=== PATIENT | male | born 1955 | race Hispanic/Latino ===

== ENCOUNTER 2017-06-20 13:08 | Inpatient (IN) | payer OTHER, BC ==
[2017-06-20 13:11] VITALS: BMI 25.1
[2017-06-20] MEDS ORDERED: Sodium Chloride 0.9% 2,000 ML IV ONE (13:24)
[2017-06-20] MEDS ORDERED: DOBUTamine 500mg/250ml D5W 500 MG/250 ML BAG IV SCH (13:30)
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
[2017-06-20 13:40] LABS: BASO % 0.3 % (0.0-2.0); EOS # 0.1 K/uL (0.0-0.7); HEMATOCRIT 29.1 % (35.0-51.0); LYMPH # 2.5 K/uL (1.0-4.3); LYMPH % 41.8 % (20.0-40.0); MEAN CORPUSCULAR HEMOGLOBIN 19.4 pg (27.0-31.0); MEAN CORPUSCULAR HGB CONC 30.4 g/dL (33.0-37.0); MEAN PLATELET VOLUME 8.4 fL (7.2-11.7); MONO # 0.4 K/uL (0.0-0.8); MONO % 6.4 % (0.0-10.0); NRBC % 0.6 % (0.0-2.0); RED CELL DISTRIBUTION WIDTH 16.3 % (11.5-14.5); WHITE BLOOD COUNT 6.1 K/uL (4.8-10.8)
[2017-06-20 13:42] LABS: MEAN CELL VOLUME 63.6 fL (80.0-94.0)
[2017-06-20 13:48] LABS: INR 1.2
[2017-06-20 13:53] LABS: ALKALINE PHOSPHATASE 67 U/L (38-126); ALT/SGPT 44 U/L (21-72); AST/SGOT 44 U/L (17-59); BILIRUBIN,TOTAL 1.1 mg/dL (0.2-1.3); BLOOD UREA NITROGEN 23 mg/dL (9-20); CALCIUM 7.9 mg/dl (8.6-10.4); CARBON DIOXIDE 18 mmol/L (22-30); CHLORIDE 100 mmol/L (98-107); CHOLESTEROL 128 mg/dL (0-199); GFR AFRICAN-AMERICAN > 60; GLUCOSE,RANDOM 220 mg/dL (75-110); POTASSIUM 4.3 mmol/L (3.6-5.2); SODIUM 134 mmol/L (132-148)
[2017-06-20 13:57] LABS: ALB/GLOB RATIO 1.7 (1.0-2.1)
--- NOTE | 2017-06-20 13:58 | RAD ---
HISTORY: s/p intubation COMPARISON: No prior. FINDINGS: LUNGS: The endotracheal tube is at the level of the clavicles 7.7 cm above the skip PLEURA: No significant pleural effusion identified, no pneumothorax apparent. CARDIOVASCULAR: Severe cardiomegaly. Dual lead pacemaker. Sternal wires OSSEOUS STRUCTURES: No significant abnormalities. VISUALIZED UPPER ABDOMEN: Normal. OTHER FINDINGS: None. IMPRESSION: The endotracheal tube is at the level of the clavicles 7.7 cm above the skip
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
[2017-06-20] MEDS ORDERED: DOPamine 400mg/250ml D5W 400 MG/250 ML BAG IV ONE (14:56)
[2017-06-20] MEDS ORDERED: DOPamine 400mg/250ml D5W 400 MG/250 ML BAG IV PRN (15:22)
[2017-06-20 15:36] LABS: ABG MECHANICAL RATE 24; ARTERIAL BLOOD GAS MODE A/C; ATERIAL BLOOD GAS PEEP 5; DRAW SITE LBA
[2017-06-20] MEDS ORDERED: Sodium Bicarbonate (8.4%) 50 Meq Syringe IVP STA (15:37)
[2017-06-20] MEDS ORDERED: Sodium Bicarbonate (8.4%) 50 Meq Syringe ONE (15:40)
[2017-06-20 15:42] LABS: ABG MECHANICAL RATE 24; ARTERIAL BLOOD GAS MODE A/C; ATERIAL BLOOD GAS PEEP 5; DRAW SITE FEMORAL
--- NOTE | 2017-06-20 15:50 | RAD ---
HISTORY: et tube placement COMPARISON: 06/20/2017 at 1:37 p.m. FINDINGS: LUNGS: No pulmonary infiltrate. Minimal linear atelectasis at right base. PLEURA: Minimal blunting of left costophrenic angle may reflect pleural effusion or chronic pleural thickening. No evidence of right pleural effusion. CARDIOVASCULAR: Mild cardiomegaly. Endotracheal tube with tip roughly 6.4 cm above tracheal skip. Permanent pacemaker. OSSEOUS STRUCTURES: No significant abnormalities. VISUALIZED UPPER ABDOMEN: Normal. OTHER FINDINGS: None. IMPRESSION: Endotracheal tube tip appropriately positioned approximately 6.4 cm above tracheal skip.
[2017-06-20 15:53] LABS: BASO % 0.2 % (0.0-2.0); EOS % 0.3 % (0.0-4.0); HEMATOCRIT 30.7 % (35.0-51.0); LYMPH # 0.8 K/uL (1.0-4.3); LYMPH % 6.5 % (20.0-40.0); MEAN CORPUSCULAR HEMOGLOBIN 19.2 pg (27.0-31.0); MEAN CORPUSCULAR HGB CONC 31.3 g/dL (33.0-37.0); MEAN PLATELET VOLUME 9.1 fL (7.2-11.7); MONO # 0.8 K/uL (0.0-0.8); NRBC % 0.2 % (0.0-2.0); PLATELET COUNT 141 K/uL (130-400); RED CELL DISTRIBUTION WIDTH 16.3 % (11.5-14.5); WHITE BLOOD COUNT 12.8 K/uL (4.8-10.8)
[2017-06-20 15:54] LABS: MEAN CELL VOLUME 61.3 fL (80.0-94.0)
[2017-06-20 16:23] LABS: ALB/GLOB RATIO 1.1 (1.0-2.1); ALKALINE PHOSPHATASE 89 U/L (38-126); ALT/SGPT 60 U/L (21-72); AST/SGOT 59 U/L (17-59); BILIRUBIN,TOTAL 0.9 mg/dL (0.2-1.3); BLOOD UREA NITROGEN 26 mg/dL (9-20); CALCIUM 7.4 mg/dl (8.6-10.4); CARBON DIOXIDE 17 mmol/L (22-30); CHLORIDE 103 mmol/L (98-107); GFR AFRICAN-AMERICAN > 60; GLUCOSE,RANDOM 199 mg/dL (75-110); MAGNESIUM 1.7 mg/dL (1.6-2.3); PHOSPHOROUS 5.3 mg/dL (2.5-4.5); SODIUM 133 mmol/L (132-148); TOTAL PROTEIN 7.3 g/dL (6.3-8.3)
[2017-06-20 16:34] LABS: NEUTROPHIL 83 % (50-75); TOTAL CELLS COUNTED 100
[2017-06-20] MEDS: Sodium Chloride 0.9% 1,000 ML IV SCH (17:00)
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
[2017-06-20] MEDS ORDERED: Vecuronium 10 mg Inj IV ONE (17:41)
[2017-06-20] MEDS: Norepinephrine 8 MG in Dextrose 5% In Water 242 ML IV PRN (17:49)
[2017-06-20] MEDS: cefTRIAXone IV 1 gm in Dextros 50 ML IVPB SCH (17:50)
[2017-06-20] MEDS: DEXTROSE 5% IVPB SCH (18:41)
[2017-06-20] MEDS: WATER IVPB SCH (18:41)
[2017-06-20] MEDS: LEVETIRACETAM IVPB SCH (18:41)
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
[2017-06-20] MEDS ORDERED: Propofol 10 mg/ml Inj (100 ml) IV SCH (19:45)
[2017-06-20 20:00] LABS: ABG MECHANICAL RATE 24; ARTERIAL BLOOD GAS MODE A/C; ARTERIAL BLOOD HGB O2 SAT 97.6 % (95.0-98.0); ATERIAL BLOOD GAS PEEP 5; CARBOXYHEMOGLOBIN 0.7 % (0.5-1.5); DRAW SITE LBA; HHB 0.9 % (0.0-5.0); METHEMOGLOBIN 0.8 % (0.0-3.0)
[2017-06-20] MEDS: Propofol 10 mg/ml 1,000 MG/100 ML VIAL IV PRN (20:05)
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
[2017-06-20 20:22] LABS: BASO % 0.1 % (0.0-2.0); HEMATOCRIT 29.8 % (35.0-51.0); LYMPH # 0.8 K/uL (1.0-4.3); LYMPH % 4.1 % (20.0-40.0); MEAN CELL VOLUME 61.8 fL (80.0-94.0); MEAN CORPUSCULAR HEMOGLOBIN 19.1 pg (27.0-31.0); MEAN CORPUSCULAR HGB CONC 30.9 g/dL (33.0-37.0); MEAN PLATELET VOLUME 8.5 fL (7.2-11.7); MONO % 10.5 % (0.0-10.0); NRBC % 0.1 % (0.0-2.0); PLATELET COUNT 183 K/uL (130-400); RED CELL DISTRIBUTION WIDTH 16.2 % (11.5-14.5)
[2017-06-20 20:47] LABS: NEUTROPHIL 82 % (50-75); TOTAL CELLS COUNTED 100
--- NOTE | 2017-06-20 20:51 | CARD ---
APPROVED REPORT EXAM: Two-dimensional and M-mode echocardiogram with Doppler and color Doppler. INDICATION V-Fib Arrest w/ ROSC/ Code blue 2D DIMENSIONS IVSd0.9 (0.7-1.1cm)LVDd6.0 (3.9-5.9cm) PWd0.8 (0.7-1.1cm)LVDs4.3 (2.5-4.0cm) FS (%) 27.5 %LVEF (%)54.5 (>50%) M-Mode DIMENSIONS Left Atrium (MM)4.10 (2.5-4.0cm)Aortic Root3.47 (2.2-3.7cm) Aortic Cusp Exc.2.91 (1.5-2.0cm) Mitral Valve MV E Vujkxuhw207.7cm/sMV E Peak Gr.12mmHgMV A Mifdpodq65.3cm/s MV E Mean Gr.3mmHgMV [id number] ratio1.9 MVA (PHT)1.49cm2 TDI E/Lateral E'0.0E/Medial E'0.0 Tricuspid Valve TR Peak Pshzqcag592ea/sTR Peak Gr.[id number] <Conclusion> Left ventricle: thickness: normal; size: dilatedl; overall ejection fraction: 60%: diastolic filling pressures: elevated Mitral valve: Bioprostheses in situ; leaflets: normal: excursion: normal; 12mmHg trans-mitral gradient: No significant incompetence: left atrium: normal Aortic valve: leaflets: normal: excursion: normal; no significant trans-aortic gradient: No significant incompetence: aortic root: normal Right sided Structures: Pacing lead; RV hypokinesis diffuse; linear echo density i n the psoterior right atrium likley right atrial lead Pulmonary valve: normal; mild incompetence; Tricuspid valve: normal;mild incompetence:12 mmHg transtricuspid gradient; leaflet excursion and morphology was indeterminate Intra-cardiac hemodynamics: pulmonary systolic pressures:40-45mmHg; central venous pressures: elevated No pericardial effusion
[2017-06-20 20:55] LABS: ALB/GLOB RATIO 1.1 (1.0-2.1); BILIRUBIN,TOTAL 0.9 mg/dL (0.2-1.3); CALCIUM 7.6 mg/dl (8.6-10.4); MAGNESIUM 1.6 mg/dL (1.6-2.3); PHOSPHOROUS 3.5 mg/dL (2.5-4.5); POTASSIUM 4.3 mmol/L (3.6-5.2); TOTAL PROTEIN 7.4 g/dL (6.3-8.3); TROPONIN I 6.33 ng/mL (0.00-0.120)
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
[2017-06-21] MEDS: Propofol 10 mg/ml 1,000 MG/100 ML VIAL IV PRN ×2 (02:19→12:15)
[2017-06-21] MEDS: Sodium Chloride 0.9% 1,000 ML IV SCH ×3 (02:21→14:19)
[2017-06-21] MEDS: cefTRIAXone IV 1 gm in Dextros 50 ML IVPB SCH ×2 (05:03→17:30)
[2017-06-21] MEDS: DEXTROSE 5% IVPB SCH ×2 (05:03→18:09)
[2017-06-21] MEDS: LEVETIRACETAM IVPB SCH ×2 (05:03→18:09)
[2017-06-21] MEDS: WATER IVPB SCH ×2 (05:03→18:09)
[2017-06-21 05:50] LABS: ABG MECHANICAL RATE 24; ARTERIAL BLOOD GAS MODE PRVC; ATERIAL BLOOD GAS PEEP 5; DRAW SITE RB
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
[2017-06-21 06:47] LABS: LYMPH # 0.5 K/uL (1.0-4.3); LYMPH % 5.8 % (20.0-40.0); MEAN CELL VOLUME 61.1 fL (80.0-94.0); MEAN CORPUSCULAR HEMOGLOBIN 19.5 pg (27.0-31.0); MEAN CORPUSCULAR HGB CONC 31.9 g/dL (33.0-37.0); MEAN PLATELET VOLUME 8.8 fL (7.2-11.7); MONO # 0.7 K/uL (0.0-0.8); MONO % 8.1 % (0.0-10.0); NRBC % 0.1 % (0.0-2.0); PLATELET COUNT 85 K/uL (130-400); RED CELL DISTRIBUTION WIDTH 15.9 % (11.5-14.5); WHITE BLOOD COUNT 8.2 K/uL (4.8-10.8)
[2017-06-21 06:58] LABS: ALKALINE PHOSPHATASE 79 U/L (38-126); ALT/SGPT 61 U/L (21-72); AST/SGOT 87 U/L (17-59); BILIRUBIN,TOTAL 1.2 mg/dL (0.2-1.3); BLOOD UREA NITROGEN 36 mg/dL (9-20); CALCIUM 7.8 mg/dl (8.6-10.4); CARBON DIOXIDE 20 mmol/L (22-30); CHLORIDE 105 mmol/L (98-107); GFR AFRICAN-AMERICAN > 60; GLUCOSE,RANDOM 108 mg/dL (75-110); MAGNESIUM 1.7 mg/dL (1.6-2.3); PHOSPHOROUS 1.9 mg/dL (2.5-4.5); POTASSIUM 4.2 mmol/L (3.6-5.2); SODIUM 134 mmol/L (132-148); TOTAL PROTEIN 6.5 g/dL (6.3-8.3)
[2017-06-21 08:31] LABS: NEUTROPHIL 82 % (50-75); TOTAL CELLS COUNTED 100
--- NOTE | 2017-06-21 08:34 | CP.CCUPN ---
<Radames Winston - Last Filed: 06/21/17 15:16> CCU Subjective - Physician Review Subjective (Free Text): PGY1 ICU progress note for Dr. Benz Patient seen and examined at bedside this morning. No acute events over night. Patient intubated. ROS unattainable. CCU Objective - Vital Signs / Intake & Output Vital Signs (Last 4 hours): Vital Signs Temp Pulse Resp BP Pulse Ox 06/21/17 08:00 92.0 F L 60 24 109/49 L 100 06/21/17 07:54 61 24 109/49 L 100 06/21/17 07:24 60 24 112/47 L 87 L 06/21/17 07:00 33.7 F L 62 24 117/46 L 87 L 06/21/17 06:54 60 18 117/46 L 85 L 06/21/17 06:24 60 18 116/40 L 80 L 06/21/17 06:00 33.6 F L 60 25 H 107/41 L 06/21/17 05:55 60 24 107/41 L 06/21/17 05:40 61 24 96/54 L 83 L 06/21/17 05:37 60 24 83/51 L 06/21/17 05:25 60 0 L 117/27 L 06/21/17 05:00 33.5 F L 60 24 150/62 97 06/21/17 04:54 61 24 150/62 96 Intake and Output (Last 8hrs): Intake & Output 06/20/17 06/21/17 06/21/17 22:59 06:59 14:59 Intake Total 712.8 1091.4 227.0 Output Total 370 250 220 Balance 342.8 841.4 7.0 Weight 176 lb 5.917 oz 176 lb 5.917 oz Intake: IV 15.0 212 Intake, IV Amount 697.8 879.4 227.0 Right Distal Port Femoral 311.3 700 200 Right Medial Port Femoral 272.5 41.9 8 Right Proximal Port 102 107.5 19.0 Femoral Rt Distal y-site 12 30 Output: Urine 370 250 220 Urethral (Lock) 370 250 220 Other: # Bowel Movements 0 - Physical Exam Physical Exam Limitations: Positive for: Altered Mental Status Head: Positive for: Atraumatic, Normocephalic Pupils: Positive for: Non-Reactive, Pinpoint Conjunctiva: Positive for: Normal Mouth: Positive for: Other (intubated) Nose (Internal): Positive for: No Active Bleeding, Other (dried blood) Neck: Positive for: Trachea Midline Respiratory/Chest: Positive for: Clear to Auscultation, Good Air Exchange. Negative for: Respiratory Distress, Accessory Muscle Use, Wheezes, Rales Cardiovascular: Positive for: Other (paced rhythm at 60bpm) Abdomen: Positive for: Other (active cooling wrap on). Negative for: Distention , Peritoneal Signs, Guarding Upper Extremity: Negative for: Edema Lower Extremity: Positive for: Other (active cooling wraps on) Neurological: Positive for: Other (non-responsive to pain. no gag reflex on suction). Negative for: GCS=15 Skin: Positive for: Dry Psychiatric: Negative for: Alert, Oriented x 3 - Medications Active Medications: Active Medications Generic Name Dose Route Start Last Admin Trade Name Freq PRN Reason Stop Dose Admin Amiodarone HCl 900 mg/ 500 mls @ 16.66 mls/hr 06/20/17 16:22 Dextrose IV 06/21/17 16:21 .Q24H ONE Protocol 0.5 MG/MIN Ceftriaxone Sodium 50 mls @ 100 mls/hr 06/20/17 18:00 06/21/17 05:03 Rocephin Iv 1 Gm Duplex IVPB 100 mls/hr Q12H EMERY Administration Levetiracetam 250 mg/ Dextrose 52.5 mls @ 420 mls/hr 06/20/17 18:00 06/21/17 05:03 IVPB 420 mls/hr Q12H EMERY Administration Norepinephrine Bitartrate 8 mg 250 mls @ 7.5 mls/hr 06/20/17 17:16 06/21/17 05:02 / Dextrose IV 0 mcg/min .Q24H PRN 0 mls/hr TITRATE PER MD ORDER Titration Protocol 4 MCG/MIN Sodium Chloride 1,000 mls @ 100 mls/hr 06/20/17 18:30 06/21/17 05:04 Sodium Chloride 0.9% IV Not Given .Q10H EMERY Propofol 1,000 mg in 100 mls @ 2.4 mls/hr 06/20/17 19:41 06/21/17 05:26 Diprivan IV 20 mcg/kg/min .Q24H PRN 9.6 mls/hr TITRATE PER MD ORDER Titration Protocol 5 MCG/KG/MIN Morphine Sulfate 250 mg/ 250 mls @ 4 mls/hr 06/20/17 20:45 06/20/17 20:54 Sodium Chloride IV 4 ml/hr .Q24H EMERY 4 mls/hr Protocol Administration Lorazepam 1 mg 06/20/17 17:09 06/20/17 17:10 Ativan IVP 1 mg Q4H PRN Administration Anxiety - Patient Studies Lab Studies: Lab Studies 06/21/17 06/21/17 06/21/17 Range/Units 08:19 07:05 06:43 WBC 8.2 D (4.8-10.8) K/uL RBC 4.41 (4.40-5.90) Mil/uL Hgb 8.6 L (12.0-18.0) g/dL Hct 27.0 L (35.0-51.0) % MCV 61.1 L (80.0-94.0) fL MCH 19.5 L (27.0-31.0) pg MCHC 31.9 L (33.0-37.0) g/dL RDW 15.9 H (11.5-14.5) % Plt Count 85 L D (130-400) K/uL MPV 8.8 (7.2-11.7) fL Neut % (Auto) 86.1 H (50.0-75.0) % Lymph % (Auto) 5.8 L (20.0-40.0) % [place] % (Auto) 8.1 (0.0-10.0) % Eos % (Auto) 0.0 (0.0-4.0) % Baso % (Auto) 0.0 (0.0-2.0) % Neut # 7.1 H (1.8-7.0) K/uL Lymph # 0.5 L (1.0-4.3) K/uL [place] # 0.7 (0.0-0.8) K/uL Eos # 0.0 (0.0-0.7) K/uL Baso # 0.0 (0.0-0.2) K/uL Neutrophils % (Manual) 82 H (50-75) % Band Neutrophils % 6 H (0-2) % Lymphocytes % (Manual) 6 L (20-40) % Monocytes % (Manual) 6 (0-10) % Differential Comment Platelet Estimate Decreased L (NORMAL) Hypochromasia (manual) Slight Poikilocytosis (manual Slight Anisocytosis (manual) Slight Microcytosis (manual) Target Cells Tear Drop Cells Slight Ovalocytes [place] Cells Slight PT (9.7-12.2) SECONDS INR APTT (21-34) SECONDS Puncture Site pCO2 (35-45) mm/Hg pO2 (80-100) mm/Hg HCO3 (21-28) mmol/L ABG pH (7.35-7.45) ABG Total CO2 (22-28) mmol/L ABG O2 Saturation (95-98) % ABG Base Excess (-2.0-3.0) mmol/L ABG Hemoglobin (11.7-17.4) g/dL ABG Carboxyhemoglobin (0.5-1.5) % POC ABG HHb (Measured) (0.0-5.0) % ABG Methemoglobin (0.0-3.0) % Shankar Test ABG Potassium (3.6-5.2) mmol/L A-a O2 Difference mm/Hg Respiratory Index Hgb O2 Saturation (95.0-98.0) % Glucose (75-110) mg/dl Lactate (0.7-2.1) mmol/L Vent Mode Mechanical Rate FiO2 % Tidal Volume PEEP Crit Value Called To Crit Value Called By Crit Value Read Back Blood Gas Notified Time Sodium (132-148) mmol/L Potassium (3.6-5.2) mmol/L Chloride (98-107) mmol/L Carbon Dioxide (22-30) mmol/L Anion Gap (10-20) BUN (9-20) mg/dL Creatinine (0.8-1.5) mg/dL Est GFR ( Amer) Est GFR (Non-Af Amer) POC Glucose (mg/dL) 144 H 132 H (65-110) mg/dL Random Glucose (75-110) mg/dL Calcium (8.6-10.4) mg/dl Phosphorus (2.5-4.5) mg/dL Magnesium (1.6-2.3) mg/dL Total Bilirubin (0.2-1.3) mg/dL AST (17-59) U/L ALT (21-72) U/L Alkaline Phosphatase (38-126) U/L Total Creatine Kinase (55-170) U/L CK-MB (Mass) (0.0-3.38) ng/mL Troponin I (0.00-0.120) ng/mL Total Protein (6.3-8.3) g/dL Albumin (3.5-5.0) g/dL Globulin (2.2-3.9) gm/dL Albumin/Globulin Ratio (1.0-2.1) Triglycerides (0-149) mg/dL Cholesterol (0-199) mg/dL LDL Cholesterol Direct (0-129) mg/dL HDL Cholesterol (30-70) mg/dL Arterial Blood Potassium (3.6-5.2) mmol/L Blood Type Antibody Screen 06/21/17 06/21/17 06/21/17 Range/Units 06:36 06:07 05:39 WBC (4.8-10.8) K/uL RBC (4.40-5.90) Mil/uL Hgb (12.0-18.0) g/dL Hct (35.0-51.0) % MCV (80.0-94.0) fL MCH (27.0-31.0) pg MCHC (33.0-37.0) g/dL RDW (11.5-14.5) % Plt Count (130-400) K/uL MPV (7.2-11.7) fL Neut % (Auto) (50.0-75.0) % Lymph % (Auto) (20.0-40.0) % [place] % (Auto) (0.0-10.0) % Eos % (Auto) (0.0-4.0) % Baso % (Auto) (0.0-2.0) % Neut # (1.8-7.0) K/uL Lymph # (1.0-4.3) K/uL [place] # (0.0-0.8) K/uL Eos # (0.0-0.7) K/uL Baso # (0.0-0.2) K/uL Neutrophils % (Manual) (50-75) % Band Neutrophils % (0-2) % Lymphocytes % (Manual) (20-40) % Monocytes % (Manual) (0-10) % Differential Comment Platelet Estimate (NORMAL) Hypochromasia (manual) Poikilocytosis (manual Anisocytosis (manual) Microcytosis (manual) Target Cells Tear Drop Cells Ovalocytes [place] Cells PT (9.7-12.2) SECONDS INR APTT (21-34) SECONDS Puncture Site Rb pCO2 26 L (35-45) mm/Hg pO2 535 H (80-100) mm/Hg HCO3 21.6 (21-28) mmol/L ABG pH 7.45 (7.35-7.45) ABG Total CO2 18.9 L (22-28) mmol/L ABG O2 Saturation 98.7 H (95-98) % ABG Base Excess -4.3 L (-2.0-3.0) mmol/L ABG Hemoglobin (11.7-17.4) g/dL ABG Carboxyhemoglobin (0.5-1.5) % POC ABG HHb (Measured) (0.0-5.0) % ABG Methemoglobin (0.0-3.0) % Shankar Test Na ABG Potassium 4.1 (3.6-5.2) mmol/L A-a O2 Difference 146.0 mm/Hg Respiratory Index 0.3 Hgb O2 Saturation (95.0-98.0) % Glucose 139 H (75-110) mg/dl Lactate 1.1 (0.7-2.1) mmol/L Vent Mode Prvc Mechanical Rate 24 FiO2 100.0 % Tidal Volume 500 PEEP 5 Crit Value Called To Crit Value Called By Crit Value Read Back Blood Gas Notified Time Sodium 134 137.0 (132-148) mmol/L Potassium 4.2 (3.6-5.2) mmol/L Chloride 105 110.0 H (98-107) mmol/L Carbon Dioxide 20 L (22-30) mmol/L Anion Gap 14 (10-20) BUN 36 H (9-20) mg/dL Creatinine 1.3 (0.8-1.5) mg/dL Est GFR ( Amer) > 60 Est GFR (Non-Af Amer) 56 POC Glucose (mg/dL) 129 H (65-110) mg/dL Random Glucose 108 (75-110) mg/dL Calcium 7.8 L (8.6-10.4) mg/dl Phosphorus 1.9 L (2.5-4.5) mg/dL Magnesium 1.7 (1.6-2.3) mg/dL Total Bilirubin 1.2 (0.2-1.3) mg/dL AST 87 H (17-59) U/L ALT 61 (21-72) U/L Alkaline Phosphatase 79 (38-126) U/L Total Creatine Kinase (55-170) U/L CK-MB (Mass) (0.0-3.38) ng/mL Troponin I (0.00-0.120) ng/mL Total Protein 6.5 (6.3-8.3) g/dL Albumin 3.3 L (3.5-5.0) g/dL Globulin 3.2 (2.2-3.9) gm/dL Albumin/Globulin Ratio 1.0 (1.0-2.1) Triglycerides (0-149) mg/dL Cholesterol (0-199) mg/dL LDL Cholesterol Direct (0-129) mg/dL HDL Cholesterol (30-70) mg/dL Arterial Blood Potassium 4.1 (3.6-5.2) mmol/L Blood Type Antibody Screen 06/21/17 06/21/17 06/21/17 Range/Units 05:16 04:18 03:24 WBC (4.8-10.8) K/uL RBC (4.40-5.90) Mil/uL Hgb (12.0-18.0) g/dL Hct (35.0-51.0) % MCV (80.0-94.0) fL MCH (27.0-31.0) pg MCHC (33.0-37.0) g/dL RDW (11.5-14.5) % Plt Count (130-400) K/uL MPV (7.2-11.7) fL Neut % (Auto) (50.0-75.0) % Lymph % (Auto) (20.0-40.0) % [place] % (Auto) (0.0-10.0) % Eos % (Auto) (0.0-4.0) % Baso % (Auto) (0.0-2.0) % Neut # (1.8-7.0) K/uL Lymph # (1.0-4.3) K/uL [place] # (0.0-0.8) K/uL Eos # (0.0-0.7) K/uL Baso # (0.0-0.2) K/uL Neutrophils % (Manual) (50-75) % Band Neutrophils % (0-2) % Lymphocytes % (Manual) (20-40) % Monocytes % (Manual) (0-10) % Differential Comment Platelet Estimate (NORMAL) Hypochromasia (manual) Poikilocytosis (manual Anisocytosis (manual) Microcytosis (manual) Target Cells Tear Drop Cells Ovalocytes [place] Cells PT (9.7-12.2) SECONDS INR APTT (21-34) SECONDS Puncture Site pCO2 (35-45) mm/Hg pO2 (80-100) mm/Hg HCO3 (21-28) mmol/L ABG pH (7.35-7.45) ABG Total CO2 (22-28) mmol/L ABG O2 Saturation (95-98) % ABG Base Excess (-2.0-3.0) mmol/L ABG Hemoglobin (11.7-17.4) g/dL ABG Carboxyhemoglobin (0.5-1.5) % POC ABG HHb (Measured) (0.0-5.0) % ABG Methemoglobin (0.0-3.0) % Shankar Test ABG Potassium (3.6-5.2) mmol/L A-a O2 Difference mm/Hg Respiratory Index Hgb O2 Saturation (95.0-98.0) % Glucose (75-110) mg/dl Lactate (0.7-2.1) mmol/L Vent Mode Mechanical Rate FiO2 % Tidal Volume PEEP Crit Value Called To Crit Value Called By Crit Value Read Back Blood Gas Notified Time Sodium (132-148) mmol/L Potassium (3.6-5.2) mmol/L Chloride (98-107) mmol/L Carbon Dioxide (22-30) mmol/L Anion Gap (10-20) BUN (9-20) mg/dL Creatinine (0.8-1.5) mg/dL Est GFR ( Amer) Est GFR (Non-Af Amer) POC Glucose (mg/dL) 108 117 H 134 H (65-110) mg/dL Random Glucose (75-110) mg/dL Calcium (8.6-10.4) mg/dl Phosphorus (2.5-4.5) mg/dL Magnesium (1.6-2.3) mg/dL Total Bilirubin (0.2-1.3) mg/dL AST (17-59) U/L ALT (21-72) U/L Alkaline Phosphatase (38-126) U/L Total Creatine Kinase (55-170) U/L CK-MB (Mass) (0.0-3.38) ng/mL Troponin I (0.00-0.120) ng/mL Total Protein (6.3-8.3) g/dL Albumin (3.5-5.0) g/dL Globulin (2.2-3.9) gm/dL Albumin/Globulin Ratio (1.0-2.1) Triglycerides (0-149) mg/dL Cholesterol (0-199) mg/dL LDL Cholesterol Direct (0-129) mg/dL HDL Cholesterol (30-70) mg/dL Arterial Blood Potassium (3.6-5.2) mmol/L Blood Type Antibody Screen 06/21/17 06/21/17 06/20/17 Range/Units 02:12 01:00 23:55 WBC (4.8-10.8) K/uL RBC (4.40-5.90) Mil/uL Hgb (12.0-18.0) g/dL Hct (35.0-51.0) % MCV (80.0-94.0) fL MCH (27.0-31.0) pg MCHC (33.0-37.0) g/dL RDW (11.5-14.5) % Plt Count (130-400) K/uL MPV (7.2-11.7) fL Neut % (Auto) (50.0-75.0) % Lymph % (Auto) (20.0-40.0) % [place] % (Auto) (0.0-10.0) % Eos % (Auto) (0.0-4.0) % Baso % (Auto) (0.0-2.0) % Neut # (1.8-7.0) K/uL Lymph # (1.0-4.3) K/uL [place] # (0.0-0.8) K/uL Eos # (0.0-0.7) K/uL Baso # (0.0-0.2) K/uL Neutrophils % (Manual) (50-75) % Band Neutrophils % (0-2) % Lymphocytes % (Manual) (20-40) % Monocytes % (Manual) (0-10) % Differential Comment Platelet Estimate (NORMAL) Hypochromasia (manual) Poikilocytosis (manual Anisocytosis (manual) Microcytosis (manual) Target Cells Tear Drop Cells Ovalocytes [place] Cells PT (9.7-12.2) SECONDS INR APTT (21-34) SECONDS Puncture Site pCO2 (35-45) mm/Hg pO2 (80-100) mm/Hg HCO3 (21-28) mmol/L ABG pH (7.35-7.45) ABG Total CO2 (22-28) mmol/L ABG O2 Saturation (95-98) % ABG Base Excess (-2.0-3.0) mmol/L ABG Hemoglobin (11.7-17.4) g/dL ABG Carboxyhemoglobin (0.5-1.5) % POC ABG HHb (Measured) (0.0-5.0) % ABG Methemoglobin (0.0-3.0) % Shankar Test ABG Potassium (3.6-5.2) mmol/L A-a O2 Difference mm/Hg Respiratory Index Hgb O2 Saturation (95.0-98.0) % Glucose (75-110) mg/dl Lactate (0.7-2.1) mmol/L Vent Mode Mechanical Rate FiO2 % Tidal Volume PEEP Crit Value Called To Crit Value Called By Crit Value Read Back Blood Gas Notified Time Sodium (132-148) mmol/L Potassium (3.6-5.2) mmol/L Chloride (98-107) mmol/L Carbon Dioxide (22-30) mmol/L Anion Gap (10-20) BUN (9-20) mg/dL Creatinine (0.8-1.5) mg/dL Est GFR ( Amer) Est GFR (Non-Af Amer) POC Glucose (mg/dL) 124 H 113 H 104 (65-110) mg/dL Random Glucose (75-110) mg/dL Calcium (8.6-10.4) mg/dl Phosphorus (2.5-4.5) mg/dL Magnesium (1.6-2.3) mg/dL Total Bilirubin (0.2-1.3) mg/dL AST (17-59) U/L ALT (21-72) U/L Alkaline Phosphatase (38-126) U/L Total Creatine Kinase (55-170) U/L CK-MB (Mass) (0.0-3.38) ng/mL Troponin I (0.00-0.120) ng/mL Total Protein (6.3-8.3) g/dL Albumin (3.5-5.0) g/dL Globulin (2.2-3.9) gm/dL Albumin/Globulin Ratio (1.0-2.1) Triglycerides (0-149) mg/dL Cholesterol (0-199) mg/dL LDL Cholesterol Direct (0-129) mg/dL HDL Cholesterol (30-70) mg/dL Arterial Blood Potassium (3.6-5.2) mmol/L Blood Type Antibody Screen 06/20/17 06/20/17 06/20/17 Range/Units 22:54 21:40 20:19 WBC (4.8-10.8) K/uL RBC (4.40-5.90) Mil/uL Hgb (12.0-18.0) g/dL Hct (35.0-51.0) % MCV (80.0-94.0) fL MCH (27.0-31.0) pg MCHC (33.0-37.0) g/dL RDW (11.5-14.5) % Plt Count (130-400) K/uL MPV (7.2-11.7) fL Neut % (Auto) (50.0-75.0) % Lymph % (Auto) (20.0-40.0) % [place] % (Auto) (0.0-10.0) % Eos % (Auto) (0.0-4.0) % Baso % (Auto) (0.0-2.0) % Neut # (1.8-7.0) K/uL Lymph # (1.0-4.3) K/uL [place] # (0.0-0.8) K/uL Eos # (0.0-0.7) K/uL Baso # (0.0-0.2) K/uL Neutrophils % (Manual) (50-75) % Band Neutrophils % (0-2) % Lymphocytes % (Manual) (20-40) % Monocytes % (Manual) (0-10) % Differential Comment Platelet Estimate (NORMAL) Hypochromasia (manual) Poikilocytosis (manual Anisocytosis (manual) Microcytosis (manual) Target Cells Tear Drop Cells Ovalocytes [place] Cells PT (9.7-12.2) SECONDS INR APTT (21-34) SECONDS Puncture Site pCO2 (35-45) mm/Hg pO2 (80-100) mm/Hg HCO3 (21-28) mmol/L ABG pH (7.35-7.45) ABG Total CO2 (22-28) mmol/L ABG O2 Saturation (95-98) % ABG Base Excess (-2.0-3.0) mmol/L ABG Hemoglobin (11.7-17.4) g/dL ABG Carboxyhemoglobin (0.5-1.5) % POC ABG HHb (Measured) (0.0-5.0) % ABG Methemoglobin (0.0-3.0) % Shankar Test ABG Potassium (3.6-5.2) mmol/L A-a O2 Difference mm/Hg Respiratory Index Hgb O2 Saturation (95.0-98.0) % Glucose (75-110) mg/dl Lactate (0.7-2.1) mmol/L Vent Mode Mechanical Rate FiO2 % Tidal Volume PEEP Crit Value Called To Crit Value Called By Crit Value Read Back Blood Gas Notified Time Sodium 137 (132-148) mmol/L Potassium 4.3 (3.6-5.2) mmol/L Chloride 102 (98-107) mmol/L Carbon Dioxide 23 (22-30) mmol/L Anion Gap 15 (10-20) BUN 32 H (9-20) mg/dL Creatinine 1.5 (0.8-1.5) mg/dL Est GFR ( Amer) 58 Est GFR (Non-Af Amer) 48 POC Glucose (mg/dL) 89 107 (65-110) mg/dL Random Glucose 123 H (75-110) mg/dL Calcium 7.6 L (8.6-10.4) mg/dl Phosphorus 3.5 (2.5-4.5) mg/dL Magnesium 1.6 (1.6-2.3) mg/dL Total Bilirubin 0.9 (0.2-1.3) mg/dL AST 80 H D (17-59) U/L ALT 63 (21-72) U/L Alkaline Phosphatase 81 (38-126) U/L Total Creatine Kinase 2174 H (55-170) U/L CK-MB (Mass) 35.2 H (0.0-3.38) ng/mL Troponin I 6.3300 H* (0.00-0.120) ng/mL Total Protein 7.4 (6.3-8.3) g/dL Albumin 3.9 (3.5-5.0) g/dL Globulin 3.5 (2.2-3.9) gm/dL Albumin/Globulin Ratio 1.1 (1.0-2.1) Triglycerides (0-149) mg/dL Cholesterol (0-199) mg/dL LDL Cholesterol Direct (0-129) mg/dL HDL Cholesterol (30-70) mg/dL Arterial Blood Potassium (3.6-5.2) mmol/L Blood Type Antibody Screen 06/20/17 06/20/17 06/20/17 Range/Units 20:19 19:53 15:44 WBC 19.0 H (4.8-10.8) K/uL RBC 4.83 (4.40-5.90) Mil/uL Hgb 9.2 L (12.0-18.0) g/dL Hct 29.8 L (35.0-51.0) % MCV 61.8 L (80.0-94.0) fL MCH 19.1 L (27.0-31.0) pg MCHC 30.9 L (33.0-37.0) g/dL RDW 16.2 H (11.5-14.5) % Plt Count 183 (130-400) K/uL MPV 8.5 (7.2-11.7) fL Neut % (Auto) 85.3 H (50.0-75.0) % Lymph % (Auto) 4.1 L (20.0-40.0) % [place] % (Auto) 10.5 H (0.0-10.0) % Eos % (Auto) 0.0 (0.0-4.0) % Baso % (Auto) 0.1 (0.0-2.0) % Neut # 16.2 H (1.8-7.0) K/uL Lymph # 0.8 L (1.0-4.3) K/uL [place] # 2.0 H (0.0-0.8) K/uL Eos # 0.0 (0.0-0.7) K/uL Baso # 0.0 (0.0-0.2) K/uL Neutrophils % (Manual) 82 H (50-75) % Band Neutrophils % 8 H (0-2) % Lymphocytes % (Manual) 3 L (20-40) % Monocytes % (Manual) 7 (0-10) % Differential Comment Platelet Estimate Normal (NORMAL) Hypochromasia (manual) Slight Poikilocytosis (manual Slight Anisocytosis (manual) Slight Microcytosis (manual) Slight Target Cells Slight Tear Drop Cells Slight Ovalocytes Slight [place] Cells Slight PT (9.7-12.2) SECONDS INR APTT (21-34) SECONDS Puncture Site Lba pCO2 43 (35-45) mm/Hg pO2 (80-100) mm/Hg HCO3 19.2 L (21-28) mmol/L ABG pH 7.26 L (7.35-7.45) ABG Total CO2 20.6 L (22-28) mmol/L ABG O2 Saturation 99.1 H (95-98) % ABG Base Excess -7.4 L (-2.0-3.0) mmol/L ABG Hemoglobin 9.6 L (11.7-17.4) g/dL ABG Carboxyhemoglobin 0.7 (0.5-1.5) % POC ABG HHb (Measured) 0.9 (0.0-5.0) % ABG Methemoglobin 0.8 (0.0-3.0) % Shankar Test Na ABG Potassium (3.6-5.2) mmol/L A-a O2 Difference mm/Hg Respiratory Index Hgb O2 Saturation 97.6 (95.0-98.0) % Glucose (75-110) mg/dl Lactate (0.7-2.1) mmol/L Vent Mode A/c Mechanical Rate 24 FiO2 100.0 % Tidal Volume 500 PEEP 5 Crit Value Called To Crit Value Called By Crit Value Read Back Blood Gas Notified Time Sodium 133 (132-148) mmol/L Potassium 5.0 (3.6-5.2) mmol/L Chloride 103 (98-107) mmol/L Carbon Dioxide 17 L (22-30) mmol/L Anion Gap 18 (10-20) BUN 26 H (9-20) mg/dL Creatinine 1.2 (0.8-1.5) mg/dL Est GFR ( Amer) > 60 Est GFR (Non-Af Amer) > 60 POC Glucose (mg/dL) (65-110) mg/dL Random Glucose 199 H (75-110) mg/dL Calcium 7.4 L (8.6-10.4) mg/dl Phosphorus 5.3 H (2.5-4.5) mg/dL Magnesium 1.7 (1.6-2.3) mg/dL Total Bilirubin 0.9 (0.2-1.3) mg/dL AST 59 D (17-59) U/L ALT 60 (21-72) U/L Alkaline Phosphatase 89 (38-126) U/L Total Creatine Kinase 558 H (55-170) U/L CK-MB (Mass) 18.8 H (0.0-3.38) ng/mL Troponin I 0.7930 H* (0.00-0.120) ng/mL Total Protein 7.3 (6.3-8.3) g/dL Albumin 3.9 (3.5-5.0) g/dL Globulin 3.4 (2.2-3.9) gm/dL Albumin/Globulin Ratio 1.1 (1.0-2.1) Triglycerides (0-149) mg/dL Cholesterol (0-199) mg/dL LDL Cholesterol Direct (0-129) mg/dL HDL Cholesterol (30-70) mg/dL Arterial Blood Potassium (3.6-5.2) mmol/L Blood Type Antibody Screen 06/20/17 06/20/17 06/20/17 Range/Units 15:44 15:38 15:28 WBC 12.8 H D (4.8-10.8) K/uL RBC 5.01 (4.40-5.90) Mil/uL Hgb 9.6 L (12.0-18.0) g/dL Hct 30.7 L (35.0-51.0) % MCV 61.3 L D (80.0-94.0) fL MCH 19.2 L (27.0-31.0) pg MCHC 31.3 L (33.0-37.0) g/dL RDW 16.3 H (11.5-14.5) % Plt Count 141 (130-400) K/uL MPV 9.1 (7.2-11.7) fL Neut % (Auto) 87.0 H (50.0-75.0) % Lymph % (Auto) 6.5 L (20.0-40.0) % [place] % (Auto) 6.0 (0.0-10.0) % Eos % (Auto) 0.3 (0.0-4.0) % Baso % (Auto) 0.2 (0.0-2.0) % Neut # 11.1 H (1.8-7.0) K/uL Lymph # 0.8 L (1.0-4.3) K/uL [place] # 0.8 (0.0-0.8) K/uL Eos # 0.0 (0.0-0.7) K/uL Baso # 0.0 (0.0-0.2) K/uL Neutrophils % (Manual) 83 H (50-75) % Band Neutrophils % 3 H (0-2) % Lymphocytes % (Manual) 7 L (20-40) % Monocytes % (Manual) 7 (0-10) % Differential Comment Platelet Estimate Normal (NORMAL) Hypochromasia (manual) Slight Poikilocytosis (manual Slight Anisocytosis (manual) Moderate Microcytosis (manual) Moderate Target Cells Tear Drop Cells Slight Ovalocytes Slight [place] Cells Slight PT (9.7-12.2) SECONDS INR APTT (21-34) SECONDS Puncture Site Femoral Lba pCO2 37 24 L (35-45) mm/Hg pO2 375 H (80-100) mm/Hg HCO3 19.1 L (21-28) mmol/L ABG pH 7.30 L 7.40 (7.35-7.45) ABG Total CO2 19.3 L 15.6 L (22-28) mmol/L ABG O2 Saturation 99.0 H 98.5 H (95-98) % ABG Base Excess -7.5 L -8.0 L (-2.0-3.0) mmol/L ABG Hemoglobin (11.7-17.4) g/dL ABG Carboxyhemoglobin (0.5-1.5) % POC ABG HHb (Measured) (0.0-5.0) % ABG Methemoglobin (0.0-3.0) % Shankar Test Na Na ABG Potassium 5.3 H 8.2 H* (3.6-5.2) mmol/L A-a O2 Difference 292.0 mm/Hg Respiratory Index 0.8 Hgb O2 Saturation (95.0-98.0) % Glucose 214 H 195 H (75-110) mg/dl Lactate 2.9 H 3.2 H (0.7-2.1) mmol/L Vent Mode A/c A/c Mechanical Rate 24 24 FiO2 100.0 100.0 % Tidal Volume 500 500 PEEP 5 5 Crit Value Called To Dr. boykin Crit Value Called By Marisol rt Crit Value Read Back Y Blood Gas Notified Time 1535 Sodium 135.0 137.0 (132-148) mmol/L Potassium (3.6-5.2) mmol/L Chloride 108.0 H 114.0 H (98-107) mmol/L Carbon Dioxide (22-30) mmol/L Anion Gap (10-20) BUN (9-20) mg/dL Creatinine (0.8-1.5) mg/dL Est GFR ( Amer) Est GFR (Non-Af Amer) POC Glucose (mg/dL) (65-110) mg/dL Random Glucose (75-110) mg/dL Calcium (8.6-10.4) mg/dl Phosphorus (2.5-4.5) mg/dL Magnesium (1.6-2.3) mg/dL Total Bilirubin (0.2-1.3) mg/dL AST (17-59) U/L ALT (21-72) U/L Alkaline Phosphatase (38-126) U/L Total Creatine Kinase (55-170) U/L CK-MB (Mass) (0.0-3.38) ng/mL Troponin I (0.00-0.120) ng/mL Total Protein (6.3-8.3) g/dL Albumin (3.5-5.0) g/dL Globulin (2.2-3.9) gm/dL Albumin/Globulin Ratio (1.0-2.1) Triglycerides (0-149) mg/dL Cholesterol (0-199) mg/dL LDL Cholesterol Direct (0-129) mg/dL HDL Cholesterol (30-70) mg/dL Arterial Blood Potassium 5.3 H 8.2 H* (3.6-5.2) mmol/L Blood Type Antibody Screen 06/20/17 06/20/17 06/20/17 Range/Units 13:36 13:36 13:36 WBC (4.8-10.8) K/uL RBC (4.40-5.90) Mil/uL Hgb (12.0-18.0) g/dL Hct (35.0-51.0) % MCV (80.0-94.0) fL MCH (27.0-31.0) pg MCHC (33.0-37.0) g/dL RDW (11.5-14.5) % Plt Count (130-400) K/uL MPV (7.2-11.7) fL Neut % (Auto) (50.0-75.0) % Lymph % (Auto) (20.0-40.0) % [place] % (Auto) (0.0-10.0) % Eos % (Auto) (0.0-4.0) % Baso % (Auto) (0.0-2.0) % Neut # (1.8-7.0) K/uL Lymph # (1.0-4.3) K/uL [place] # (0.0-0.8) K/uL Eos # (0.0-0.7) K/uL Baso # (0.0-0.2) K/uL Neutrophils % (Manual) (50-75) % Band Neutrophils % (0-2) % Lymphocytes % (Manual) (20-40) % Monocytes % (Manual) (0-10) % Differential Comment Platelet Estimate (NORMAL) Hypochromasia (manual) Poikilocytosis (manual Anisocytosis (manual) Microcytosis (manual) Target Cells Tear Drop Cells Ovalocytes [place] Cells PT 13.4 H (9.7-12.2) SECONDS INR 1.2 APTT 41 H (21-34) SECONDS Puncture Site pCO2 (35-45) mm/Hg pO2 (80-100) mm/Hg HCO3 (21-28) mmol/L ABG pH (7.35-7.45) ABG Total CO2 (22-28) mmol/L ABG O2 Saturation (95-98) % ABG Base Excess (-2.0-3.0) mmol/L ABG Hemoglobin (11.7-17.4) g/dL ABG Carboxyhemoglobin (0.5-1.5) % POC ABG HHb (Measured) (0.0-5.0) % ABG Methemoglobin (0.0-3.0) % Shankar Test ABG Potassium (3.6-5.2) mmol/L A-a O2 Difference mm/Hg Respiratory Index Hgb O2 Saturation (95.0-98.0) % Glucose (75-110) mg/dl Lactate (0.7-2.1) mmol/L Vent Mode Mechanical Rate FiO2 % Tidal Volume PEEP Crit Value Called To Crit Value Called By Crit Value Read Back Blood Gas Notified Time Sodium 134 (132-148) mmol/L Potassium 4.3 (3.6-5.2) mmol/L Chloride 100 (98-107) mmol/L Carbon Dioxide 18 L (22-30) mmol/L Anion Gap 20 (10-20) BUN 23 H (9-20) mg/dL Creatinine 1.2 (0.8-1.5) mg/dL Est GFR ( Amer) > 60 Est GFR (Non-Af Amer) > 60 POC Glucose (mg/dL) (65-110) mg/dL Random Glucose 220 H (75-110) mg/dL Calcium 7.9 L (8.6-10.4) mg/dl Phosphorus (2.5-4.5) mg/dL Magnesium (1.6-2.3) mg/dL Total Bilirubin 1.1 (0.2-1.3) mg/dL AST 44 (17-59) U/L ALT 44 (21-72) U/L Alkaline Phosphatase 67 (38-126) U/L Total Creatine Kinase 109 (55-170) U/L CK-MB (Mass) 2.66 (0.0-3.38) ng/mL Troponin I < 0.0120 (0.00-0.120) ng/mL Total Protein 6.0 L (6.3-8.3) g/dL Albumin 3.8 (3.5-5.0) g/dL Globulin 2.2 (2.2-3.9) gm/dL Albumin/Globulin Ratio 1.7 (1.0-2.1) Triglycerides 126 (0-149) mg/dL Cholesterol 128 (0-199) mg/dL LDL Cholesterol Direct 80 (0-129) mg/dL HDL Cholesterol 28 L (30-70) mg/dL Arterial Blood Potassium (3.6-5.2) mmol/L Blood Type A POSITIVE Antibody Screen Negative 06/20/17 06/20/17 Range/Units 13:36 13:12 WBC 6.1 (4.8-10.8) K/uL RBC 4.57 (4.40-5.90) Mil/uL Hgb 8.9 L (12.0-18.0) g/dL Hct 29.1 L (35.0-51.0) % MCV 63.6 L (80.0-94.0) fL MCH 19.4 L (27.0-31.0) pg MCHC 30.4 L (33.0-37.0) g/dL RDW 16.3 H (11.5-14.5) % Plt Count 144 (130-400) K/uL MPV 8.4 (7.2-11.7) fL Neut % (Auto) 50.5 (50.0-75.0) % Lymph % (Auto) 41.8 H (20.0-40.0) % [place] % (Auto) 6.4 (0.0-10.0) % Eos % (Auto) 1.0 (0.0-4.0) % Baso % (Auto) 0.3 (0.0-2.0) % Neut # 3.1 (1.8-7.0) K/uL Lymph # 2.5 (1.0-4.3) K/uL [place] # 0.4 (0.0-0.8) K/uL Eos # 0.1 (0.0-0.7) K/uL Baso # 0.0 (0.0-0.2) K/uL Neutrophils % (Manual) (50-75) % Band Neutrophils % (0-2) % Lymphocytes % (Manual) (20-40) % Monocytes % (Manual) (0-10) % Differential Comment Platelet Estimate (NORMAL) Hypochromasia (manual) Poikilocytosis (manual Anisocytosis (manual) Microcytosis (manual) Target Cells Tear Drop Cells Ovalocytes [place] Cells PT (9.7-12.2) SECONDS INR APTT (21-34) SECONDS Puncture Site pCO2 (35-45) mm/Hg pO2 (80-100) mm/Hg HCO3 (21-28) mmol/L ABG pH (7.35-7.45) ABG Total CO2 (22-28) mmol/L ABG O2 Saturation (95-98) % ABG Base Excess (-2.0-3.0) mmol/L ABG Hemoglobin (11.7-17.4) g/dL ABG Carboxyhemoglobin (0.5-1.5) % POC ABG HHb (Measured) (0.0-5.0) % ABG Methemoglobin (0.0-3.0) % Shankar Test ABG Potassium (3.6-5.2) mmol/L A-a O2 Difference mm/Hg Respiratory Index Hgb O2 Saturation (95.0-98.0) % Glucose (75-110) mg/dl Lactate (0.7-2.1) mmol/L Vent Mode Mechanical Rate FiO2 % Tidal Volume PEEP Crit Value Called To Crit Value Called By Crit Value Read Back Blood Gas Notified Time Sodium (132-148) mmol/L Potassium (3.6-5.2) mmol/L Chloride (98-107) mmol/L Carbon Dioxide (22-30) mmol/L Anion Gap (10-20) BUN (9-20) mg/dL Creatinine (0.8-1.5) mg/dL Est GFR ( Amer) Est GFR (Non-Af Amer) POC Glucose (mg/dL) 135 H (65-110) mg/dL Random Glucose (75-110) mg/dL Calcium (8.6-10.4) mg/dl Phosphorus (2.5-4.5) mg/dL Magnesium (1.6-2.3) mg/dL Total Bilirubin (0.2-1.3) mg/dL AST (17-59) U/L ALT (21-72) U/L Alkaline Phosphatase (38-126) U/L Total Creatine Kinase (55-170) U/L CK-MB (Mass) (0.0-3.38) ng/mL Troponin I (0.00-0.120) ng/mL Total Protein (6.3-8.3) g/dL Albumin (3.5-5.0) g/dL Globulin (2.2-3.9) gm/dL Albumin/Globulin Ratio (1.0-2.1) Triglycerides (0-149) mg/dL Cholesterol (0-199) mg/dL LDL Cholesterol Direct (0-129) mg/dL HDL Cholesterol (30-70) mg/dL Arterial Blood Potassium (3.6-5.2) mmol/L Blood Type Antibody Screen Laboratory Results - last 24 hr 06/20/17 06/20/17 06/20/17 13:12 13:36 13:36 WBC 6.1 RBC 4.57 Hgb 8.9 L Hct 29.1 L MCV 63.6 L MCH 19.4 L MCHC 30.4 L RDW 16.3 H Plt Count 144 MPV 8.4 Neut % (Auto) 50.5 Lymph % (Auto) 41.8 H [place] % (Auto) 6.4 Eos % (Auto) 1.0 Baso % (Auto) 0.3 Neut # 3.1 Lymph # 2.5 [place] # 0.4 Eos # 0.1 Baso # 0.0 Neutrophils % (Manual) Band Neutrophils % Lymphocytes % (Manual) Monocytes % (Manual) Differential Comment Platelet Estimate Hypochromasia (manual) Poikilocytosis (manual Anisocytosis (manual) Microcytosis (manual) Target Cells Tear Drop Cells Ovalocytes [place] Cells PT 13.4 H INR 1.2 APTT 41 H Puncture Site pCO2 pO2 HCO3 ABG pH ABG Total CO2 ABG O2 Saturation ABG Base Excess ABG Hemoglobin ABG Carboxyhemoglobin POC ABG HHb (Measured) ABG Methemoglobin Shankar Test ABG Potassium A-a O2 Difference Respiratory Index Hgb O2 Saturation Glucose Lactate Vent Mode Mechanical Rate FiO2 Tidal Volume PEEP Crit Value Called To Crit Value Called By Crit Value Read Back Blood Gas Notified Time Sodium Potassium Chloride Carbon Dioxide Anion Gap BUN Creatinine Est GFR ( Amer) Est GFR (Non-Af Amer) POC Glucose (mg/dL) 135 H Random Glucose Calcium Phosphorus Magnesium Total Bilirubin AST ALT Alkaline Phosphatase Total Creatine Kinase CK-MB (Mass) Troponin I Total Protein Albumin Globulin Albumin/Globulin Ratio Triglycerides Cholesterol LDL Cholesterol Direct HDL Cholesterol Arterial Blood Potassium Blood Type Antibody Screen 06/20/17 06/20/17 06/20/17 13:36 13:36 15:28 WBC RBC Hgb Hct MCV MCH MCHC RDW Plt Count MPV Neut % (Auto) Lymph % (Auto) [place] % (Auto) Eos % (Auto) Baso % (Auto) Neut # Lymph # [place] # Eos # Baso # Neutrophils % (Manual) Band Neutrophils % Lymphocytes % (Manual) Monocytes % (Manual) Differential Comment Platelet Estimate Hypochromasia (manual) Poikilocytosis (manual Anisocytosis (manual) Microcytosis (manual) Target Cells Tear Drop Cells Ovalocytes [place] Cells PT INR APTT Puncture Site Lba pCO2 24 L pO2 HCO3 ABG pH 7.40 ABG Total CO2 15.6 L ABG O2 Saturation 98.5 H ABG Base Excess -8.0 L ABG Hemoglobin ABG Carboxyhemoglobin POC ABG HHb (Measured) ABG Methemoglobin Shankar Test Na ABG Potassium 8.2 H* A-a O2 Difference Respiratory Index Hgb O2 Saturation Glucose 195 H Lactate 3.2 H Vent Mode A/c Mechanical Rate 24 FiO2 100.0 Tidal Volume 500 PEEP 5 Crit Value Called To Dr. boykin Crit Value Called By Marisol rt Crit Value Read Back Y Blood Gas Notified Time 1535 Sodium 134 137.0 Potassium 4.3 Chloride 100 114.0 H Carbon Dioxide 18 L Anion Gap 20 BUN 23 H Creatinine 1.2 Est GFR ( Amer) > 60 Est GFR (Non-Af Amer) > 60 POC Glucose (mg/dL) Random Glucose 220 H Calcium 7.9 L Phosphorus Magnesium Total Bilirubin 1.1 AST 44 ALT 44 Alkaline Phosphatase 67 Total Creatine Kinase 109 CK-MB (Mass) 2.66 Troponin I < 0.0120 Total Protein 6.0 L Albumin 3.8 Globulin 2.2 Albumin/Globulin Ratio 1.7 Triglycerides 126 Cholesterol 128 LDL Cholesterol Direct 80 HDL Cholesterol 28 L Arterial Blood Potassium 8.2 H* Blood Type A POSITIVE Antibody Screen Negative 06/20/17 06/20/17 06/20/17 15:38 15:44 15:44 WBC 12.8 H D RBC 5.01 Hgb 9.6 L Hct 30.7 L MCV 61.3 L D MCH 19.2 L MCHC 31.3 L RDW 16.3 H Plt Count 141 MPV 9.1 Neut % (Auto) 87.0 H Lymph % (Auto) 6.5 L [place] % (Auto) 6.0 Eos % (Auto) 0.3 Baso % (Auto) 0.2 Neut # 11.1 H Lymph # 0.8 L [place] # 0.8 Eos # 0.0 Baso # 0.0 Neutrophils % (Manual) 83 H Band Neutrophils % 3 H Lymphocytes % (Manual) 7 L Monocytes % (Manual) 7 Differential Comment Platelet Estimate Normal Hypochromasia (manual) Slight Poikilocytosis (manual Slight Anisocytosis (manual) Moderate Microcytosis (manual) Moderate Target Cells Tear Drop Cells Slight Ovalocytes Slight [place] Cells Slight PT INR APTT Puncture Site Femoral pCO2 37 pO2 375 H HCO3 19.1 L ABG pH 7.30 L ABG Total CO2 19.3 L ABG O2 Saturation 99.0 H ABG Base Excess -7.5 L ABG Hemoglobin ABG Carboxyhemoglobin POC ABG HHb (Measured) ABG Methemoglobin Shankar Test Na ABG Potassium 5.3 H A-a O2 Difference 292.0 Respiratory Index 0.8 Hgb O2 Saturation Glucose 214 H Lactate 2.9 H Vent Mode A/c Mechanical Rate 24 FiO2 100.0 Tidal Volume 500 PEEP 5 Crit Value Called To Crit Value Called By Crit Value Read Back Blood Gas Notified Time Sodium 135.0 133 Potassium 5.0 Chloride 108.0 H 103 Carbon Dioxide 17 L Anion Gap 18 BUN 26 H Creatinine 1.2 Est GFR ( Amer) > 60 Est GFR (Non-Af Amer) > 60 POC Glucose (mg/dL) Random Glucose 199 H Calcium 7.4 L Phosphorus 5.3 H Magnesium 1.7 Total Bilirubin 0.9 AST 59 D ALT 60 Alkaline Phosphatase 89 Total Creatine Kinase 558 H CK-MB (Mass) 18.8 H Troponin I 0.7930 H* Total Protein 7.3 Albumin 3.9 Globulin 3.4 Albumin/Globulin Ratio 1.1 Triglycerides Cholesterol LDL Cholesterol Direct HDL Cholesterol Arterial Blood Potassium 5.3 H Blood Type Antibody Screen 06/20/17 06/20/17 06/20/17 19:53 20:19 20:19 WBC 19.0 H RBC 4.83 Hgb 9.2 L Hct 29.8 L MCV 61.8 L MCH 19.1 L MCHC 30.9 L RDW 16.2 H Plt Count 183 MPV 8.5 Neut % (Auto) 85.3 H Lymph % (Auto) 4.1 L [place] % (Auto) 10.5 H Eos % (Auto) 0.0 Baso % (Auto) 0.1 Neut # 16.2 H Lymph # 0.8 L [place] # 2.0 H Eos # 0.0 Baso # 0.0 Neutrophils % (Manual) 82 H Band Neutrophils % 8 H Lymphocytes % (Manual) 3 L Monocytes % (Manual) 7 Differential Comment Platelet Estimate Normal Hypochromasia (manual) Slight Poikilocytosis (manual Slight Anisocytosis (manual) Slight Microcytosis (manual) Slight Target Cells Slight Tear Drop Cells Slight Ovalocytes Slight [place] Cells Slight PT INR APTT Puncture Site Lba pCO2 43 pO2 HCO3 19.2 L ABG pH 7.26 L ABG Total CO2 20.6 L ABG O2 Saturation 99.1 H ABG Base Excess -7.4 L ABG Hemoglobin 9.6 L ABG Carboxyhemoglobin 0.7 POC ABG HHb (Measured) 0.9 ABG Methemoglobin 0.8 Shankar Test Na ABG Potassium A-a O2 Difference Respiratory Index Hgb O2 Saturation 97.6 Glucose Lactate Vent Mode A/c Mechanical Rate 24 FiO2 100.0 Tidal Volume 500 PEEP 5 Crit Value Called To Crit Value Called By Crit Value Read Back Blood Gas Notified Time Sodium 137 Potassium 4.3 Chloride 102 Carbon Dioxide 23 Anion Gap 15 BUN 32 H Creatinine 1.5 Est GFR ( Amer) 58 Est GFR (Non-Af Amer) 48 POC Glucose (mg/dL) Random Glucose 123 H Calcium 7.6 L Phosphorus 3.5 Magnesium 1.6 Total Bilirubin 0.9 AST 80 H D ALT 63 Alkaline Phosphatase 81 Total Creatine Kinase 2174 H CK-MB (Mass) 35.2 H Troponin I 6.3300 H* Total Protein 7.4 Albumin 3.9 Globulin 3.5 Albumin/Globulin Ratio 1.1 Triglycerides Cholesterol LDL Cholesterol Direct HDL Cholesterol Arterial Blood Potassium Blood Type Antibody Screen 06/20/17 06/20/17 06/20/17 21:40 22:54 23:55 WBC RBC Hgb Hct MCV MCH MCHC RDW Plt Count MPV Neut % (Auto) Lymph % (Auto) [place] % (Auto) Eos % (Auto) Baso % (Auto) Neut # Lymph # [place] # Eos # Baso # Neutrophils % (Manual) Band Neutrophils % Lymphocytes % (Manual) Monocytes % (Manual) Differential Comment Platelet Estimate Hypochromasia (manual) Poikilocytosis (manual Anisocytosis (manual) Microcytosis (manual) Target Cells Tear Drop Cells Ovalocytes [place] Cells PT INR APTT Puncture Site pCO2 pO2 HCO3 ABG pH ABG Total CO2 ABG O2 Saturation ABG Base Excess ABG Hemoglobin ABG Carboxyhemoglobin POC ABG HHb (Measured) ABG Methemoglobin Shankar Test ABG Potassium A-a O2 Difference Respiratory Index Hgb O2 Saturation Glucose Lactate Vent Mode Mechanical Rate FiO2 Tidal Volume PEEP Crit Value Called To Crit Value Called By Crit Value Read Back Blood Gas Notified Time Sodium Potassium Chloride Carbon Dioxide Anion Gap BUN Creatinine Est GFR ( Amer) Est GFR (Non-Af Amer) POC Glucose (mg/dL) 107 89 104 Random Glucose Calcium Phosphorus Magnesium Total Bilirubin AST ALT Alkaline Phosphatase Total Creatine Kinase CK-MB (Mass) Troponin I Total Protein Albumin Globulin Albumin/Globulin Ratio Triglycerides Cholesterol LDL Cholesterol Direct HDL Cholesterol Arterial Blood Potassium Blood Type Antibody Screen 06/21/17 06/21/17 06/21/17 01:00 02:12 03:24 WBC RBC Hgb Hct MCV MCH MCHC RDW Plt Count MPV Neut % (Auto) Lymph % (Auto) [place] % (Auto) Eos % (Auto) Baso % (Auto) Neut # Lymph # [place] # Eos # Baso # Neutrophils % (Manual) Band Neutrophils % Lymphocytes % (Manual) Monocytes % (Manual) Differential Comment Platelet Estimate Hypochromasia (manual) Poikilocytosis (manual Anisocytosis (manual) Microcytosis (manual) Target Cells Tear Drop Cells Ovalocytes [place] Cells PT INR APTT Puncture Site pCO2 pO2 HCO3 ABG pH ABG Total CO2 ABG O2 Saturation ABG Base Excess ABG Hemoglobin ABG Carboxyhemoglobin POC ABG HHb (Measured) ABG Methemoglobin Shankar Test ABG Potassium A-a O2 Difference Respiratory Index Hgb O2 Saturation Glucose Lactate Vent Mode Mechanical Rate FiO2 Tidal Volume PEEP Crit Value Called To Crit Value Called By Crit Value Read Back Blood Gas Notified Time Sodium Potassium Chloride Carbon Dioxide Anion Gap BUN Creatinine Est GFR ( Amer) Est GFR (Non-Af Amer) POC Glucose (mg/dL) 113 H 124 H 134 H Random Glucose Calcium Phosphorus Magnesium Total Bilirubin AST ALT Alkaline Phosphatase Total Creatine Kinase CK-MB (Mass) Troponin I Total Protein Albumin Globulin Albumin/Globulin Ratio Triglycerides Cholesterol LDL Cholesterol Direct HDL Cholesterol Arterial Blood Potassium Blood Type Antibody Screen 06/21/17 06/21/17 06/21/17 04:18 05:16 05:39 WBC RBC Hgb Hct MCV MCH MCHC RDW Plt Count MPV Neut % (Auto) Lymph % (Auto) [place] % (Auto) Eos % (Auto) Baso % (Auto) Neut # Lymph # [place] # Eos # Baso # Neutrophils % (Manual) Band Neutrophils % Lymphocytes % (Manual) Monocytes % (Manual) Differential Comment Platelet Estimate Hypochromasia (manual) Poikilocytosis (manual Anisocytosis (manual) Microcytosis (manual) Target Cells Tear Drop Cells Ovalocytes [place] Cells PT INR APTT Puncture Site Rb pCO2 26 L pO2 535 H HCO3 21.6 ABG pH 7.45 ABG Total CO2 18.9 L ABG O2 Saturation 98.7 H ABG Base Excess -4.3 L ABG Hemoglobin ABG Carboxyhemoglobin POC ABG HHb (Measured) ABG Methemoglobin Shankar Test Na ABG Potassium 4.1 A-a O2 Difference 146.0 Respiratory Index 0.3 Hgb O2 Saturation Glucose 139 H Lactate 1.1 Vent Mode Prvc Mechanical Rate 24 FiO2 100.0 Tidal Volume 500 PEEP 5 Crit Value Called To Crit Value Called By Crit Value Read Back Blood Gas Notified Time Sodium 137.0 Potassium Chloride 110.0 H Carbon Dioxide Anion Gap BUN Creatinine Est GFR ( Amer) Est GFR (Non-Af Amer) POC Glucose (mg/dL) 117 H 108 Random Glucose Calcium Phosphorus Magnesium Total Bilirubin AST ALT Alkaline Phosphatase Total Creatine Kinase CK-MB (Mass) Troponin I Total Protein Albumin Globulin Albumin/Globulin Ratio Triglycerides Cholesterol LDL Cholesterol Direct HDL Cholesterol Arterial Blood Potassium 4.1 Blood Type Antibody Screen 06/21/17 06/21/17 06/21/17 06:07 06:36 06:43 WBC 8.2 D RBC 4.41 Hgb 8.6 L Hct 27.0 L MCV 61.1 L MCH 19.5 L MCHC 31.9 L RDW 15.9 H Plt Count 85 L D MPV 8.8 Neut % (Auto) 86.1 H Lymph % (Auto) 5.8 L [place] % (Auto) 8.1 Eos % (Auto) 0.0 Baso % (Auto) 0.0 Neut # 7.1 H Lymph # 0.5 L [place] # 0.7 Eos # 0.0 Baso # 0.0 Neutrophils % (Manual) 82 H Band Neutrophils % 6 H Lymphocytes % (Manual) 6 L Monocytes % (Manual) 6 Differential Comment Platelet Estimate Decreased L Hypochromasia (manual) Slight Poikilocytosis (manual Slight Anisocytosis (manual) Slight Microcytosis (manual) Target Cells Tear Drop Cells Slight Ovalocytes [place] Cells Slight PT INR APTT Puncture Site pCO2 pO2 HCO3 ABG pH ABG Total CO2 ABG O2 Saturation ABG Base Excess ABG Hemoglobin ABG Carboxyhemoglobin POC ABG HHb (Measured) ABG Methemoglobin Shankar Test ABG Potassium A-a O2 Difference Respiratory Index Hgb O2 Saturation Glucose Lactate Vent Mode Mechanical Rate FiO2 Tidal Volume PEEP Crit Value Called To Crit Value Called By Crit Value Read Back Blood Gas Notified Time Sodium 134 Potassium 4.2 Chloride 105 Carbon Dioxide 20 L Anion Gap 14 BUN 36 H Creatinine 1.3 Est GFR ( Amer) > 60 Est GFR (Non-Af Amer) 56 POC Glucose (mg/dL) 129 H Random Glucose 108 Calcium 7.8 L Phosphorus 1.9 L Magnesium 1.7 Total Bilirubin 1.2 AST 87 H ALT 61 Alkaline Phosphatase 79 Total Creatine Kinase CK-MB (Mass) Troponin I Total Protein 6.5 Albumin 3.3 L Globulin 3.2 Albumin/Globulin Ratio 1.0 Triglycerides Cholesterol LDL Cholesterol Direct HDL Cholesterol Arterial Blood Potassium Blood Type Antibody Screen 06/21/17 06/21/17 07:05 08:19 WBC RBC Hgb Hct MCV MCH MCHC RDW Plt Count MPV Neut % (Auto) Lymph % (Auto) [place] % (Auto) Eos % (Auto) Baso % (Auto) Neut # Lymph # [place] # Eos # Baso # Neutrophils % (Manual) Band Neutrophils % Lymphocytes % (Manual) Monocytes % (Manual) Differential Comment Platelet Estimate Hypochromasia (manual) Poikilocytosis (manual Anisocytosis (manual) Microcytosis (manual) Target Cells Tear Drop Cells Ovalocytes [place] Cells PT INR APTT Puncture Site pCO2 pO2 HCO3 ABG pH ABG Total CO2 ABG O2 Saturation ABG Base Excess ABG Hemoglobin ABG Carboxyhemoglobin POC ABG HHb (Measured) ABG Methemoglobin Shankar Test ABG Potassium A-a O2 Difference Respiratory Index Hgb O2 Saturation Glucose Lactate Vent Mode Mechanical Rate FiO2 Tidal Volume PEEP Crit Value Called To Crit Value Called By Crit Value Read Back Blood Gas Notified Time Sodium Potassium Chloride Carbon Dioxide Anion Gap BUN Creatinine Est GFR ( Amer) Est GFR (Non-Af Amer) POC Glucose (mg/dL) 132 H 144 H Random Glucose Calcium Phosphorus Magnesium Total Bilirubin AST ALT Alkaline Phosphatase Total Creatine Kinase CK-MB (Mass) Troponin I Total Protein Albumin Globulin Albumin/Globulin Ratio Triglycerides Cholesterol LDL Cholesterol Direct HDL Cholesterol Arterial Blood Potassium Blood Type Antibody Screen EKG/Cardiology Studies: Cardiology / EKG Studies 06/20/17 13:14 EKG [ELECTROCARDIOGRAM] Stat Comment: Mode Of Transportation: BED Reason For Exam: cardiac arrest 06/20/17 16:12 EKG [ELECTROCARDIOGRAM] Stat Comment: Mode Of Transportation: Reason For Exam: cardiac arrest Fingerstick Blood Sugar Results: 144 Review of Systems - Review of Systems Systems not reviewed;Unavailable: Intubated Critical Care Progress Note - Nutrition Nutrition: Nutrition Category Date Time Status NPO Diet [DIET] Diets 06/20/17 Dinner Active Assessment/Plan - Assessment and Plan (Free Text) Assessment: 61 year old male with a PMH of Essential hypertension, Pulmonary hypertension, tricuspid valve replacement, mitral valve replacement, hx of a. flutter, atrial septal defect, anemia, a.fib, hyperlipidemia present s/p cardiac arrest. Plan: Cardio: Dr. Platt consulted, help appreciated Dr. Elizondo consulted, help appreciated ECHO - no pericardial effusion seen, awaiting official read EKG - paced rhythm Trop (06/20)- initial <0.012, second 0.793, third 6.3 [employer] pacemaker Model S602/Serial [id number] implanted on October 03, 2009 Guidant Lead Model 4137/Serial [id number] [place] Lead Model 1688TC Rep from [email or web address] came and interrogated pacemaker. Pacemaker is functioning properly. - Pacemaker recorded 3 events of Vtach around 1:30 pm today (06/20/17) - Increased packmaker rate to 75bpm Femoral Central line placed Norepinephrine drip Normal Saline @100mL/hr Lock placed Strict I's & O's f/u cardio recs - f/u cervical spine x-ray - r/o fracture - further cardiac eval will depend on chances for neurologic recovery CODE Freeze - start rewarming at 17:00 today Records obtained from [facility] in [place], [place]. - Essential hypertension, Pulmonary hypertension, tricuspid valve replacement, mitral valve replacement, hx of a. flutter, atrial septal defect, anemia, a.fib, hyperlipidemia. - Surgical hx: mitral valve replacement(2008), tricuspid valve replacement( 2008), ASD repair(2008), duel chamber pacemaker(2008) Neurology: Dr. Ash Frausto consulted, help appreciated Head CT w/o - no acute findings Keppra 250mg IVPB q12h Patient was place on a Propofol drip and Morphine drip overnight. Patient originally had a gag reflex upon admission yesterday, but it was absent today on exam. Sedative drips were discontinued. After a short period of time, patient began to experience jerking motions. Pupils became slightly larger and slightly reactive to light, although very sluggish. Propofol drip and Morphine drip were restarted. f/u Neuro recs - plan for EEG and head CT tomorrow after Code Freeze rewarming is complete Respiratory: Intubated CXR - Endotracheal tube tip appropriately positioned approximately 6.4 cm above tracheal skip. No other acute findings. ABG - femoral stick, pCO2 26/ pO2 / HCO3 19.1/ pH 7.3 - taken while on vent settings A/c, TV 500/FiO2 100/RR 24/ PEEP 5 Vent settings changed to TV 500/FiO2 50/RR 24/ PEEP 5 Electrolytes: Phos 1.9 - repleted w/NeuroPhos packet BID Heme: Hgb decreased to 8.2 from 8.9 on admission Platelets decreased to 82 from 144 on admission Prophylactic Care: SCDs anticoag contra indicated due to thrombocytopenia (platelets 82 today) protonix 40mg IVP daily Case discussed with Dr. Demar Crum Catrachito PGY1 <Alexandru Benz S - Last Filed: 06/21/17 18:48> CCU Objective - Vital Signs / Intake & Output Vital Signs (Last 4 hours): Vital Signs Temp Pulse Resp BP Pulse Ox 06/21/17 18:04 92.7 F L 60 20 102/25 L 06/21/17 18:00 60 16 06/21/17 17:54 117 H 12 103/25 L 06/21/17 17:24 60 19 103/27 L 100 06/21/17 17:00 92.7 F L 60 19 102/25 L 100 06/21/17 16:54 60 12 96/27 L 100 06/21/17 16:24 60 13 105/29 L 100 06/21/17 16:05 60 15 104/29 L 100 06/21/17 16:00 92.7 F L 60 11 L 104/29 L 100 06/21/17 15:24 60 19 92/32 L 100 06/21/17 15:00 92.5 F L 60 11 L 102/36 L 100 06/21/17 14:54 60 14 102/36 L 100 Intake and Output (Last 8hrs): Intake & Output 06/21/17 06/21/17 06/21/17 06:59 14:59 22:59 Intake Total 1091.4 909.6 351.4 Output Total 250 585 100 Balance 841.4 324.6 251.4 Weight 176 lb 5.917 oz Intake: IV 212 46 25 Intake, IV Amount 879.4 863.6 326.4 Right Distal Port Femoral 700 800 300 Right Medial Port Femoral 41.9 16 12 Right Proximal Port 107.5 47.6 14.4 Femoral Rt Distal y-site 30 Output: Urine 250 585 100 Urethral (Lock) 250 585 100 Other: # Bowel Movements 0 - Medications Active Medications: Active Medications Generic Name Dose Route Start Last Admin Trade Name Freq PRN Reason Stop Dose Admin Artificial Tears 0 gm 06/21/17 10:01 06/21/17 12:44 Lacri-Lube OU 1 gm Q4 PRN Administration Dry eyes Ceftriaxone Sodium 50 mls @ 100 mls/hr 06/20/17 18:00 06/21/17 17:30 Rocephin Iv 1 Gm Duplex IVPB 100 mls/hr Q12H EMERY Administration Levetiracetam 250 mg/ Dextrose 52.5 mls @ 420 mls/hr 06/20/17 18:00 06/21/17 18:09 IVPB 420 mls/hr Q12H EMERY Administration Norepinephrine Bitartrate 8 mg 250 mls @ 7.5 mls/hr 06/20/17 17:16 06/21/17 05:02 / Dextrose IV 0 mcg/min .Q24H PRN 0 mls/hr TITRATE PER MD ORDER Titration Protocol 4 MCG/MIN Sodium Chloride 1,000 mls @ 100 mls/hr 06/20/17 18:30 06/21/17 14:19 Sodium Chloride 0.9% IV 100 mls/hr .Q10H EMERY Administration Propofol 1,000 mg in 100 mls @ 2.4 mls/hr 06/21/17 12:02 06/21/17 18:08 Diprivan IV 20 mcg/kg/min .Q24H PRN 9.6 mls/hr TITRATE PER MD ORDER Titration Protocol 5 MCG/KG/MIN Morphine Sulfate 250 mg/ 250 mls @ 4 mls/hr 06/21/17 12:30 06/21/17 14:22 Sodium Chloride IV 4 mg/hr .Q24H EMERY 4 mls/hr Protocol Administration Lorazepam 1 mg 06/20/17 17:09 06/20/17 17:10 Ativan IVP 1 mg Q4H PRN Administration Anxiety Pantoprazole Sodium 40 mg 06/21/17 10:00 06/21/17 11:52 Protonix Inj IVP 40 mg DAILY EMERY Administration Potassium Phos/Sodium Phos 1 pkt 06/21/17 10:00 06/21/17 17:30 Neutra-Phos PO 1 pkt BIDCC EMERY Administration - Patient Studies Lab Studies: Lab Studies 06/21/17 06/21/17 06/21/17 Range/Units 17:59 17:22 16:31 WBC (4.8-10.8) K/uL RBC (4.40-5.90) Mil/uL Hgb (12.0-18.0) g/dL Hct (35.0-51.0) % MCV (80.0-94.0) fL MCH (27.0-31.0) pg MCHC (33.0-37.0) g/dL RDW (11.5-14.5) % Plt Count (130-400) K/uL MPV (7.2-11.7) fL Neut % (Auto) (50.0-75.0) % Lymph % (Auto) (20.0-40.0) % [place] % (Auto) (0.0-10.0) % Eos % (Auto) (0.0-4.0) % Baso % (Auto) (0.0-2.0) % Neut # (1.8-7.0) K/uL Lymph # (1.0-4.3) K/uL [place] # (0.0-0.8) K/uL Eos # (0.0-0.7) K/uL Baso # (0.0-0.2) K/uL Neutrophils % (Manual) (50-75) % Band Neutrophils % (0-2) % Lymphocytes % (Manual) (20-40) % Monocytes % (Manual) (0-10) % Platelet Estimate (NORMAL) Hypochromasia (manual) Poikilocytosis (manual Anisocytosis (manual) Microcytosis (manual) Target Cells Tear Drop Cells Ovalocytes [place] Cells Puncture Site pCO2 (35-45) mm/Hg pO2 (80-100) mm/Hg HCO3 (21-28) mmol/L ABG pH (7.35-7.45) ABG Total CO2 (22-28) mmol/L ABG O2 Saturation (95-98) % ABG Base Excess (-2.0-3.0) mmol/L ABG Hemoglobin (11.7-17.4) g/dL ABG Carboxyhemoglobin (0.5-1.5) % POC ABG HHb (Measured) (0.0-5.0) % ABG Methemoglobin (0.0-3.0) % Shankar Test ABG Potassium (3.6-5.2) mmol/L A-a O2 Difference mm/Hg Respiratory Index Hgb O2 Saturation (95.0-98.0) % Glucose (75-110) mg/dl Lactate (0.7-2.1) mmol/L Vent Mode Mechanical Rate FiO2 % Tidal Volume PEEP Sodium 134 (132-148) mmol/L Potassium 4.8 (3.6-5.2) mmol/L Chloride 104 (98-107) mmol/L Carbon Dioxide 21 L (22-30) mmol/L Anion Gap 13 (10-20) BUN 36 H (9-20) mg/dL Creatinine 1.2 (0.8-1.5) mg/dL Est GFR ( Amer) > 60 Est GFR (Non-Af Amer) > 60 POC Glucose (mg/dL) 85 84 (65-110) mg/dL Random Glucose 82 (75-110) mg/dL Calcium 7.5 L (8.6-10.4) mg/dl Phosphorus 4.5 (2.5-4.5) mg/dL Magnesium 1.7 (1.6-2.3) mg/dL Total Bilirubin 1.2 (0.2-1.3) mg/dL AST 116 H D (17-59) U/L ALT 62 (21-72) U/L Alkaline Phosphatase 71 (38-126) U/L Total Creatine Kinase (55-170) U/L CK-MB (Mass) (0.0-3.38) ng/mL Troponin I (0.00-0.120) ng/mL Total Protein 5.7 L (6.3-8.3) g/dL Albumin 3.3 L (3.5-5.0) g/dL Globulin 2.4 (2.2-3.9) gm/dL Albumin/Globulin Ratio 1.4 (1.0-2.1) Arterial Blood Potassium (3.6-5.2) mmol/L 06/21/17 06/21/17 06/21/17 Range/Units 16:31 16:20 15:19 WBC 8.2 (4.8-10.8) K/uL RBC 4.42 (4.40-5.90) Mil/uL Hgb 8.6 L (12.0-18.0) g/dL Hct 27.1 L (35.0-51.0) % MCV 61.4 L (80.0-94.0) fL MCH 19.5 L (27.0-31.0) pg MCHC 31.8 L (33.0-37.0) g/dL RDW 16.1 H (11.5-14.5) % Plt Count 91 L (130-400) K/uL MPV 8.6 (7.2-11.7) fL Neut % (Auto) 83.0 H (50.0-75.0) % Lymph % (Auto) 6.6 L (20.0-40.0) % [place] % (Auto) 10.3 H (0.0-10.0) % Eos % (Auto) 0.0 (0.0-4.0) % Baso % (Auto) 0.1 (0.0-2.0) % Neut # 6.8 (1.8-7.0) K/uL Lymph # 0.5 L (1.0-4.3) K/uL [place] # 0.8 (0.0-0.8) K/uL Eos # 0.0 (0.0-0.7) K/uL Baso # 0.0 (0.0-0.2) K/uL Neutrophils % (Manual) 85 H (50-75) % Band Neutrophils % 2 (0-2) % Lymphocytes % (Manual) 8 L (20-40) % Monocytes % (Manual) 5 (0-10) % Platelet Estimate Decreased L (NORMAL) Hypochromasia (manual) Moderate Poikilocytosis (manual Slight Anisocytosis (manual) Slight Microcytosis (manual) Slight Target Cells Tear Drop Cells Ovalocytes [place] Cells Puncture Site pCO2 (35-45) mm/Hg pO2 (80-100) mm/Hg HCO3 (21-28) mmol/L ABG pH (7.35-7.45) ABG Total CO2 (22-28) mmol/L ABG O2 Saturation (95-98) % ABG Base Excess (-2.0-3.0) mmol/L ABG Hemoglobin (11.7-17.4) g/dL ABG Carboxyhemoglobin (0.5-1.5) % POC ABG HHb (Measured) (0.0-5.0) % ABG Methemoglobin (0.0-3.0) % Shankar Test ABG Potassium (3.6-5.2) mmol/L A-a O2 Difference mm/Hg Respiratory Index Hgb O2 Saturation (95.0-98.0) % Glucose (75-110) mg/dl Lactate (0.7-2.1) mmol/L Vent Mode Mechanical Rate FiO2 % Tidal Volume PEEP Sodium (132-148) mmol/L Potassium (3.6-5.2) mmol/L Chloride (98-107) mmol/L Carbon Dioxide (22-30) mmol/L Anion Gap (10-20) BUN (9-20) mg/dL Creatinine (0.8-1.5) mg/dL Est GFR ( Amer) Est GFR (Non-Af Amer) POC Glucose (mg/dL) 106 90 (65-110) mg/dL Random Glucose (75-110) mg/dL Calcium (8.6-10.4) mg/dl Phosphorus (2.5-4.5) mg/dL Magnesium (1.6-2.3) mg/dL Total Bilirubin (0.2-1.3) mg/dL AST (17-59) U/L ALT (21-72) U/L Alkaline Phosphatase (38-126) U/L Total Creatine Kinase (55-170) U/L CK-MB (Mass) (0.0-3.38) ng/mL Troponin I (0.00-0.120) ng/mL Total Protein (6.3-8.3) g/dL Albumin (3.5-5.0) g/dL Globulin (2.2-3.9) gm/dL Albumin/Globulin Ratio (1.0-2.1) Arterial Blood Potassium (3.6-5.2) mmol/L 06/21/17 06/21/17 06/21/17 Range/Units 14:03 13:06 11:55 WBC (4.8-10.8) K/uL RBC (4.40-5.90) Mil/uL Hgb (12.0-18.0) g/dL Hct (35.0-51.0) % MCV (80.0-94.0) fL MCH (27.0-31.0) pg MCHC (33.0-37.0) g/dL RDW (11.5-14.5) % Plt Count (130-400) K/uL MPV (7.2-11.7) fL Neut % (Auto) (50.0-75.0) % Lymph % (Auto) (20.0-40.0) % [place] % (Auto) (0.0-10.0) % Eos % (Auto) (0.0-4.0) % Baso % (Auto) (0.0-2.0) % Neut # (1.8-7.0) K/uL Lymph # (1.0-4.3) K/uL [place] # (0.0-0.8) K/uL Eos # (0.0-0.7) K/uL Baso # (0.0-0.2) K/uL Neutrophils % (Manual) (50-75) % Band Neutrophils % (0-2) % Lymphocytes % (Manual) (20-40) % Monocytes % (Manual) (0-10) % Platelet Estimate (NORMAL) Hypochromasia (manual) Poikilocytosis (manual Anisocytosis (manual) Microcytosis (manual) Target Cells Tear Drop Cells Ovalocytes [place] Cells Puncture Site pCO2 (35-45) mm/Hg pO2 (80-100) mm/Hg HCO3 (21-28) mmol/L ABG pH (7.35-7.45) ABG Total CO2 (22-28) mmol/L ABG O2 Saturation (95-98) % ABG Base Excess (-2.0-3.0) mmol/L ABG Hemoglobin (11.7-17.4) g/dL ABG Carboxyhemoglobin (0.5-1.5) % POC ABG HHb (Measured) (0.0-5.0) % ABG Methemoglobin (0.0-3.0) % Shankar Test ABG Potassium (3.6-5.2) mmol/L A-a O2 Difference mm/Hg Respiratory Index Hgb O2 Saturation (95.0-98.0) % Glucose (75-110) mg/dl Lactate (0.7-2.1) mmol/L Vent Mode Mechanical Rate FiO2 % Tidal Volume PEEP Sodium (132-148) mmol/L Potassium (3.6-5.2) mmol/L Chloride (98-107) mmol/L Carbon Dioxide (22-30) mmol/L Anion Gap (10-20) BUN (9-20) mg/dL Creatinine (0.8-1.5) mg/dL Est GFR ( Amer) Est GFR (Non-Af Amer) POC Glucose (mg/dL) 104 106 99 (65-110) mg/dL Random Glucose (75-110) mg/dL Calcium (8.6-10.4) mg/dl Phosphorus (2.5-4.5) mg/dL Magnesium (1.6-2.3) mg/dL Total Bilirubin (0.2-1.3) mg/dL AST (17-59) U/L ALT (21-72) U/L Alkaline Phosphatase (38-126) U/L Total Creatine Kinase (55-170) U/L CK-MB (Mass) (0.0-3.38) ng/mL Troponin I (0.00-0.120) ng/mL Total Protein (6.3-8.3) g/dL Albumin (3.5-5.0) g/dL Globulin (2.2-3.9) gm/dL Albumin/Globulin Ratio (1.0-2.1) Arterial Blood Potassium (3.6-5.2) mmol/L 06/21/17 06/21/17 06/21/17 Range/Units 11:18 11:18 11:04 WBC 5.8 (4.8-10.8) K/uL RBC 4.19 L (4.40-5.90) Mil/uL Hgb 8.2 L (12.0-18.0) g/dL Hct 25.5 L (35.0-51.0) % MCV 60.9 L (80.0-94.0) fL MCH 19.5 L (27.0-31.0) pg MCHC 32.0 L (33.0-37.0) g/dL RDW 16.1 H (11.5-14.5) % Plt Count 82 L (130-400) K/uL MPV 8.8 (7.2-11.7) fL Neut % (Auto) 83.9 H (50.0-75.0) % Lymph % (Auto) 7.4 L (20.0-40.0) % [place] % (Auto) 8.6 (0.0-10.0) % Eos % (Auto) 0.1 (0.0-4.0) % Baso % (Auto) 0.0 (0.0-2.0) % Neut # 4.8 (1.8-7.0) K/uL Lymph # 0.4 L (1.0-4.3) K/uL [place] # 0.5 (0.0-0.8) K/uL Eos # 0.0 (0.0-0.7) K/uL Baso # 0.0 (0.0-0.2) K/uL Neutrophils % (Manual) 84 H (50-75) % Band Neutrophils % 4 H (0-2) % Lymphocytes % (Manual) 5 L (20-40) % Monocytes % (Manual) 7 (0-10) % Platelet Estimate Normal (NORMAL) Hypochromasia (manual) Slight Poikilocytosis (manual Slight Anisocytosis (manual) Slight Microcytosis (manual) Target Cells Tear Drop Cells Slight Ovalocytes [place] Cells Slight Puncture Site pCO2 (35-45) mm/Hg pO2 (80-100) mm/Hg HCO3 (21-28) mmol/L ABG pH (7.35-7.45) ABG Total CO2 (22-28) mmol/L ABG O2 Saturation (95-98) % ABG Base Excess (-2.0-3.0) mmol/L ABG Hemoglobin (11.7-17.4) g/dL ABG Carboxyhemoglobin (0.5-1.5) % POC ABG HHb (Measured) (0.0-5.0) % ABG Methemoglobin (0.0-3.0) % Shankar Test ABG Potassium (3.6-5.2) mmol/L A-a O2 Difference mm/Hg Respiratory Index Hgb O2 Saturation (95.0-98.0) % Glucose (75-110) mg/dl Lactate (0.7-2.1) mmol/L Vent Mode Mechanical Rate FiO2 % Tidal Volume PEEP Sodium 134 (132-148) mmol/L Potassium 3.9 (3.6-5.2) mmol/L Chloride 105 (98-107) mmol/L Carbon Dioxide 21 L (22-30) mmol/L Anion Gap 12 (10-20) BUN 36 H (9-20) mg/dL Creatinine 1.2 (0.8-1.5) mg/dL Est GFR ( Amer) > 60 Est GFR (Non-Af Amer) > 60 POC Glucose (mg/dL) 105 (65-110) mg/dL Random Glucose 99 (75-110) mg/dL Calcium 7.5 L (8.6-10.4) mg/dl Phosphorus 3.0 (2.5-4.5) mg/dL Magnesium 1.7 (1.6-2.3) mg/dL Total Bilirubin 0.9 (0.2-1.3) mg/dL AST 94 H (17-59) U/L ALT 58 (21-72) U/L Alkaline Phosphatase 67 (38-126) U/L Total Creatine Kinase (55-170) U/L CK-MB (Mass) (0.0-3.38) ng/mL Troponin I (0.00-0.120) ng/mL Total Protein 6.3 (6.3-8.3) g/dL Albumin 3.1 L (3.5-5.0) g/dL Globulin 3.3 (2.2-3.9) gm/dL Albumin/Globulin Ratio 0.9 L (1.0-2.1) Arterial Blood Potassium (3.6-5.2) mmol/L 06/21/17 06/21/17 06/21/17 Range/Units 10:10 09:17 08:19 WBC (4.8-10.8) K/uL RBC (4.40-5.90) Mil/uL Hgb (12.0-18.0) g/dL Hct (35.0-51.0) % MCV (80.0-94.0) fL MCH (27.0-31.0) pg MCHC (33.0-37.0) g/dL RDW (11.5-14.5) % Plt Count (130-400) K/uL MPV (7.2-11.7) fL Neut % (Auto) (50.0-75.0) % Lymph % (Auto) (20.0-40.0) % [place] % (Auto) (0.0-10.0) % Eos % (Auto) (0.0-4.0) % Baso % (Auto) (0.0-2.0) % Neut # (1.8-7.0) K/uL Lymph # (1.0-4.3) K/uL [place] # (0.0-0.8) K/uL Eos # (0.0-0.7) K/uL Baso # (0.0-0.2) K/uL Neutrophils % (Manual) (50-75) % Band Neutrophils % (0-2) % Lymphocytes % (Manual) (20-40) % Monocytes % (Manual) (0-10) % Platelet Estimate (NORMAL) Hypochromasia (manual) Poikilocytosis (manual Anisocytosis (manual) Microcytosis (manual) Target Cells Tear Drop Cells Ovalocytes [place] Cells Puncture Site pCO2 (35-45) mm/Hg pO2 (80-100) mm/Hg HCO3 (21-28) mmol/L ABG pH (7.35-7.45) ABG Total CO2 (22-28) mmol/L ABG O2 Saturation (95-98) % ABG Base Excess (-2.0-3.0) mmol/L ABG Hemoglobin (11.7-17.4) g/dL ABG Carboxyhemoglobin (0.5-1.5) % POC ABG HHb (Measured) (0.0-5.0) % ABG Methemoglobin (0.0-3.0) % Shankar Test ABG Potassium (3.6-5.2) mmol/L A-a O2 Difference mm/Hg Respiratory Index Hgb O2 Saturation (95.0-98.0) % Glucose (75-110) mg/dl Lactate (0.7-2.1) mmol/L Vent Mode Mechanical Rate FiO2 % Tidal Volume PEEP Sodium (132-148) mmol/L Potassium (3.6-5.2) mmol/L Chloride (98-107) mmol/L Carbon Dioxide (22-30) mmol/L Anion Gap (10-20) BUN (9-20) mg/dL Creatinine (0.8-1.5) mg/dL Est GFR ( Amer) Est GFR (Non-Af Amer) POC Glucose (mg/dL) 112 H 128 H 144 H (65-110) mg/dL Random Glucose (75-110) mg/dL Calcium (8.6-10.4) mg/dl Phosphorus (2.5-4.5) mg/dL Magnesium (1.6-2.3) mg/dL Total Bilirubin (0.2-1.3) mg/dL AST (17-59) U/L ALT (21-72) U/L Alkaline Phosphatase (38-126) U/L Total Creatine Kinase (55-170) U/L CK-MB (Mass) (0.0-3.38) ng/mL Troponin I (0.00-0.120) ng/mL Total Protein (6.3-8.3) g/dL Albumin (3.5-5.0) g/dL Globulin (2.2-3.9) gm/dL Albumin/Globulin Ratio (1.0-2.1) Arterial Blood Potassium (3.6-5.2) mmol/L 06/21/17 06/21/17 06/21/17 Range/Units 07:05 06:43 06:36 WBC 8.2 D (4.8-10.8) K/uL RBC 4.41 (4.40-5.90) Mil/uL Hgb 8.6 L (12.0-18.0) g/dL Hct 27.0 L (35.0-51.0) % MCV 61.1 L (80.0-94.0) fL MCH 19.5 L (27.0-31.0) pg MCHC 31.9 L (33.0-37.0) g/dL RDW 15.9 H (11.5-14.5) % Plt Count 85 L D (130-400) K/uL MPV 8.8 (7.2-11.7) fL Neut % (Auto) 86.1 H (50.0-75.0) % Lymph % (Auto) 5.8 L (20.0-40.0) % [place] % (Auto) 8.1 (0.0-10.0) % Eos % (Auto) 0.0 (0.0-4.0) % Baso % (Auto) 0.0 (0.0-2.0) % Neut # 7.1 H (1.8-7.0) K/uL Lymph # 0.5 L (1.0-4.3) K/uL [place] # 0.7 (0.0-0.8) K/uL Eos # 0.0 (0.0-0.7) K/uL Baso # 0.0 (0.0-0.2) K/uL Neutrophils % (Manual) 82 H (50-75) % Band Neutrophils % 6 H (0-2) % Lymphocytes % (Manual) 6 L (20-40) % Monocytes % (Manual) 6 (0-10) % Platelet Estimate Decreased L (NORMAL) Hypochromasia (manual) Slight Poikilocytosis (manual Slight Anisocytosis (manual) Slight Microcytosis (manual) Target Cells Tear Drop Cells Slight Ovalocytes [place] Cells Slight Puncture Site pCO2 (35-45) mm/Hg pO2 (80-100) mm/Hg HCO3 (21-28) mmol/L ABG pH (7.35-7.45) ABG Total CO2 (22-28) mmol/L ABG O2 Saturation (95-98) % ABG Base Excess (-2.0-3.0) mmol/L ABG Hemoglobin (11.7-17.4) g/dL ABG Carboxyhemoglobin (0.5-1.5) % POC ABG HHb (Measured) (0.0-5.0) % ABG Methemoglobin (0.0-3.0) % Shankar Test ABG Potassium (3.6-5.2) mmol/L A-a O2 Difference mm/Hg Respiratory Index Hgb O2 Saturation (95.0-98.0) % Glucose (75-110) mg/dl Lactate (0.7-2.1) mmol/L Vent Mode Mechanical Rate FiO2 % Tidal Volume PEEP Sodium 134 (132-148) mmol/L Potassium 4.2 (3.6-5.2) mmol/L Chloride 105 (98-107) mmol/L Carbon Dioxide 20 L (22-30) mmol/L Anion Gap 14 (10-20) BUN 36 H (9-20) mg/dL Creatinine 1.3 (0.8-1.5) mg/dL Est GFR ( Amer) > 60 Est GFR (Non-Af Amer) 56 POC Glucose (mg/dL) 132 H (65-110) mg/dL Random Glucose 108 (75-110) mg/dL Calcium 7.8 L (8.6-10.4) mg/dl Phosphorus 1.9 L (2.5-4.5) mg/dL Magnesium 1.7 (1.6-2.3) mg/dL Total Bilirubin 1.2 (0.2-1.3) mg/dL AST 87 H (17-59) U/L ALT 61 (21-72) U/L Alkaline Phosphatase 79 (38-126) U/L Total Creatine Kinase (55-170) U/L CK-MB (Mass) (0.0-3.38) ng/mL Troponin I (0.00-0.120) ng/mL Total Protein 6.5 (6.3-8.3) g/dL Albumin 3.3 L (3.5-5.0) g/dL Globulin 3.2 (2.2-3.9) gm/dL Albumin/Globulin Ratio 1.0 (1.0-2.1) Arterial Blood Potassium (3.6-5.2) mmol/L 06/21/17 06/21/17 06/21/17 Range/Units 06:07 05:39 05:16 WBC (4.8-10.8) K/uL RBC (4.40-5.90) Mil/uL Hgb (12.0-18.0) g/dL Hct (35.0-51.0) % MCV (80.0-94.0) fL MCH (27.0-31.0) pg MCHC (33.0-37.0) g/dL RDW (11.5-14.5) % Plt Count (130-400) K/uL MPV (7.2-11.7) fL Neut % (Auto) (50.0-75.0) % Lymph % (Auto) (20.0-40.0) % [place] % (Auto) (0.0-10.0) % Eos % (Auto) (0.0-4.0) % Baso % (Auto) (0.0-2.0) % Neut # (1.8-7.0) K/uL Lymph # (1.0-4.3) K/uL [place] # (0.0-0.8) K/uL Eos # (0.0-0.7) K/uL Baso # (0.0-0.2) K/uL Neutrophils % (Manual) (50-75) % Band Neutrophils % (0-2) % Lymphocytes % (Manual) (20-40) % Monocytes % (Manual) (0-10) % Platelet Estimate (NORMAL) Hypochromasia (manual) Poikilocytosis (manual Anisocytosis (manual) Microcytosis (manual) Target Cells Tear Drop Cells Ovalocytes [place] Cells Puncture Site Rb pCO2 26 L (35-45) mm/Hg pO2 535 H (80-100) mm/Hg HCO3 21.6 (21-28) mmol/L ABG pH 7.45 (7.35-7.45) ABG Total CO2 18.9 L (22-28) mmol/L ABG O2 Saturation 98.7 H (95-98) % ABG Base Excess -4.3 L (-2.0-3.0) mmol/L ABG Hemoglobin (11.7-17.4) g/dL ABG Carboxyhemoglobin (0.5-1.5) % POC ABG HHb (Measured) (0.0-5.0) % ABG Methemoglobin (0.0-3.0) % Shankar Test Na ABG Potassium 4.1 (3.6-5.2) mmol/L A-a O2 Difference 146.0 mm/Hg Respiratory Index 0.3 Hgb O2 Saturation (95.0-98.0) % Glucose 139 H (75-110) mg/dl Lactate 1.1 (0.7-2.1) mmol/L Vent Mode Prvc Mechanical Rate 24 FiO2 100.0 % Tidal Volume 500 PEEP 5 Sodium 137.0 (132-148) mmol/L Potassium (3.6-5.2) mmol/L Chloride 110.0 H (98-107) mmol/L Carbon Dioxide (22-30) mmol/L Anion Gap (10-20) BUN (9-20) mg/dL Creatinine (0.8-1.5) mg/dL Est GFR ( Amer) Est GFR (Non-Af Amer) POC Glucose (mg/dL) 129 H 108 (65-110) mg/dL Random Glucose (75-110) mg/dL Calcium (8.6-10.4) mg/dl Phosphorus (2.5-4.5) mg/dL Magnesium (1.6-2.3) mg/dL Total Bilirubin (0.2-1.3) mg/dL AST (17-59) U/L ALT (21-72) U/L Alkaline Phosphatase (38-126) U/L Total Creatine Kinase (55-170) U/L CK-MB (Mass) (0.0-3.38) ng/mL Troponin I (0.00-0.120) ng/mL Total Protein (6.3-8.3) g/dL Albumin (3.5-5.0) g/dL Globulin (2.2-3.9) gm/dL Albumin/Globulin Ratio (1.0-2.1) Arterial Blood Potassium 4.1 (3.6-5.2) mmol/L 06/21/17 06/21/17 06/21/17 Range/Units 04:18 03:24 02:12 WBC (4.8-10.8) K/uL RBC (4.40-5.90) Mil/uL Hgb (12.0-18.0) g/dL Hct (35.0-51.0) % MCV (80.0-94.0) fL MCH (27.0-31.0) pg MCHC (33.0-37.0) g/dL RDW (11.5-14.5) % Plt Count (130-400) K/uL MPV (7.2-11.7) fL Neut % (Auto) (50.0-75.0) % Lymph % (Auto) (20.0-40.0) % [place] % (Auto) (0.0-10.0) % Eos % (Auto) (0.0-4.0) % Baso % (Auto) (0.0-2.0) % Neut # (1.8-7.0) K/uL Lymph # (1.0-4.3) K/uL [place] # (0.0-0.8) K/uL Eos # (0.0-0.7) K/uL Baso # (0.0-0.2) K/uL Neutrophils % (Manual) (50-75) % Band Neutrophils % (0-2) % Lymphocytes % (Manual) (20-40) % Monocytes % (Manual) (0-10) % Platelet Estimate (NORMAL) Hypochromasia (manual) Poikilocytosis (manual Anisocytosis (manual) Microcytosis (manual) Target Cells Tear Drop Cells Ovalocytes [place] Cells Puncture Site pCO2 (35-45) mm/Hg pO2 (80-100) mm/Hg HCO3 (21-28) mmol/L ABG pH (7.35-7.45) ABG Total CO2 (22-28) mmol/L ABG O2 Saturation (95-98) % ABG Base Excess (-2.0-3.0) mmol/L ABG Hemoglobin (11.7-17.4) g/dL ABG Carboxyhemoglobin (0.5-1.5) % POC ABG HHb (Measured) (0.0-5.0) % ABG Methemoglobin (0.0-3.0) % Shankar Test ABG Potassium (3.6-5.2) mmol/L A-a O2 Difference mm/Hg Respiratory Index Hgb O2 Saturation (95.0-98.0) % Glucose (75-110) mg/dl Lactate (0.7-2.1) mmol/L Vent Mode Mechanical Rate FiO2 % Tidal Volume PEEP Sodium (132-148) mmol/L Potassium (3.6-5.2) mmol/L Chloride (98-107) mmol/L Carbon Dioxide (22-30) mmol/L Anion Gap (10-20) BUN (9-20) mg/dL Creatinine (0.8-1.5) mg/dL Est GFR ( Amer) Est GFR (Non-Af Amer) POC Glucose (mg/dL) 117 H 134 H 124 H (65-110) mg/dL Random Glucose (75-110) mg/dL Calcium (8.6-10.4) mg/dl Phosphorus (2.5-4.5) mg/dL Magnesium (1.6-2.3) mg/dL Total Bilirubin (0.2-1.3) mg/dL AST (17-59) U/L ALT (21-72) U/L Alkaline Phosphatase (38-126) U/L Total Creatine Kinase (55-170) U/L CK-MB (Mass) (0.0-3.38) ng/mL Troponin I (0.00-0.120) ng/mL Total Protein (6.3-8.3) g/dL Albumin (3.5-5.0) g/dL Globulin (2.2-3.9) gm/dL Albumin/Globulin Ratio (1.0-2.1) Arterial Blood Potassium (3.6-5.2) mmol/L 06/21/17 06/20/17 06/20/17 Range/Units 01:00 23:55 22:54 WBC (4.8-10.8) K/uL RBC (4.40-5.90) Mil/uL Hgb (12.0-18.0) g/dL Hct (35.0-51.0) % MCV (80.0-94.0) fL MCH (27.0-31.0) pg MCHC (33.0-37.0) g/dL RDW (11.5-14.5) % Plt Count (130-400) K/uL MPV (7.2-11.7) fL Neut % (Auto) (50.0-75.0) % Lymph % (Auto) (20.0-40.0) % [place] % (Auto) (0.0-10.0) % Eos % (Auto) (0.0-4.0) % Baso % (Auto) (0.0-2.0) % Neut # (1.8-7.0) K/uL Lymph # (1.0-4.3) K/uL [place] # (0.0-0.8) K/uL Eos # (0.0-0.7) K/uL Baso # (0.0-0.2) K/uL Neutrophils % (Manual) (50-75) % Band Neutrophils % (0-2) % Lymphocytes % (Manual) (20-40) % Monocytes % (Manual) (0-10) % Platelet Estimate (NORMAL) Hypochromasia (manual) Poikilocytosis (manual Anisocytosis (manual) Microcytosis (manual) Target Cells Tear Drop Cells Ovalocytes [place] Cells Puncture Site pCO2 (35-45) mm/Hg pO2 (80-100) mm/Hg HCO3 (21-28) mmol/L ABG pH (7.35-7.45) ABG Total CO2 (22-28) mmol/L ABG O2 Saturation (95-98) % ABG Base Excess (-2.0-3.0) mmol/L ABG Hemoglobin (11.7-17.4) g/dL ABG Carboxyhemoglobin (0.5-1.5) % POC ABG HHb (Measured) (0.0-5.0) % ABG Methemoglobin (0.0-3.0) % Shankar Test ABG Potassium (3.6-5.2) mmol/L A-a O2 Difference mm/Hg Respiratory Index Hgb O2 Saturation (95.0-98.0) % Glucose (75-110) mg/dl Lactate (0.7-2.1) mmol/L Vent Mode Mechanical Rate FiO2 % Tidal Volume PEEP Sodium (132-148) mmol/L Potassium (3.6-5.2) mmol/L Chloride (98-107) mmol/L Carbon Dioxide (22-30) mmol/L Anion Gap (10-20) BUN (9-20) mg/dL Creatinine (0.8-1.5) mg/dL Est GFR ( Amer) Est GFR (Non-Af Amer) POC Glucose (mg/dL) 113 H 104 89 (65-110) mg/dL Random Glucose (75-110) mg/dL Calcium (8.6-10.4) mg/dl Phosphorus (2.5-4.5) mg/dL Magnesium (1.6-2.3) mg/dL Total Bilirubin (0.2-1.3) mg/dL AST (17-59) U/L ALT (21-72) U/L Alkaline Phosphatase (38-126) U/L Total Creatine Kinase (55-170) U/L CK-MB (Mass) (0.0-3.38) ng/mL Troponin I (0.00-0.120) ng/mL Total Protein (6.3-8.3) g/dL Albumin (3.5-5.0) g/dL Globulin (2.2-3.9) gm/dL Albumin/Globulin Ratio (1.0-2.1) Arterial Blood Potassium (3.6-5.2) mmol/L 06/20/17 06/20/17 06/20/17 Range/Units 21:40 20:19 20:19 WBC 19.0 H (4.8-10.8) K/uL RBC 4.83 (4.40-5.90) Mil/uL Hgb 9.2 L (12.0-18.0) g/dL Hct 29.8 L (35.0-51.0) % MCV 61.8 L (80.0-94.0) fL MCH 19.1 L (27.0-31.0) pg MCHC 30.9 L (33.0-37.0) g/dL RDW 16.2 H (11.5-14.5) % Plt Count 183 (130-400) K/uL MPV 8.5 (7.2-11.7) fL Neut % (Auto) 85.3 H (50.0-75.0) % Lymph % (Auto) 4.1 L (20.0-40.0) % [place] % (Auto) 10.5 H (0.0-10.0) % Eos % (Auto) 0.0 (0.0-4.0) % Baso % (Auto) 0.1 (0.0-2.0) % Neut # 16.2 H (1.8-7.0) K/uL Lymph # 0.8 L (1.0-4.3) K/uL [place] # 2.0 H (0.0-0.8) K/uL Eos # 0.0 (0.0-0.7) K/uL Baso # 0.0 (0.0-0.2) K/uL Neutrophils % (Manual) 82 H (50-75) % Band Neutrophils % 8 H (0-2) % Lymphocytes % (Manual) 3 L (20-40) % Monocytes % (Manual) 7 (0-10) % Platelet Estimate Normal (NORMAL) Hypochromasia (manual) Slight Poikilocytosis (manual Slight Anisocytosis (manual) Slight Microcytosis (manual) Slight Target Cells Slight Tear Drop Cells Slight Ovalocytes Slight [place] Cells Slight Puncture Site pCO2 (35-45) mm/Hg pO2 (80-100) mm/Hg HCO3 (21-28) mmol/L ABG pH (7.35-7.45) ABG Total CO2 (22-28) mmol/L ABG O2 Saturation (95-98) % ABG Base Excess (-2.0-3.0) mmol/L ABG Hemoglobin (11.7-17.4) g/dL ABG Carboxyhemoglobin (0.5-1.5) % POC ABG HHb (Measured) (0.0-5.0) % ABG Methemoglobin (0.0-3.0) % Shankar Test ABG Potassium (3.6-5.2) mmol/L A-a O2 Difference mm/Hg Respiratory Index Hgb O2 Saturation (95.0-98.0) % Glucose (75-110) mg/dl Lactate (0.7-2.1) mmol/L Vent Mode Mechanical Rate FiO2 % Tidal Volume PEEP Sodium 137 (132-148) mmol/L Potassium 4.3 (3.6-5.2) mmol/L Chloride 102 (98-107) mmol/L Carbon Dioxide 23 (22-30) mmol/L Anion Gap 15 (10-20) BUN 32 H (9-20) mg/dL Creatinine 1.5 (0.8-1.5) mg/dL Est GFR ( Amer) 58 Est GFR (Non-Af Amer) 48 POC Glucose (mg/dL) 107 (65-110) mg/dL Random Glucose 123 H (75-110) mg/dL Calcium 7.6 L (8.6-10.4) mg/dl Phosphorus 3.5 (2.5-4.5) mg/dL Magnesium 1.6 (1.6-2.3) mg/dL Total Bilirubin 0.9 (0.2-1.3) mg/dL AST 80 H D (17-59) U/L ALT 63 (21-72) U/L Alkaline Phosphatase 81 (38-126) U/L Total Creatine Kinase 2174 H (55-170) U/L CK-MB (Mass) 35.2 H (0.0-3.38) ng/mL Troponin I 6.3300 H* (0.00-0.120) ng/mL Total Protein 7.4 (6.3-8.3) g/dL Albumin 3.9 (3.5-5.0) g/dL Globulin 3.5 (2.2-3.9) gm/dL Albumin/Globulin Ratio 1.1 (1.0-2.1) Arterial Blood Potassium (3.6-5.2) mmol/L 06/20/17 06/20/17 Range/Units 19:53 15:44 WBC (4.8-10.8) K/uL RBC (4.40-5.90) Mil/uL Hgb (12.0-18.0) g/dL Hct (35.0-51.0) % MCV (80.0-94.0) fL MCH (27.0-31.0) pg MCHC (33.0-37.0) g/dL RDW (11.5-14.5) % Plt Count (130-400) K/uL MPV (7.2-11.7) fL Neut % (Auto) (50.0-75.0) % Lymph % (Auto) (20.0-40.0) % [place] % (Auto) (0.0-10.0) % Eos % (Auto) (0.0-4.0) % Baso % (Auto) (0.0-2.0) % Neut # (1.8-7.0) K/uL Lymph # (1.0-4.3) K/uL [place] # (0.0-0.8) K/uL Eos # (0.0-0.7) K/uL Baso # (0.0-0.2) K/uL Neutrophils % (Manual) (50-75) % Band Neutrophils % (0-2) % Lymphocytes % (Manual) (20-40) % Monocytes % (Manual) (0-10) % Platelet Estimate (NORMAL) Hypochromasia (manual) Poikilocytosis (manual Anisocytosis (manual) Microcytosis (manual) Target Cells Tear Drop Cells Ovalocytes [place] Cells Puncture Site Lba pCO2 43 (35-45) mm/Hg pO2 (80-100) mm/Hg HCO3 19.2 L (21-28) mmol/L ABG pH 7.26 L (7.35-7.45) ABG Total CO2 20.6 L (22-28) mmol/L ABG O2 Saturation 99.1 H (95-98) % ABG Base Excess -7.4 L (-2.0-3.0) mmol/L ABG Hemoglobin 9.6 L (11.7-17.4) g/dL ABG Carboxyhemoglobin 0.7 (0.5-1.5) % POC ABG HHb (Measured) 0.9 (0.0-5.0) % ABG Methemoglobin 0.8 (0.0-3.0) % Shankar Test Na ABG Potassium (3.6-5.2) mmol/L A-a O2 Difference mm/Hg Respiratory Index Hgb O2 Saturation 97.6 (95.0-98.0) % Glucose (75-110) mg/dl Lactate (0.7-2.1) mmol/L Vent Mode A/c Mechanical Rate 24 FiO2 100.0 % Tidal Volume 500 PEEP 5 Sodium (132-148) mmol/L Potassium (3.6-5.2) mmol/L Chloride (98-107) mmol/L Carbon Dioxide (22-30) mmol/L Anion Gap (10-20) BUN (9-20) mg/dL Creatinine (0.8-1.5) mg/dL Est GFR ( Amer) Est GFR (Non-Af Amer) POC Glucose (mg/dL) (65-110) mg/dL Random Glucose (75-110) mg/dL Calcium (8.6-10.4) mg/dl Phosphorus (2.5-4.5) mg/dL Magnesium (1.6-2.3) mg/dL Total Bilirubin (0.2-1.3) mg/dL AST (17-59) U/L ALT (21-72) U/L Alkaline Phosphatase (38-126) U/L Total Creatine Kinase (55-170) U/L CK-MB (Mass) (0.0-3.38) ng/mL Troponin I 0.7930 H* (0.00-0.120) ng/mL Total Protein (6.3-8.3) g/dL Albumin (3.5-5.0) g/dL Globulin (2.2-3.9) gm/dL Albumin/Globulin Ratio (1.0-2.1) Arterial Blood Potassium (3.6-5.2) mmol/L Laboratory Results - last 24 hr 06/20/17 06/20/17 06/20/17 15:44 19:53 20:19 WBC 19.0 H RBC 4.83 Hgb 9.2 L Hct 29.8 L MCV 61.8 L MCH 19.1 L MCHC 30.9 L RDW 16.2 H Plt Count 183 MPV 8.5 Neut % (Auto) 85.3 H Lymph % (Auto) 4.1 L [place] % (Auto) 10.5 H Eos % (Auto) 0.0 Baso % (Auto) 0.1 Neut # 16.2 H Lymph # 0.8 L [place] # 2.0 H Eos # 0.0 Baso # 0.0 Neutrophils % (Manual) 82 H Band Neutrophils % 8 H Lymphocytes % (Manual) 3 L Monocytes % (Manual) 7 Platelet Estimate Normal Hypochromasia (manual) Slight Poikilocytosis (manual Slight Anisocytosis (manual) Slight Microcytosis (manual) Slight Target Cells Slight Tear Drop Cells Slight Ovalocytes Slight [place] Cells Slight Puncture Site Lba pCO2 43 pO2 HCO3 19.2 L ABG pH 7.26 L ABG Total CO2 20.6 L ABG O2 Saturation 99.1 H ABG Base Excess -7.4 L ABG Hemoglobin 9.6 L ABG Carboxyhemoglobin 0.7 POC ABG HHb (Measured) 0.9 ABG Methemoglobin 0.8 Shankar Test Na ABG Potassium A-a O2 Difference Respiratory Index Hgb O2 Saturation 97.6 Glucose Lactate Vent Mode A/c Mechanical Rate 24 FiO2 100.0 Tidal Volume 500 PEEP 5 Sodium Potassium Chloride Carbon Dioxide Anion Gap BUN Creatinine Est GFR ( Amer) Est GFR (Non-Af Amer) POC Glucose (mg/dL) Random Glucose Calcium Phosphorus Magnesium Total Bilirubin AST ALT Alkaline Phosphatase Total Creatine Kinase CK-MB (Mass) Troponin I 0.7930 H* Total Protein Albumin Globulin Albumin/Globulin Ratio Arterial Blood Potassium 06/20/17 06/20/17 06/20/17 20:19 21:40 22:54 WBC RBC Hgb Hct MCV MCH MCHC RDW Plt Count MPV Neut % (Auto) Lymph % (Auto) [place] % (Auto) Eos % (Auto) Baso % (Auto) Neut # Lymph # [place] # Eos # Baso # Neutrophils % (Manual) Band Neutrophils % Lymphocytes % (Manual) Monocytes % (Manual) Platelet Estimate Hypochromasia (manual) Poikilocytosis (manual Anisocytosis (manual) Microcytosis (manual) Target Cells Tear Drop Cells Ovalocytes [place] Cells Puncture Site pCO2 pO2 HCO3 ABG pH ABG Total CO2 ABG O2 Saturation ABG Base Excess ABG Hemoglobin ABG Carboxyhemoglobin POC ABG HHb (Measured) ABG Methemoglobin Shankar Test ABG Potassium A-a O2 Difference Respiratory Index Hgb O2 Saturation Glucose Lactate Vent Mode Mechanical Rate FiO2 Tidal Volume PEEP Sodium 137 Potassium 4.3 Chloride 102 Carbon Dioxide 23 Anion Gap 15 BUN 32 H Creatinine 1.5 Est GFR ( Amer) 58 Est GFR (Non-Af Amer) 48 POC Glucose (mg/dL) 107 89 Random Glucose 123 H Calcium 7.6 L Phosphorus 3.5 Magnesium 1.6 Total Bilirubin 0.9 AST 80 H D ALT 63 Alkaline Phosphatase 81 Total Creatine Kinase 2174 H CK-MB (Mass) 35.2 H Troponin I 6.3300 H* Total Protein 7.4 Albumin 3.9 Globulin 3.5 Albumin/Globulin Ratio 1.1 Arterial Blood Potassium 06/20/17 06/21/17 06/21/17 23:55 01:00 02:12 WBC RBC Hgb Hct MCV MCH MCHC RDW Plt Count MPV Neut % (Auto) Lymph % (Auto) [place] % (Auto) Eos % (Auto) Baso % (Auto) Neut # Lymph # [place] # Eos # Baso # Neutrophils % (Manual) Band Neutrophils % Lymphocytes % (Manual) Monocytes % (Manual) Platelet Estimate Hypochromasia (manual) Poikilocytosis (manual Anisocytosis (manual) Microcytosis (manual) Target Cells Tear Drop Cells Ovalocytes [place] Cells Puncture Site pCO2 pO2 HCO3 ABG pH ABG Total CO2 ABG O2 Saturation ABG Base Excess ABG Hemoglobin ABG Carboxyhemoglobin POC ABG HHb (Measured) ABG Methemoglobin Shankar Test ABG Potassium A-a O2 Difference Respiratory Index Hgb O2 Saturation Glucose Lactate Vent Mode Mechanical Rate FiO2 Tidal Volume PEEP Sodium Potassium Chloride Carbon Dioxide Anion Gap BUN Creatinine Est GFR ( Amer) Est GFR (Non-Af Amer) POC Glucose (mg/dL) 104 113 H 124 H Random Glucose Calcium Phosphorus Magnesium Total Bilirubin AST ALT Alkaline Phosphatase Total Creatine Kinase CK-MB (Mass) Troponin I Total Protein Albumin Globulin Albumin/Globulin Ratio Arterial Blood Potassium 06/21/17 06/21/17 06/21/17 03:24 04:18 05:16 WBC RBC Hgb Hct MCV MCH MCHC RDW Plt Count MPV Neut % (Auto) Lymph % (Auto) [place] % (Auto) Eos % (Auto) Baso % (Auto) Neut # Lymph # [place] # Eos # Baso # Neutrophils % (Manual) Band Neutrophils % Lymphocytes % (Manual) Monocytes % (Manual) Platelet Estimate Hypochromasia (manual) Poikilocytosis (manual Anisocytosis (manual) Microcytosis (manual) Target Cells Tear Drop Cells Ovalocytes [place] Cells Puncture Site pCO2 pO2 HCO3 ABG pH ABG Total CO2 ABG O2 Saturation ABG Base Excess ABG Hemoglobin ABG Carboxyhemoglobin POC ABG HHb (Measured) ABG Methemoglobin Shankar Test ABG Potassium A-a O2 Difference Respiratory Index Hgb O2 Saturation Glucose Lactate Vent Mode Mechanical Rate FiO2 Tidal Volume PEEP Sodium Potassium Chloride Carbon Dioxide Anion Gap BUN Creatinine Est GFR ( Amer) Est GFR (Non-Af Amer) POC Glucose (mg/dL) 134 H 117 H 108 Random Glucose Calcium Phosphorus Magnesium Total Bilirubin AST ALT Alkaline Phosphatase Total Creatine Kinase CK-MB (Mass) Troponin I Total Protein Albumin Globulin Albumin/Globulin Ratio Arterial Blood Potassium 06/21/17 06/21/17 06/21/17 05:39 06:07 06:36 WBC RBC Hgb Hct MCV MCH MCHC RDW Plt Count MPV Neut % (Auto) Lymph % (Auto) [place] % (Auto) Eos % (Auto) Baso % (Auto) Neut # Lymph # [place] # Eos # Baso # Neutrophils % (Manual) Band Neutrophils % Lymphocytes % (Manual) Monocytes % (Manual) Platelet Estimate Hypochromasia (manual) Poikilocytosis (manual Anisocytosis (manual) Microcytosis (manual) Target Cells Tear Drop Cells Ovalocytes [place] Cells Puncture Site Rb pCO2 26 L pO2 535 H HCO3 21.6 ABG pH 7.45 ABG Total CO2 18.9 L ABG O2 Saturation 98.7 H ABG Base Excess -4.3 L ABG Hemoglobin ABG Carboxyhemoglobin POC ABG HHb (Measured) ABG Methemoglobin Shankar Test Na ABG Potassium 4.1 A-a O2 Difference 146.0 Respiratory Index 0.3 Hgb O2 Saturation Glucose 139 H Lactate 1.1 Vent Mode Prvc Mechanical Rate 24 FiO2 100.0 Tidal Volume 500 PEEP 5 Sodium 137.0 134 Potassium 4.2 Chloride 110.0 H 105 Carbon Dioxide 20 L Anion Gap 14 BUN 36 H Creatinine 1.3 Est GFR ( Amer) > 60 Est GFR (Non-Af Amer) 56 POC Glucose (mg/dL) 129 H Random Glucose 108 Calcium 7.8 L Phosphorus 1.9 L Magnesium 1.7 Total Bilirubin 1.2 AST 87 H ALT 61 Alkaline Phosphatase 79 Total Creatine Kinase CK-MB (Mass) Troponin I Total Protein 6.5 Albumin 3.3 L Globulin 3.2 Albumin/Globulin Ratio 1.0 Arterial Blood Potassium 4.1 06/21/17 06/21/17 06/21/17 06:43 07:05 08:19 WBC 8.2 D RBC 4.41 Hgb 8.6 L Hct 27.0 L MCV 61.1 L MCH 19.5 L MCHC 31.9 L RDW 15.9 H Plt Count 85 L D MPV 8.8 Neut % (Auto) 86.1 H Lymph % (Auto) 5.8 L [place] % (Auto) 8.1 Eos % (Auto) 0.0 Baso % (Auto) 0.0 Neut # 7.1 H Lymph # 0.5 L [place] # 0.7 Eos # 0.0 Baso # 0.0 Neutrophils % (Manual) 82 H Band Neutrophils % 6 H Lymphocytes % (Manual) 6 L Monocytes % (Manual) 6 Platelet Estimate Decreased L Hypochromasia (manual) Slight Poikilocytosis (manual Slight Anisocytosis (manual) Slight Microcytosis (manual) Target Cells Tear Drop Cells Slight Ovalocytes [place] Cells Slight Puncture Site pCO2 pO2 HCO3 ABG pH ABG Total CO2 ABG O2 Saturation ABG Base Excess ABG Hemoglobin ABG Carboxyhemoglobin POC ABG HHb (Measured) ABG Methemoglobin Shankar Test ABG Potassium A-a O2 Difference Respiratory Index Hgb O2 Saturation Glucose Lactate Vent Mode Mechanical Rate FiO2 Tidal Volume PEEP Sodium Potassium Chloride Carbon Dioxide Anion Gap BUN Creatinine Est GFR ( Amer) Est GFR (Non-Af Amer) POC Glucose (mg/dL) 132 H 144 H Random Glucose Calcium Phosphorus Magnesium Total Bilirubin AST ALT Alkaline Phosphatase Total Creatine Kinase CK-MB (Mass) Troponin I Total Protein Albumin Globulin Albumin/Globulin Ratio Arterial Blood Potassium 06/21/17 06/21/17 06/21/17 09:17 10:10 11:04 WBC RBC Hgb Hct MCV MCH MCHC RDW Plt Count MPV Neut % (Auto) Lymph % (Auto) [place] % (Auto) Eos % (Auto) Baso % (Auto) Neut # Lymph # [place] # Eos # Baso # Neutrophils % (Manual) Band Neutrophils % Lymphocytes % (Manual) Monocytes % (Manual) Platelet Estimate Hypochromasia (manual) Poikilocytosis (manual Anisocytosis (manual) Microcytosis (manual) Target Cells Tear Drop Cells Ovalocytes [place] Cells Puncture Site pCO2 pO2 HCO3 ABG pH ABG Total CO2 ABG O2 Saturation ABG Base Excess ABG Hemoglobin ABG Carboxyhemoglobin POC ABG HHb (Measured) ABG Methemoglobin Shankar Test ABG Potassium A-a O2 Difference Respiratory Index Hgb O2 Saturation Glucose Lactate Vent Mode Mechanical Rate FiO2 Tidal Volume PEEP Sodium Potassium Chloride Carbon Dioxide Anion Gap BUN Creatinine Est GFR ( Amer) Est GFR (Non-Af Amer) POC Glucose (mg/dL) 128 H 112 H 105 Random Glucose Calcium Phosphorus Magnesium Total Bilirubin AST ALT Alkaline Phosphatase Total Creatine Kinase CK-MB (Mass) Troponin I Total Protein Albumin Globulin Albumin/Globulin Ratio Arterial Blood Potassium 06/21/17 06/21/17 06/21/17 11:18 11:18 11:55 WBC 5.8 RBC 4.19 L Hgb 8.2 L Hct 25.5 L MCV 60.9 L MCH 19.5 L MCHC 32.0 L RDW 16.1 H Plt Count 82 L MPV 8.8 Neut % (Auto) 83.9 H Lymph % (Auto) 7.4 L [place] % (Auto) 8.6 Eos % (Auto) 0.1 Baso % (Auto) 0.0 Neut # 4.8 Lymph # 0.4 L [place] # 0.5 Eos # 0.0 Baso # 0.0 Neutrophils % (Manual) 84 H Band Neutrophils % 4 H Lymphocytes % (Manual) 5 L Monocytes % (Manual) 7 Platelet Estimate Normal Hypochromasia (manual) Slight Poikilocytosis (manual Slight Anisocytosis (manual) Slight Microcytosis (manual) Target Cells Tear Drop Cells Slight Ovalocytes [place] Cells Slight Puncture Site pCO2 pO2 HCO3 ABG pH ABG Total CO2 ABG O2 Saturation ABG Base Excess ABG Hemoglobin ABG Carboxyhemoglobin POC ABG HHb (Measured) ABG Methemoglobin Shankar Test ABG Potassium A-a O2 Difference Respiratory Index Hgb O2 Saturation Glucose Lactate Vent Mode Mechanical Rate FiO2 Tidal Volume PEEP Sodium 134 Potassium 3.9 Chloride 105 Carbon Dioxide 21 L Anion Gap 12 BUN 36 H Creatinine 1.2 Est GFR ( Amer) > 60 Est GFR (Non-Af Amer) > 60 POC Glucose (mg/dL) 99 Random Glucose 99 Calcium 7.5 L Phosphorus 3.0 Magnesium 1.7 Total Bilirubin 0.9 AST 94 H ALT 58 Alkaline Phosphatase 67 Total Creatine Kinase CK-MB (Mass) Troponin I Total Protein 6.3 Albumin 3.1 L Globulin 3.3 Albumin/Globulin Ratio 0.9 L Arterial Blood Potassium 06/21/17 06/21/17 06/21/17 13:06 14:03 15:19 WBC RBC Hgb Hct MCV MCH MCHC RDW Plt Count MPV Neut % (Auto) Lymph % (Auto) [place] % (Auto) Eos % (Auto) Baso % (Auto) Neut # Lymph # [place] # Eos # Baso # Neutrophils % (Manual) Band Neutrophils % Lymphocytes % (Manual) Monocytes % (Manual) Platelet Estimate Hypochromasia (manual) Poikilocytosis (manual Anisocytosis (manual) Microcytosis (manual) Target Cells Tear Drop Cells Ovalocytes [place] Cells Puncture Site pCO2 pO2 HCO3 ABG pH ABG Total CO2 ABG O2 Saturation ABG Base Excess ABG Hemoglobin ABG Carboxyhemoglobin POC ABG HHb (Measured) ABG Methemoglobin Shankar Test ABG Potassium A-a O2 Difference Respiratory Index Hgb O2 Saturation Glucose Lactate Vent Mode Mechanical Rate FiO2 Tidal Volume PEEP Sodium Potassium Chloride Carbon Dioxide Anion Gap BUN Creatinine Est GFR ( Amer) Est GFR (Non-Af Amer) POC Glucose (mg/dL) 106 104 90 Random Glucose Calcium Phosphorus Magnesium Total Bilirubin AST ALT Alkaline Phosphatase Total Creatine Kinase CK-MB (Mass) Troponin I Total Protein Albumin Globulin Albumin/Globulin Ratio Arterial Blood Potassium 06/21/17 06/21/17 06/21/17 16:20 16:31 16:31 WBC 8.2 RBC 4.42 Hgb 8.6 L Hct 27.1 L MCV 61.4 L MCH 19.5 L MCHC 31.8 L RDW 16.1 H Plt Count 91 L MPV 8.6 Neut % (Auto) 83.0 H Lymph % (Auto) 6.6 L [place] % (Auto) 10.3 H Eos % (Auto) 0.0 Baso % (Auto) 0.1 Neut # 6.8 Lymph # 0.5 L [place] # 0.8 Eos # 0.0 Baso # 0.0 Neutrophils % (Manual) 85 H Band Neutrophils % 2 Lymphocytes % (Manual) 8 L Monocytes % (Manual) 5 Platelet Estimate Decreased L Hypochromasia (manual) Moderate Poikilocytosis (manual Slight Anisocytosis (manual) Slight Microcytosis (manual) Slight Target Cells Tear Drop Cells Ovalocytes [place] Cells Puncture Site pCO2 pO2 HCO3 ABG pH ABG Total CO2 ABG O2 Saturation ABG Base Excess ABG Hemoglobin ABG Carboxyhemoglobin POC ABG HHb (Measured) ABG Methemoglobin Shankar Test ABG Potassium A-a O2 Difference Respiratory Index Hgb O2 Saturation Glucose Lactate Vent Mode Mechanical Rate FiO2 Tidal Volume PEEP Sodium 134 Potassium 4.8 Chloride 104 Carbon Dioxide 21 L Anion Gap 13 BUN 36 H Creatinine 1.2 Est GFR ( Amer) > 60 Est GFR (Non-Af Amer) > 60 POC Glucose (mg/dL) 106 Random Glucose 82 Calcium 7.5 L Phosphorus 4.5 Magnesium 1.7 Total Bilirubin 1.2 AST 116 H D ALT 62 Alkaline Phosphatase 71 Total Creatine Kinase CK-MB (Mass) Troponin I Total Protein 5.7 L Albumin 3.3 L Globulin 2.4 Albumin/Globulin Ratio 1.4 Arterial Blood Potassium 06/21/17 06/21/17 17:22 17:59 WBC RBC Hgb Hct MCV MCH MCHC RDW Plt Count MPV Neut % (Auto) Lymph % (Auto) [place] % (Auto) Eos % (Auto) Baso % (Auto) Neut # Lymph # [place] # Eos # Baso # Neutrophils % (Manual) Band Neutrophils % Lymphocytes % (Manual) Monocytes % (Manual) Platelet Estimate Hypochromasia (manual) Poikilocytosis (manual Anisocytosis (manual) Microcytosis (manual) Target Cells Tear Drop Cells Ovalocytes [place] Cells Puncture Site pCO2 pO2 HCO3 ABG pH ABG Total CO2 ABG O2 Saturation ABG Base Excess ABG Hemoglobin ABG Carboxyhemoglobin POC ABG HHb (Measured) ABG Methemoglobin Shankar Test ABG Potassium A-a O2 Difference Respiratory Index Hgb O2 Saturation Glucose Lactate Vent Mode Mechanical Rate FiO2 Tidal Volume PEEP Sodium Potassium Chloride Carbon Dioxide Anion Gap BUN Creatinine Est GFR ( Amer) Est GFR (Non-Af Amer) POC Glucose (mg/dL) 84 85 Random Glucose Calcium Phosphorus Magnesium Total Bilirubin AST ALT Alkaline Phosphatase Total Creatine Kinase CK-MB (Mass) Troponin I Total Protein Albumin Globulin Albumin/Globulin Ratio Arterial Blood Potassium Critical Care Progress Note - Nutrition Nutrition: Nutrition Category Date Time Status NPO Diet [DIET] Diets 06/20/17 Dinner Active Attending/Attestation - Attestation I have personally seen and examined this patient.: Yes I have fully participated in the care of the patient.: Yes I have reviewed all pertinent clinical information: Yes Notes (Text): 06/21/17 18:47 Patient seen and examined in the intensive care unit. Case discussed with staff in the morning. Previous events noted. Intubated on ventilatory support with no response to painful stimuli Patient has no gag reflex but that is triggering the ventilator and very sluggish pupillary response Patient seen by cardiology and EPS Continue with code Freeze protocol Neurology follow-up
[2017-06-21 11:25] LABS: EOS % 0.1 % (0.0-4.0); HEMATOCRIT 25.5 % (35.0-51.0); LYMPH # 0.4 K/uL (1.0-4.3); LYMPH % 7.4 % (20.0-40.0); MEAN CELL VOLUME 60.9 fL (80.0-94.0); MEAN CORPUSCULAR HEMOGLOBIN 19.5 pg (27.0-31.0); MEAN PLATELET VOLUME 8.8 fL (7.2-11.7); MONO # 0.5 K/uL (0.0-0.8); MONO % 8.6 % (0.0-10.0); PLATELET COUNT 82 K/uL (130-400); RED CELL DISTRIBUTION WIDTH 16.1 % (11.5-14.5); WHITE BLOOD COUNT 5.8 K/uL (4.8-10.8)
[2017-06-21] MEDS: Potassium & Sodium Phosphate PO SCH ×2 (11:51→17:30)
[2017-06-21 11:56] LABS: ALB/GLOB RATIO 0.9 (1.0-2.1); ALKALINE PHOSPHATASE 67 U/L (38-126); ALT/SGPT 58 U/L (21-72); AST/SGOT 94 U/L (17-59); BILIRUBIN,TOTAL 0.9 mg/dL (0.2-1.3); BLOOD UREA NITROGEN 36 mg/dL (9-20); CALCIUM 7.5 mg/dl (8.6-10.4); CARBON DIOXIDE 21 mmol/L (22-30); CHLORIDE 105 mmol/L (98-107); GFR AFRICAN-AMERICAN > 60; GLUCOSE,RANDOM 99 mg/dL (75-110); MAGNESIUM 1.7 mg/dL (1.6-2.3); POTASSIUM 3.9 mmol/L (3.6-5.2); SODIUM 134 mmol/L (132-148); TOTAL PROTEIN 6.3 g/dL (6.3-8.3)
[2017-06-21 12:03] LABS: NEUTROPHIL 84 % (50-75); TOTAL CELLS COUNTED 100
--- NOTE | 2017-06-21 12:11 | VASCLAB ---
PROCEDURE: Lower Extremity Venous Duplex Exam. HISTORY: r/o DVT PRIORS: None. TECHNIQUE: Bilateral common femoral, femoral, popliteal and posterior tibial, peroneal and great saphenous veins were evaluated. Flow was assessed with color Doppler, compressibility, assessment of phasic flow and augmentation response. Report prepared by DEEP Silva FINDINGS: RIGHT: 1. Common Femoral Vein: 1.1. Not examined 2. Femoral Vein: 2.1. Compressibility - Fully compressible: Thrombus - None : Flow - Phasic: Augmentation -Normal: Reflux - None. 3. Popliteal Vein: 3.1. Compressibility - Fully compressible: Thrombus - None : Flow - Phasic: Augmentation -Normal: Reflux - None. 4. Posterior Tibial Vein: 4.1. Compressibility - Fully compressible: Thrombus - None: Flow - Phasic: Augmentation -Normal: Reflux - None. 5. Peroneal Vein: 5.1. Compressibility - Fully compressible: Thrombus - None: Flow - Phasic: Augmentation -Normal: Reflux - None. 6. Great Saphenous Vein: 6.1. Compressibility - Fully compressible: Thrombus - None: Flow - Phasic: Augmentation - Normal: Reflux - None. LEFT: 1. Common Femoral Vein: 1.1. Compressibility - Fully compressible: Thrombus - None: Flow - Phasic: Augmentation -Normal: Reflux - None. 2. Femoral Vein: 2.1. Compressibility - Fully compressible: Thrombus - None: Flow - Phasic: Augmentation -Normal: Reflux - None. 3. Popliteal Vein: 3.1. Compressibility - Fully compressible: Thrombus - None : Flow - Phasic: Augmentation -Normal: Reflux - None. 4. Posterior Tibial Vein: 4.1. Compressibility - Fully compressible: Thrombus - None: Flow - Phasic: Augmentation -Normal: Reflux - None. 5. Peroneal Vein: 5.1. Compressibility - Fully compressible: Thrombus - None: Flow - Phasic: Augmentation -Normal: Reflux - None. 6. Great Saphenous Vein: 6.1. Compressibility - Fully compressible: Thrombus - None: Flow - Phasic: Augmentation - Normal: Reflux - None. OTHER FINDINGS: Right: Unable to examine the right common femoral vein, due to lines in the groin. However, the remaining veins in the right lower extremity are compressible. Left: None significant. IMPRESSION: Right: No evidence of deep or superficial vein thrombosis of the right lower extremity. Normal valve function noted of the right side. Left: No evidence of deep or superficial vein thrombosis of the left lower extremity. Normal valve function noted of the left side.
[2017-06-21] MEDS: White Petrolatum/Mineral Oil Ophth Oint(3.5 gm) OU PRN ×3 (12:44→23:38)
[2017-06-21 16:38] LABS: BASO % 0.1 % (0.0-2.0); HEMATOCRIT 27.1 % (35.0-51.0); LYMPH # 0.5 K/uL (1.0-4.3); LYMPH % 6.6 % (20.0-40.0); MEAN CELL VOLUME 61.4 fL (80.0-94.0); MEAN CORPUSCULAR HEMOGLOBIN 19.5 pg (27.0-31.0); MEAN CORPUSCULAR HGB CONC 31.8 g/dL (33.0-37.0); MEAN PLATELET VOLUME 8.6 fL (7.2-11.7); MONO # 0.8 K/uL (0.0-0.8); MONO % 10.3 % (0.0-10.0); NRBC % 0.2 % (0.0-2.0); PLATELET COUNT 91 K/uL (130-400); RED CELL DISTRIBUTION WIDTH 16.1 % (11.5-14.5); WHITE BLOOD COUNT 8.2 K/uL (4.8-10.8)
--- NOTE | 2017-06-21 16:51 | RAD ---
HISTORY: intubated COMPARISON: Chest x-ray performed 06/20/17 TECHNIQUE: Chest, one view. FINDINGS: Endotracheal tube terminates approximately 5.6 cm above the skip. Nasogastric tube extends to the stomach. 2 external defibrillator pads. LUNGS: Small to moderate left pleural effusion. Biapical pleural thickening. Bibasilar atelectasis/ infiltrates. No definite pneumothorax. Please note that chest x-ray has limited sensitivity for the detection of pulmonary masses. CARDIOVASCULAR: Two cardiac prosthetic valves. Median sternotomy wires. Left-sided pacemaker. Cardiomegaly. OSSEOUS STRUCTURES: Degenerative changes. VISUALIZED UPPER ABDOMEN: Unremarkable. OTHER FINDINGS: None. IMPRESSION: Small to moderate left pleural effusion. Biapical pleural thickening. Bibasilar atelectasis/ infiltrates. Endotracheal tube terminates approximately 5.6 cm above the skip. Nasogastric tube extends to the stomach. Two cardiac prosthetic valves. Median sternotomy wires. Left-sided pacemaker. Cardiomegaly. 2 external defibrillator pads.
--- NOTE | 2017-06-21 16:56 | RAD ---
PROCEDURE: Cervical Spine Radiographs. HISTORY: Pain. COMPARISON: None. FINDINGS: BONES: Alignment maintained. No gross fracture. Dens Intact. Anterior spondylosis C4-5 C5-6 and the C6-7 C6-7 bilateral uncovertebral hypertrophy. DISC SPACES: C4-5 C5-6 disc space narrowing SOFT TISSUES: Normal. No prevertebral soft tissue swelling. Oral pharyngeal and NG tubes present OTHER FINDINGS: None. IMPRESSION: No gross fracture appreciated. . Cervical spondylosis and degenerative changes
[2017-06-21 17:16] LABS: ALB/GLOB RATIO 1.4 (1.0-2.1); ALKALINE PHOSPHATASE 71 U/L (38-126); ALT/SGPT 62 U/L (21-72); AST/SGOT 116 U/L (17-59); BILIRUBIN,TOTAL 1.2 mg/dL (0.2-1.3); BLOOD UREA NITROGEN 36 mg/dL (9-20); CALCIUM 7.5 mg/dl (8.6-10.4); CARBON DIOXIDE 21 mmol/L (22-30); CHLORIDE 104 mmol/L (98-107); GFR AFRICAN-AMERICAN > 60; GLUCOSE,RANDOM 82 mg/dL (75-110); MAGNESIUM 1.7 mg/dL (1.6-2.3); PHOSPHOROUS 4.5 mg/dL (2.5-4.5); POTASSIUM 4.8 mmol/L (3.6-5.2); SODIUM 134 mmol/L (132-148); TOTAL PROTEIN 5.7 g/dL (6.3-8.3)
[2017-06-21 17:49] LABS: NEUTROPHIL 85 % (50-75); TOTAL CELLS COUNTED 100
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
[2017-06-21] MEDS ORDERED: Dextrose 5%/0.9% NS 1,000 ML IV SCH (22:30)
[2017-06-22] MEDS: Propofol 10 mg/ml 1,000 MG/100 ML VIAL IV PRN ×3 (00:39→19:22)
[2017-06-22] MEDS: Norepinephrine 8 MG in Dextrose 5% In Water 242 ML IV PRN ×2 (04:07→17:38)
[2017-06-22 05:16] LABS: ABG MECHANICAL RATE 12; ARTERIAL BLOOD GAS MODE A/C; ATERIAL BLOOD GAS PEEP 5; DRAW SITE RB
[2017-06-22] MEDS: WATER IVPB SCH (05:20)
[2017-06-22] MEDS: LEVETIRACETAM IVPB SCH (05:20)
[2017-06-22] MEDS: DEXTROSE 5% IVPB SCH (05:20)
[2017-06-22] MEDS: cefTRIAXone IV 1 gm in Dextros 50 ML IVPB SCH ×2 (05:22→17:44)
[2017-06-22] MEDS: White Petrolatum/Mineral Oil Ophth Oint(3.5 gm) OU PRN ×2 (05:33→20:00)
[2017-06-22 06:33] LABS: BASO % 0.1 % (0.0-2.0); EOS % 0.4 % (0.0-4.0); HEMATOCRIT 25.5 % (35.0-51.0); MEAN CELL VOLUME 61.1 fL (80.0-94.0); MEAN CORPUSCULAR HEMOGLOBIN 19.2 pg (27.0-31.0); MEAN CORPUSCULAR HGB CONC 31.4 g/dL (33.0-37.0); MEAN PLATELET VOLUME 9.1 fL (7.2-11.7); MONO # 0.8 K/uL (0.0-0.8); MONO % 11.2 % (0.0-10.0); RED CELL DISTRIBUTION WIDTH 16.4 % (11.5-14.5); WHITE BLOOD COUNT 7.4 K/uL (4.8-10.8)
[2017-06-22 06:57] LABS: ALKALINE PHOSPHATASE 64 U/L (38-126); ALT/SGPT 63 U/L (21-72); AST/SGOT 123 U/L (17-59); BILIRUBIN,TOTAL 0.7 mg/dL (0.2-1.3); BLOOD UREA NITROGEN 33 mg/dL (9-20); CALCIUM 7.4 mg/dl (8.6-10.4); CARBON DIOXIDE 21 mmol/L (22-30); CHLORIDE 106 mmol/L (98-107); GFR AFRICAN-AMERICAN > 60; GLUCOSE,RANDOM 97 mg/dL (75-110); MAGNESIUM 1.7 mg/dL (1.6-2.3); PHOSPHOROUS 3.3 mg/dL (2.5-4.5); POTASSIUM 3.7 mmol/L (3.6-5.2); SODIUM 137 mmol/L (132-148)
--- NOTE | 2017-06-22 07:38 | CP.CCUPN ---
<Radames Winston - Last Filed: 06/22/17 16:28> CCU Subjective - Physician Review Subjective (Free Text): PGY1 ICU progress note for Dr. Benz Patient seen and examined at bedside this morning. No acute events over night. Patient intubated. ROS unattainable. CCU Objective - Vital Signs / Intake & Output Vital Signs (Last 4 hours): Vital Signs Temp Pulse Resp BP Pulse Ox 06/22/17 07:00 97.0 F L 64 16 101/48 L 100 06/22/17 06:58 63 15 101/48 L 100 06/22/17 06:43 62 16 96/41 L 100 06/22/17 06:28 60 20 88/37 L 100 06/22/17 06:13 61 20 91/40 L 100 06/22/17 06:00 95.7 F L 60 19 97/45 L 100 06/22/17 05:58 64 19 97/45 L 100 06/22/17 05:43 62 17 88/42 L 100 06/22/17 05:28 60 17 94/48 L 100 06/22/17 05:13 60 20 96/46 L 100 06/22/17 05:00 96.4 F L 60 20 84/39 L 100 06/22/17 04:58 60 20 84/39 L 100 06/22/17 04:43 60 20 89/40 L 100 06/22/17 04:29 60 20 122/47 L 100 06/22/17 04:13 73 17 102/41 L 06/22/17 04:07 60 19 82/40 L 100 06/22/17 04:03 71 17 82/40 L 100 06/22/17 04:00 97 F L 60 20 88/34 L 100 06/22/17 03:54 60 20 88/34 L 100 Intake and Output (Last 8hrs): Intake & Output 06/21/17 06/22/17 06/22/17 22:59 06:59 14:59 Intake Total 918.9 1273.6 124.8 Output Total 295 635 50 Balance 623.9 638.6 74.8 Intake: IV 25 343 Intake, IV Amount 893.9 930.6 124.8 Right Distal Port Femoral 800 522.6 11.3 Right Hand 300 100 Right Medial Port Femoral 32 32 4 Right Proximal Port 61.9 76.0 9.5 Femoral Output: Urine 295 635 50 Urethral (Lock) 295 635 50 Other: # Bowel Movements 0 0 - Physical Exam Head: Positive for: Atraumatic, Normocephalic Pupils: Positive for: Non-Reactive, Pinpoint Conjunctiva: Positive for: Normal Mouth: Positive for: Other (intubated) Nose (Internal): Positive for: No Active Bleeding, Other (dried blood) Neck: Positive for: Trachea Midline Respiratory/Chest: Positive for: Clear to Auscultation, Good Air Exchange. Negative for: Respiratory Distress, Accessory Muscle Use, Wheezes, Rales Cardiovascular: Positive for: Other (paced rhythm at 60bpm) Abdomen: Positive for: Other (active cooling wrap on). Negative for: Distention , Peritoneal Signs, Guarding Upper Extremity: Negative for: Edema Lower Extremity: Positive for: Other (active cooling wraps on) Neurological: Positive for: Other (non-responsive to pain. no gag reflex on suction). Negative for: GCS=15 Skin: Positive for: Dry Psychiatric: Negative for: Alert, Oriented x 3 - Medications Active Medications: Active Medications Generic Name Dose Route Start Last Admin Trade Name Freq PRN Reason Stop Dose Admin Artificial Tears 0 gm 06/21/17 10:01 06/22/17 05:33 Lacri-Lube OU 1 gm Q4 PRN Administration Dry eyes Ceftriaxone Sodium 50 mls @ 100 mls/hr 06/20/17 18:00 06/22/17 05:22 Rocephin Iv 1 Gm Duplex IVPB 100 mls/hr Q12H EMERY Administration Levetiracetam 250 mg/ Dextrose 52.5 mls @ 420 mls/hr 06/20/17 18:00 06/22/17 05:20 IVPB 420 mls/hr Q12H EMERY Administration Norepinephrine Bitartrate 8 mg 250 mls @ 7.5 mls/hr 06/20/17 17:16 06/22/17 06:39 / Dextrose IV 6 mcg/min .Q24H PRN 11.25 mls/hr TITRATE PER MD ORDER Titration Protocol 4 MCG/MIN Propofol 1,000 mg in 100 mls @ 2.4 mls/hr 06/21/17 12:02 06/22/17 00:39 Diprivan IV 20 mcg/kg/min .Q24H PRN 9.6 mls/hr TITRATE PER MD ORDER Administration Protocol 5 MCG/KG/MIN Morphine Sulfate 250 mg/ 250 mls @ 4 mls/hr 06/21/17 12:30 06/21/17 14:22 Sodium Chloride IV 4 mg/hr .Q24H EMERY 4 mls/hr Protocol Administration Dextrose/Sodium Chloride 1,000 mls @ 100 mls/hr 06/21/17 22:30 06/21/17 22:30 Dextrose 5%/0.9% Ns 1000 Ml IV 100 mls/hr .Q10H EMERY Administration Lorazepam 1 mg 06/20/17 17:09 06/22/17 04:07 Ativan IVP 1 mg Q4H PRN Administration Anxiety Pantoprazole Sodium 40 mg 06/21/17 10:00 06/21/17 11:52 Protonix Inj IVP 40 mg DAILY EMERY Administration Potassium Phos/Sodium Phos 1 pkt 06/21/17 10:00 06/21/17 17:30 Neutra-Phos PO 1 pkt BIDCC EMERY Administration - Patient Studies Lab Studies: Lab Studies 06/22/17 06/22/17 06/22/17 Range/Units 07:18 06:26 06:25 WBC 7.4 (4.8-10.8) K/uL RBC 4.17 L (4.40-5.90) Mil/uL Hgb 8.0 L (12.0-18.0) g/dL Hct 25.5 L (35.0-51.0) % MCV 61.1 L (80.0-94.0) fL MCH 19.2 L (27.0-31.0) pg MCHC 31.4 L (33.0-37.0) g/dL RDW 16.4 H (11.5-14.5) % Plt Count 94 L (130-400) K/uL MPV 9.1 (7.2-11.7) fL Neut % (Auto) 74.3 (50.0-75.0) % Lymph % (Auto) 14.0 L (20.0-40.0) % Rush % (Auto) 11.2 H (0.0-10.0) % Eos % (Auto) 0.4 (0.0-4.0) % Baso % (Auto) 0.1 (0.0-2.0) % Neut # 5.5 (1.8-7.0) K/uL Lymph # 1.0 (1.0-4.3) K/uL Rush # 0.8 (0.0-0.8) K/uL Eos # 0.0 (0.0-0.7) K/uL Baso # 0.0 (0.0-0.2) K/uL Neutrophils % (Manual) (50-75) % Band Neutrophils % (0-2) % Lymphocytes % (Manual) (20-40) % Monocytes % (Manual) (0-10) % Platelet Estimate (NORMAL) Hypochromasia (manual) Poikilocytosis (manual Anisocytosis (manual) Microcytosis (manual) Tear Drop Cells [place] Cells Puncture Site pCO2 (35-45) mm/Hg pO2 (80-100) mm/Hg HCO3 (21-28) mmol/L ABG pH (7.35-7.45) ABG Total CO2 (22-28) mmol/L ABG O2 Saturation (95-98) % ABG Base Excess (-2.0-3.0) mmol/L Shankar Test ABG Potassium (3.6-5.2) mmol/L A-a O2 Difference mm/Hg Respiratory Index Glucose (75-110) mg/dl Lactate (0.7-2.1) mmol/L Vent Mode Mechanical Rate FiO2 % Tidal Volume PEEP Sodium 137 (132-148) mmol/L Potassium 3.7 (3.6-5.2) mmol/L Chloride 106 (98-107) mmol/L Carbon Dioxide 21 L (22-30) mmol/L Anion Gap 14 (10-20) BUN 33 H (9-20) mg/dL Creatinine 1.1 (0.8-1.5) mg/dL Est GFR ( Amer) > 60 Est GFR (Non-Af Amer) > 60 POC Glucose (mg/dL) 120 H (65-110) mg/dL Random Glucose 97 (75-110) mg/dL Calcium 7.4 L (8.6-10.4) mg/dl Phosphorus 3.3 (2.5-4.5) mg/dL Magnesium 1.7 (1.6-2.3) mg/dL Total Bilirubin 0.7 (0.2-1.3) mg/dL AST 123 H (17-59) U/L ALT 63 (21-72) U/L Alkaline Phosphatase 64 (38-126) U/L Total Protein 6.0 L (6.3-8.3) g/dL Albumin 2.9 L (3.5-5.0) g/dL Globulin 3.0 (2.2-3.9) gm/dL Albumin/Globulin Ratio 1.0 (1.0-2.1) Arterial Blood Potassium (3.6-5.2) mmol/L 06/22/17 06/22/17 06/22/17 Range/Units 06:10 05:28 05:00 WBC (4.8-10.8) K/uL RBC (4.40-5.90) Mil/uL Hgb (12.0-18.0) g/dL Hct (35.0-51.0) % MCV (80.0-94.0) fL MCH (27.0-31.0) pg MCHC (33.0-37.0) g/dL RDW (11.5-14.5) % Plt Count (130-400) K/uL MPV (7.2-11.7) fL Neut % (Auto) (50.0-75.0) % Lymph % (Auto) (20.0-40.0) % Rush % (Auto) (0.0-10.0) % Eos % (Auto) (0.0-4.0) % Baso % (Auto) (0.0-2.0) % Neut # (1.8-7.0) K/uL Lymph # (1.0-4.3) K/uL Rush # (0.0-0.8) K/uL Eos # (0.0-0.7) K/uL Baso # (0.0-0.2) K/uL Neutrophils % (Manual) (50-75) % Band Neutrophils % (0-2) % Lymphocytes % (Manual) (20-40) % Monocytes % (Manual) (0-10) % Platelet Estimate (NORMAL) Hypochromasia (manual) Poikilocytosis (manual Anisocytosis (manual) Microcytosis (manual) Tear Drop Cells [place] Cells Puncture Site Rb pCO2 30 L (35-45) mm/Hg pO2 195 H (80-100) mm/Hg HCO3 22.4 (21-28) mmol/L ABG pH 7.43 (7.35-7.45) ABG Total CO2 20.8 L (22-28) mmol/L ABG O2 Saturation 98.6 H (95-98) % ABG Base Excess -3.3 L (-2.0-3.0) mmol/L Shankar Test Na ABG Potassium 3.5 L (3.6-5.2) mmol/L A-a O2 Difference 124.0 mm/Hg Respiratory Index 0.6 Glucose 116 H (75-110) mg/dl Lactate 0.7 (0.7-2.1) mmol/L Vent Mode A/c Mechanical Rate 12 FiO2 50.0 % Tidal Volume 500 PEEP 5 Sodium 139.0 (132-148) mmol/L Potassium (3.6-5.2) mmol/L Chloride 114.0 H (98-107) mmol/L Carbon Dioxide (22-30) mmol/L Anion Gap (10-20) BUN (9-20) mg/dL Creatinine (0.8-1.5) mg/dL Est GFR ( Amer) Est GFR (Non-Af Amer) POC Glucose (mg/dL) 118 H 130 H (65-110) mg/dL Random Glucose (75-110) mg/dL Calcium (8.6-10.4) mg/dl Phosphorus (2.5-4.5) mg/dL Magnesium (1.6-2.3) mg/dL Total Bilirubin (0.2-1.3) mg/dL AST (17-59) U/L ALT (21-72) U/L Alkaline Phosphatase (38-126) U/L Total Protein (6.3-8.3) g/dL Albumin (3.5-5.0) g/dL Globulin (2.2-3.9) gm/dL Albumin/Globulin Ratio (1.0-2.1) Arterial Blood Potassium 3.5 L (3.6-5.2) mmol/L 06/22/17 06/22/17 06/22/17 Range/Units 04:20 03:31 02:23 WBC (4.8-10.8) K/uL RBC (4.40-5.90) Mil/uL Hgb (12.0-18.0) g/dL Hct (35.0-51.0) % MCV (80.0-94.0) fL MCH (27.0-31.0) pg MCHC (33.0-37.0) g/dL RDW (11.5-14.5) % Plt Count (130-400) K/uL MPV (7.2-11.7) fL Neut % (Auto) (50.0-75.0) % Lymph % (Auto) (20.0-40.0) % Rush % (Auto) (0.0-10.0) % Eos % (Auto) (0.0-4.0) % Baso % (Auto) (0.0-2.0) % Neut # (1.8-7.0) K/uL Lymph # (1.0-4.3) K/uL Rush # (0.0-0.8) K/uL Eos # (0.0-0.7) K/uL Baso # (0.0-0.2) K/uL Neutrophils % (Manual) (50-75) % Band Neutrophils % (0-2) % Lymphocytes % (Manual) (20-40) % Monocytes % (Manual) (0-10) % Platelet Estimate (NORMAL) Hypochromasia (manual) Poikilocytosis (manual Anisocytosis (manual) Microcytosis (manual) Tear Drop Cells [place] Cells Puncture Site pCO2 (35-45) mm/Hg pO2 (80-100) mm/Hg HCO3 (21-28) mmol/L ABG pH (7.35-7.45) ABG Total CO2 (22-28) mmol/L ABG O2 Saturation (95-98) % ABG Base Excess (-2.0-3.0) mmol/L Shankar Test ABG Potassium (3.6-5.2) mmol/L A-a O2 Difference mm/Hg Respiratory Index Glucose (75-110) mg/dl Lactate (0.7-2.1) mmol/L Vent Mode Mechanical Rate FiO2 % Tidal Volume PEEP Sodium (132-148) mmol/L Potassium (3.6-5.2) mmol/L Chloride (98-107) mmol/L Carbon Dioxide (22-30) mmol/L Anion Gap (10-20) BUN (9-20) mg/dL Creatinine (0.8-1.5) mg/dL Est GFR ( Amer) Est GFR (Non-Af Amer) POC Glucose (mg/dL) 90 107 90 (65-110) mg/dL Random Glucose (75-110) mg/dL Calcium (8.6-10.4) mg/dl Phosphorus (2.5-4.5) mg/dL Magnesium (1.6-2.3) mg/dL Total Bilirubin (0.2-1.3) mg/dL AST (17-59) U/L ALT (21-72) U/L Alkaline Phosphatase (38-126) U/L Total Protein (6.3-8.3) g/dL Albumin (3.5-5.0) g/dL Globulin (2.2-3.9) gm/dL Albumin/Globulin Ratio (1.0-2.1) Arterial Blood Potassium (3.6-5.2) mmol/L 06/22/17 06/22/17 06/21/17 Range/Units 01:59 00:43 23:36 WBC (4.8-10.8) K/uL RBC (4.40-5.90) Mil/uL Hgb (12.0-18.0) g/dL Hct (35.0-51.0) % MCV (80.0-94.0) fL MCH (27.0-31.0) pg MCHC (33.0-37.0) g/dL RDW (11.5-14.5) % Plt Count (130-400) K/uL MPV (7.2-11.7) fL Neut % (Auto) (50.0-75.0) % Lymph % (Auto) (20.0-40.0) % Rush % (Auto) (0.0-10.0) % Eos % (Auto) (0.0-4.0) % Baso % (Auto) (0.0-2.0) % Neut # (1.8-7.0) K/uL Lymph # (1.0-4.3) K/uL Rush # (0.0-0.8) K/uL Eos # (0.0-0.7) K/uL Baso # (0.0-0.2) K/uL Neutrophils % (Manual) (50-75) % Band Neutrophils % (0-2) % Lymphocytes % (Manual) (20-40) % Monocytes % (Manual) (0-10) % Platelet Estimate (NORMAL) Hypochromasia (manual) Poikilocytosis (manual Anisocytosis (manual) Microcytosis (manual) Tear Drop Cells [place] Cells Puncture Site pCO2 (35-45) mm/Hg pO2 (80-100) mm/Hg HCO3 (21-28) mmol/L ABG pH (7.35-7.45) ABG Total CO2 (22-28) mmol/L ABG O2 Saturation (95-98) % ABG Base Excess (-2.0-3.0) mmol/L Shankar Test ABG Potassium (3.6-5.2) mmol/L A-a O2 Difference mm/Hg Respiratory Index Glucose (75-110) mg/dl Lactate (0.7-2.1) mmol/L Vent Mode Mechanical Rate FiO2 % Tidal Volume PEEP Sodium (132-148) mmol/L Potassium (3.6-5.2) mmol/L Chloride (98-107) mmol/L Carbon Dioxide (22-30) mmol/L Anion Gap (10-20) BUN (9-20) mg/dL Creatinine (0.8-1.5) mg/dL Est GFR ( Amer) Est GFR (Non-Af Amer) POC Glucose (mg/dL) 90 90 83 (65-110) mg/dL Random Glucose (75-110) mg/dL Calcium (8.6-10.4) mg/dl Phosphorus (2.5-4.5) mg/dL Magnesium (1.6-2.3) mg/dL Total Bilirubin (0.2-1.3) mg/dL AST (17-59) U/L ALT (21-72) U/L Alkaline Phosphatase (38-126) U/L Total Protein (6.3-8.3) g/dL Albumin (3.5-5.0) g/dL Globulin (2.2-3.9) gm/dL Albumin/Globulin Ratio (1.0-2.1) Arterial Blood Potassium (3.6-5.2) mmol/L 06/21/17 06/21/17 06/21/17 Range/Units 22:23 21:05 19:28 WBC (4.8-10.8) K/uL RBC (4.40-5.90) Mil/uL Hgb (12.0-18.0) g/dL Hct (35.0-51.0) % MCV (80.0-94.0) fL MCH (27.0-31.0) pg MCHC (33.0-37.0) g/dL RDW (11.5-14.5) % Plt Count (130-400) K/uL MPV (7.2-11.7) fL Neut % (Auto) (50.0-75.0) % Lymph % (Auto) (20.0-40.0) % Rush % (Auto) (0.0-10.0) % Eos % (Auto) (0.0-4.0) % Baso % (Auto) (0.0-2.0) % Neut # (1.8-7.0) K/uL Lymph # (1.0-4.3) K/uL Rush # (0.0-0.8) K/uL Eos # (0.0-0.7) K/uL Baso # (0.0-0.2) K/uL Neutrophils % (Manual) (50-75) % Band Neutrophils % (0-2) % Lymphocytes % (Manual) (20-40) % Monocytes % (Manual) (0-10) % Platelet Estimate (NORMAL) Hypochromasia (manual) Poikilocytosis (manual Anisocytosis (manual) Microcytosis (manual) Tear Drop Cells [place] Cells Puncture Site pCO2 (35-45) mm/Hg pO2 (80-100) mm/Hg HCO3 (21-28) mmol/L ABG pH (7.35-7.45) ABG Total CO2 (22-28) mmol/L ABG O2 Saturation (95-98) % ABG Base Excess (-2.0-3.0) mmol/L Shankar Test ABG Potassium (3.6-5.2) mmol/L A-a O2 Difference mm/Hg Respiratory Index Glucose (75-110) mg/dl Lactate (0.7-2.1) mmol/L Vent Mode Mechanical Rate FiO2 % Tidal Volume PEEP Sodium (132-148) mmol/L Potassium (3.6-5.2) mmol/L Chloride (98-107) mmol/L Carbon Dioxide (22-30) mmol/L Anion Gap (10-20) BUN (9-20) mg/dL Creatinine (0.8-1.5) mg/dL Est GFR ( Amer) Est GFR (Non-Af Amer) POC Glucose (mg/dL) 69 72 78 (65-110) mg/dL Random Glucose (75-110) mg/dL Calcium (8.6-10.4) mg/dl Phosphorus (2.5-4.5) mg/dL Magnesium (1.6-2.3) mg/dL Total Bilirubin (0.2-1.3) mg/dL AST (17-59) U/L ALT (21-72) U/L Alkaline Phosphatase (38-126) U/L Total Protein (6.3-8.3) g/dL Albumin (3.5-5.0) g/dL Globulin (2.2-3.9) gm/dL Albumin/Globulin Ratio (1.0-2.1) Arterial Blood Potassium (3.6-5.2) mmol/L 06/21/17 06/21/17 06/21/17 Range/Units 18:57 17:59 17:22 WBC (4.8-10.8) K/uL RBC (4.40-5.90) Mil/uL Hgb (12.0-18.0) g/dL Hct (35.0-51.0) % MCV (80.0-94.0) fL MCH (27.0-31.0) pg MCHC (33.0-37.0) g/dL RDW (11.5-14.5) % Plt Count (130-400) K/uL MPV (7.2-11.7) fL Neut % (Auto) (50.0-75.0) % Lymph % (Auto) (20.0-40.0) % [place] % (Auto) (0.0-10.0) % Eos % (Auto) (0.0-4.0) % Baso % (Auto) (0.0-2.0) % Neut # (1.8-7.0) K/uL Lymph # (1.0-4.3) K/uL Rush # (0.0-0.8) K/uL Eos # (0.0-0.7) K/uL Baso # (0.0-0.2) K/uL Neutrophils % (Manual) (50-75) % Band Neutrophils % (0-2) % Lymphocytes % (Manual) (20-40) % Monocytes % (Manual) (0-10) % Platelet Estimate (NORMAL) Hypochromasia (manual) Poikilocytosis (manual Anisocytosis (manual) Microcytosis (manual) Tear Drop Cells [place] Cells Puncture Site pCO2 (35-45) mm/Hg pO2 (80-100) mm/Hg HCO3 (21-28) mmol/L ABG pH (7.35-7.45) ABG Total CO2 (22-28) mmol/L ABG O2 Saturation (95-98) % ABG Base Excess (-2.0-3.0) mmol/L Shankar Test ABG Potassium (3.6-5.2) mmol/L A-a O2 Difference mm/Hg Respiratory Index Glucose (75-110) mg/dl Lactate (0.7-2.1) mmol/L Vent Mode Mechanical Rate FiO2 % Tidal Volume PEEP Sodium (132-148) mmol/L Potassium (3.6-5.2) mmol/L Chloride (98-107) mmol/L Carbon Dioxide (22-30) mmol/L Anion Gap (10-20) BUN (9-20) mg/dL Creatinine (0.8-1.5) mg/dL Est GFR ( Amer) Est GFR (Non-Af Amer) POC Glucose (mg/dL) 98 85 84 (65-110) mg/dL Random Glucose (75-110) mg/dL Calcium (8.6-10.4) mg/dl Phosphorus (2.5-4.5) mg/dL Magnesium (1.6-2.3) mg/dL Total Bilirubin (0.2-1.3) mg/dL AST (17-59) U/L ALT (21-72) U/L Alkaline Phosphatase (38-126) U/L Total Protein (6.3-8.3) g/dL Albumin (3.5-5.0) g/dL Globulin (2.2-3.9) gm/dL Albumin/Globulin Ratio (1.0-2.1) Arterial Blood Potassium (3.6-5.2) mmol/L 06/21/17 06/21/17 06/21/17 Range/Units 16:31 16:31 16:20 WBC 8.2 (4.8-10.8) K/uL RBC 4.42 (4.40-5.90) Mil/uL Hgb 8.6 L (12.0-18.0) g/dL Hct 27.1 L (35.0-51.0) % MCV 61.4 L (80.0-94.0) fL MCH 19.5 L (27.0-31.0) pg MCHC 31.8 L (33.0-37.0) g/dL RDW 16.1 H (11.5-14.5) % Plt Count 91 L (130-400) K/uL MPV 8.6 (7.2-11.7) fL Neut % (Auto) 83.0 H (50.0-75.0) % Lymph % (Auto) 6.6 L (20.0-40.0) % [place] % (Auto) 10.3 H (0.0-10.0) % Eos % (Auto) 0.0 (0.0-4.0) % Baso % (Auto) 0.1 (0.0-2.0) % Neut # 6.8 (1.8-7.0) K/uL Lymph # 0.5 L (1.0-4.3) K/uL Rush # 0.8 (0.0-0.8) K/uL Eos # 0.0 (0.0-0.7) K/uL Baso # 0.0 (0.0-0.2) K/uL Neutrophils % (Manual) 85 H (50-75) % Band Neutrophils % 2 (0-2) % Lymphocytes % (Manual) 8 L (20-40) % Monocytes % (Manual) 5 (0-10) % Platelet Estimate Decreased L (NORMAL) Hypochromasia (manual) Moderate Poikilocytosis (manual Slight Anisocytosis (manual) Slight Microcytosis (manual) Slight Tear Drop Cells [place] Cells Puncture Site pCO2 (35-45) mm/Hg pO2 (80-100) mm/Hg HCO3 (21-28) mmol/L ABG pH (7.35-7.45) ABG Total CO2 (22-28) mmol/L ABG O2 Saturation (95-98) % ABG Base Excess (-2.0-3.0) mmol/L Shankar Test ABG Potassium (3.6-5.2) mmol/L A-a O2 Difference mm/Hg Respiratory Index Glucose (75-110) mg/dl Lactate (0.7-2.1) mmol/L Vent Mode Mechanical Rate FiO2 % Tidal Volume PEEP Sodium 134 (132-148) mmol/L Potassium 4.8 (3.6-5.2) mmol/L Chloride 104 (98-107) mmol/L Carbon Dioxide 21 L (22-30) mmol/L Anion Gap 13 (10-20) BUN 36 H (9-20) mg/dL Creatinine 1.2 (0.8-1.5) mg/dL Est GFR ( Amer) > 60 Est GFR (Non-Af Amer) > 60 POC Glucose (mg/dL) 106 (65-110) mg/dL Random Glucose 82 (75-110) mg/dL Calcium 7.5 L (8.6-10.4) mg/dl Phosphorus 4.5 (2.5-4.5) mg/dL Magnesium 1.7 (1.6-2.3) mg/dL Total Bilirubin 1.2 (0.2-1.3) mg/dL AST 116 H D (17-59) U/L ALT 62 (21-72) U/L Alkaline Phosphatase 71 (38-126) U/L Total Protein 5.7 L (6.3-8.3) g/dL Albumin 3.3 L (3.5-5.0) g/dL Globulin 2.4 (2.2-3.9) gm/dL Albumin/Globulin Ratio 1.4 (1.0-2.1) Arterial Blood Potassium (3.6-5.2) mmol/L 06/21/17 06/21/17 06/21/17 Range/Units 15:19 14:03 13:06 WBC (4.8-10.8) K/uL RBC (4.40-5.90) Mil/uL Hgb (12.0-18.0) g/dL Hct (35.0-51.0) % MCV (80.0-94.0) fL MCH (27.0-31.0) pg MCHC (33.0-37.0) g/dL RDW (11.5-14.5) % Plt Count (130-400) K/uL MPV (7.2-11.7) fL Neut % (Auto) (50.0-75.0) % Lymph % (Auto) (20.0-40.0) % [place] % (Auto) (0.0-10.0) % Eos % (Auto) (0.0-4.0) % Baso % (Auto) (0.0-2.0) % Neut # (1.8-7.0) K/uL Lymph # (1.0-4.3) K/uL [place] # (0.0-0.8) K/uL Eos # (0.0-0.7) K/uL Baso # (0.0-0.2) K/uL Neutrophils % (Manual) (50-75) % Band Neutrophils % (0-2) % Lymphocytes % (Manual) (20-40) % Monocytes % (Manual) (0-10) % Platelet Estimate (NORMAL) Hypochromasia (manual) Poikilocytosis (manual Anisocytosis (manual) Microcytosis (manual) Tear Drop Cells [place] Cells Puncture Site pCO2 (35-45) mm/Hg pO2 (80-100) mm/Hg HCO3 (21-28) mmol/L ABG pH (7.35-7.45) ABG Total CO2 (22-28) mmol/L ABG O2 Saturation (95-98) % ABG Base Excess (-2.0-3.0) mmol/L Shankar Test ABG Potassium (3.6-5.2) mmol/L A-a O2 Difference mm/Hg Respiratory Index Glucose (75-110) mg/dl Lactate (0.7-2.1) mmol/L Vent Mode Mechanical Rate FiO2 % Tidal Volume PEEP Sodium (132-148) mmol/L Potassium (3.6-5.2) mmol/L Chloride (98-107) mmol/L Carbon Dioxide (22-30) mmol/L Anion Gap (10-20) BUN (9-20) mg/dL Creatinine (0.8-1.5) mg/dL Est GFR ( Amer) Est GFR (Non-Af Amer) POC Glucose (mg/dL) 90 104 106 (65-110) mg/dL Random Glucose (75-110) mg/dL Calcium (8.6-10.4) mg/dl Phosphorus (2.5-4.5) mg/dL Magnesium (1.6-2.3) mg/dL Total Bilirubin (0.2-1.3) mg/dL AST (17-59) U/L ALT (21-72) U/L Alkaline Phosphatase (38-126) U/L Total Protein (6.3-8.3) g/dL Albumin (3.5-5.0) g/dL Globulin (2.2-3.9) gm/dL Albumin/Globulin Ratio (1.0-2.1) Arterial Blood Potassium (3.6-5.2) mmol/L 06/21/17 06/21/17 06/21/17 Range/Units 11:55 11:18 11:18 WBC 5.8 (4.8-10.8) K/uL RBC 4.19 L (4.40-5.90) Mil/uL Hgb 8.2 L (12.0-18.0) g/dL Hct 25.5 L (35.0-51.0) % MCV 60.9 L (80.0-94.0) fL MCH 19.5 L (27.0-31.0) pg MCHC 32.0 L (33.0-37.0) g/dL RDW 16.1 H (11.5-14.5) % Plt Count 82 L (130-400) K/uL MPV 8.8 (7.2-11.7) fL Neut % (Auto) 83.9 H (50.0-75.0) % Lymph % (Auto) 7.4 L (20.0-40.0) % Rush % (Auto) 8.6 (0.0-10.0) % Eos % (Auto) 0.1 (0.0-4.0) % Baso % (Auto) 0.0 (0.0-2.0) % Neut # 4.8 (1.8-7.0) K/uL Lymph # 0.4 L (1.0-4.3) K/uL Rush # 0.5 (0.0-0.8) K/uL Eos # 0.0 (0.0-0.7) K/uL Baso # 0.0 (0.0-0.2) K/uL Neutrophils % (Manual) 84 H (50-75) % Band Neutrophils % 4 H (0-2) % Lymphocytes % (Manual) 5 L (20-40) % Monocytes % (Manual) 7 (0-10) % Platelet Estimate Normal (NORMAL) Hypochromasia (manual) Slight Poikilocytosis (manual Slight Anisocytosis (manual) Slight Microcytosis (manual) Tear Drop Cells Slight [place] Cells Slight Puncture Site pCO2 (35-45) mm/Hg pO2 (80-100) mm/Hg HCO3 (21-28) mmol/L ABG pH (7.35-7.45) ABG Total CO2 (22-28) mmol/L ABG O2 Saturation (95-98) % ABG Base Excess (-2.0-3.0) mmol/L Shankar Test ABG Potassium (3.6-5.2) mmol/L A-a O2 Difference mm/Hg Respiratory Index Glucose (75-110) mg/dl Lactate (0.7-2.1) mmol/L Vent Mode Mechanical Rate FiO2 % Tidal Volume PEEP Sodium 134 (132-148) mmol/L Potassium 3.9 (3.6-5.2) mmol/L Chloride 105 (98-107) mmol/L Carbon Dioxide 21 L (22-30) mmol/L Anion Gap 12 (10-20) BUN 36 H (9-20) mg/dL Creatinine 1.2 (0.8-1.5) mg/dL Est GFR ( Amer) > 60 Est GFR (Non-Af Amer) > 60 POC Glucose (mg/dL) 99 (65-110) mg/dL Random Glucose 99 (75-110) mg/dL Calcium 7.5 L (8.6-10.4) mg/dl Phosphorus 3.0 (2.5-4.5) mg/dL Magnesium 1.7 (1.6-2.3) mg/dL Total Bilirubin 0.9 (0.2-1.3) mg/dL AST 94 H (17-59) U/L ALT 58 (21-72) U/L Alkaline Phosphatase 67 (38-126) U/L Total Protein 6.3 (6.3-8.3) g/dL Albumin 3.1 L (3.5-5.0) g/dL Globulin 3.3 (2.2-3.9) gm/dL Albumin/Globulin Ratio 0.9 L (1.0-2.1) Arterial Blood Potassium (3.6-5.2) mmol/L 06/21/17 06/21/17 06/21/17 Range/Units 11:04 10:10 09:17 WBC (4.8-10.8) K/uL RBC (4.40-5.90) Mil/uL Hgb (12.0-18.0) g/dL Hct (35.0-51.0) % MCV (80.0-94.0) fL MCH (27.0-31.0) pg MCHC (33.0-37.0) g/dL RDW (11.5-14.5) % Plt Count (130-400) K/uL MPV (7.2-11.7) fL Neut % (Auto) (50.0-75.0) % Lymph % (Auto) (20.0-40.0) % Rush % (Auto) (0.0-10.0) % Eos % (Auto) (0.0-4.0) % Baso % (Auto) (0.0-2.0) % Neut # (1.8-7.0) K/uL Lymph # (1.0-4.3) K/uL Rush # (0.0-0.8) K/uL Eos # (0.0-0.7) K/uL Baso # (0.0-0.2) K/uL Neutrophils % (Manual) (50-75) % Band Neutrophils % (0-2) % Lymphocytes % (Manual) (20-40) % Monocytes % (Manual) (0-10) % Platelet Estimate (NORMAL) Hypochromasia (manual) Poikilocytosis (manual Anisocytosis (manual) Microcytosis (manual) Tear Drop Cells [place] Cells Puncture Site pCO2 (35-45) mm/Hg pO2 (80-100) mm/Hg HCO3 (21-28) mmol/L ABG pH (7.35-7.45) ABG Total CO2 (22-28) mmol/L ABG O2 Saturation (95-98) % ABG Base Excess (-2.0-3.0) mmol/L Shankar Test ABG Potassium (3.6-5.2) mmol/L A-a O2 Difference mm/Hg Respiratory Index Glucose (75-110) mg/dl Lactate (0.7-2.1) mmol/L Vent Mode Mechanical Rate FiO2 % Tidal Volume PEEP Sodium (132-148) mmol/L Potassium (3.6-5.2) mmol/L Chloride (98-107) mmol/L Carbon Dioxide (22-30) mmol/L Anion Gap (10-20) BUN (9-20) mg/dL Creatinine (0.8-1.5) mg/dL Est GFR ( Amer) Est GFR (Non-Af Amer) POC Glucose (mg/dL) 105 112 H 128 H (65-110) mg/dL Random Glucose (75-110) mg/dL Calcium (8.6-10.4) mg/dl Phosphorus (2.5-4.5) mg/dL Magnesium (1.6-2.3) mg/dL Total Bilirubin (0.2-1.3) mg/dL AST (17-59) U/L ALT (21-72) U/L Alkaline Phosphatase (38-126) U/L Total Protein (6.3-8.3) g/dL Albumin (3.5-5.0) g/dL Globulin (2.2-3.9) gm/dL Albumin/Globulin Ratio (1.0-2.1) Arterial Blood Potassium (3.6-5.2) mmol/L 06/21/17 06/21/17 Range/Units 08:19 06:43 WBC (4.8-10.8) K/uL RBC (4.40-5.90) Mil/uL Hgb (12.0-18.0) g/dL Hct (35.0-51.0) % MCV (80.0-94.0) fL MCH (27.0-31.0) pg MCHC (33.0-37.0) g/dL RDW (11.5-14.5) % Plt Count (130-400) K/uL MPV (7.2-11.7) fL Neut % (Auto) (50.0-75.0) % Lymph % (Auto) (20.0-40.0) % Rush % (Auto) (0.0-10.0) % Eos % (Auto) (0.0-4.0) % Baso % (Auto) (0.0-2.0) % Neut # (1.8-7.0) K/uL Lymph # (1.0-4.3) K/uL Rush # (0.0-0.8) K/uL Eos # (0.0-0.7) K/uL Baso # (0.0-0.2) K/uL Neutrophils % (Manual) 82 H (50-75) % Band Neutrophils % 6 H (0-2) % Lymphocytes % (Manual) 6 L (20-40) % Monocytes % (Manual) 6 (0-10) % Platelet Estimate Decreased L (NORMAL) Hypochromasia (manual) Slight Poikilocytosis (manual Slight Anisocytosis (manual) Slight Microcytosis (manual) Tear Drop Cells Slight [place] Cells Slight Puncture Site pCO2 (35-45) mm/Hg pO2 (80-100) mm/Hg HCO3 (21-28) mmol/L ABG pH (7.35-7.45) ABG Total CO2 (22-28) mmol/L ABG O2 Saturation (95-98) % ABG Base Excess (-2.0-3.0) mmol/L Shankar Test ABG Potassium (3.6-5.2) mmol/L A-a O2 Difference mm/Hg Respiratory Index Glucose (75-110) mg/dl Lactate (0.7-2.1) mmol/L Vent Mode Mechanical Rate FiO2 % Tidal Volume PEEP Sodium (132-148) mmol/L Potassium (3.6-5.2) mmol/L Chloride (98-107) mmol/L Carbon Dioxide (22-30) mmol/L Anion Gap (10-20) BUN (9-20) mg/dL Creatinine (0.8-1.5) mg/dL Est GFR ( Amer) Est GFR (Non-Af Amer) POC Glucose (mg/dL) 144 H (65-110) mg/dL Random Glucose (75-110) mg/dL Calcium (8.6-10.4) mg/dl Phosphorus (2.5-4.5) mg/dL Magnesium (1.6-2.3) mg/dL Total Bilirubin (0.2-1.3) mg/dL AST (17-59) U/L ALT (21-72) U/L Alkaline Phosphatase (38-126) U/L Total Protein (6.3-8.3) g/dL Albumin (3.5-5.0) g/dL Globulin (2.2-3.9) gm/dL Albumin/Globulin Ratio (1.0-2.1) Arterial Blood Potassium (3.6-5.2) mmol/L Laboratory Results - last 24 hr 06/21/17 06/21/17 06/21/17 06:43 08:19 09:17 WBC RBC Hgb Hct MCV MCH MCHC RDW Plt Count MPV Neut % (Auto) Lymph % (Auto) [place] % (Auto) Eos % (Auto) Baso % (Auto) Neut # Lymph # [place] # Eos # Baso # Neutrophils % (Manual) 82 H Band Neutrophils % 6 H Lymphocytes % (Manual) 6 L Monocytes % (Manual) 6 Platelet Estimate Decreased L Hypochromasia (manual) Slight Poikilocytosis (manual Slight Anisocytosis (manual) Slight Microcytosis (manual) Tear Drop Cells Slight [place] Cells Slight Puncture Site pCO2 pO2 HCO3 ABG pH ABG Total CO2 ABG O2 Saturation ABG Base Excess Shankar Test ABG Potassium A-a O2 Difference Respiratory Index Glucose Lactate Vent Mode Mechanical Rate FiO2 Tidal Volume PEEP Sodium Potassium Chloride Carbon Dioxide Anion Gap BUN Creatinine Est GFR ( Amer) Est GFR (Non-Af Amer) POC Glucose (mg/dL) 144 H 128 H Random Glucose Calcium Phosphorus Magnesium Total Bilirubin AST ALT Alkaline Phosphatase Total Protein Albumin Globulin Albumin/Globulin Ratio Arterial Blood Potassium 06/21/17 06/21/17 06/21/17 10:10 11:04 11:18 WBC 5.8 RBC 4.19 L Hgb 8.2 L Hct 25.5 L MCV 60.9 L MCH 19.5 L MCHC 32.0 L RDW 16.1 H Plt Count 82 L MPV 8.8 Neut % (Auto) 83.9 H Lymph % (Auto) 7.4 L [place] % (Auto) 8.6 Eos % (Auto) 0.1 Baso % (Auto) 0.0 Neut # 4.8 Lymph # 0.4 L [place] # 0.5 Eos # 0.0 Baso # 0.0 Neutrophils % (Manual) 84 H Band Neutrophils % 4 H Lymphocytes % (Manual) 5 L Monocytes % (Manual) 7 Platelet Estimate Normal Hypochromasia (manual) Slight Poikilocytosis (manual Slight Anisocytosis (manual) Slight Microcytosis (manual) Tear Drop Cells Slight [place] Cells Slight Puncture Site pCO2 pO2 HCO3 ABG pH ABG Total CO2 ABG O2 Saturation ABG Base Excess Shankar Test ABG Potassium A-a O2 Difference Respiratory Index Glucose Lactate Vent Mode Mechanical Rate FiO2 Tidal Volume PEEP Sodium Potassium Chloride Carbon Dioxide Anion Gap BUN Creatinine Est GFR ( Amer) Est GFR (Non-Af Amer) POC Glucose (mg/dL) 112 H 105 Random Glucose Calcium Phosphorus Magnesium Total Bilirubin AST ALT Alkaline Phosphatase Total Protein Albumin Globulin Albumin/Globulin Ratio Arterial Blood Potassium 06/21/17 06/21/17 06/21/17 11:18 11:55 13:06 WBC RBC Hgb Hct MCV MCH MCHC RDW Plt Count MPV Neut % (Auto) Lymph % (Auto) [place] % (Auto) Eos % (Auto) Baso % (Auto) Neut # Lymph # [place] # Eos # Baso # Neutrophils % (Manual) Band Neutrophils % Lymphocytes % (Manual) Monocytes % (Manual) Platelet Estimate Hypochromasia (manual) Poikilocytosis (manual Anisocytosis (manual) Microcytosis (manual) Tear Drop Cells [place] Cells Puncture Site pCO2 pO2 HCO3 ABG pH ABG Total CO2 ABG O2 Saturation ABG Base Excess Shankar Test ABG Potassium A-a O2 Difference Respiratory Index Glucose Lactate Vent Mode Mechanical Rate FiO2 Tidal Volume PEEP Sodium 134 Potassium 3.9 Chloride 105 Carbon Dioxide 21 L Anion Gap 12 BUN 36 H Creatinine 1.2 Est GFR ( Amer) > 60 Est GFR (Non-Af Amer) > 60 POC Glucose (mg/dL) 99 106 Random Glucose 99 Calcium 7.5 L Phosphorus 3.0 Magnesium 1.7 Total Bilirubin 0.9 AST 94 H ALT 58 Alkaline Phosphatase 67 Total Protein 6.3 Albumin 3.1 L Globulin 3.3 Albumin/Globulin Ratio 0.9 L Arterial Blood Potassium 06/21/17 06/21/17 06/21/17 14:03 15:19 16:20 WBC RBC Hgb Hct MCV MCH MCHC RDW Plt Count MPV Neut % (Auto) Lymph % (Auto) [place] % (Auto) Eos % (Auto) Baso % (Auto) Neut # Lymph # [place] # Eos # Baso # Neutrophils % (Manual) Band Neutrophils % Lymphocytes % (Manual) Monocytes % (Manual) Platelet Estimate Hypochromasia (manual) Poikilocytosis (manual Anisocytosis (manual) Microcytosis (manual) Tear Drop Cells [place] Cells Puncture Site pCO2 pO2 HCO3 ABG pH ABG Total CO2 ABG O2 Saturation ABG Base Excess Shankar Test ABG Potassium A-a O2 Difference Respiratory Index Glucose Lactate Vent Mode Mechanical Rate FiO2 Tidal Volume PEEP Sodium Potassium Chloride Carbon Dioxide Anion Gap BUN Creatinine Est GFR ( Amer) Est GFR (Non-Af Amer) POC Glucose (mg/dL) 104 90 106 Random Glucose Calcium Phosphorus Magnesium Total Bilirubin AST ALT Alkaline Phosphatase Total Protein Albumin Globulin Albumin/Globulin Ratio Arterial Blood Potassium 06/21/17 06/21/17 06/21/17 16:31 16:31 17:22 WBC 8.2 RBC 4.42 Hgb 8.6 L Hct 27.1 L MCV 61.4 L MCH 19.5 L MCHC 31.8 L RDW 16.1 H Plt Count 91 L MPV 8.6 Neut % (Auto) 83.0 H Lymph % (Auto) 6.6 L [place] % (Auto) 10.3 H Eos % (Auto) 0.0 Baso % (Auto) 0.1 Neut # 6.8 Lymph # 0.5 L [place] # 0.8 Eos # 0.0 Baso # 0.0 Neutrophils % (Manual) 85 H Band Neutrophils % 2 Lymphocytes % (Manual) 8 L Monocytes % (Manual) 5 Platelet Estimate Decreased L Hypochromasia (manual) Moderate Poikilocytosis (manual Slight Anisocytosis (manual) Slight Microcytosis (manual) Slight Tear Drop Cells [place] Cells Puncture Site pCO2 pO2 HCO3 ABG pH ABG Total CO2 ABG O2 Saturation ABG Base Excess Shankar Test ABG Potassium A-a O2 Difference Respiratory Index Glucose Lactate Vent Mode Mechanical Rate FiO2 Tidal Volume PEEP Sodium 134 Potassium 4.8 Chloride 104 Carbon Dioxide 21 L Anion Gap 13 BUN 36 H Creatinine 1.2 Est GFR ( Amer) > 60 Est GFR (Non-Af Amer) > 60 POC Glucose (mg/dL) 84 Random Glucose 82 Calcium 7.5 L Phosphorus 4.5 Magnesium 1.7 Total Bilirubin 1.2 AST 116 H D ALT 62 Alkaline Phosphatase 71 Total Protein 5.7 L Albumin 3.3 L Globulin 2.4 Albumin/Globulin Ratio 1.4 Arterial Blood Potassium 06/21/17 06/21/17 06/21/17 17:59 18:57 19:28 WBC RBC Hgb Hct MCV MCH MCHC RDW Plt Count MPV Neut % (Auto) Lymph % (Auto) [place] % (Auto) Eos % (Auto) Baso % (Auto) Neut # Lymph # [place] # Eos # Baso # Neutrophils % (Manual) Band Neutrophils % Lymphocytes % (Manual) Monocytes % (Manual) Platelet Estimate Hypochromasia (manual) Poikilocytosis (manual Anisocytosis (manual) Microcytosis (manual) Tear Drop Cells [place] Cells Puncture Site pCO2 pO2 HCO3 ABG pH ABG Total CO2 ABG O2 Saturation ABG Base Excess Shankar Test ABG Potassium A-a O2 Difference Respiratory Index Glucose Lactate Vent Mode Mechanical Rate FiO2 Tidal Volume PEEP Sodium Potassium Chloride Carbon Dioxide Anion Gap BUN Creatinine Est GFR ( Amer) Est GFR (Non-Af Amer) POC Glucose (mg/dL) 85 98 78 Random Glucose Calcium Phosphorus Magnesium Total Bilirubin AST ALT Alkaline Phosphatase Total Protein Albumin Globulin Albumin/Globulin Ratio Arterial Blood Potassium 06/21/17 06/21/17 06/21/17 21:05 22:23 23:36 WBC RBC Hgb Hct MCV MCH MCHC RDW Plt Count MPV Neut % (Auto) Lymph % (Auto) [place] % (Auto) Eos % (Auto) Baso % (Auto) Neut # Lymph # [place] # Eos # Baso # Neutrophils % (Manual) Band Neutrophils % Lymphocytes % (Manual) Monocytes % (Manual) Platelet Estimate Hypochromasia (manual) Poikilocytosis (manual Anisocytosis (manual) Microcytosis (manual) Tear Drop Cells [place] Cells Puncture Site pCO2 pO2 HCO3 ABG pH ABG Total CO2 ABG O2 Saturation ABG Base Excess Shankar Test ABG Potassium A-a O2 Difference Respiratory Index Glucose Lactate Vent Mode Mechanical Rate FiO2 Tidal Volume PEEP Sodium Potassium Chloride Carbon Dioxide Anion Gap BUN Creatinine Est GFR ( Amer) Est GFR (Non-Af Amer) POC Glucose (mg/dL) 72 69 83 Random Glucose Calcium Phosphorus Magnesium Total Bilirubin AST ALT Alkaline Phosphatase Total Protein Albumin Globulin Albumin/Globulin Ratio Arterial Blood Potassium 06/22/17 06/22/17 06/22/17 00:43 01:59 02:23 WBC RBC Hgb Hct MCV MCH MCHC RDW Plt Count MPV Neut % (Auto) Lymph % (Auto) [place] % (Auto) Eos % (Auto) Baso % (Auto) Neut # Lymph # [place] # Eos # Baso # Neutrophils % (Manual) Band Neutrophils % Lymphocytes % (Manual) Monocytes % (Manual) Platelet Estimate Hypochromasia (manual) Poikilocytosis (manual Anisocytosis (manual) Microcytosis (manual) Tear Drop Cells [place] Cells Puncture Site pCO2 pO2 HCO3 ABG pH ABG Total CO2 ABG O2 Saturation ABG Base Excess Shankar Test ABG Potassium A-a O2 Difference Respiratory Index Glucose Lactate Vent Mode Mechanical Rate FiO2 Tidal Volume PEEP Sodium Potassium Chloride Carbon Dioxide Anion Gap BUN Creatinine Est GFR ( Amer) Est GFR (Non-Af Amer) POC Glucose (mg/dL) 90 90 90 Random Glucose Calcium Phosphorus Magnesium Total Bilirubin AST ALT Alkaline Phosphatase Total Protein Albumin Globulin Albumin/Globulin Ratio Arterial Blood Potassium 06/22/17 06/22/17 06/22/17 03:31 04:20 05:00 WBC RBC Hgb Hct MCV MCH MCHC RDW Plt Count MPV Neut % (Auto) Lymph % (Auto) [place] % (Auto) Eos % (Auto) Baso % (Auto) Neut # Lymph # [place] # Eos # Baso # Neutrophils % (Manual) Band Neutrophils % Lymphocytes % (Manual) Monocytes % (Manual) Platelet Estimate Hypochromasia (manual) Poikilocytosis (manual Anisocytosis (manual) Microcytosis (manual) Tear Drop Cells [place] Cells Puncture Site Rb pCO2 30 L pO2 195 H HCO3 22.4 ABG pH 7.43 ABG Total CO2 20.8 L ABG O2 Saturation 98.6 H ABG Base Excess -3.3 L Shankar Test Na ABG Potassium 3.5 L A-a O2 Difference 124.0 Respiratory Index 0.6 Glucose 116 H Lactate 0.7 Vent Mode A/c Mechanical Rate 12 FiO2 50.0 Tidal Volume 500 PEEP 5 Sodium 139.0 Potassium Chloride 114.0 H Carbon Dioxide Anion Gap BUN Creatinine Est GFR ( Amer) Est GFR (Non-Af Amer) POC Glucose (mg/dL) 107 90 Random Glucose Calcium Phosphorus Magnesium Total Bilirubin AST ALT Alkaline Phosphatase Total Protein Albumin Globulin Albumin/Globulin Ratio Arterial Blood Potassium 3.5 L 06/22/17 06/22/17 06/22/17 05:28 06:10 06:25 WBC 7.4 RBC 4.17 L Hgb 8.0 L Hct 25.5 L MCV 61.1 L MCH 19.2 L MCHC 31.4 L RDW 16.4 H Plt Count 94 L MPV 9.1 Neut % (Auto) 74.3 Lymph % (Auto) 14.0 L [place] % (Auto) 11.2 H Eos % (Auto) 0.4 Baso % (Auto) 0.1 Neut # 5.5 Lymph # 1.0 [place] # 0.8 Eos # 0.0 Baso # 0.0 Neutrophils % (Manual) Band Neutrophils % Lymphocytes % (Manual) Monocytes % (Manual) Platelet Estimate Hypochromasia (manual) Poikilocytosis (manual Anisocytosis (manual) Microcytosis (manual) Tear Drop Cells [place] Cells Puncture Site pCO2 pO2 HCO3 ABG pH ABG Total CO2 ABG O2 Saturation ABG Base Excess Shankar Test ABG Potassium A-a O2 Difference Respiratory Index Glucose Lactate Vent Mode Mechanical Rate FiO2 Tidal Volume PEEP Sodium Potassium Chloride Carbon Dioxide Anion Gap BUN Creatinine Est GFR ( Amer) Est GFR (Non-Af Amer) POC Glucose (mg/dL) 130 H 118 H Random Glucose Calcium Phosphorus Magnesium Total Bilirubin AST ALT Alkaline Phosphatase Total Protein Albumin Globulin Albumin/Globulin Ratio Arterial Blood Potassium 06/22/17 06/22/17 06:26 07:18 WBC RBC Hgb Hct MCV MCH MCHC RDW Plt Count MPV Neut % (Auto) Lymph % (Auto) [place] % (Auto) Eos % (Auto) Baso % (Auto) Neut # Lymph # [place] # Eos # Baso # Neutrophils % (Manual) Band Neutrophils % Lymphocytes % (Manual) Monocytes % (Manual) Platelet Estimate Hypochromasia (manual) Poikilocytosis (manual Anisocytosis (manual) Microcytosis (manual) Tear Drop Cells [place] Cells Puncture Site pCO2 pO2 HCO3 ABG pH ABG Total CO2 ABG O2 Saturation ABG Base Excess Shankar Test ABG Potassium A-a O2 Difference Respiratory Index Glucose Lactate Vent Mode Mechanical Rate FiO2 Tidal Volume PEEP Sodium 137 Potassium 3.7 Chloride 106 Carbon Dioxide 21 L Anion Gap 14 BUN 33 H Creatinine 1.1 Est GFR ( Amer) > 60 Est GFR (Non-Af Amer) > 60 POC Glucose (mg/dL) 120 H Random Glucose 97 Calcium 7.4 L Phosphorus 3.3 Magnesium 1.7 Total Bilirubin 0.7 AST 123 H ALT 63 Alkaline Phosphatase 64 Total Protein 6.0 L Albumin 2.9 L Globulin 3.0 Albumin/Globulin Ratio 1.0 Arterial Blood Potassium Fingerstick Blood Sugar Results: 120 Review of Systems - Review of Systems Systems not reviewed;Unavailable: Intubated Critical Care Progress Note - Nutrition Nutrition: Nutrition Category Date Time Status NPO Diet [DIET] Diets 06/20/17 Dinner Active Assessment/Plan - Assessment and Plan (Free Text) Assessment: 61 year old male with a PMH of Essential hypertension, Pulmonary hypertension, tricuspid valve replacement, mitral valve replacement, hx of a. flutter, atrial septal defect, anemia, a.fib, hyperlipidemia present s/p cardiac arrest. Plan: Cardio: Dr. Platt consulted, help appreciated Dr. Elizondo consulted, help appreciated ECHO - no pericardial effusion seen, awaiting official read EKG - paced rhythm Trop (06/20)- initial <0.012, second 0.793, third 6.3 [employer] pacemaker Model S602/Serial [id number] implanted on October 03, 2009 Guidant Lead Model 4137/Serial [id number] [employer] [place] Lead Model 1688TC Rep from [employer] came and interrogated pacemaker. Pacemaker is functioning properly. - Pacemaker recorded 3 events of Vtach around 1:30 pm today (06/20/17) - Increased packmaker rate to 75bpm Femoral Central line placed Norepinephrine drip - increased to 15mcg/min due to persistent low BP Normal Saline @100mL/hr - discontinued Original Amiodarone drip was never started on patient due to low BP upon arrival - awaiting for f/u with Dr. Elizondo to see if he would like Amiodarone drip started. Lock placed Strict I's & O's f/u cardio recs - cervical spine x-ray - no fracture seen - further cardiac eval will depend on chances for neurologic recovery s/p CODE Freeze Records obtained from [facility] in [place], [place]. - Essential hypertension, Pulmonary hypertension, tricuspid valve replacement, mitral valve replacement, hx of a. flutter, atrial septal defect, anemia, a.fib, hyperlipidemia. - Surgical hx: mitral valve replacement(2008), tricuspid valve replacement( 2008), ASD repair(2008), duel chamber pacemaker(2008) Neurology: Dr. Ash Frausto consulted, help appreciated Head CT w/o - no acute findings Keppra 250mg IVPB q12H increased to 500mg IVPB q12H Propofol drip Morphine drip f/u EEG and head CT today f/u Neuro recs Respiratory: Intubated CXR - Endotracheal tube tip appropriately positioned approximately 6.4 cm above tracheal skip. No other acute findings. ABG - femoral stick, pCO2 30/ pO2 195/ HCO3 22.4/ pH 7.43 - taken while on vent settings A/c, TV 500/FiO2 50/RR 12/ PEEP 5 Electrolytes: Phos 3.3 Mag 1.7 Heme: Hgb decreased to 8.0 from 8.2 (06/21) Platelets increased to 94 from 82 (06/21) GI: Started on Jevity 1.5, initial rate 20ml/hr; goal rate 45 ml/hr Prophylactic Care: SCDs anticoag contra indicated due to thrombocytopenia (platelets 94 today) protonix 40mg IVP daily Case discussed with Dr. Demar Winston PGY1 <Alexandru Benz S - Last Filed: 06/22/17 17:36> CCU Objective - Vital Signs / Intake & Output Vital Signs (Last 4 hours): Vital Signs Temp Pulse Resp BP Pulse Ox 06/22/17 17:00 75 17 109/49 L 100 06/22/17 16:46 73 17 104/45 L 100 06/22/17 16:30 76 15 105/47 L 100 06/22/17 16:15 68 15 104/46 L 100 06/22/17 16:00 99.2 F 76 15 105/45 L 100 06/22/17 15:45 73 18 107/43 L 100 06/22/17 15:30 77 16 106/49 L 100 06/22/17 15:15 75 14 104/47 L 100 06/22/17 15:00 76 16 104/46 L 100 06/22/17 14:59 76 15 100 06/22/17 14:45 74 18 102/47 L 100 06/22/17 14:30 74 15 105/47 L 100 06/22/17 14:15 75 15 106/45 L 100 06/22/17 14:00 75 15 107/49 L 100 06/22/17 13:45 74 16 106/51 L 100 Intake and Output (Last 8hrs): Intake & Output 06/22/17 06/22/17 06/22/17 06:59 14:59 22:59 Intake Total 1273.6 617.2 78.6 Output Total 635 710 80 Balance 638.6 -92.8 -1.4 Weight 176 lb 5.917 oz Intake: IV 343 109 Intake, IV Amount 930.6 508.2 78.6 Right Distal Port Femoral 522.6 116.3 45 Right Hand 300 300 Right Medial Port Femoral 32 32 12 Right Proximal Port 76.0 59.9 21.6 Femoral Output: Urine 635 710 80 Urethral (Lock) 635 710 80 Other: # Bowel Movements 0 - Medications Active Medications: Active Medications Generic Name Dose Route Start Last Admin Trade Name Freq PRN Reason Stop Dose Admin Artificial Tears 0 gm 06/21/17 10:01 06/22/17 05:33 Lacri-Lube OU 1 gm Q4 PRN Administration Dry eyes Ceftriaxone Sodium 50 mls @ 100 mls/hr 06/20/17 18:00 06/22/17 05:22 Rocephin Iv 1 Gm Duplex IVPB 100 mls/hr Q12H EMERY Administration Norepinephrine Bitartrate 8 mg 250 mls @ 7.5 mls/hr 06/20/17 17:16 06/22/17 07:43 / Dextrose IV 8 mcg/min .Q24H PRN 15 mls/hr TITRATE PER MD ORDER Titration Protocol 4 MCG/MIN Propofol 1,000 mg in 100 mls @ 2.4 mls/hr 06/21/17 12:02 06/22/17 09:39 Diprivan IV 15 mcg/kg/min .Q24H PRN 7.2 mls/hr TITRATE PER MD ORDER Administration Protocol 5 MCG/KG/MIN Morphine Sulfate 250 mg/ 250 mls @ 4 mls/hr 06/21/17 12:30 06/22/17 13:55 Sodium Chloride IV Not Given .Q24H EMERY Protocol Valproate Sodium 500 mg/ 55 mls @ 0 mls/hr 06/23/17 10:00 Sodium Chloride IVPB 06/23/17 10:01 BID ONE Per Protocol Lorazepam 1 mg 06/20/17 17:09 06/22/17 04:07 Ativan IVP 1 mg Q4H PRN Administration Anxiety Pantoprazole Sodium 40 mg 06/21/17 10:00 06/22/17 09:25 Protonix Inj IVP 40 mg DAILY EMERY Administration Potassium Phos/Sodium Phos 1 pkt 06/21/17 10:00 06/22/17 07:41 Neutra-Phos PO 1 pkt BIDCC EMERY Administration Vitamin A 1 ea 06/22/17 18:00 Vitamin A & D Oint Ud Foilpak TOP BID EMERY - Patient Studies Lab Studies: Lab Studies 06/22/17 06/22/17 06/22/17 Range/Units 12:02 09:19 08:14 WBC (4.8-10.8) K/uL RBC (4.40-5.90) Mil/uL Hgb (12.0-18.0) g/dL Hct (35.0-51.0) % MCV (80.0-94.0) fL MCH (27.0-31.0) pg MCHC (33.0-37.0) g/dL RDW (11.5-14.5) % Plt Count (130-400) K/uL MPV (7.2-11.7) fL Neut % (Auto) (50.0-75.0) % Lymph % (Auto) (20.0-40.0) % [place] % (Auto) (0.0-10.0) % Eos % (Auto) (0.0-4.0) % Baso % (Auto) (0.0-2.0) % Neut # (1.8-7.0) K/uL Lymph # (1.0-4.3) K/uL [place] # (0.0-0.8) K/uL Eos # (0.0-0.7) K/uL Baso # (0.0-0.2) K/uL Neutrophils % (Manual) (50-75) % Band Neutrophils % (0-2) % Lymphocytes % (Manual) (20-40) % Monocytes % (Manual) (0-10) % Platelet Estimate (NORMAL) Hypochromasia (manual) Poikilocytosis (manual Anisocytosis (manual) Microcytosis (manual) Puncture Site pCO2 (35-45) mm/Hg pO2 (80-100) mm/Hg HCO3 (21-28) mmol/L ABG pH (7.35-7.45) ABG Total CO2 (22-28) mmol/L ABG O2 Saturation (95-98) % ABG Base Excess (-2.0-3.0) mmol/L Shankar Test ABG Potassium (3.6-5.2) mmol/L A-a O2 Difference mm/Hg Respiratory Index Sodium (132-148) mmol/l Chloride (98-107) mmol/L Glucose (75-110) mg/dl Lactate (0.7-2.1) mmol/L Vent Mode Mechanical Rate FiO2 % [place] Volume PEEP Potassium (3.6-5.2) mmol/L Carbon Dioxide (22-30) mmol/L Anion Gap (10-20) BUN (9-20) mg/dL Creatinine (0.8-1.5) mg/dL Est GFR ( Amer) Est GFR (Non-Af Amer) POC Glucose (mg/dL) 86 138 H 130 H (65-110) mg/dL Random Glucose (75-110) mg/dL Calcium (8.6-10.4) mg/dl Phosphorus (2.5-4.5) mg/dL Magnesium (1.6-2.3) mg/dL Total Bilirubin (0.2-1.3) mg/dL AST (17-59) U/L ALT (21-72) U/L Alkaline Phosphatase (38-126) U/L Total Protein (6.3-8.3) g/dL Albumin (3.5-5.0) g/dL Globulin (2.2-3.9) gm/dL Albumin/Globulin Ratio (1.0-2.1) Arterial Blood Potassium (3.6-5.2) mmol/L 06/22/17 06/22/17 06/22/17 Range/Units 07:18 06:26 06:25 WBC 7.4 (4.8-10.8) K/uL RBC 4.17 L (4.40-5.90) Mil/uL Hgb 8.0 L (12.0-18.0) g/dL Hct 25.5 L (35.0-51.0) % MCV 61.1 L (80.0-94.0) fL MCH 19.2 L (27.0-31.0) pg MCHC 31.4 L (33.0-37.0) g/dL RDW 16.4 H (11.5-14.5) % Plt Count 94 L (130-400) K/uL MPV 9.1 (7.2-11.7) fL Neut % (Auto) 74.3 (50.0-75.0) % Lymph % (Auto) 14.0 L (20.0-40.0) % [place] % (Auto) 11.2 H (0.0-10.0) % Eos % (Auto) 0.4 (0.0-4.0) % Baso % (Auto) 0.1 (0.0-2.0) % Neut # 5.5 (1.8-7.0) K/uL Lymph # 1.0 (1.0-4.3) K/uL [place] # 0.8 (0.0-0.8) K/uL Eos # 0.0 (0.0-0.7) K/uL Baso # 0.0 (0.0-0.2) K/uL Neutrophils % (Manual) (50-75) % Band Neutrophils % (0-2) % Lymphocytes % (Manual) (20-40) % Monocytes % (Manual) (0-10) % Platelet Estimate (NORMAL) Hypochromasia (manual) Poikilocytosis (manual Anisocytosis (manual) Microcytosis (manual) Puncture Site pCO2 (35-45) mm/Hg pO2 (80-100) mm/Hg HCO3 (21-28) mmol/L ABG pH (7.35-7.45) ABG Total CO2 (22-28) mmol/L ABG O2 Saturation (95-98) % ABG Base Excess (-2.0-3.0) mmol/L Shankar Test ABG Potassium (3.6-5.2) mmol/L A-a O2 Difference mm/Hg Respiratory Index Sodium 137 (132-148) mmol/l Chloride 106 (98-107) mmol/L Glucose (75-110) mg/dl Lactate (0.7-2.1) mmol/L Vent Mode Mechanical Rate FiO2 % Tidal Volume PEEP Potassium 3.7 (3.6-5.2) mmol/L Carbon Dioxide 21 L (22-30) mmol/L Anion Gap 14 (10-20) BUN 33 H (9-20) mg/dL Creatinine 1.1 (0.8-1.5) mg/dL Est GFR ( Amer) > 60 Est GFR (Non-Af Amer) > 60 POC Glucose (mg/dL) 120 H (65-110) mg/dL Random Glucose 97 (75-110) mg/dL Calcium 7.4 L (8.6-10.4) mg/dl Phosphorus 3.3 (2.5-4.5) mg/dL Magnesium 1.7 (1.6-2.3) mg/dL Total Bilirubin 0.7 (0.2-1.3) mg/dL AST 123 H (17-59) U/L ALT 63 (21-72) U/L Alkaline Phosphatase 64 (38-126) U/L Total Protein 6.0 L (6.3-8.3) g/dL Albumin 2.9 L (3.5-5.0) g/dL Globulin 3.0 (2.2-3.9) gm/dL Albumin/Globulin Ratio 1.0 (1.0-2.1) Arterial Blood Potassium (3.6-5.2) mmol/L 06/22/17 06/22/17 06/22/17 Range/Units 06:10 05:28 05:00 WBC (4.8-10.8) K/uL RBC (4.40-5.90) Mil/uL Hgb (12.0-18.0) g/dL Hct (35.0-51.0) % MCV (80.0-94.0) fL MCH (27.0-31.0) pg MCHC (33.0-37.0) g/dL RDW (11.5-14.5) % Plt Count (130-400) K/uL MPV (7.2-11.7) fL Neut % (Auto) (50.0-75.0) % Lymph % (Auto) (20.0-40.0) % [place] % (Auto) (0.0-10.0) % Eos % (Auto) (0.0-4.0) % Baso % (Auto) (0.0-2.0) % Neut # (1.8-7.0) K/uL Lymph # (1.0-4.3) K/uL [place] # (0.0-0.8) K/uL Eos # (0.0-0.7) K/uL Baso # (0.0-0.2) K/uL Neutrophils % (Manual) (50-75) % Band Neutrophils % (0-2) % Lymphocytes % (Manual) (20-40) % Monocytes % (Manual) (0-10) % Platelet Estimate (NORMAL) Hypochromasia (manual) Poikilocytosis (manual Anisocytosis (manual) Microcytosis (manual) Puncture Site Rb pCO2 30 L (35-45) mm/Hg pO2 195 H (80-100) mm/Hg HCO3 22.4 (21-28) mmol/L ABG pH 7.43 (7.35-7.45) ABG Total CO2 20.8 L (22-28) mmol/L ABG O2 Saturation 98.6 H (95-98) % ABG Base Excess -3.3 L (-2.0-3.0) mmol/L Shankar Test Na ABG Potassium 3.5 L (3.6-5.2) mmol/L A-a O2 Difference 124.0 mm/Hg Respiratory Index 0.6 Sodium 139.0 (132-148) mmol/l Chloride 114.0 H (98-107) mmol/L Glucose 116 H (75-110) mg/dl Lactate 0.7 (0.7-2.1) mmol/L Vent Mode A/c Mechanical Rate 12 FiO2 50.0 % Tidal Volume 500 PEEP 5 Potassium (3.6-5.2) mmol/L Carbon Dioxide (22-30) mmol/L Anion Gap (10-20) BUN (9-20) mg/dL Creatinine (0.8-1.5) mg/dL Est GFR ( Amer) Est GFR (Non-Af Amer) POC Glucose (mg/dL) 118 H 130 H (65-110) mg/dL Random Glucose (75-110) mg/dL Calcium (8.6-10.4) mg/dl Phosphorus (2.5-4.5) mg/dL Magnesium (1.6-2.3) mg/dL Total Bilirubin (0.2-1.3) mg/dL AST (17-59) U/L ALT (21-72) U/L Alkaline Phosphatase (38-126) U/L Total Protein (6.3-8.3) g/dL Albumin (3.5-5.0) g/dL Globulin (2.2-3.9) gm/dL Albumin/Globulin Ratio (1.0-2.1) Arterial Blood Potassium 3.5 L (3.6-5.2) mmol/L 06/22/17 06/22/17 06/22/17 Range/Units 04:20 03:31 02:23 WBC (4.8-10.8) K/uL RBC (4.40-5.90) Mil/uL Hgb (12.0-18.0) g/dL Hct (35.0-51.0) % MCV (80.0-94.0) fL MCH (27.0-31.0) pg MCHC (33.0-37.0) g/dL RDW (11.5-14.5) % Plt Count (130-400) K/uL MPV (7.2-11.7) fL Neut % (Auto) (50.0-75.0) % Lymph % (Auto) (20.0-40.0) % Rush % (Auto) (0.0-10.0) % Eos % (Auto) (0.0-4.0) % Baso % (Auto) (0.0-2.0) % Neut # (1.8-7.0) K/uL Lymph # (1.0-4.3) K/uL Rush # (0.0-0.8) K/uL Eos # (0.0-0.7) K/uL Baso # (0.0-0.2) K/uL Neutrophils % (Manual) (50-75) % Band Neutrophils % (0-2) % Lymphocytes % (Manual) (20-40) % Monocytes % (Manual) (0-10) % Platelet Estimate (NORMAL) Hypochromasia (manual) Poikilocytosis (manual Anisocytosis (manual) Microcytosis (manual) Puncture Site pCO2 (35-45) mm/Hg pO2 (80-100) mm/Hg HCO3 (21-28) mmol/L ABG pH (7.35-7.45) ABG Total CO2 (22-28) mmol/L ABG O2 Saturation (95-98) % ABG Base Excess (-2.0-3.0) mmol/L Shankar Test ABG Potassium (3.6-5.2) mmol/L A-a O2 Difference mm/Hg Respiratory Index Sodium (132-148) mmol/l Chloride (98-107) mmol/L Glucose (75-110) mg/dl Lactate (0.7-2.1) mmol/L Vent Mode Mechanical Rate FiO2 % Tidal Volume PEEP Potassium (3.6-5.2) mmol/L Carbon Dioxide (22-30) mmol/L Anion Gap (10-20) BUN (9-20) mg/dL Creatinine (0.8-1.5) mg/dL Est GFR ( Amer) Est GFR (Non-Af Amer) POC Glucose (mg/dL) 90 107 90 (65-110) mg/dL Random Glucose (75-110) mg/dL Calcium (8.6-10.4) mg/dl Phosphorus (2.5-4.5) mg/dL Magnesium (1.6-2.3) mg/dL Total Bilirubin (0.2-1.3) mg/dL AST (17-59) U/L ALT (21-72) U/L Alkaline Phosphatase (38-126) U/L Total Protein (6.3-8.3) g/dL Albumin (3.5-5.0) g/dL Globulin (2.2-3.9) gm/dL Albumin/Globulin Ratio (1.0-2.1) Arterial Blood Potassium (3.6-5.2) mmol/L 06/22/17 06/22/17 06/21/17 Range/Units 01:59 00:43 23:36 WBC (4.8-10.8) K/uL RBC (4.40-5.90) Mil/uL Hgb (12.0-18.0) g/dL Hct (35.0-51.0) % MCV (80.0-94.0) fL MCH (27.0-31.0) pg MCHC (33.0-37.0) g/dL RDW (11.5-14.5) % Plt Count (130-400) K/uL MPV (7.2-11.7) fL Neut % (Auto) (50.0-75.0) % Lymph % (Auto) (20.0-40.0) % Rush % (Auto) (0.0-10.0) % Eos % (Auto) (0.0-4.0) % Baso % (Auto) (0.0-2.0) % Neut # (1.8-7.0) K/uL Lymph # (1.0-4.3) K/uL Rush # (0.0-0.8) K/uL Eos # (0.0-0.7) K/uL Baso # (0.0-0.2) K/uL Neutrophils % (Manual) (50-75) % Band Neutrophils % (0-2) % Lymphocytes % (Manual) (20-40) % Monocytes % (Manual) (0-10) % Platelet Estimate (NORMAL) Hypochromasia (manual) Poikilocytosis (manual Anisocytosis (manual) Microcytosis (manual) Puncture Site pCO2 (35-45) mm/Hg pO2 (80-100) mm/Hg HCO3 (21-28) mmol/L ABG pH (7.35-7.45) ABG Total CO2 (22-28) mmol/L ABG O2 Saturation (95-98) % ABG Base Excess (-2.0-3.0) mmol/L Shankar Test ABG Potassium (3.6-5.2) mmol/L A-a O2 Difference mm/Hg Respiratory Index Sodium (132-148) mmol/l Chloride (98-107) mmol/L Glucose (75-110) mg/dl Lactate (0.7-2.1) mmol/L Vent Mode Mechanical Rate FiO2 % Tidal Volume PEEP Potassium (3.6-5.2) mmol/L Carbon Dioxide (22-30) mmol/L Anion Gap (10-20) BUN (9-20) mg/dL Creatinine (0.8-1.5) mg/dL Est GFR ( Amer) Est GFR (Non-Af Amer) POC Glucose (mg/dL) 90 90 83 (65-110) mg/dL Random Glucose (75-110) mg/dL Calcium (8.6-10.4) mg/dl Phosphorus (2.5-4.5) mg/dL Magnesium (1.6-2.3) mg/dL Total Bilirubin (0.2-1.3) mg/dL AST (17-59) U/L ALT (21-72) U/L Alkaline Phosphatase (38-126) U/L Total Protein (6.3-8.3) g/dL Albumin (3.5-5.0) g/dL Globulin (2.2-3.9) gm/dL Albumin/Globulin Ratio (1.0-2.1) Arterial Blood Potassium (3.6-5.2) mmol/L 06/21/17 06/21/17 06/21/17 Range/Units 22:23 21:05 19:28 WBC (4.8-10.8) K/uL RBC (4.40-5.90) Mil/uL Hgb (12.0-18.0) g/dL Hct (35.0-51.0) % MCV (80.0-94.0) fL MCH (27.0-31.0) pg MCHC (33.0-37.0) g/dL RDW (11.5-14.5) % Plt Count (130-400) K/uL MPV (7.2-11.7) fL Neut % (Auto) (50.0-75.0) % Lymph % (Auto) (20.0-40.0) % Rush % (Auto) (0.0-10.0) % Eos % (Auto) (0.0-4.0) % Baso % (Auto) (0.0-2.0) % Neut # (1.8-7.0) K/uL Lymph # (1.0-4.3) K/uL Rush # (0.0-0.8) K/uL Eos # (0.0-0.7) K/uL Baso # (0.0-0.2) K/uL Neutrophils % (Manual) (50-75) % Band Neutrophils % (0-2) % Lymphocytes % (Manual) (20-40) % Monocytes % (Manual) (0-10) % Platelet Estimate (NORMAL) Hypochromasia (manual) Poikilocytosis (manual Anisocytosis (manual) Microcytosis (manual) Puncture Site pCO2 (35-45) mm/Hg pO2 (80-100) mm/Hg HCO3 (21-28) mmol/L ABG pH (7.35-7.45) ABG Total CO2 (22-28) mmol/L ABG O2 Saturation (95-98) % ABG Base Excess (-2.0-3.0) mmol/L Shankar Test ABG Potassium (3.6-5.2) mmol/L A-a O2 Difference mm/Hg Respiratory Index Sodium (132-148) mmol/l Chloride (98-107) mmol/L Glucose (75-110) mg/dl Lactate (0.7-2.1) mmol/L Vent Mode Mechanical Rate FiO2 % Tidal Volume PEEP Potassium (3.6-5.2) mmol/L Carbon Dioxide (22-30) mmol/L Anion Gap (10-20) BUN (9-20) mg/dL Creatinine (0.8-1.5) mg/dL Est GFR ( Amer) Est GFR (Non-Af Amer) POC Glucose (mg/dL) 69 72 78 (65-110) mg/dL Random Glucose (75-110) mg/dL Calcium (8.6-10.4) mg/dl Phosphorus (2.5-4.5) mg/dL Magnesium (1.6-2.3) mg/dL Total Bilirubin (0.2-1.3) mg/dL AST (17-59) U/L ALT (21-72) U/L Alkaline Phosphatase (38-126) U/L Total Protein (6.3-8.3) g/dL Albumin (3.5-5.0) g/dL Globulin (2.2-3.9) gm/dL Albumin/Globulin Ratio (1.0-2.1) Arterial Blood Potassium (3.6-5.2) mmol/L 06/21/17 06/21/17 06/21/17 Range/Units 18:57 17:59 17:22 WBC (4.8-10.8) K/uL RBC (4.40-5.90) Mil/uL Hgb (12.0-18.0) g/dL Hct (35.0-51.0) % MCV (80.0-94.0) fL MCH (27.0-31.0) pg MCHC (33.0-37.0) g/dL RDW (11.5-14.5) % Plt Count (130-400) K/uL MPV (7.2-11.7) fL Neut % (Auto) (50.0-75.0) % Lymph % (Auto) (20.0-40.0) % Rush % (Auto) (0.0-10.0) % Eos % (Auto) (0.0-4.0) % Baso % (Auto) (0.0-2.0) % Neut # (1.8-7.0) K/uL Lymph # (1.0-4.3) K/uL Rush # (0.0-0.8) K/uL Eos # (0.0-0.7) K/uL Baso # (0.0-0.2) K/uL Neutrophils % (Manual) (50-75) % Band Neutrophils % (0-2) % Lymphocytes % (Manual) (20-40) % Monocytes % (Manual) (0-10) % Platelet Estimate (NORMAL) Hypochromasia (manual) Poikilocytosis (manual Anisocytosis (manual) Microcytosis (manual) Puncture Site pCO2 (35-45) mm/Hg pO2 (80-100) mm/Hg HCO3 (21-28) mmol/L ABG pH (7.35-7.45) ABG Total CO2 (22-28) mmol/L ABG O2 Saturation (95-98) % ABG Base Excess (-2.0-3.0) mmol/L Shankar Test ABG Potassium (3.6-5.2) mmol/L A-a O2 Difference mm/Hg Respiratory Index Sodium (132-148) mmol/l Chloride (98-107) mmol/L Glucose (75-110) mg/dl Lactate (0.7-2.1) mmol/L Vent Mode Mechanical Rate FiO2 % Tidal Volume PEEP Potassium (3.6-5.2) mmol/L Carbon Dioxide (22-30) mmol/L Anion Gap (10-20) BUN (9-20) mg/dL Creatinine (0.8-1.5) mg/dL Est GFR ( Amer) Est GFR (Non-Af Amer) POC Glucose (mg/dL) 98 85 84 (65-110) mg/dL Random Glucose (75-110) mg/dL Calcium (8.6-10.4) mg/dl Phosphorus (2.5-4.5) mg/dL Magnesium (1.6-2.3) mg/dL Total Bilirubin (0.2-1.3) mg/dL AST (17-59) U/L ALT (21-72) U/L Alkaline Phosphatase (38-126) U/L Total Protein (6.3-8.3) g/dL Albumin (3.5-5.0) g/dL Globulin (2.2-3.9) gm/dL Albumin/Globulin Ratio (1.0-2.1) Arterial Blood Potassium (3.6-5.2) mmol/L 06/21/17 Range/Units 16:31 WBC (4.8-10.8) K/uL RBC (4.40-5.90) Mil/uL Hgb (12.0-18.0) g/dL Hct (35.0-51.0) % MCV (80.0-94.0) fL MCH (27.0-31.0) pg MCHC (33.0-37.0) g/dL RDW (11.5-14.5) % Plt Count (130-400) K/uL MPV (7.2-11.7) fL Neut % (Auto) (50.0-75.0) % Lymph % (Auto) (20.0-40.0) % Rush % (Auto) (0.0-10.0) % Eos % (Auto) (0.0-4.0) % Baso % (Auto) (0.0-2.0) % Neut # (1.8-7.0) K/uL Lymph # (1.0-4.3) K/uL Rush # (0.0-0.8) K/uL Eos # (0.0-0.7) K/uL Baso # (0.0-0.2) K/uL Neutrophils % (Manual) 85 H (50-75) % Band Neutrophils % 2 (0-2) % Lymphocytes % (Manual) 8 L (20-40) % Monocytes % (Manual) 5 (0-10) % Platelet Estimate Decreased L (NORMAL) Hypochromasia (manual) Moderate Poikilocytosis (manual Slight Anisocytosis (manual) Slight Microcytosis (manual) Slight Puncture Site pCO2 (35-45) mm/Hg pO2 (80-100) mm/Hg HCO3 (21-28) mmol/L ABG pH (7.35-7.45) ABG Total CO2 (22-28) mmol/L ABG O2 Saturation (95-98) % ABG Base Excess (-2.0-3.0) mmol/L Shankar Test ABG Potassium (3.6-5.2) mmol/L A-a O2 Difference mm/Hg Respiratory Index Sodium (132-148) mmol/l Chloride (98-107) mmol/L Glucose (75-110) mg/dl Lactate (0.7-2.1) mmol/L Vent Mode Mechanical Rate FiO2 % Tidal Volume PEEP Potassium (3.6-5.2) mmol/L Carbon Dioxide (22-30) mmol/L Anion Gap (10-20) BUN (9-20) mg/dL Creatinine (0.8-1.5) mg/dL Est GFR ( Amer) Est GFR (Non-Af Amer) POC Glucose (mg/dL) (65-110) mg/dL Random Glucose (75-110) mg/dL Calcium (8.6-10.4) mg/dl Phosphorus (2.5-4.5) mg/dL Magnesium (1.6-2.3) mg/dL Total Bilirubin (0.2-1.3) mg/dL AST (17-59) U/L ALT (21-72) U/L Alkaline Phosphatase (38-126) U/L Total Protein (6.3-8.3) g/dL Albumin (3.5-5.0) g/dL Globulin (2.2-3.9) gm/dL Albumin/Globulin Ratio (1.0-2.1) Arterial Blood Potassium (3.6-5.2) mmol/L Laboratory Results - last 24 hr 06/21/17 06/21/17 06/21/17 16:31 17:22 17:59 WBC RBC Hgb Hct MCV MCH MCHC RDW Plt Count MPV Neut % (Auto) Lymph % (Auto) Rush % (Auto) Eos % (Auto) Baso % (Auto) Neut # Lymph # Rush # Eos # Baso # Neutrophils % (Manual) 85 H Band Neutrophils % 2 Lymphocytes % (Manual) 8 L Monocytes % (Manual) 5 Platelet Estimate Decreased L Hypochromasia (manual) Moderate Poikilocytosis (manual Slight Anisocytosis (manual) Slight Microcytosis (manual) Slight Puncture Site pCO2 pO2 HCO3 ABG pH ABG Total CO2 ABG O2 Saturation ABG Base Excess Shankar Test ABG Potassium A-a O2 Difference Respiratory Index Sodium Chloride Glucose Lactate Vent Mode Mechanical Rate FiO2 Tidal Volume PEEP Potassium Carbon Dioxide Anion Gap BUN Creatinine Est GFR ( Amer) Est GFR (Non-Af Amer) POC Glucose (mg/dL) 84 85 Random Glucose Calcium Phosphorus Magnesium Total Bilirubin AST ALT Alkaline Phosphatase Total Protein Albumin Globulin Albumin/Globulin Ratio Arterial Blood Potassium 06/21/17 06/21/17 06/21/17 18:57 19:28 21:05 WBC RBC Hgb Hct MCV MCH MCHC RDW Plt Count MPV Neut % (Auto) Lymph % (Auto) Rush % (Auto) Eos % (Auto) Baso % (Auto) Neut # Lymph # Rush # Eos # Baso # Neutrophils % (Manual) Band Neutrophils % Lymphocytes % (Manual) Monocytes % (Manual) Platelet Estimate Hypochromasia (manual) Poikilocytosis (manual Anisocytosis (manual) Microcytosis (manual) Puncture Site pCO2 pO2 HCO3 ABG pH ABG Total CO2 ABG O2 Saturation ABG Base Excess Shankar Test ABG Potassium A-a O2 Difference Respiratory Index Sodium Chloride Glucose Lactate Vent Mode Mechanical Rate FiO2 Tidal Volume PEEP Potassium Carbon Dioxide Anion Gap BUN Creatinine Est GFR ( Amer) Est GFR (Non-Af Amer) POC Glucose (mg/dL) 98 78 72 Random Glucose Calcium Phosphorus Magnesium Total Bilirubin AST ALT Alkaline Phosphatase Total Protein Albumin Globulin Albumin/Globulin Ratio Arterial Blood Potassium 11/21/17 11/21/17 11/22/17 22:23 23:36 00:43 WBC RBC Hgb Hct MCV MCH MCHC RDW Plt Count MPV Neut % (Auto) Lymph % (Auto) Rush % (Auto) Eos % (Auto) Baso % (Auto) Neut # Lymph # Rush # Eos # Baso # Neutrophils % (Manual) Band Neutrophils % Lymphocytes % (Manual) Monocytes % (Manual) Platelet Estimate Hypochromasia (manual) Poikilocytosis (manual Anisocytosis (manual) Microcytosis (manual) Puncture Site pCO2 pO2 HCO3 ABG pH ABG Total CO2 ABG O2 Saturation ABG Base Excess Shankar Test ABG Potassium A-a O2 Difference Respiratory Index Sodium Chloride Glucose Lactate Vent Mode Mechanical Rate FiO2 Tidal Volume PEEP Potassium Carbon Dioxide Anion Gap BUN Creatinine Est GFR ( Amer) Est GFR (Non-Af Amer) POC Glucose (mg/dL) 69 83 90 Random Glucose Calcium Phosphorus Magnesium Total Bilirubin AST ALT Alkaline Phosphatase Total Protein Albumin Globulin Albumin/Globulin Ratio Arterial Blood Potassium 06/22/17 06/22/17 06/22/17 01:59 02:23 03:31 WBC RBC Hgb Hct MCV MCH MCHC RDW Plt Count MPV Neut % (Auto) Lymph % (Auto) Rush % (Auto) Eos % (Auto) Baso % (Auto) Neut # Lymph # Rush # Eos # Baso # Neutrophils % (Manual) Band Neutrophils % Lymphocytes % (Manual) Monocytes % (Manual) Platelet Estimate Hypochromasia (manual) Poikilocytosis (manual Anisocytosis (manual) Microcytosis (manual) Puncture Site pCO2 pO2 HCO3 ABG pH ABG Total CO2 ABG O2 Saturation ABG Base Excess Shankar Test ABG Potassium A-a O2 Difference Respiratory Index Sodium Chloride Glucose Lactate Vent Mode Mechanical Rate FiO2 Tidal Volume PEEP Potassium Carbon Dioxide Anion Gap BUN Creatinine Est GFR ( Amer) Est GFR (Non-Af Amer) POC Glucose (mg/dL) 90 90 107 Random Glucose Calcium Phosphorus Magnesium Total Bilirubin AST ALT Alkaline Phosphatase Total Protein Albumin Globulin Albumin/Globulin Ratio Arterial Blood Potassium 06/22/17 06/22/17 06/22/17 04:20 05:00 05:28 WBC RBC Hgb Hct MCV MCH MCHC RDW Plt Count MPV Neut % (Auto) Lymph % (Auto) Rush % (Auto) Eos % (Auto) Baso % (Auto) Neut # Lymph # Rush # Eos # Baso # Neutrophils % (Manual) Band Neutrophils % Lymphocytes % (Manual) Monocytes % (Manual) Platelet Estimate Hypochromasia (manual) Poikilocytosis (manual Anisocytosis (manual) Microcytosis (manual) Puncture Site Rb pCO2 30 L pO2 195 H HCO3 22.4 ABG pH 7.43 ABG Total CO2 20.8 L ABG O2 Saturation 98.6 H ABG Base Excess -3.3 L Shankar Test Na ABG Potassium 3.5 L A-a O2 Difference 124.0 Respiratory Index 0.6 Sodium 139.0 Chloride 114.0 H Glucose 116 H Lactate 0.7 Vent Mode A/c Mechanical Rate 12 FiO2 50.0 Tidal Volume 500 PEEP 5 Potassium Carbon Dioxide Anion Gap BUN Creatinine Est GFR ( Amer) Est GFR (Non-Af Amer) POC Glucose (mg/dL) 90 130 H Random Glucose Calcium Phosphorus Magnesium Total Bilirubin AST ALT Alkaline Phosphatase Total Protein Albumin Globulin Albumin/Globulin Ratio Arterial Blood Potassium 3.5 L 06/22/17 06/22/17 06/22/17 06:10 06:25 06:26 WBC 7.4 RBC 4.17 L Hgb 8.0 L Hct 25.5 L MCV 61.1 L MCH 19.2 L MCHC 31.4 L RDW 16.4 H Plt Count 94 L MPV 9.1 Neut % (Auto) 74.3 Lymph % (Auto) 14.0 L Rush % (Auto) 11.2 H Eos % (Auto) 0.4 Baso % (Auto) 0.1 Neut # 5.5 Lymph # 1.0 Rush # 0.8 Eos # 0.0 Baso # 0.0 Neutrophils % (Manual) Band Neutrophils % Lymphocytes % (Manual) Monocytes % (Manual) Platelet Estimate Hypochromasia (manual) Poikilocytosis (manual Anisocytosis (manual) Microcytosis (manual) Puncture Site pCO2 pO2 HCO3 ABG pH ABG Total CO2 ABG O2 Saturation ABG Base Excess Shankar Test ABG Potassium A-a O2 Difference Respiratory Index Sodium 137 Chloride 106 Glucose Lactate Vent Mode Mechanical Rate FiO2 Tidal Volume PEEP Potassium 3.7 Carbon Dioxide 21 L Anion Gap 14 BUN 33 H Creatinine 1.1 Est GFR ( Amer) > 60 Est GFR (Non-Af Amer) > 60 POC Glucose (mg/dL) 118 H Random Glucose 97 Calcium 7.4 L Phosphorus 3.3 Magnesium 1.7 Total Bilirubin 0.7 AST 123 H ALT 63 Alkaline Phosphatase 64 Total Protein 6.0 L Albumin 2.9 L Globulin 3.0 Albumin/Globulin Ratio 1.0 Arterial Blood Potassium 06/22/17 06/22/17 06/22/17 07:18 08:14 09:19 WBC RBC Hgb Hct MCV MCH MCHC RDW Plt Count MPV Neut % (Auto) Lymph % (Auto) Rush % (Auto) Eos % (Auto) Baso % (Auto) Neut # Lymph # Rush # Eos # Baso # Neutrophils % (Manual) Band Neutrophils % Lymphocytes % (Manual) Monocytes % (Manual) Platelet Estimate Hypochromasia (manual) Poikilocytosis (manual Anisocytosis (manual) Microcytosis (manual) Puncture Site pCO2 pO2 HCO3 ABG pH ABG Total CO2 ABG O2 Saturation ABG Base Excess Shankar Test ABG Potassium A-a O2 Difference Respiratory Index Sodium Chloride Glucose Lactate Vent Mode Mechanical Rate FiO2 Tidal Volume PEEP Potassium Carbon Dioxide Anion Gap BUN Creatinine Est GFR ( Amer) Est GFR (Non-Af Amer) POC Glucose (mg/dL) 120 H 130 H 138 H Random Glucose Calcium Phosphorus Magnesium Total Bilirubin AST ALT Alkaline Phosphatase Total Protein Albumin Globulin Albumin/Globulin Ratio Arterial Blood Potassium 06/22/17 12:02 WBC RBC Hgb Hct MCV MCH MCHC RDW Plt Count MPV Neut % (Auto) Lymph % (Auto) Rush % (Auto) Eos % (Auto) Baso % (Auto) Neut # Lymph # Rush # Eos # Baso # Neutrophils % (Manual) Band Neutrophils % Lymphocytes % (Manual) Monocytes % (Manual) Platelet Estimate Hypochromasia (manual) Poikilocytosis (manual Anisocytosis (manual) Microcytosis (manual) Puncture Site pCO2 pO2 HCO3 ABG pH ABG Total CO2 ABG O2 Saturation ABG Base Excess Shankar Test ABG Potassium A-a O2 Difference Respiratory Index Sodium Chloride Glucose Lactate Vent Mode Mechanical Rate FiO2 Tidal Volume PEEP Potassium Carbon Dioxide Anion Gap BUN Creatinine Est GFR ( Amer) Est GFR (Non-Af Amer) POC Glucose (mg/dL) 86 Random Glucose Calcium Phosphorus Magnesium Total Bilirubin AST ALT Alkaline Phosphatase Total Protein Albumin Globulin Albumin/Globulin Ratio Arterial Blood Potassium Critical Care Progress Note - Nutrition Nutrition: Nutrition Category Date Time Status NPO Diet [DIET] Diets 06/20/17 Dinner Active Attending/Attestation - Attestation I have personally seen and examined this patient.: Yes I have fully participated in the care of the patient.: Yes I have reviewed all pertinent clinical information: Yes Notes (Text): 06/22/17 17:34 Patient seen and examined in the intensive care unit. Case discussed with the staff in the morning around No change in mental status with myoclonic jerks Seen by neurology and started on Depakote Follow-up EEG and repeat CAT scan of the head Cardiology follow-up Prognosis poor Discussed with family
[2017-06-22] MEDS: Potassium & Sodium Phosphate PO SCH ×2 (07:41→17:45)
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
--- NOTE | 2017-06-22 10:33 | RAD ---
HISTORY: intubation COMPARISON: Portable chest 06/21/2017. FINDINGS: Emboli could or other some other apparatus creates a grid-like artifact throughout the entire exam limiting the interpretation. Endotracheal tube appears unchanged in position as well as nasogastric tube. External pacer currently is an removed with [employer] internal pacemaker unchanged in position. Two prosthetic cardiac valves are again identified as well as sternotomy wires. LUNGS: Left basilar atelectasis or infiltrate persists with medial right basilar patchy atelectasis or infiltrate slightly diminished. Borderline right pleural effusion. Smaller pleural effusion remains difficult to exclude. CARDIOVASCULAR: Prominent cardiac silhouette is unchanged. Normal pulmonary venous congestion is not excluded. OSSEOUS STRUCTURES: No significant abnormalities. VISUALIZED UPPER ABDOMEN: Normal. OTHER FINDINGS: None. IMPRESSION: Limited study due to artifacts related to also cooling blanket or other device surrounding the patient's chest diffusely. The examination generally appears unchanged with exception of removal of prior external pacemaker with [employer] pacemaker seen implant of the of the chest once again. Bilateral airspace disease is again identified greater the left and right bases.
[2017-06-22] MEDS ORDERED: WATER IVPB SCH (11:00)
[2017-06-22] MEDS ORDERED: DEXTROSE 5% IVPB SCH (11:00)
[2017-06-22] MEDS ORDERED: LEVETIRACETAM IVPB SCH (11:00)
--- NOTE | 2017-06-22 11:56 | CT ---
PROCEDURE: CT HEAD WITHOUT CONTRAST. HISTORY: cardiac arrest COMPARISON: Comparison is made to the previous study dated 06/20/2017 TECHNIQUE: Axial computed tomography images were obtained through the head/brain without intravenous contrast. Radiation dose: Total exam DLP = 1814.23 mGy-cm. This CT exam was performed using one or more of the following dose reduction techniques: Automated exposure control, adjustment of the mA and/or kV according to patient size, and/or use of iterative reconstruction technique. FINDINGS: HEMORRHAGE: No intracranial hemorrhage. BRAIN: No mass effect or edema. No atrophy or chronic microvascular ischemic changes. VENTRICLES: Unremarkable. No hydrocephalus. CALVARIUM: Unremarkable. PARANASAL SINUSES: Mild sinuses mucosal thickening noted. Small air-fluid level noted at the sphenoid and right maxillary sinus. MASTOID AIR CELLS: Unremarkable as visualized. No inflammatory changes. OTHER FINDINGS: None. IMPRESSION: No evidence of acute intracranial hemorrhage intracranial collection mass effect or midline shift. No significant interval change noted since the previous exam. Mild sinuses mucosal thickening and small air-fluid level.
--- NOTE | 2017-06-22 18:16 | PN ---
NEUROLOGY PROGRESS NOTE SUBJECTIVE: The patient is lying on the bed on a ventilator, sedated with propofol. As per the nursing, when sedation was given, the patient started having jerks movements of the arm and legs. PHYSICAL EXAMINATION: VITAL SIGNS: His blood pressure is 95/43, heart rate is 72 per minute, breathing at the rate of 14 per minute, and he is afebrile. HEENT: Head is normocephalic and atraumatic. NECK: Supple. There are no carotid bruits. LUNGS: Clear. CVS: S1 and S2 audible. No murmurs. ABDOMEN: Soft and nontender. Bowel sounds are absent. NEUROLOGIC: Mental status: The patient is currently sedated with propofol. Pupils 2 mm, minimally reactive to light. Positive dolls eye movement. No corneal reflux. No gag reflux. Motor examination: There is minimal withdrawal of lower extremities to noxious painful stimuli. Reflexes are absent. Plantars, no response. IMPRESSION: 1. Anoxic encephalopathy status post cardiac arrest. 2. Respiratory failure. RECOMMENDATIONS: 1. The patient had a electroencephalogram which is abnormal consistent with severe biventricular cerebral dysfunction. 2. The patient was started on Keppra because of these twitching movements. We will stop Keppra and start him on Depakote, sometimes Depakote works better for myoclonic jerks. 3. The patient had a repeat CT head this morning and it shows no evidence of acute intracranial hemorrhage, intracranial collection, mass affect or midline shift. No significant internal change noted since the previous exam. 4. The patient's prognosis is guarded. 5. Discussed the patient's condition and prognosis with the patient's family. Thank you for the opportunity to participate in the care of this patient. Ash Frausto MD
[2017-06-22] MEDS: Vitamins A & D Oint UD Foilpak TOP SCH (19:16)
--- NOTE | 2017-06-22 19:20 | CARD ---
APPROVED REPORT EKG Measurement Heart [id number] <Conclusion> Ventricular Pacemaker Abnormal ECG
--- NOTE | 2017-06-22 19:34 | CARD ---
APPROVED REPORT EKG Measurement Heart [id number] TN [id number] [id number] <Conclusion> AV dual-pacemaker appears to be in an asynchronous mode. [place] rhythm may be atrial fibrillation. RBBB Infero-lateral ischemia can not be excluded. Abnormal ECG PLEASE REPEAT
--- NOTE | 2017-06-22 21:40 | PN ---
DATE: SUBJECTIVE: There is no significant recovery. Patient became hypotensive and required Levophed infusion, currently at 8 mcg per minute. The patient was never started on amiodarone despite the fact that the order was written on admission, because of hypotension; however, so far, no events of ventricular tachycardia and no recurrence of VFib since admission. PHYSICAL EXAMINATION: VITAL SIGNS: Blood pressure 109/49, heart rate 75, temperature 99.2. HEENT: Pale conjunctivae. CHEST: Diminished breath sounds over the bases. HEART: S1 and S2, regular. LABORATORY DATA: Hemoglobin and hematocrit 8 and 25.5, white count 7.4, platelet count 74,000. SMA-7: Sodium 137, potassium 3.7, chloride 106, CO2 of 21, glucose 97, BUN 33, creatinine 1.1. Repeat head CT scan done today, no evidence of acute intracranial hemorrhage, intracranial collection, mass effects, or midline shift. No significant changes noted since previous exam. C-spine x-ray: No fracture. ASSESSMENT: 1. Anoxic encephalopathy. 2. Status post ventricular fibrillation. 3. History of atrial septal defect repair and mitral and tricuspid bioprosthetic valve replacement. 4. Anemia. RECOMMENDATIONS: Continue current Levophed infusion at 8 mcg per minute, continue IV Rocephin at 1 g q. 12 hours, discontinue amiodarone if okay with Dr. Elizondo, the filler room attendant. Patient underwent an EEG, official report is still pending. Jun Platt MD
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
--- NOTE | 2017-06-23 00:57 | EEG ---
ELECTROENCEPHALOGRAM REPORT DATE: INTRODUCTION: This is a digitally recorded EEG monitoring using standard EEG montages. BACKGROUND RHYTHM: The EEG shows a background activity of 4 to 5 Hz. This EEG activity is present diffusely. No EEG reactivity was seen. Small amount of artifact noted in this EEG recording. ABNORMAL POTENTIALS: No spike, sharp waves, or focal slowing was seen. PHOTIC STIMULATION AND HYPERVENTILATION: Photic stimulation did not reveal any further abnormality. Hyperventilation was not performed. IMPRESSION: Abnormal electroencephalogram. The above findings are consistent with severe bihemispheric cerebral dysfunction. No epileptic form activity seen in this electroencephalogram recording. Ash Frausto MD
[2017-06-23 05:33] LABS: ABG ALLEN TEST POS; ABG MECHANICAL RATE 12; ARTERIAL BLOOD GAS MODE A/C; ATERIAL BLOOD GAS PEEP 5; DRAW SITE RR
[2017-06-23 06:27] LABS: BASO % 0.3 % (0.0-2.0); EOS # 0.1 K/uL (0.0-0.7); EOS % 1.2 % (0.0-4.0); HEMATOCRIT 25.8 % (35.0-51.0); LYMPH # 0.8 K/uL (1.0-4.3); LYMPH % 13.8 % (20.0-40.0); MEAN CELL VOLUME 61.6 fL (80.0-94.0); MEAN CORPUSCULAR HEMOGLOBIN 19.8 pg (27.0-31.0); MEAN CORPUSCULAR HGB CONC 32.1 g/dL (33.0-37.0); MEAN PLATELET VOLUME 9.1 fL (7.2-11.7); MONO # 0.6 K/uL (0.0-0.8); MONO % 10.1 % (0.0-10.0); NRBC % 0.2 % (0.0-2.0); RED CELL DISTRIBUTION WIDTH 16.4 % (11.5-14.5); WHITE BLOOD COUNT 6.1 K/uL (4.8-10.8)
[2017-06-23] MEDS: cefTRIAXone IV 1 gm in Dextros 50 ML IVPB SCH ×2 (06:58→17:47)
[2017-06-23] MEDS: Propofol 10 mg/ml 1,000 MG/100 ML VIAL IV PRN ×2 (07:01→22:00)
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
[2017-06-23 08:48] LABS: ALB/GLOB RATIO 1.4 (1.0-2.1); ALKALINE PHOSPHATASE 64 U/L (38-126); ALT/SGPT 62 U/L (21-72); AST/SGOT 157 U/L (17-59); BLOOD UREA NITROGEN 21 mg/dL (9-20); CALCIUM 7.8 mg/dl (8.6-10.4); CARBON DIOXIDE 23 mmol/L (22-30); CHLORIDE 103 mmol/L (98-107); GFR AFRICAN-AMERICAN > 60; GLUCOSE,RANDOM 131 mg/dL (75-110); MAGNESIUM 1.6 mg/dL (1.6-2.3); PHOSPHOROUS 4.3 mg/dL (2.5-4.5); POTASSIUM 4.3 mmol/L (3.6-5.2); SODIUM 133 mmol/L (132-148)
[2017-06-23] MEDS: Potassium & Sodium Phosphate PO SCH ×2 (09:29→16:05)
[2017-06-23] MEDS: Sodium Chloride 0.9% 1,000 ML IV ONE ×2 (09:30→10:43)
[2017-06-23] MEDS: Vitamins A & D Oint UD Foilpak TOP SCH ×2 (09:30→17:47)
[2017-06-23 09:59] LABS: ABG MECHANICAL RATE 18; ARTERIAL BLOOD HGB O2 SAT 96.5 % (95.0-98.0); ATERIAL BLOOD GAS PEEP 5; DRAW SITE L/F; HHB 1.9 % (0.0-5.0); METHEMOGLOBIN 0.6 % (0.0-3.0)
[2017-06-23] MEDS ORDERED: Magnesium Sulfate 1 gm in D5W 1 GM/100 ML BAG IVPB ONE (10:00)
[2017-06-23] MEDS: White Petrolatum/Mineral Oil Ophth Oint(3.5 gm) OU PRN ×2 (10:05→22:00)
[2017-06-23] MEDS: Norepinephrine 8 MG in Dextrose 5% In Water 242 ML IV PRN (10:58)
[2017-06-23] MEDS: Enoxaparin 40 mg Syringe SC SCH (12:15)
--- NOTE | 2017-06-23 12:55 | CP.PCM.PN ---
Subjective - Date & Time of Evaluation Date of Evaluation: 06/23/17 Time of Evaluation: 12:53 - Subjective Subjective: Remains intubated and unresponsive Objective - Vital Signs/Intake and Output Vital Signs (last 24 hours): Temp Pulse Resp BP Pulse Ox 98.3 F 73 18 96/44 L 100 06/23/17 12:00 06/23/17 12:00 06/23/17 12:00 06/23/17 12:00 06/23/17 12:00 Intake and Output: 06/23/17 06/23/17 06:59 18:59 Intake Total 678.2 877.8 Output Total 1210 485 Balance -531.8 392.8 - Medications Medications: Current Medications Artificial Tears (Lacri-Lube) 0 gm OU Q4 PRN PRN Reason: Dry eyes Last Admin: 06/23/17 10:05 Dose: 3.5 gm Clonazepam (Klonopin) 0.5 mg NG TID [facility] Last Admin: 06/23/17 09:29 Dose: 0.5 mg Enoxaparin Sodium (Lovenox) 40 mg SC DAILY [facility] Last Admin: 06/23/17 12:15 Dose: 40 mg Fentanyl (Duragesic) 1 patch TD Q72H [facility] Last Admin: 06/23/17 09:59 Dose: 1 patch Ceftriaxone Sodium (Rocephin Iv 1 Gm Duplex) 50 mls @ 100 mls/hr IVPB Q12H [facility] Last Admin: 06/23/17 06:58 Dose: 100 mls/hr Norepinephrine Bitartrate 8 mg (/ Dextrose) 250 mls @ 7.5 mls/hr IV .Q24H PRN; Protocol; 4 MCG/MIN PRN Reason: TITRATE PER MD ORDER Last Admin: 06/23/17 10:58 Dose: 5 mcg/min, 9.37 mls/hr Propofol (Diprivan) 1,000 mg in 100 mls @ 2.4 mls/hr IV .Q24H PRN; Protocol; 5 MCG/KG/MIN PRN Reason: TITRATE PER MD ORDER Last Admin: 06/23/17 07:01 Dose: 15 mcg/kg/min, 7.2 mls/hr Morphine Sulfate 250 mg/ (Sodium Chloride) 250 mls @ 4 mls/hr IV .Q24H [facility] PRN Reason: Protocol Last Titration: 06/23/17 11:03 Dose: 3 mg/hr, 3 mls/hr Lorazepam (Ativan) 1 mg IVP Q4H PRN PRN Reason: Anxiety Last Admin: 06/22/17 04:07 Dose: 1 mg Pantoprazole Sodium (Protonix Inj) 40 mg IVP DAILY [facility] Last Admin: 06/23/17 09:29 Dose: 40 mg Potassium Phos/Sodium Phos (Neutra-Phos) 1 pkt PO BIDCC [facility] Last Admin: 06/23/17 09:29 Dose: 1 pkt Vitamin A (Vitamin A & D Oint Ud Foilpak) 1 ea TOP BID [facility] Last Admin: 06/23/17 09:30 Dose: 1 ea - Labs Labs: 06/23/17 06:16 06/23/17 08:31 PT 13.4 SECONDS (9.7-12.2) H 06/20/17 13:36 INR 1.2 06/20/17 13:36 APTT 41 SECONDS (21-34) H 06/20/17 13:36 Assessment and Plan - Assessment and Plan (Free Text) Assessment: No recurrence of ventricular or atrial arrhythmia or pacemaker dysfunction Stable paced rhythm Borderline yet acceptable hemodynamics Plan Continue with supportive care Plan as outlined earlier contingent on neurological recovery Plan: as outlined
[2017-06-23] MEDS: Sodium Chloride 0.9% 1,000 ML IV SCH (14:05)
--- NOTE | 2017-06-23 15:47 | CP.CCUPN ---
CCU Subjective - Physician Review Subjective (Free Text): Patient seen and examined at bedside. Patient is not responsive to noxious stimuli. vitals overnight reviewed. 06/23/17 15:42 Critical Care Time Spent (in minutes): 35 CCU Objective - Vital Signs / Intake & Output Vital Signs (Last 4 hours): Vital Signs Temp Pulse Resp BP Pulse Ox 06/23/17 15:00 74 18 107/48 L 100 06/23/17 14:00 73 18 105/49 L 100 06/23/17 13:00 72 18 103/50 L 100 06/23/17 12:00 98.3 F 73 18 96/44 L 100 Intake and Output (Last 8hrs): Intake & Output 06/23/17 06/23/17 06/23/17 06:59 14:59 22:59 Intake Total 439.6 1094.0 63.6 Output Total 900 745 70 Balance -460.4 349.0 -6.4 Intake: IV 528 Intake, IV Amount 209.6 171.0 18.6 Right Distal Port Femoral 120 86.4 9.4 Right Medial Port Femoral 32 27 2 Right Proximal Port 57.6 57.6 7.2 Femoral Tube Feeding 230 315 45 Other 80 Output: Urine 900 745 70 Urethral (Lock) 900 745 70 Other: # Bowel Movements 0 0 - Physical Exam Head: Positive for: Atraumatic, Normocephalic Pupils: Positive for: Non-Reactive, Pinpoint Conjunctiva: Positive for: Normal Mouth: Positive for: Other (intubated) Nose (Internal): Positive for: No Active Bleeding, Other (dried blood) Neck: Positive for: Trachea Midline Respiratory/Chest: Positive for: Clear to Auscultation, Good Air Exchange. Negative for: Respiratory Distress, Accessory Muscle Use, Wheezes, Rales Cardiovascular: Positive for: Other (paced rhythm at 60bpm) Abdomen: Positive for: Normal Bowel Sounds, Other (active cooling wrap on). Negative for: Tenderness, Distention, Peritoneal Signs, Guarding Upper Extremity: Negative for: Edema Lower Extremity: Positive for: Other (active cooling wraps on) Neurological: Positive for: Other (non-responsive to pain. no gag reflex on suction). Negative for: GCS=15 Skin: Positive for: Dry Psychiatric: Negative for: Alert, Oriented x 3 - Medications Active Medications: Active Medications Generic Name Dose Route Start Last Admin Trade Name Freq PRN Reason Stop Dose Admin Artificial Tears 0 gm 06/21/17 10:01 06/23/17 10:05 Lacri-Lube OU 3.5 gm Q4 PRN Administration Dry eyes Clonazepam 0.5 mg 06/23/17 10:00 06/23/17 14:05 Klonopin NG 0.5 mg TID EMERY Administration Enoxaparin Sodium 40 mg 06/23/17 10:00 06/23/17 12:15 Lovenox SC 40 mg DAILY EMERY Administration Fentanyl 1 patch 06/23/17 09:15 06/23/17 09:59 Duragesic TD 1 patch Q72H EMERY Administration Ceftriaxone Sodium 50 mls @ 100 mls/hr 06/20/17 18:00 06/23/17 06:58 Rocephin Iv 1 Gm Duplex IVPB 100 mls/hr Q12H EMERY Administration Norepinephrine Bitartrate 8 mg 250 mls @ 7.5 mls/hr 06/20/17 17:16 06/23/17 10:58 / Dextrose IV 5 mcg/min .Q24H PRN 9.37 mls/hr TITRATE PER MD ORDER Administration Protocol 4 MCG/MIN Propofol 1,000 mg in 100 mls @ 2.4 mls/hr 06/21/17 12:02 06/23/17 07:01 Diprivan IV 15 mcg/kg/min .Q24H PRN 7.2 mls/hr TITRATE PER MD ORDER Administration Protocol 5 MCG/KG/MIN Morphine Sulfate 250 mg/ 250 mls @ 4 mls/hr 06/21/17 12:30 06/23/17 14:12 Sodium Chloride IV Not Given .Q24H EMERY Protocol Sodium Chloride 1,000 mls @ 75 mls/hr 06/23/17 13:30 06/23/17 14:05 Sodium Chloride 0.9% IV 75 mls/hr .[id number] EMERY Administration Valproate Sodium 1,000 mg/ 60 mls @ 60 mls/hr 06/23/17 15:00 06/23/17 14:57 Sodium Chloride IVPB 06/23/17 15:59 60 mls/hr ONCE ONE Administration Per Protocol Lorazepam 1 mg 06/20/17 17:09 06/22/17 04:07 Ativan IVP 1 mg Q4H PRN Administration Anxiety Pantoprazole Sodium 40 mg 06/21/17 10:00 06/23/17 09:29 Protonix Inj IVP 40 mg DAILY EMERY Administration Potassium Phos/Sodium Phos 1 pkt 06/21/17 10:00 06/23/17 09:29 Neutra-Phos PO 1 pkt BIDCC EMERY Administration Vitamin A 1 ea 06/22/17 18:00 06/23/17 09:30 Vitamin A & D Oint Ud Foilpak TOP 1 ea BID EMERY Administration - Patient Studies Lab Studies: Microbiology Studies 06/20/17 15:30 MRSA Culture (Admit) - Final Naris MRSA NOT DETECTED Lab Studies 06/23/17 06/23/17 06/23/17 Range/Units 11: 09:45 08:31 WBC (4.8-10.8) K/uL RBC (4.40-5.90) Mil/uL Hgb (12.0-18.0) g/dL Hct (35.0-51.0) % MCV (80.0-94.0) fL MCH (27.0-31.0) pg MCHC (33.0-37.0) g/dL RDW (11.5-14.5) % Plt Count (130-400) K/uL MPV (7.2-11.7) fL Neut % (Auto) (50.0-75.0) % Lymph % (Auto) (20.0-40.0) % Warrick % (Auto) (0.0-10.0) % Eos % (Auto) (0.0-4.0) % Baso % (Auto) (0.0-2.0) % Neut # (1.8-7.0) K/uL Lymph # (1.0-4.3) K/uL Warrick # (0.0-0.8) K/uL Eos # (0.0-0.7) K/uL Baso # (0.0-0.2) K/uL Puncture Site L/f pCO2 35 (35-45) mm/Hg pO2 109 H (80-100) mm/Hg HCO3 24.2 (21-28) mmol/L ABG pH 7.43 (7.35-7.45) ABG Total CO2 24.3 (22-28) mmol/L ABG O2 Saturation 98.1 H (95-98) % ABG Base Excess -0.9 (-2.0-3.0) mmol/L ABG Hemoglobin 7.8 L (11.7-17.4) g/dL ABG Carboxyhemoglobin 1.0 (0.5-1.5) % POC ABG HHb (Measured) 1.9 (0.0-5.0) % ABG Methemoglobin 0.6 (0.0-3.0) % Shankar Test Na ABG Potassium (3.6-5.2) mmol/L A-a O2 Difference 97.0 mm/Hg Respiratory Index 0.9 Hgb O2 Saturation 96.5 (95.0-98.0) % Sodium 133 (132-148) mmol/l Chloride 103 (98-107) mmol/L Glucose (75-110) mg/dl Lactate (0.7-2.1) mmol/L Vent Mode Mechanical Rate 18 FiO2 35.0 % Tidal Volume 500 PEEP 5 Potassium 4.3 (3.6-5.2) mmol/L Carbon Dioxide 23 (22-30) mmol/L Anion Gap 12 (10-20) BUN 21 H (9-20) mg/dL Creatinine 0.9 (0.8-1.5) mg/dL Est GFR ( Amer) > 60 Est GFR (Non-Af Amer) > 60 POC Glucose (mg/dL) 153 H (65-110) mg/dL Random Glucose 131 H (75-110) mg/dL Calcium 7.8 L (8.6-10.4) mg/dl Phosphorus 4.3 (2.5-4.5) mg/dL Magnesium 1.6 (1.6-2.3) mg/dL Total Bilirubin 1.0 (0.2-1.3) mg/dL AST 157 H D (17-59) U/L ALT 62 (21-72) U/L Alkaline Phosphatase 64 (38-126) U/L Total Protein 5.0 L (6.3-8.3) g/dL Albumin 2.9 L (3.5-5.0) g/dL Globulin 2.1 L (2.2-3.9) gm/dL Albumin/Globulin Ratio 1.4 (1.0-2.1) Arterial Blood Potassium (3.6-5.2) mmol/L Valproic Acid (50.0-100.0) ug/mL 06/23/17 06/23/17 06/23/17 Range/Units 07:31 06:16 06:16 WBC 6.1 (4.8-10.8) K/uL RBC 4.18 L (4.40-5.90) Mil/uL Hgb 8.3 L (12.0-18.0) g/dL Hct 25.8 L (35.0-51.0) % MCV 61.6 L (80.0-94.0) fL MCH 19.8 L (27.0-31.0) pg MCHC 32.1 L (33.0-37.0) g/dL RDW 16.4 H (11.5-14.5) % Plt Count 86 L (130-400) K/uL MPV 9.1 (7.2-11.7) fL Neut % (Auto) 74.6 (50.0-75.0) % Lymph % (Auto) 13.8 L (20.0-40.0) % Warrick % (Auto) 10.1 H (0.0-10.0) % Eos % (Auto) 1.2 (0.0-4.0) % Baso % (Auto) 0.3 (0.0-2.0) % Neut # 4.6 (1.8-7.0) K/uL Lymph # 0.8 L (1.0-4.3) K/uL Warrick # 0.6 (0.0-0.8) K/uL Eos # 0.1 (0.0-0.7) K/uL Baso # 0.0 (0.0-0.2) K/uL Puncture Site pCO2 (35-45) mm/Hg pO2 (80-100) mm/Hg HCO3 (21-28) mmol/L ABG pH (7.35-7.45) ABG Total CO2 (22-28) mmol/L ABG O2 Saturation (95-98) % ABG Base Excess (-2.0-3.0) mmol/L ABG Hemoglobin (11.7-17.4) g/dL ABG Carboxyhemoglobin (0.5-1.5) % POC ABG HHb (Measured) (0.0-5.0) % ABG Methemoglobin (0.0-3.0) % Shankar Test ABG Potassium (3.6-5.2) mmol/L A-a O2 Difference mm/Hg Respiratory Index Hgb O2 Saturation (95.0-98.0) % Sodium (132-148) mmol/l Chloride (98-107) mmol/L Glucose (75-110) mg/dl Lactate (0.7-2.1) mmol/L Vent Mode Mechanical Rate FiO2 % Tidal Volume PEEP Potassium (3.6-5.2) mmol/L Carbon Dioxide (22-30) mmol/L Anion Gap (10-20) BUN (9-20) mg/dL Creatinine (0.8-1.5) mg/dL Est GFR ( Amer) Est GFR (Non-Af Amer) POC Glucose (mg/dL) 160 H (65-110) mg/dL Random Glucose (75-110) mg/dL Calcium (8.6-10.4) mg/dl Phosphorus (2.5-4.5) mg/dL Magnesium (1.6-2.3) mg/dL Total Bilirubin (0.2-1.3) mg/dL AST (17-59) U/L ALT (21-72) U/L Alkaline Phosphatase (38-126) U/L Total Protein (6.3-8.3) g/dL Albumin (3.5-5.0) g/dL Globulin (2.2-3.9) gm/dL Albumin/Globulin Ratio (1.0-2.1) Arterial Blood Potassium (3.6-5.2) mmol/L Valproic Acid 15.8 L (50.0-100.0) ug/mL 06/23/17 06/22/17 06/22/17 Range/Units 05:22 23:32 17:42 WBC (4.8-10.8) K/uL RBC (4.40-5.90) Mil/uL Hgb (12.0-18.0) g/dL Hct (35.0-51.0) % MCV (80.0-94.0) fL MCH (27.0-31.0) pg MCHC (33.0-37.0) g/dL RDW (11.5-14.5) % Plt Count (130-400) K/uL MPV (7.2-11.7) fL Neut % (Auto) (50.0-75.0) % Lymph % (Auto) (20.0-40.0) % Warrick % (Auto) (0.0-10.0) % Eos % (Auto) (0.0-4.0) % Baso % (Auto) (0.0-2.0) % Neut # (1.8-7.0) K/uL Lymph # (1.0-4.3) K/uL Warrick # (0.0-0.8) K/uL Eos # (0.0-0.7) K/uL Baso # (0.0-0.2) K/uL Puncture Site Rr pCO2 49 H (35-45) mm/Hg pO2 141 H (80-100) mm/Hg HCO3 23.3 (21-28) mmol/L ABG pH 7.31 L (7.35-7.45) ABG Total CO2 26.2 (22-28) mmol/L ABG O2 Saturation 98.4 H (95-98) % ABG Base Excess -2.1 L (-2.0-3.0) mmol/L ABG Hemoglobin (11.7-17.4) g/dL ABG Carboxyhemoglobin (0.5-1.5) % POC ABG HHb (Measured) (0.0-5.0) % ABG Methemoglobin (0.0-3.0) % Shankar Test Pos ABG Potassium 4.2 (3.6-5.2) mmol/L A-a O2 Difference 83.0 mm/Hg Respiratory Index 0.6 Hgb O2 Saturation (95.0-98.0) % Sodium 138.0 (132-148) mmol/l Chloride 112.0 H (98-107) mmol/L Glucose 146 H (75-110) mg/dl Lactate 0.5 L (0.7-2.1) mmol/L Vent Mode A/c Mechanical Rate 12 FiO2 40.0 % Tidal Volume 500 PEEP 5 Potassium (3.6-5.2) mmol/L Carbon Dioxide (22-30) mmol/L Anion Gap (10-20) BUN (9-20) mg/dL Creatinine (0.8-1.5) mg/dL Est GFR ( Amer) Est GFR (Non-Af Amer) POC Glucose (mg/dL) 72 101 (65-110) mg/dL Random Glucose (75-110) mg/dL Calcium (8.6-10.4) mg/dl Phosphorus (2.5-4.5) mg/dL Magnesium (1.6-2.3) mg/dL Total Bilirubin (0.2-1.3) mg/dL AST (17-59) U/L ALT (21-72) U/L Alkaline Phosphatase (38-126) U/L Total Protein (6.3-8.3) g/dL Albumin (3.5-5.0) g/dL Globulin (2.2-3.9) gm/dL Albumin/Globulin Ratio (1.0-2.1) Arterial Blood Potassium 4.2 (3.6-5.2) mmol/L Valproic Acid (50.0-100.0) ug/mL Laboratory Results - last 24 hr 06/22/17 06/22/17 06/23/17 17:42 23:32 05:22 WBC RBC Hgb Hct MCV MCH MCHC RDW Plt Count MPV Neut % (Auto) Lymph % (Auto) Warrick % (Auto) Eos % (Auto) Baso % (Auto) Neut # Lymph # Warrick # Eos # Baso # Puncture Site Rr pCO2 49 H pO2 141 H HCO3 23.3 ABG pH 7.31 L ABG Total CO2 26.2 ABG O2 Saturation 98.4 H ABG Base Excess -2.1 L ABG Hemoglobin ABG Carboxyhemoglobin POC ABG HHb (Measured) ABG Methemoglobin Shankar Test Pos ABG Potassium 4.2 A-a O2 Difference 83.0 Respiratory Index 0.6 Hgb O2 Saturation Sodium 138.0 Chloride 112.0 H Glucose 146 H Lactate 0.5 L Vent Mode A/c Mechanical Rate 12 FiO2 40.0 Tidal Volume 500 PEEP 5 Potassium Carbon Dioxide Anion Gap BUN Creatinine Est GFR ( Amer) Est GFR (Non-Af Amer) POC Glucose (mg/dL) 101 72 Random Glucose Calcium Phosphorus Magnesium Total Bilirubin AST ALT Alkaline Phosphatase Total Protein Albumin Globulin Albumin/Globulin Ratio Arterial Blood Potassium 4.2 Valproic Acid 06/23/17 06/23/17 06/23/17 06:16 06:16 07:31 WBC 6.1 RBC 4.18 L Hgb 8.3 L Hct 25.8 L MCV 61.6 L MCH 19.8 L MCHC 32.1 L RDW 16.4 H Plt Count 86 L MPV 9.1 Neut % (Auto) 74.6 Lymph % (Auto) 13.8 L Warrick % (Auto) 10.1 H Eos % (Auto) 1.2 Baso % (Auto) 0.3 Neut # 4.6 Lymph # 0.8 L Warrick # 0.6 Eos # 0.1 Baso # 0.0 Puncture Site pCO2 pO2 HCO3 ABG pH ABG Total CO2 ABG O2 Saturation ABG Base Excess ABG Hemoglobin ABG Carboxyhemoglobin POC ABG HHb (Measured) ABG Methemoglobin Shankar Test ABG Potassium A-a O2 Difference Respiratory Index Hgb O2 Saturation Sodium Chloride Glucose Lactate Vent Mode Mechanical Rate FiO2 Tidal Volume PEEP Potassium Carbon Dioxide Anion Gap BUN Creatinine Est GFR ( Amer) Est GFR (Non-Af Amer) POC Glucose (mg/dL) 160 H Random Glucose Calcium Phosphorus Magnesium Total Bilirubin AST ALT Alkaline Phosphatase Total Protein Albumin Globulin Albumin/Globulin Ratio Arterial Blood Potassium Valproic Acid 15.8 L 06/23/17 06/23/17 06/23/17 08:31 09:45 11:23 WBC RBC Hgb Hct MCV MCH MCHC RDW Plt Count MPV Neut % (Auto) Lymph % (Auto) Warrick % (Auto) Eos % (Auto) Baso % (Auto) Neut # Lymph # Warrick # Eos # Baso # Puncture Site L/f pCO2 35 pO2 109 H HCO3 24.2 ABG pH 7.43 ABG Total CO2 24.3 ABG O2 Saturation 98.1 H ABG Base Excess -0.9 ABG Hemoglobin 7.8 L ABG Carboxyhemoglobin 1.0 POC ABG HHb (Measured) 1.9 ABG Methemoglobin 0.6 Shankar Test Na ABG Potassium A-a O2 Difference 97.0 Respiratory Index 0.9 Hgb O2 Saturation 96.5 Sodium 133 Chloride 103 Glucose Lactate Vent Mode Mechanical Rate 18 FiO2 35.0 Tidal Volume 500 PEEP 5 Potassium 4.3 Carbon Dioxide 23 Anion Gap 12 BUN 21 H Creatinine 0.9 Est GFR ( Amer) > 60 Est GFR (Non-Af Amer) > 60 POC Glucose (mg/dL) 153 H Random Glucose 131 H Calcium 7.8 L Phosphorus 4.3 Magnesium 1.6 Total Bilirubin 1.0 AST 157 H D ALT 62 Alkaline Phosphatase 64 Total Protein 5.0 L Albumin 2.9 L Globulin 2.1 L Albumin/Globulin Ratio 1.4 Arterial Blood Potassium Valproic Acid Fingerstick Blood Sugar Results: 160 Critical Care Progress Note - Ventilator Checklist Daily Sedation Vacation: Yes Daily Assessment of Readiness to Wean: Yes Daily Spontaneous Breathing Trial: Yes PUD Prophalyxis: Yes DVT Prophylaxis: Yes Oral Care with Chlorhexidine Gluconate {CHG}: Yes - Nutrition Nutrition: Nutrition Category Date Time Status NPO Diet [DIET] Diets 06/20/17 Dinner Active Assessment/Plan - Assessment and Plan (Free Text) Plan: 61 year old male with a PMH of hypertension, Pulmonary hypertension, tricuspid valve replacement, mitral valve replacement, hx of a. flutter, atrial septal defect, anemia, a.fib, hyperlipidemia present s/p cardiac arrest. -s/p cardiac arrest; currently not on any pressors, continue rx as per cardiology -anoxic brain injury with myotonic jerks: contine AED add clonazepam -Pain: control d/c morphine and start fentanyl patch -continue NG tube feeds -continue ng tube feeds -BGM q6hrs/ISS lispro -Patient has had significant anoxic louisa injury with very timbo probability to return to any meaningful neurological function. -goals of care: family at bedside ( and son); undecided regarding goals of care. possible trach/peg possible terminal extubation cc time 35 minutes
--- NOTE | 2017-06-23 16:34 | RAD ---
HISTORY: intubation COMPARISON: Comparison is made to the previous study dated 06/22/2017 FINDINGS: LUNGS: Heterogeneous opacity at the medial aspect of the right lower lung is again noted. The ET tube is again seen at appropriate position. PLEURA: Small right pleural effusion is again noted. Blunting of the left costophrenic angle is noted. CARDIOVASCULAR: Patient status post 2 metallic valve replacement. Left-sided pacemaker is again seen in place. Status post sternotomy. OSSEOUS STRUCTURES: No significant abnormalities. VISUALIZED UPPER ABDOMEN: NG tube seen extending to the stomach. OTHER FINDINGS: None. IMPRESSION: No significant interval change compared to the previous last exam P
--- NOTE | 2017-06-23 17:04 | PN ---
SUBJECTIVE: The patient is still deeply comatose on a ventilator with sedation. PHYSICAL EXAMINATION: VITAL SIGNS: Blood pressure 105/49, heart rate 73, temperature 98.3, respiration 18. HEENT: No corneal reflexes as reported to me by the neurologist. CHEST: Clear. HEART: S1 and S2, regular. EXTREMITIES: No edema. LABORATORY DATA: Hemoglobin and hematocrit 8.3 and 25.8, white count is 86,000. SMA-7: Sodium 133, potassium 4.3, chloride 103, CO2 of 23, glucose of 131, BUN 21, creatinine 0.9. Chest x-ray revealed cardiomegaly, possible right lower lobe infiltrate. ASSESSMENT: 1. Status post cardiac arrest. 2. Anoxic encephalopathy. 3. Mild thrombocytopenia. 4. Mild pulmonary hypertension and severely reduced right ventricle systolic function. RECOMMENDATIONS: Continue current subcutaneous Lovenox 40 mg once a day, Levophed infusion, IV Rocephin at 1 g q.12 hours. The case was discussed with the neurologist Dr. Frausto. The neuro prognosis is very poor. Jun Platt MD
--- NOTE | 2017-06-23 17:37 | PN ---
NEUROLOGY PROGRESS NOTE SUBJECTIVE: The patient is lying on the bed on a ventilator, slightly sedated. The patient gets a lot of myoclonic jerks when sedation is stopped. PHYSICAL EXAMINATION: VITAL SIGNS: His blood pressure is 105/49, heart rate is 73 per minute, breathing at the rate of 16 per minute, and his temperature is 98.3 degrees Fahrenheit HEENT: Head is normocephalic and atraumatic. NECK: Supple. There are no carotid bruits. LUNGS: Clear. CARDIOVASCULAR: S1 and S2 audible. No murmurs. ABDOMEN: Soft and nontender. Bowel sounds are present. NEUROLOGIC: Mental status: The patient is comatose, does not open his eyes. When sedation is stopped, he does have myoclonic jerks intermittently. Cranial nerve examination: Pupils are 2 mm minimally reactive. Positive doll's eye movement. No corneal reflux. No gag reflux. He has minimal withdrawal of right upper extremities to noxious painful stimuli. Plantars, no response. LABORATORY DATA: Reviewed shows WBC of 6.1, hemoglobin of 8.3, hematocrit of 25.8 and platelets of 86,000. His sodium is 133, potassium is 4.3, chloride 103, carbon dioxide content of 23, BUN of 21, creatinine of 0.9 and glucose of 131. His valproic acid level is 15.8. IMPRESSION: 1. Anoxic encephalopathy status post cardiac arrest. 2. Respiratory failure. 3. Myoclonic jerks. RECOMMENDATIONS: 1. The patient continues to have myoclonic jerks. The patient's Depakote level is low. I will give him a 1000 mg extra dose and continue him on Depakote 500 mg q.12 hours. 2. The patient has shown no improvement in his neurologic status. 3. I had a prolonged discussion with the patient's and his son about the patient's current status and that patient has shown no sign of improvement. The patient's family would like to give another couple of days of observation to see how he does and after that they will decide rather to terminally extubated him or go for tracheostomy and PEG tube placement. 4. The patient's prognosis is guarded to poor. 5. We will repeat serum valproic acid level again tomorrow morning. 6. Please continue supportive care and the treatment. Thank you for the opportunity to participate in the care of this patient. Ash Frausto MD
[2017-06-24] MEDS: Sodium Chloride 0.9% 1,000 ML IV SCH (05:00)
[2017-06-24] MEDS: cefTRIAXone IV 1 gm in Dextros 50 ML IVPB SCH ×2 (05:00→18:43)
[2017-06-24 05:59] LABS: ABG ALLEN TEST POS; ABG MECHANICAL RATE 18; ARTERIAL BLOOD GAS MODE A/C; ATERIAL BLOOD GAS PEEP 5; DRAW SITE RR
[2017-06-24 06:49] LABS: BASO % 0.2 % (0.0-2.0); EOS % 1.3 % (0.0-4.0); HEMATOCRIT 24.7 % (35.0-51.0); LYMPH # 0.7 K/uL (1.0-4.3); LYMPH % 17.5 % (20.0-40.0); MEAN CELL VOLUME 60.6 fL (80.0-94.0); MEAN CORPUSCULAR HEMOGLOBIN 19.8 pg (27.0-31.0); MEAN CORPUSCULAR HGB CONC 32.6 g/dL (33.0-37.0); MONO # 0.5 K/uL (0.0-0.8); MONO % 12.7 % (0.0-10.0); NRBC % 0.2 % (0.0-2.0); RED CELL DISTRIBUTION WIDTH 16.5 % (11.5-14.5); WHITE BLOOD COUNT 3.9 K/uL (4.8-10.8)
[2017-06-24 07:05] LABS: ALB/GLOB RATIO 0.9 (1.0-2.1); ALKALINE PHOSPHATASE 76 U/L (38-126); ALT/SGPT 64 U/L (21-72); AST/SGOT 133 U/L (17-59); BILIRUBIN,TOTAL 0.7 mg/dL (0.2-1.3); BLOOD UREA NITROGEN 12 mg/dL (9-20); CALCIUM 7.7 mg/dl (8.6-10.4); CARBON DIOXIDE 27 mmol/L (22-30); CHLORIDE 103 mmol/L (98-107); GFR AFRICAN-AMERICAN > 60; GLUCOSE,RANDOM 90 mg/dL (75-110); MAGNESIUM 1.7 mg/dL (1.6-2.3); PHOSPHOROUS 3.3 mg/dL (2.5-4.5); POTASSIUM 4.3 mmol/L (3.6-5.2); SODIUM 138 mmol/L (132-148); TOTAL PROTEIN 6.1 g/dL (6.3-8.3)
[2017-06-24] MEDS: White Petrolatum/Mineral Oil Ophth Oint(3.5 gm) OU PRN ×3 (07:48→23:16)
[2017-06-24] MEDS: Potassium & Sodium Phosphate PO SCH ×2 (07:49→18:43)
[2017-06-24] MEDS: Enoxaparin 40 mg Syringe SC SCH (10:26)
[2017-06-24] MEDS: Vitamins A & D Oint UD Foilpak TOP SCH ×2 (10:27→18:15)
--- NOTE | 2017-06-24 11:04 | RAD ---
HISTORY: intubation COMPARISON: Portable chest 06/23/2017. FINDINGS: Endotracheal and nasogastric tubes appear unchanged in position. Sternotomy wires and double prosthetic cardiac valve again noted. LUNGS: Trace right medial basilar airspace disease is in question with left basilar airspace disease unchanged. PLEURA: No right pleural effusion is seen at this time. Trace left pleural effusion remains. No pneumothorax seen bilaterally. CARDIOVASCULAR: Somewhat prominent cardiac silhouette is seen with questionable increase in hilar vasculature bilaterally and may indicate mild pulmonary venous congestion. Study is somewhat underpenetrated which will accentuate the vascular markings in the chest. Further clinical correlation is advised. OSSEOUS STRUCTURES: No significant abnormalities. VISUALIZED UPPER ABDOMEN: Normal. OTHER FINDINGS: None. IMPRESSION: Questioned increase in pulmonary venous congestion pattern/ CHF. Stable left basilar opacity with mild increase in medial right basilar airspace disease. Clinical correlation and radiographic follow-up are advised.
--- NOTE | 2017-06-24 14:17 | CP.CCUPN ---
<Radames Winston - Last Filed: 06/24/17 14:14> CCU Subjective - Physician Review Subjective (Free Text): PGY1 ICU progress note for Dr. Reyes Patient seen and examined at bedside this morning. No acute events over night. Patient intubated. ROS unattainable. CCU Objective - Vital Signs / Intake & Output Vital Signs (Last 4 hours): Vital Signs Pulse Resp BP Pulse Ox 06/24/17 11:00 70 19 103/43 L 100 Intake and Output (Last 8hrs): Intake & Output 06/23/17 06/24/17 06/24/17 22:59 06:59 14:59 Intake Total 1358.6 1066.2 127.2 Output Total 850 700 Balance 508.6 366.2 127.2 Weight 180 lb Intake: IV 206 40 Intake, IV Amount 697.6 666.2 82.2 Right Distal Port Femoral 68.6 57.6 7.2 Right Hand 275 Right Medial Port Femoral 303 575 75 Right Proximal Port 51.0 33.6 Femoral Oral 40 Tube Feeding 315 360 45 Other 100 Output: Urine 850 700 Urethral (Lock) 850 700 Other: # Bowel Movements 0 - Physical Exam Head: Positive for: Atraumatic, Normocephalic Pupils: Positive for: Non-Reactive, Pinpoint Conjunctiva: Positive for: Normal Mouth: Positive for: Other (intubated) Nose (Internal): Positive for: No Active Bleeding, Other (dried blood) Neck: Positive for: Trachea Midline Respiratory/Chest: Positive for: Clear to Auscultation, Good Air Exchange. Negative for: Respiratory Distress, Accessory Muscle Use, Wheezes, Rales Cardiovascular: Positive for: Other (paced rhythm at 60bpm) Abdomen: Positive for: Normal Bowel Sounds, Other (active cooling wrap on). Negative for: Tenderness, Distention, Peritoneal Signs, Guarding Upper Extremity: Negative for: Edema Lower Extremity: Positive for: Other (active cooling wraps on) Neurological: Positive for: Other (non-responsive to pain. no gag reflex on suction). Negative for: GCS=15 Skin: Positive for: Dry Psychiatric: Negative for: Alert, Oriented x 3 - Medications Active Medications: Active Medications Generic Name Dose Route Start Last Admin Trade Name Freq PRN Reason Stop Dose Admin Artificial Tears 0 gm 06/21/17 10:01 06/24/17 14:12 Lacri-Lube OU 3.5 gm Q4 PRN Administration Dry eyes Clonazepam 1 mg 06/24/17 14:00 06/24/17 14:04 Klonopin NG 1 mg TID EMERY Administration Enoxaparin Sodium 40 mg 06/23/17 10:00 06/24/17 10:26 Lovenox SC 40 mg DAILY EMERY Administration Fentanyl 1 patch 06/23/17 09:15 06/23/17 09:59 Duragesic TD 1 patch Q72H EMERY Administration Ceftriaxone Sodium 50 mls @ 100 mls/hr 06/20/17 18:00 06/24/17 05:00 Rocephin Iv 1 Gm Duplex IVPB 100 mls/hr Q12H EMERY Administration Propofol 1,000 mg in 100 mls @ 2.4 mls/hr 06/21/17 12:02 06/23/17 22:00 Diprivan IV 15 mcg/kg/min .Q24H PRN 7.2 mls/hr TITRATE PER MD ORDER Administration Protocol 5 MCG/KG/MIN Morphine Sulfate 250 mg/ 250 mls @ 4 mls/hr 06/21/17 12:30 06/24/17 13:43 Sodium Chloride IV Not Given .Q24H EMERY Protocol Levetiracetam 750 mg/ Sodium 257.5 mls @ 420 mls/hr 06/24/17 21:00 Chloride IVPB Q12H EMERY Lorazepam 4 mg 06/24/17 10:40 06/24/17 13:43 Ativan IVP 4 mg Q4H PRN Administration Anxiety Pantoprazole Sodium 40 mg 06/21/17 10:00 06/24/17 10:26 Protonix Inj IVP 40 mg DAILY EMERY Administration Potassium Phos/Sodium Phos 1 pkt 06/21/17 10:00 06/24/17 07:49 Neutra-Phos PO 1 pkt BIDCC EMERY Administration Vitamin A 1 ea 06/22/17 18:00 06/24/17 10:27 Vitamin A & D Oint Ud Foilpak TOP 1 ea BID EMERY Administration - Patient Studies Lab Studies: Lab Studies 06/24/17 06/24/17 06/24/17 Range/Units 11:27 06:36 06:36 WBC 3.9 L (4.8-10.8) K/uL RBC 4.07 L (4.40-5.90) Mil/uL Hgb 8.1 L (12.0-18.0) g/dL Hct 24.7 L (35.0-51.0) % MCV 60.6 L (80.0-94.0) fL MCH 19.8 L (27.0-31.0) pg MCHC 32.6 L (33.0-37.0) g/dL RDW 16.5 H (11.5-14.5) % Plt Count 88 L (130-400) K/uL MPV 9.0 (7.2-11.7) fL Neut % (Auto) 68.3 (50.0-75.0) % Lymph % (Auto) 17.5 L (20.0-40.0) % [place] % (Auto) 12.7 H (0.0-10.0) % Eos % (Auto) 1.3 (0.0-4.0) % Baso % (Auto) 0.2 (0.0-2.0) % Neut # 2.7 (1.8-7.0) K/uL Lymph # 0.7 L (1.0-4.3) K/uL [place] # 0.5 (0.0-0.8) K/uL Eos # 0.0 (0.0-0.7) K/uL Baso # 0.0 (0.0-0.2) K/uL Puncture Site pCO2 (35-45) mm/Hg pO2 (80-100) mm/Hg HCO3 (21-28) mmol/L ABG pH (7.35-7.45) ABG Total CO2 (22-28) mmol/L ABG O2 Saturation (95-98) % ABG Base Excess (-2.0-3.0) mmol/L Shankar Test ABG Potassium (3.6-5.2) mmol/L A-a O2 Difference mm/Hg Respiratory Index Sodium 138 (132-148) mmol/l Chloride 103 (98-107) mmol/L Glucose (75-110) mg/dl Lactate (0.7-2.1) mmol/L Vent Mode Mechanical Rate FiO2 % Tidal Volume PEEP Potassium 4.3 (3.6-5.2) mmol/L Carbon Dioxide 27 (22-30) mmol/L Anion Gap 12 (10-20) BUN 12 (9-20) mg/dL Creatinine 0.9 (0.8-1.5) mg/dL Est GFR ( Amer) > 60 Est GFR (Non-Af Amer) > 60 POC Glucose (mg/dL) 121 H (65-110) mg/dL Random Glucose 90 (75-110) mg/dL Calcium 7.7 L (8.6-10.4) mg/dl Phosphorus 3.3 (2.5-4.5) mg/dL Magnesium 1.7 (1.6-2.3) mg/dL Total Bilirubin 0.7 (0.2-1.3) mg/dL AST 133 H (17-59) U/L ALT 64 (21-72) U/L Alkaline Phosphatase 76 (38-126) U/L Total Protein 6.1 L (6.3-8.3) g/dL Albumin 2.9 L (3.5-5.0) g/dL Globulin 3.1 (2.2-3.9) gm/dL Albumin/Globulin Ratio 0.9 L (1.0-2.1) Arterial Blood Potassium (3.6-5.2) mmol/L 06/24/17 06/24/17 06/24/17 Range/Units 05:22 05:17 00:51 WBC (4.8-10.8) K/uL RBC (4.40-5.90) Mil/uL Hgb (12.0-18.0) g/dL Hct (35.0-51.0) % MCV (80.0-94.0) fL MCH (27.0-31.0) pg MCHC (33.0-37.0) g/dL RDW (11.5-14.5) % Plt Count (130-400) K/uL MPV (7.2-11.7) fL Neut % (Auto) (50.0-75.0) % Lymph % (Auto) (20.0-40.0) % [place] % (Auto) (0.0-10.0) % Eos % (Auto) (0.0-4.0) % Baso % (Auto) (0.0-2.0) % Neut # (1.8-7.0) K/uL Lymph # (1.0-4.3) K/uL [place] # (0.0-0.8) K/uL Eos # (0.0-0.7) K/uL Baso # (0.0-0.2) K/uL Puncture Site Rr pCO2 40 (35-45) mm/Hg pO2 79 L (80-100) mm/Hg HCO3 26.4 (21-28) mmol/L ABG pH 7.43 (7.35-7.45) ABG Total CO2 27.7 (22-28) mmol/L ABG O2 Saturation 96.5 (95-98) % ABG Base Excess 2.0 (-2.0-3.0) mmol/L Shankar Test Pos ABG Potassium 4.4 (3.6-5.2) mmol/L A-a O2 Difference 121.0 mm/Hg Respiratory Index 1.5 Sodium 140.0 (132-148) mmol/l Chloride 113.0 H (98-107) mmol/L Glucose 97 (75-110) mg/dl Lactate 0.6 L (0.7-2.1) mmol/L Vent Mode A/c Mechanical Rate 18 FiO2 35.0 % Tidal Volume 500 PEEP 5 Potassium (3.6-5.2) mmol/L Carbon Dioxide (22-30) mmol/L Anion Gap (10-20) BUN (9-20) mg/dL Creatinine (0.8-1.5) mg/dL Est GFR ( Amer) Est GFR (Non-Af Amer) POC Glucose (mg/dL) 107 127 H (65-110) mg/dL Random Glucose (75-110) mg/dL Calcium (8.6-10.4) mg/dl Phosphorus (2.5-4.5) mg/dL Magnesium (1.6-2.3) mg/dL Total Bilirubin (0.2-1.3) mg/dL AST (17-59) U/L ALT (21-72) U/L Alkaline Phosphatase (38-126) U/L Total Protein (6.3-8.3) g/dL Albumin (3.5-5.0) g/dL Globulin (2.2-3.9) gm/dL Albumin/Globulin Ratio (1.0-2.1) Arterial Blood Potassium 4.4 (3.6-5.2) mmol/L 06/23/17 Range/Units 18:24 WBC (4.8-10.8) K/uL RBC (4.40-5.90) Mil/uL Hgb (12.0-18.0) g/dL Hct (35.0-51.0) % MCV (80.0-94.0) fL MCH (27.0-31.0) pg MCHC (33.0-37.0) g/dL RDW (11.5-14.5) % Plt Count (130-400) K/uL MPV (7.2-11.7) fL Neut % (Auto) (50.0-75.0) % Lymph % (Auto) (20.0-40.0) % [place] % (Auto) (0.0-10.0) % Eos % (Auto) (0.0-4.0) % Baso % (Auto) (0.0-2.0) % Neut # (1.8-7.0) K/uL Lymph # (1.0-4.3) K/uL [place] # (0.0-0.8) K/uL Eos # (0.0-0.7) K/uL Baso # (0.0-0.2) K/uL Puncture Site pCO2 (35-45) mm/Hg pO2 (80-100) mm/Hg HCO3 (21-28) mmol/L ABG pH (7.35-7.45) ABG Total CO2 (22-28) mmol/L ABG O2 Saturation (95-98) % ABG Base Excess (-2.0-3.0) mmol/L Shankar Test ABG Potassium (3.6-5.2) mmol/L A-a O2 Difference mm/Hg Respiratory Index Sodium (132-148) mmol/l Chloride (98-107) mmol/L Glucose (75-110) mg/dl Lactate (0.7-2.1) mmol/L Vent Mode Mechanical Rate FiO2 % Tidal Volume PEEP Potassium (3.6-5.2) mmol/L Carbon Dioxide (22-30) mmol/L Anion Gap (10-20) BUN (9-20) mg/dL Creatinine (0.8-1.5) mg/dL Est GFR ( Amer) Est GFR (Non-Af Amer) POC Glucose (mg/dL) 140 H (65-110) mg/dL Random Glucose (75-110) mg/dL Calcium (8.6-10.4) mg/dl Phosphorus (2.5-4.5) mg/dL Magnesium (1.6-2.3) mg/dL Total Bilirubin (0.2-1.3) mg/dL AST (17-59) U/L ALT (21-72) U/L Alkaline Phosphatase (38-126) U/L Total Protein (6.3-8.3) g/dL Albumin (3.5-5.0) g/dL Globulin (2.2-3.9) gm/dL Albumin/Globulin Ratio (1.0-2.1) Arterial Blood Potassium (3.6-5.2) mmol/L Laboratory Results - last 24 hr 06/23/17 06/24/17 06/24/17 18:24 00:51 05:17 WBC RBC Hgb Hct MCV MCH MCHC RDW Plt Count MPV Neut % (Auto) Lymph % (Auto) [place] % (Auto) Eos % (Auto) Baso % (Auto) Neut # Lymph # [place] # Eos # Baso # Puncture Site pCO2 pO2 HCO3 ABG pH ABG Total CO2 ABG O2 Saturation ABG Base Excess Shankar Test ABG Potassium A-a O2 Difference Respiratory Index Sodium Chloride Glucose Lactate Vent Mode Mechanical Rate FiO2 Tidal Volume PEEP Potassium Carbon Dioxide Anion Gap BUN Creatinine Est GFR ( Amer) Est GFR (Non-Af Amer) POC Glucose (mg/dL) 140 H 127 H 107 Random Glucose Calcium Phosphorus Magnesium Total Bilirubin AST ALT Alkaline Phosphatase Total Protein Albumin Globulin Albumin/Globulin Ratio Arterial Blood Potassium 06/24/17 06/24/17 06/24/17 05:22 06:36 06:36 WBC 3.9 L RBC 4.07 L Hgb 8.1 L Hct 24.7 L MCV 60.6 L MCH 19.8 L MCHC 32.6 L RDW 16.5 H Plt Count 88 L MPV 9.0 Neut % (Auto) 68.3 Lymph % (Auto) 17.5 L [place] % (Auto) 12.7 H Eos % (Auto) 1.3 Baso % (Auto) 0.2 Neut # 2.7 Lymph # 0.7 L [place] # 0.5 Eos # 0.0 Baso # 0.0 Puncture Site Rr pCO2 40 pO2 79 L HCO3 26.4 ABG pH 7.43 ABG Total CO2 27.7 ABG O2 Saturation 96.5 ABG Base Excess 2.0 Shankar Test Pos ABG Potassium 4.4 A-a O2 Difference 121.0 Respiratory Index 1.5 Sodium 140.0 138 Chloride 113.0 H 103 Glucose 97 Lactate 0.6 L Vent Mode A/c Mechanical Rate 18 FiO2 35.0 Tidal Volume 500 PEEP 5 Potassium 4.3 Carbon Dioxide 27 Anion Gap 12 BUN 12 Creatinine 0.9 Est GFR ( Amer) > 60 Est GFR (Non-Af Amer) > 60 POC Glucose (mg/dL) Random Glucose 90 Calcium 7.7 L Phosphorus 3.3 Magnesium 1.7 Total Bilirubin 0.7 AST 133 H ALT 64 Alkaline Phosphatase 76 Total Protein 6.1 L Albumin 2.9 L Globulin 3.1 Albumin/Globulin Ratio 0.9 L Arterial Blood Potassium 4.4 06/24/17 11:27 WBC RBC Hgb Hct MCV MCH MCHC RDW Plt Count MPV Neut % (Auto) Lymph % (Auto) [place] % (Auto) Eos % (Auto) Baso % (Auto) Neut # Lymph # [place] # Eos # Baso # Puncture Site pCO2 pO2 HCO3 ABG pH ABG Total CO2 ABG O2 Saturation ABG Base Excess Shankar Test ABG Potassium A-a O2 Difference Respiratory Index Sodium Chloride Glucose Lactate Vent Mode Mechanical Rate FiO2 Tidal Volume PEEP Potassium Carbon Dioxide Anion Gap BUN Creatinine Est GFR ( Amer) Est GFR (Non-Af Amer) POC Glucose (mg/dL) 121 H Random Glucose Calcium Phosphorus Magnesium Total Bilirubin AST ALT Alkaline Phosphatase Total Protein Albumin Globulin Albumin/Globulin Ratio Arterial Blood Potassium Fingerstick Blood Sugar Results: 107 Review of Systems - Review of Systems Systems not reviewed;Unavailable: Intubated Critical Care Progress Note - Nutrition Nutrition: Nutrition Category Date Time Status NPO Diet [DIET] Diets 06/20/17 Dinner Active Assessment/Plan - Assessment and Plan (Free Text) Assessment: 61 year old male with a PMH of Essential hypertension, Pulmonary hypertension, tricuspid valve replacement, mitral valve replacement, hx of a. flutter, atrial septal defect, anemia, a.fib, hyperlipidemia present s/p cardiac arrest. Plan: Cardio: Dr. Platt consulted, help appreciated Dr. Elizondo consulted, help appreciated ECHO - no pericardial effusion seen, awaiting official read EKG - paced rhythm Trop (06/20)- initial <0.012, second 0.793, third 6.3 [employer] pacemaker Model S602/Serial [id number] implanted on October 03, 2009 [employer]ant Lead Model 4137/Serial [id number] [employer] Lead Model 1688TC Rep from [employer] came and interrogated pacemaker. Pacemaker is functioning properly. - Pacemaker recorded 3 events of Vtach around 1:30 pm today (06/20/17) - Increased packmaker rate to 75bpm Femoral Central line placed Norepinephrine drip - increased to 15mcg/min due to persistent low BP Strict I's & O's f/u cardio recs - cervical spine x-ray - no fracture seen - further cardiac eval will depend on chances for neurologic recovery s/p CODE Freeze Records obtained from [facility] in [place], [place]. - Essential hypertension, Pulmonary hypertension, tricuspid valve replacement, mitral valve replacement, hx of a. flutter, atrial septal defect, anemia, a.fib, hyperlipidemia. - Surgical hx: mitral valve replacement(2008), tricuspid valve replacement( 2008), ASD repair(2008), duel chamber pacemaker(2008) Neurology: Dr. Ash Frausto consulted, help appreciated Still no gag, corneal or pupillary reflexes. - poor prognosis Head CT w/o - no acute findings Depakote discontinued Keppra 750mg IVPB q12H, loading dose of 1000mg given Propofol drip - when propofol drip was help, patient began to experience myoclonic jerks on the left side of his body, predominantly in his left arm. Morphine drip discontinued - now on Fentanyl patich Clonazpepam 1mg NG TID Ativan 4mg q4h PRN Head CT 06/22 - No evidence of acute intracranial hemorrhage intracranial collection mass effect or midline shift. No significant interval change noted since the previous exam. EEG 06/22 - No spike, sharp waves or focal slowing was seen. Consistent with severe bihemispheric cerebral dysfunction. No epileptic form activity seen. f/u valproic acid level f/u Neuro recs Respiratory: Intubated CXR - Questioned increase in pulmonary venous congestion pattern/ CHF. Stable left basilar opacity with mild increase in medial right basilar airspace disease. ABG - R radial, pCO2 40/ pO2 79/ HCO3 26.4/ pH 7.43 - taken while on vent settings A/c, TV 500/FiO2 35/RR 18/ PEEP 5 Rocephin 1gm IVPB q12h Discussion with family about goals of treatment needs be had - Trach vs Terminal Extubation Electrolytes: Phos 3.3 Mag 1.7 Heme: Hgb decreased to 8.1 from 8.3 (06/24) Platelets increased to 88 from 86 (06/24) GI: On Jevity 1.5, initial rate 20ml/hr; goal rate 45 ml/hr Prophylactic Care: SCDs Lovenox 40mg SC daily protonix 40mg IVP daily Dulcolax 10mg [place] HS Case discussed with Dr. Eric Winston PGY1 <Kofi Reyes - Last Filed: 06/24/17 15:13> CCU Objective - Vital Signs / Intake & Output Intake and Output (Last 8hrs): Intake & Output 06/24/17 06/24/17 06/24/17 06:59 14:59 22:59 Intake Total 1066.2 127.2 Output Total 700 Balance 366.2 127.2 Weight 180 lb Intake: IV 40 Intake, IV Amount 666.2 82.2 Right Distal Port Femoral 57.6 7.2 Right Medial Port Femoral 575 75 Right Proximal Port 33.6 Femoral Tube Feeding 360 45 Output: Urine 700 Urethral (Lock) 700 - Medications Active Medications: Active Medications Generic Name Dose Route Start Last Admin Trade Name Freq PRN Reason Stop Dose Admin Artificial Tears 0 gm 06/21/17 10:01 06/24/17 14:12 Lacri-Lube OU 3.5 gm Q4 PRN Administration Dry eyes Bisacodyl 10 mg 06/24/17 22:00 Dulcolax [place] HS EMERY Clonazepam 1 mg 06/24/17 14:00 06/24/17 14:04 Klonopin NG 1 mg TID EMERY Administration Enoxaparin Sodium 40 mg 06/23/17 10:00 06/24/17 10:26 Lovenox SC 40 mg DAILY EMERY Administration Fentanyl 1 patch 06/23/17 09:15 06/23/17 09:59 Duragesic TD 1 patch Q72H EMERY Administration Ceftriaxone Sodium 50 mls @ 100 mls/hr 06/20/17 18:00 06/24/17 05:00 Rocephin Iv 1 Gm Duplex IVPB 100 mls/hr Q12H EMERY Administration Propofol 1,000 mg in 100 mls @ 2.4 mls/hr 06/21/17 12:02 06/23/17 22:00 Diprivan IV 15 mcg/kg/min .Q24H PRN 7.2 mls/hr TITRATE PER MD ORDER Administration Protocol 5 MCG/KG/MIN Levetiracetam 750 mg/ Sodium 157.5 mls @ 420 mls/hr 06/24/17 21:00 Chloride IVPB Q12H EMERY Lorazepam 4 mg 06/24/17 10:40 06/24/17 13:43 Ativan IVP 4 mg Q4H PRN Administration Anxiety Pantoprazole Sodium 40 mg 06/21/17 10:00 06/24/17 10:26 Protonix Inj IVP 40 mg DAILY EMERY Administration Potassium Phos/Sodium Phos 1 pkt 06/21/17 10:00 06/24/17 07:49 Neutra-Phos PO 1 pkt BIDCC EMERY Administration Vitamin A 1 ea 06/22/17 18:00 06/24/17 10:27 Vitamin A & D Oint Ud Foilpak TOP 1 ea BID EMERY Administration - Patient Studies Lab Studies: Lab Studies 06/24/17 06/24/17 06/24/17 Range/Units 14:11 11:27 06:36 WBC (4.8-10.8) K/uL RBC (4.40-5.90) Mil/uL Hgb (12.0-18.0) g/dL Hct (35.0-51.0) % MCV (80.0-94.0) fL MCH (27.0-31.0) pg MCHC (33.0-37.0) g/dL RDW (11.5-14.5) % Plt Count (130-400) K/uL MPV (7.2-11.7) fL Neut % (Auto) (50.0-75.0) % Lymph % (Auto) (20.0-40.0) % [place] % (Auto) (0.0-10.0) % Eos % (Auto) (0.0-4.0) % Baso % (Auto) (0.0-2.0) % Neut # (1.8-7.0) K/uL Lymph # (1.0-4.3) K/uL [place] # (0.0-0.8) K/uL Eos # (0.0-0.7) K/uL Baso # (0.0-0.2) K/uL Puncture Site pCO2 (35-45) mm/Hg pO2 (80-100) mm/Hg HCO3 (21-28) mmol/L ABG pH (7.35-7.45) ABG Total CO2 (22-28) mmol/L ABG O2 Saturation (95-98) % ABG Base Excess (-2.0-3.0) mmol/L Shankar Test ABG Potassium (3.6-5.2) mmol/L A-a O2 Difference mm/Hg Respiratory Index Sodium 138 (132-148) mmol/l Chloride 103 (98-107) mmol/L Glucose (75-110) mg/dl Lactate (0.7-2.1) mmol/L Vent Mode Mechanical Rate FiO2 % Tidal Volume PEEP Potassium 4.3 (3.6-5.2) mmol/L Carbon Dioxide 27 (22-30) mmol/L Anion Gap 12 (10-20) BUN 12 (9-20) mg/dL Creatinine 0.9 (0.8-1.5) mg/dL Est GFR ( Amer) > 60 Est GFR (Non-Af Amer) > 60 POC Glucose (mg/dL) 121 H (65-110) mg/dL Random Glucose 90 (75-110) mg/dL Calcium 7.7 L (8.6-10.4) mg/dl Phosphorus 3.3 (2.5-4.5) mg/dL Magnesium 1.7 (1.6-2.3) mg/dL Total Bilirubin 0.7 (0.2-1.3) mg/dL AST 133 H (17-59) U/L ALT 64 (21-72) U/L Alkaline Phosphatase 76 (38-126) U/L Total Protein 6.1 L (6.3-8.3) g/dL Albumin 2.9 L (3.5-5.0) g/dL Globulin 3.1 (2.2-3.9) gm/dL Albumin/Globulin Ratio 0.9 L (1.0-2.1) Arterial Blood Potassium (3.6-5.2) mmol/L Valproic Acid 33.6 L (50.0-100.0) ug/mL 06/24/17 06/24/17 06/24/17 Range/Units 06:36 05:22 05:17 WBC 3.9 L (4.8-10.8) K/uL RBC 4.07 L (4.40-5.90) Mil/uL Hgb 8.1 L (12.0-18.0) g/dL Hct 24.7 L (35.0-51.0) % MCV 60.6 L (80.0-94.0) fL MCH 19.8 L (27.0-31.0) pg MCHC 32.6 L (33.0-37.0) g/dL RDW 16.5 H (11.5-14.5) % Plt Count 88 L (130-400) K/uL MPV 9.0 (7.2-11.7) fL Neut % (Auto) 68.3 (50.0-75.0) % Lymph % (Auto) 17.5 L (20.0-40.0) % [place] % (Auto) 12.7 H (0.0-10.0) % Eos % (Auto) 1.3 (0.0-4.0) % Baso % (Auto) 0.2 (0.0-2.0) % Neut # 2.7 (1.8-7.0) K/uL Lymph # 0.7 L (1.0-4.3) K/uL [place] # 0.5 (0.0-0.8) K/uL Eos # 0.0 (0.0-0.7) K/uL Baso # 0.0 (0.0-0.2) K/uL Puncture Site Rr pCO2 40 (35-45) mm/Hg pO2 79 L (80-100) mm/Hg HCO3 26.4 (21-28) mmol/L ABG pH 7.43 (7.35-7.45) ABG Total CO2 27.7 (22-28) mmol/L ABG O2 Saturation 96.5 (95-98) % ABG Base Excess 2.0 (-2.0-3.0) mmol/L Shankar Test Pos ABG Potassium 4.4 (3.6-5.2) mmol/L A-a O2 Difference 121.0 mm/Hg Respiratory Index 1.5 Sodium 140.0 (132-148) mmol/l Chloride 113.0 H (98-107) mmol/L Glucose 97 (75-110) mg/dl Lactate 0.6 L (0.7-2.1) mmol/L Vent Mode A/c Mechanical Rate 18 FiO2 35.0 % Tidal Volume 500 PEEP 5 Potassium (3.6-5.2) mmol/L Carbon Dioxide (22-30) mmol/L Anion Gap (10-20) BUN (9-20) mg/dL Creatinine (0.8-1.5) mg/dL Est GFR ( Amer) Est GFR (Non-Af Amer) POC Glucose (mg/dL) 107 (65-110) mg/dL Random Glucose (75-110) mg/dL Calcium (8.6-10.4) mg/dl Phosphorus (2.5-4.5) mg/dL Magnesium (1.6-2.3) mg/dL Total Bilirubin (0.2-1.3) mg/dL AST (17-59) U/L ALT (21-72) U/L Alkaline Phosphatase (38-126) U/L Total Protein (6.3-8.3) g/dL Albumin (3.5-5.0) g/dL Globulin (2.2-3.9) gm/dL Albumin/Globulin Ratio (1.0-2.1) Arterial Blood Potassium 4.4 (3.6-5.2) mmol/L Valproic Acid (50.0-100.0) ug/mL 06/24/17 06/23/17 Range/Units 00:51 18:24 WBC (4.8-10.8) K/uL RBC (4.40-5.90) Mil/uL Hgb (12.0-18.0) g/dL Hct (35.0-51.0) % MCV (80.0-94.0) fL MCH (27.0-31.0) pg MCHC (33.0-37.0) g/dL RDW (11.5-14.5) % Plt Count (130-400) K/uL MPV (7.2-11.7) fL Neut % (Auto) (50.0-75.0) % Lymph % (Auto) (20.0-40.0) % [place] % (Auto) (0.0-10.0) % Eos % (Auto) (0.0-4.0) % Baso % (Auto) (0.0-2.0) % Neut # (1.8-7.0) K/uL Lymph # (1.0-4.3) K/uL [place] # (0.0-0.8) K/uL Eos # (0.0-0.7) K/uL Baso # (0.0-0.2) K/uL Puncture Site pCO2 (35-45) mm/Hg pO2 (80-100) mm/Hg HCO3 (21-28) mmol/L ABG pH (7.35-7.45) ABG Total CO2 (22-28) mmol/L ABG O2 Saturation (95-98) % ABG Base Excess (-2.0-3.0) mmol/L Shankar Test ABG Potassium (3.6-5.2) mmol/L A-a O2 Difference mm/Hg Respiratory Index Sodium (132-148) mmol/l Chloride (98-107) mmol/L Glucose (75-110) mg/dl Lactate (0.7-2.1) mmol/L Vent Mode Mechanical Rate FiO2 % Tidal Volume PEEP Potassium (3.6-5.2) mmol/L Carbon Dioxide (22-30) mmol/L Anion Gap (10-20) BUN (9-20) mg/dL Creatinine (0.8-1.5) mg/dL Est GFR ( Amer) Est GFR (Non-Af Amer) POC Glucose (mg/dL) 127 H 140 H (65-110) mg/dL Random Glucose (75-110) mg/dL Calcium (8.6-10.4) mg/dl Phosphorus (2.5-4.5) mg/dL Magnesium (1.6-2.3) mg/dL Total Bilirubin (0.2-1.3) mg/dL AST (17-59) U/L ALT (21-72) U/L Alkaline Phosphatase (38-126) U/L Total Protein (6.3-8.3) g/dL Albumin (3.5-5.0) g/dL Globulin (2.2-3.9) gm/dL Albumin/Globulin Ratio (1.0-2.1) Arterial Blood Potassium (3.6-5.2) mmol/L Valproic Acid (50.0-100.0) ug/mL Laboratory Results - last 24 hr 06/23/17 06/24/17 06/24/17 18:24 00:51 05:17 WBC RBC Hgb Hct MCV MCH MCHC RDW Plt Count MPV Neut % (Auto) Lymph % (Auto) [place] % (Auto) Eos % (Auto) Baso % (Auto) Neut # Lymph # [place] # Eos # Baso # Puncture Site pCO2 pO2 HCO3 ABG pH ABG Total CO2 ABG O2 Saturation ABG Base Excess Shankar Test ABG Potassium A-a O2 Difference Respiratory Index Sodium Chloride Glucose Lactate Vent Mode Mechanical Rate FiO2 Tidal Volume PEEP Potassium Carbon Dioxide Anion Gap BUN Creatinine Est GFR ( Amer) Est GFR (Non-Af Amer) POC Glucose (mg/dL) 140 H 127 H 107 Random Glucose Calcium Phosphorus Magnesium Total Bilirubin AST ALT Alkaline Phosphatase Total Protein Albumin Globulin Albumin/Globulin Ratio Arterial Blood Potassium Valproic Acid 06/24/17 06/24/17 06/24/17 05:22 06:36 06:36 WBC 3.9 L RBC 4.07 L Hgb 8.1 L Hct 24.7 L MCV 60.6 L MCH 19.8 L MCHC 32.6 L RDW 16.5 H Plt Count 88 L MPV 9.0 Neut % (Auto) 68.3 Lymph % (Auto) 17.5 L [place] % (Auto) 12.7 H Eos % (Auto) 1.3 Baso % (Auto) 0.2 Neut # 2.7 Lymph # 0.7 L [place] # 0.5 Eos # 0.0 Baso # 0.0 Puncture Site Rr pCO2 40 pO2 79 L HCO3 26.4 ABG pH 7.43 ABG Total CO2 27.7 ABG O2 Saturation 96.5 ABG Base Excess 2.0 Shankar Test Pos ABG Potassium 4.4 A-a O2 Difference 121.0 Respiratory Index 1.5 Sodium 140.0 138 Chloride 113.0 H 103 Glucose 97 Lactate 0.6 L Vent Mode A/c Mechanical Rate 18 FiO2 35.0 Tidal Volume 500 PEEP 5 Potassium 4.3 Carbon Dioxide 27 Anion Gap 12 BUN 12 Creatinine 0.9 Est GFR ( Amer) > 60 Est GFR (Non-Af Amer) > 60 POC Glucose (mg/dL) Random Glucose 90 Calcium 7.7 L Phosphorus 3.3 Magnesium 1.7 Total Bilirubin 0.7 AST 133 H ALT 64 Alkaline Phosphatase 76 Total Protein 6.1 L Albumin 2.9 L Globulin 3.1 Albumin/Globulin Ratio 0.9 L Arterial Blood Potassium 4.4 Valproic Acid 06/24/17 06/24/17 11:27 14:11 WBC RBC Hgb Hct MCV MCH MCHC RDW Plt Count MPV Neut % (Auto) Lymph % (Auto) [place] % (Auto) Eos % (Auto) Baso % (Auto) Neut # Lymph # [place] # Eos # Baso # Puncture Site pCO2 pO2 HCO3 ABG pH ABG Total CO2 ABG O2 Saturation ABG Base Excess Shankar Test ABG Potassium A-a O2 Difference Respiratory Index Sodium Chloride Glucose Lactate Vent Mode Mechanical Rate FiO2 Tidal Volume PEEP Potassium Carbon Dioxide Anion Gap BUN Creatinine Est GFR ( Amer) Est GFR (Non-Af Amer) POC Glucose (mg/dL) 121 H Random Glucose Calcium Phosphorus Magnesium Total Bilirubin AST ALT Alkaline Phosphatase Total Protein Albumin Globulin Albumin/Globulin Ratio Arterial Blood Potassium Valproic Acid 33.6 L Critical Care Progress Note - Nutrition Nutrition: Nutrition Category Date Time Status NPO Diet [DIET] Diets 06/20/17 Dinner Active Assessment/Plan - Assessment and Plan (Free Text) Plan: Chronic ventilator dependent respiratory failure: I have offered trach as an option for fci ventilation. Patient's son and verbazlied understanding. -Myotonic jerks present: decreased, with clonazpam, PRn ativan, keppra started, valproic level pending -Patient is not responsive to noxious stmuli -continue dvt/pud ppx -continue ng tube feeds Family wanted to wait one more day.
--- NOTE | 2017-06-24 17:57 | PN ---
NEUROLOGY PROGRESS NOTE DATE: SUBJECTIVE: The patient is lying on the bed, in no acute distress, on a ventilator. PHYSICAL EXAMINATION: VITAL SIGNS: His blood pressure is 103/43, heart rate is 70 per minute, he is breathing at the rate of 22 per minute, his temperature is 98.5 degrees Fahrenheit. HEENT: Head is normocephalic, atraumatic. NECK: Supple. There are no carotid bruits. LUNGS: Clear. CARDIOVASCULAR SYSTEM: S1 and S2 audible. No murmurs. ABDOMEN: Soft and nontender. Bowel sounds are present. NEUROLOGY: Mental status: The patient is comatose, intermittent myoclonic jerks noted especially with stimulus. Cranial nerve examination: Pupils 2 mm, minimally reactive. Positive doll's eye movement. Negative corneal reflex. No gag reflex. There is no withdrawal of extremities to noxious stimuli; however, the patient does have myoclonic jerks on noxious stimuli. Plantars, no response. IMPRESSION: 1. Anoxic encephalopathy, status post cardiac arrest. 2. Respiratory failure. 3. Myoclonic jerks. RECOMMENDATIONS: 1. The patient has shown no sign of neurologic improvement. 2. The patient has been started on Keppra instead of Depakote. 3. The patient is also on fentanyl patch along with clonazepam 1 mg 3 times a day. Consider discontinuing fentanyl . 4. The patient to have supportive care. 5. Detailed discussion with the patient's family about the patient's current neurologic status and informed them that there is absolutely no meaningful improvement in his neurologic status. Thank you for the opportunity to participate in the care of this patient. Ash Frausto MD
[2017-06-24] MEDS: Valproic Acid 250 mg/5 ml UD Cup NG SCH (18:42)
[2017-06-24] MEDS: SODIUM CHLORIDE 0.9% IVPB SCH (21:11)
[2017-06-24] MEDS: LEVETIRACETAM IVPB SCH (21:11)
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
[2017-06-25] MEDS: White Petrolatum/Mineral Oil Ophth Oint(3.5 gm) OU PRN ×3 (05:36→18:36)
[2017-06-25] MEDS: cefTRIAXone IV 1 gm in Dextros 50 ML IVPB SCH ×2 (05:36→18:36)
[2017-06-25 06:04] LABS: ABG MECHANICAL RATE 18; ATERIAL BLOOD GAS PEEP 5; DRAW SITE R BRA
[2017-06-25 06:06] LABS: BASO % 0.2 % (0.0-2.0); EOS # 0.1 K/uL (0.0-0.7); EOS % 1.2 % (0.0-4.0); HEMATOCRIT 24.6 % (35.0-51.0); LYMPH # 0.6 K/uL (1.0-4.3); LYMPH % 14.8 % (20.0-40.0); MEAN CELL VOLUME 60.5 fL (80.0-94.0); MEAN CORPUSCULAR HEMOGLOBIN 19.2 pg (27.0-31.0); MEAN CORPUSCULAR HGB CONC 31.7 g/dL (33.0-37.0); MEAN PLATELET VOLUME 8.9 fL (7.2-11.7); MONO # 0.7 K/uL (0.0-0.8); MONO % 16.6 % (0.0-10.0); NRBC % 0.1 % (0.0-2.0); RED CELL DISTRIBUTION WIDTH 15.6 % (11.5-14.5); WHITE BLOOD COUNT 4.3 K/uL (4.8-10.8)
[2017-06-25 06:24] LABS: ARTERIAL BLOOD GAS MODE V/C
[2017-06-25 06:39] LABS: ALKALINE PHOSPHATASE 95 U/L (38-126); ALT/SGPT 65 U/L (21-72); AST/SGOT 122 U/L (17-59); BLOOD UREA NITROGEN 13 mg/dL (9-20); CALCIUM 7.9 mg/dl (8.6-10.4); CARBON DIOXIDE 28 mmol/L (22-30); CHLORIDE 101 mmol/L (98-107); GFR AFRICAN-AMERICAN > 60; GLUCOSE,RANDOM 116 mg/dL (75-110); MAGNESIUM 1.6 mg/dL (1.6-2.3); PHOSPHOROUS 3.7 mg/dL (2.5-4.5); POTASSIUM 4.8 mmol/L (3.6-5.2); SODIUM 136 mmol/L (132-148); TOTAL PROTEIN 6.3 g/dL (6.3-8.3)
[2017-06-25] MEDS: SODIUM CHLORIDE 0.9% IVPB SCH ×2 (08:04→20:21)
[2017-06-25] MEDS: LEVETIRACETAM IVPB SCH ×2 (08:04→20:21)
[2017-06-25] MEDS: Potassium & Sodium Phosphate PO SCH ×2 (08:04→17:37)
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
[2017-06-25] MEDS: Valproic Acid 250 mg/5 ml UD Cup NG SCH ×3 (09:06→17:36)
--- NOTE | 2017-06-25 10:44 | CP.CCUPN ---
CCU Subjective - Physician Review Subjective (Free Text): Patient seen and examined at bedside. Patient is not responsive to noxious stimuli. vitals overnight reviewed. Patient had 2 myotonic jerky movements overnight and given 4 mg of ativan. ON examination, no myotonix jerks,. -central line removed by myself, pressure placed for 5 minutes, dressing placed , no bleeding observed. Critical Care Time Spent (in minutes): 35 CCU Objective - Vital Signs / Intake & Output Vital Signs (Last 4 hours): Vital Signs Temp Pulse Resp BP Pulse Ox 06/25/17 10:00 77 12 106/44 L 100 06/25/17 09:00 73 18 110/45 L 100 06/25/17 08:00 98.4 F 67 17 106/47 L 100 06/25/17 07:00 78 18 115/47 L 100 Intake and Output (Last 8hrs): Intake & Output 06/24/17 06/25/17 06/25/17 22:59 06:59 14:59 Intake Total 240 460 330 Output Total 375 900 395 Balance -135 -440 -65 Weight 181 lb Intake: Intake, IV Amount 150 50 150 Left Forearm 150 50 Right Wrist 150 Tube Feeding 90 360 180 Other 50 Output: Urine 375 900 395 Urethral (Lock) 375 900 395 Other: # Bowel Movements 1 - Physical Exam Physical Exam Limitations: Positive for: Altered Mental Status Head: Positive for: Atraumatic, Normocephalic Pupils: Positive for: Non-Reactive, Pinpoint Conjunctiva: Positive for: Normal Mouth: Positive for: Other (intubated) Nose (Internal): Positive for: No Active Bleeding, Other (dried blood) Neck: Positive for: Trachea Midline Respiratory/Chest: Positive for: Clear to Auscultation, Good Air Exchange. Negative for: Respiratory Distress, Accessory Muscle Use, Wheezes, Rales Cardiovascular: Positive for: Other (paced rhythm at 60bpm) Abdomen: Positive for: Normal Bowel Sounds, Other (active cooling wrap on). Negative for: Tenderness, Distention, Peritoneal Signs, Guarding Upper Extremity: Negative for: Edema Lower Extremity: Positive for: Other (active cooling wraps on) Neurological: Positive for: Other (non-responsive to pain. no gag reflex on suction). Negative for: GCS=15 Skin: Positive for: Dry Psychiatric: Negative for: Alert, Oriented x 3 - Medications Active Medications: Active Medications Generic Name Dose Route Start Last Admin Trade Name Freq PRN Reason Stop Dose Admin Artificial Tears 0 gm 06/21/17 10:01 06/25/17 09:35 Lacri-Lube OU 3.5 gm Q4 PRN Administration Dry eyes Bisacodyl 10 mg 06/24/17 22:00 06/24/17 23:03 Dulcolax ME 10 mg HS EMERY Administration Clonazepam 1 mg 06/24/17 14:00 06/25/17 09:06 Klonopin NG 1 mg TID EMERY Administration Enoxaparin Sodium 40 mg 06/23/17 10:00 06/24/17 10:26 Lovenox SC 40 mg DAILY EMERY Administration Fentanyl 1 patch 06/23/17 09:15 06/23/17 09:59 Duragesic TD 1 patch Q72H EMERY Administration Ceftriaxone Sodium 50 mls @ 100 mls/hr 06/20/17 18:00 06/25/17 05:36 Rocephin Iv 1 Gm Duplex IVPB 100 mls/hr Q12H EMERY Administration Propofol 1,000 mg in 100 mls @ 2.4 mls/hr 06/21/17 12:02 06/24/17 09:00 Diprivan IV 0 mcg/kg/min .Q24H PRN 0 mls/hr TITRATE PER MD ORDER Titration Protocol 5 MCG/KG/MIN Levetiracetam 750 mg/ Sodium 157.5 mls @ 420 mls/hr 06/24/17 21:00 06/25/17 08:04 Chloride IVPB 420 mls/hr Q12H EMERY Administration Lorazepam 4 mg 06/24/17 10:40 06/25/17 08:11 Ativan IVP 4 mg Q4H PRN Administration Anxiety Pantoprazole Sodium 40 mg 06/21/17 10:00 06/25/17 09:06 Protonix Inj IVP 40 mg DAILY EMERY Administration Potassium Phos/Sodium Phos 1 pkt 06/21/17 10:00 06/25/17 08:04 Neutra-Phos PO 1 pkt BIDCC EMERY Administration Valproate Sodium 500 mg 06/24/17 18:00 06/25/17 09:06 Depakene Oral Soln NG 500 mg TID EMERY Administration Vitamin A 1 ea 06/22/17 18:00 06/24/17 18:15 Vitamin A & D Oint Ud Foilpak TOP 1 ea BID EMERY Administration - Patient Studies Lab Studies: Lab Studies 06/25/17 06/25/17 06/25/17 Range/Units 05:59 05:59 05:24 WBC 4.3 L (4.8-10.8) K/uL RBC 4.06 L (4.40-5.90) Mil/uL Hgb 7.8 L (12.0-18.0) g/dL Hct 24.6 L (35.0-51.0) % MCV 60.5 L (80.0-94.0) fL MCH 19.2 L (27.0-31.0) pg MCHC 31.7 L (33.0-37.0) g/dL RDW 15.6 H (11.5-14.5) % Plt Count 89 L (130-400) K/uL MPV 8.9 (7.2-11.7) fL Neut % (Auto) 67.2 (50.0-75.0) % Lymph % (Auto) 14.8 L (20.0-40.0) % Cole % (Auto) 16.6 H (0.0-10.0) % Eos % (Auto) 1.2 (0.0-4.0) % Baso % (Auto) 0.2 (0.0-2.0) % Neut # 2.9 (1.8-7.0) K/uL Lymph # 0.6 L (1.0-4.3) K/uL Cole # 0.7 (0.0-0.8) K/uL Eos # 0.1 (0.0-0.7) K/uL Baso # 0.0 (0.0-0.2) K/uL Puncture Site R bra pCO2 40 (35-45) mm/Hg pO2 113 H (80-100) mm/Hg HCO3 28.2 H (21-28) mmol/L ABG pH 7.46 H (7.35-7.45) ABG Total CO2 29.6 H (22-28) mmol/L ABG O2 Saturation 98.2 H (95-98) % ABG Base Excess 4.2 H (-2.0-3.0) mmol/L Shankar Test Na ABG Potassium 4.8 (3.6-5.2) mmol/L A-a O2 Difference 87.0 mm/Hg Respiratory Index 0.8 Sodium 136 138.0 (132-148) mmol/l Chloride 101 109.0 H (98-107) mmol/L Glucose 134 H (75-110) mg/dl Lactate 0.8 (0.7-2.1) mmol/L Vent Mode V/c Mechanical Rate 18 FiO2 35.0 % Tidal Volume 500 PEEP 5 Potassium 4.8 (3.6-5.2) mmol/L Carbon Dioxide 28 (22-30) mmol/L Anion Gap 12 (10-20) BUN 13 (9-20) mg/dL Creatinine 0.8 (0.8-1.5) mg/dL Est GFR ( Amer) > 60 Est GFR (Non-Af Amer) > 60 POC Glucose (mg/dL) (65-110) mg/dL Random Glucose 116 H (75-110) mg/dL Calcium 7.9 L (8.6-10.4) mg/dl Phosphorus 3.7 (2.5-4.5) mg/dL Magnesium 1.6 (1.6-2.3) mg/dL Total Bilirubin 1.0 (0.2-1.3) mg/dL AST 122 H (17-59) U/L ALT 65 (21-72) U/L Alkaline Phosphatase 95 (38-126) U/L Total Protein 6.3 (6.3-8.3) g/dL Albumin 3.1 L (3.5-5.0) g/dL Globulin 3.2 (2.2-3.9) gm/dL Albumin/Globulin Ratio 1.0 (1.0-2.1) Arterial Blood Potassium 4.8 (3.6-5.2) mmol/L Valproic Acid (50.0-100.0) ug/mL 06/25/17 06/24/17 06/24/17 Range/Units 04:58 23:21 17:42 WBC (4.8-10.8) K/uL RBC (4.40-5.90) Mil/uL Hgb (12.0-18.0) g/dL Hct (35.0-51.0) % MCV (80.0-94.0) fL MCH (27.0-31.0) pg MCHC (33.0-37.0) g/dL RDW (11.5-14.5) % Plt Count (130-400) K/uL MPV (7.2-11.7) fL Neut % (Auto) (50.0-75.0) % Lymph % (Auto) (20.0-40.0) % Cole % (Auto) (0.0-10.0) % Eos % (Auto) (0.0-4.0) % Baso % (Auto) (0.0-2.0) % Neut # (1.8-7.0) K/uL Lymph # (1.0-4.3) K/uL Cole # (0.0-0.8) K/uL Eos # (0.0-0.7) K/uL Baso # (0.0-0.2) K/uL Puncture Site pCO2 (35-45) mm/Hg pO2 (80-100) mm/Hg HCO3 (21-28) mmol/L ABG pH (7.35-7.45) ABG Total CO2 (22-28) mmol/L ABG O2 Saturation (95-98) % ABG Base Excess (-2.0-3.0) mmol/L Shankar Test ABG Potassium (3.6-5.2) mmol/L A-a O2 Difference mm/Hg Respiratory Index Sodium (132-148) mmol/l Chloride (98-107) mmol/L Glucose (75-110) mg/dl Lactate (0.7-2.1) mmol/L Vent Mode Mechanical Rate FiO2 % Tidal Volume PEEP Potassium (3.6-5.2) mmol/L Carbon Dioxide (22-30) mmol/L Anion Gap (10-20) BUN (9-20) mg/dL Creatinine (0.8-1.5) mg/dL Est GFR ( Amer) Est GFR (Non-Af Amer) POC Glucose (mg/dL) 131 H 87 134 H (65-110) mg/dL Random Glucose (75-110) mg/dL Calcium (8.6-10.4) mg/dl Phosphorus (2.5-4.5) mg/dL Magnesium (1.6-2.3) mg/dL Total Bilirubin (0.2-1.3) mg/dL AST (17-59) U/L ALT (21-72) U/L Alkaline Phosphatase (38-126) U/L Total Protein (6.3-8.3) g/dL Albumin (3.5-5.0) g/dL Globulin (2.2-3.9) gm/dL Albumin/Globulin Ratio (1.0-2.1) Arterial Blood Potassium (3.6-5.2) mmol/L Valproic Acid (50.0-100.0) ug/mL 06/24/17 06/24/17 Range/Units 14:11 11:27 WBC (4.8-10.8) K/uL RBC (4.40-5.90) Mil/uL Hgb (12.0-18.0) g/dL Hct (35.0-51.0) % MCV (80.0-94.0) fL MCH (27.0-31.0) pg MCHC (33.0-37.0) g/dL RDW (11.5-14.5) % Plt Count (130-400) K/uL MPV (7.2-11.7) fL Neut % (Auto) (50.0-75.0) % Lymph % (Auto) (20.0-40.0) % Cole % (Auto) (0.0-10.0) % Eos % (Auto) (0.0-4.0) % Baso % (Auto) (0.0-2.0) % Neut # (1.8-7.0) K/uL Lymph # (1.0-4.3) K/uL Cole # (0.0-0.8) K/uL Eos # (0.0-0.7) K/uL Baso # (0.0-0.2) K/uL Puncture Site pCO2 (35-45) mm/Hg pO2 (80-100) mm/Hg HCO3 (21-28) mmol/L ABG pH (7.35-7.45) ABG Total CO2 (22-28) mmol/L ABG O2 Saturation (95-98) % ABG Base Excess (-2.0-3.0) mmol/L Shankar Test ABG Potassium (3.6-5.2) mmol/L A-a O2 Difference mm/Hg Respiratory Index Sodium (132-148) mmol/l Chloride (98-107) mmol/L Glucose (75-110) mg/dl Lactate (0.7-2.1) mmol/L Vent Mode Mechanical Rate FiO2 % Tidal Volume PEEP Potassium (3.6-5.2) mmol/L Carbon Dioxide (22-30) mmol/L Anion Gap (10-20) BUN (9-20) mg/dL Creatinine (0.8-1.5) mg/dL Est GFR ( Amer) Est GFR (Non-Af Amer) POC Glucose (mg/dL) 121 H (65-110) mg/dL Random Glucose (75-110) mg/dL Calcium (8.6-10.4) mg/dl Phosphorus (2.5-4.5) mg/dL Magnesium (1.6-2.3) mg/dL Total Bilirubin (0.2-1.3) mg/dL AST (17-59) U/L ALT (21-72) U/L Alkaline Phosphatase (38-126) U/L Total Protein (6.3-8.3) g/dL Albumin (3.5-5.0) g/dL Globulin (2.2-3.9) gm/dL Albumin/Globulin Ratio (1.0-2.1) Arterial Blood Potassium (3.6-5.2) mmol/L Valproic Acid 33.6 L (50.0-100.0) ug/mL Laboratory Results - last 24 hr 06/24/17 06/24/17 06/24/17 11:27 14:11 17:42 WBC RBC Hgb Hct MCV MCH MCHC RDW Plt Count MPV Neut % (Auto) Lymph % (Auto) Cole % (Auto) Eos % (Auto) Baso % (Auto) Neut # Lymph # Cole # Eos # Baso # Puncture Site pCO2 pO2 HCO3 ABG pH ABG Total CO2 ABG O2 Saturation ABG Base Excess Shankar Test ABG Potassium A-a O2 Difference Respiratory Index Sodium Chloride Glucose Lactate Vent Mode Mechanical Rate FiO2 Tidal Volume PEEP Potassium Carbon Dioxide Anion Gap BUN Creatinine Est GFR ( Amer) Est GFR (Non-Af Amer) POC Glucose (mg/dL) 121 H 134 H Random Glucose Calcium Phosphorus Magnesium Total Bilirubin AST ALT Alkaline Phosphatase Total Protein Albumin Globulin Albumin/Globulin Ratio Arterial Blood Potassium Valproic Acid 33.6 L 06/24/17 06/25/17 06/25/17 23:21 04:58 05:24 WBC RBC Hgb Hct MCV MCH MCHC RDW Plt Count MPV Neut % (Auto) Lymph % (Auto) Cole % (Auto) Eos % (Auto) Baso % (Auto) Neut # Lymph # Cole # Eos # Baso # Puncture Site R bra pCO2 40 pO2 113 H HCO3 28.2 H ABG pH 7.46 H ABG Total CO2 29.6 H ABG O2 Saturation 98.2 H ABG Base Excess 4.2 H Shankar Test Na ABG Potassium 4.8 A-a O2 Difference 87.0 Respiratory Index 0.8 Sodium 138.0 Chloride 109.0 H Glucose 134 H Lactate 0.8 Vent Mode V/c Mechanical Rate 18 FiO2 35.0 Tidal Volume 500 PEEP 5 Potassium Carbon Dioxide Anion Gap BUN Creatinine Est GFR ( Amer) Est GFR (Non-Af Amer) POC Glucose (mg/dL) 87 131 H Random Glucose Calcium Phosphorus Magnesium Total Bilirubin AST ALT Alkaline Phosphatase Total Protein Albumin Globulin Albumin/Globulin Ratio Arterial Blood Potassium 4.8 Valproic Acid 06/25/17 06/25/17 05:59 05:59 WBC 4.3 L RBC 4.06 L Hgb 7.8 L Hct 24.6 L MCV 60.5 L MCH 19.2 L MCHC 31.7 L RDW 15.6 H Plt Count 89 L MPV 8.9 Neut % (Auto) 67.2 Lymph % (Auto) 14.8 L Cole % (Auto) 16.6 H Eos % (Auto) 1.2 Baso % (Auto) 0.2 Neut # 2.9 Lymph # 0.6 L Cole # 0.7 Eos # 0.1 Baso # 0.0 Puncture Site pCO2 pO2 HCO3 ABG pH ABG Total CO2 ABG O2 Saturation ABG Base Excess Shankar Test ABG Potassium A-a O2 Difference Respiratory Index Sodium 136 Chloride 101 Glucose Lactate Vent Mode Mechanical Rate FiO2 Tidal Volume PEEP Potassium 4.8 Carbon Dioxide 28 Anion Gap 12 BUN 13 Creatinine 0.8 Est GFR ( Amer) > 60 Est GFR (Non-Af Amer) > 60 POC Glucose (mg/dL) Random Glucose 116 H Calcium 7.9 L Phosphorus 3.7 Magnesium 1.6 Total Bilirubin 1.0 AST 122 H ALT 65 Alkaline Phosphatase 95 Total Protein 6.3 Albumin 3.1 L Globulin 3.2 Albumin/Globulin Ratio 1.0 Arterial Blood Potassium Valproic Acid Fingerstick Blood Sugar Results: 131 Critical Care Progress Note - Nutrition Nutrition: Nutrition Category Date Time Status NPO Diet [DIET] Diets 06/20/17 Dinner Active Assessment/Plan - Assessment and Plan (Free Text) Plan: 61 year old male with a PMH of Essential hypertension, Pulmonary hypertension, tricuspid valve replacement, mitral valve replacement, hx of a. flutter, atrial septal defect, anemia, a.fib, hyperlipidemia present s/p cardiac arrest. Plan: Cardio: Dr. Platt consulted, help appreciated Dr. Elizondo consulted, help appreciated ECHO - no pericardial effusion seen, awaiting official read EKG - paced rhythm Trop (06/20)- initial <0.012, second 0.793, third 6.3 [employer] pacemaker Model S602/Serial [id number] implanted on October 03, 2009 [employer]ant Lead Model 4137/Serial [id number] [place] Lead Model 1688TC Rep from [employer] came and interrogated pacemaker. Pacemaker is functioning properly. - Pacemaker recorded 3 events of Vtach - Increased packmaker rate to 75bpm Femoral Central line discontinued off Norepinephrine drip -cardio input regarding anticoagulation if underlying rhythm a-fib Neurology: Dr. Ash Frausto consulted, help appreciated Still no gag, corneal or pupillary reflexes. - poor prognosis Head CT w/o - no acute findings Patient continues to have myotonic jerks Keppra 750mg IVPB q12H, level pending Valproic acid increased, level pending Propofol drip - discontinued Morphine drip discontinued, Fentanyl patch applied -was on clonazpepam 1mg NG TID: will increase to 2 mg TID as patient had 2 episodes of myotonix jerks overnight. -continue Ativan 4mg q4h PRN myotonix jerks Head CT 06/22 - No evidence of acute intracranial hemorrhage intracranial collection mass effect or midline shift. No significant interval change noted since the previous exam. EEG 06/22 - No spike, sharp waves or focal slowing was seen. Consistent with severe bihemispheric cerebral dysfunction. No epileptic form activity seen. valproic acid level pending after increase in valproic acid f/u Neuro recs -family requested 2nd opinion (Dr. Frausto transmission engineer as neurology today) Respiratory: Intubated : breathing above the ventilator rate, Fio2 35% peak pressure low, comfotably on vent I have discussed with family the possibility of trach to avoid tracheomalacis from prolonged intubation. -family undecided regarding trach versus terminal extubation, requesting 2nd opinion of neurologist. Electrolytes: electrolytes checked Heme: Hgb decreased to 8.1 from 8.3 (06/24) Platelets increased to 88 from 86 (06/24) -no active bleeding -check fecal occult blood -send type and screen GI: On Jevity 1.5, initial rate 20ml/hr; goal rate 45 ml/hr Prophylactic Care: SCDs Lovenox 40mg SC daily protonix 40mg IVP daily Dulcolax 10mg ME HS Patient's mental status remains poor with myotonic jerks 2 episodes overnight despite keppra and valproic acid, levels pending, clonazepam increased to 2 mg TID. EEG on 06/22 reveals "severe bihemispheric cerebral dysfunction." Overall prognosis poor given no neurological improvement. cc time 35 minutes Family (son at at bedside requested 2nd opinion). - Date & Time Date: 06/25/17 Time: 12:30
[2017-06-25] MEDS: Vitamins A & D Oint UD Foilpak TOP SCH ×2 (10:54→18:35)
--- NOTE | 2017-06-25 12:26 | RAD ---
HISTORY: intubation COMPARISON: No prior. FINDINGS: In situ ETT, tip of which lies approximately 6.8 cm above skip. In situ NGT is present, the tip of which has not been included on this film though distal aspect does lie well below EG junction. LUNGS: Mild pulmonary vascular congestive changes with bilateral lower lobe atelectasis and or infiltrates and bilateral effusions. PLEURA: No significant pleural effusion identified, no pneumothorax apparent. CARDIOVASCULAR: Heart remains enlarged. Sternotomy wires and valve replacements again noted OSSEOUS STRUCTURES: No significant abnormalities. VISUALIZED UPPER ABDOMEN: Normal. OTHER FINDINGS: None. IMPRESSION: ETT and NGT as above. Mild pulmonary vascular congestive changes with bilateral lower lobe atelectasis and or infiltrates and bilateral effusions.
[2017-06-25] MEDS: Enoxaparin 40 mg Syringe SC SCH (13:27)
[2017-06-25 14:21] LABS: HEPARIN-IND PLATELET AB Negative (Negative)
[2017-06-25 14:28] LABS: IRON 23 ug/dL (49-181)
[2017-06-25] MEDS ORDERED: PHENobarbital 130 mg/ml Inj Syringe IV ONE (17:15)
[2017-06-26] MEDS: White Petrolatum/Mineral Oil Ophth Oint(3.5 gm) OU PRN ×2 (01:27→08:14)
[2017-06-26 06:35] LABS: BASO % 0.4 % (0.0-2.0); EOS # 0.1 K/uL (0.0-0.7); EOS % 2.7 % (0.0-4.0); HEMATOCRIT 24.1 % (35.0-51.0); LYMPH # 0.6 K/uL (1.0-4.3); LYMPH % 16.9 % (20.0-40.0); MEAN CELL VOLUME 60.4 fL (80.0-94.0); MEAN CORPUSCULAR HEMOGLOBIN 19.4 pg (27.0-31.0); MEAN CORPUSCULAR HGB CONC 32.1 g/dL (33.0-37.0); MONO # 0.7 K/uL (0.0-0.8); MONO % 19.1 % (0.0-10.0); NRBC % 0.2 % (0.0-2.0); RED CELL DISTRIBUTION WIDTH 15.2 % (11.5-14.5); WHITE BLOOD COUNT 3.7 K/uL (4.8-10.8)
[2017-06-26 06:41] LABS: ABG MECHANICAL RATE 12; ARTERIAL BLOOD GAS MODE A/C; ARTERIAL BLOOD HGB O2 SAT 95.9 % (95.0-98.0); ATERIAL BLOOD GAS PEEP 5; CARBOXYHEMOGLOBIN 1.2 % (0.5-1.5); DRAW SITE RB; HHB 2.5 % (0.0-5.0); METHEMOGLOBIN 0.4 % (0.0-3.0)
[2017-06-26 06:57] LABS: ALB/GLOB RATIO 0.9 (1.0-2.1); ALKALINE PHOSPHATASE 99 U/L (38-126); ALT/SGPT 56 U/L (21-72); AST/SGOT 102 U/L (17-59); BILIRUBIN,TOTAL 0.8 mg/dL (0.2-1.3); BLOOD UREA NITROGEN 18 mg/dL (9-20); CALCIUM 8.2 mg/dl (8.6-10.4); CARBON DIOXIDE 29 mmol/L (22-30); CHLORIDE 99 mmol/L (98-107); GFR AFRICAN-AMERICAN > 60; GLUCOSE,RANDOM 113 mg/dL (75-110); MAGNESIUM 1.5 mg/dL (1.6-2.3); PHOSPHOROUS 4.2 mg/dL (2.5-4.5); POTASSIUM 4.7 mmol/L (3.6-5.2); SODIUM 136 mmol/L (132-148); TOTAL PROTEIN 6.4 g/dL (6.3-8.3)
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
[2017-06-26] MEDS: LEVETIRACETAM IVPB SCH ×2 (08:10→21:34)
[2017-06-26] MEDS: SODIUM CHLORIDE 0.9% IVPB SCH ×2 (08:10→21:34)
[2017-06-26] MEDS: Potassium & Sodium Phosphate PO SCH ×2 (08:10→16:55)
[2017-06-26] MEDS: Valproic Acid 250 mg/5 ml UD Cup NG SCH ×3 (09:07→18:10)
[2017-06-26] MEDS: Vitamins A & D Oint UD Foilpak TOP SCH ×2 (09:08→18:14)
[2017-06-26] MEDS: Magnesium Sulfate 1 gm in D5W 1 GM/100 ML BAG IVPB SCH ×2 (11:11→11:50)
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
--- NOTE | 2017-06-26 17:08 | RAD ---
HISTORY: intubation COMPARISON: Comparison chest 06/25/2017 FINDINGS: ETT tip lies approximately 6.9 cm above skip. NGT is present, tip of which has not been included on this film though distal aspect does lie well below EG junction. LUNGS: Persistent but slightly improved pulmonary vascular congestion with residual mild bibasilar atelectasis and or infiltrates and small bilateral effusions left larger than right. PLEURA: No significant pleural effusion identified, no pneumothorax apparent. CARDIOVASCULAR: Cardiomegaly. No change prostatic valves and bipolar pacemaker OSSEOUS STRUCTURES: No significant abnormalities. VISUALIZED UPPER ABDOMEN: Normal. OTHER FINDINGS: None. IMPRESSION: ETT and NGT as above. . Persistent but slightly improved pulmonary vascular congestion. Residual mild bibasilar atelectasis and or infiltrates with small effusions left larger than right
[2017-06-27 06:01] LABS: ABG MECHANICAL RATE 12; ARTERIAL BLOOD GAS MODE A/C; ARTERIAL BLOOD HGB O2 SAT 97.1 % (95.0-98.0); ATERIAL BLOOD GAS PEEP 5; CARBOXYHEMOGLOBIN 1.2 % (0.5-1.5); DRAW SITE RB; HHB 1.5 % (0.0-5.0); METHEMOGLOBIN 0.2 % (0.0-3.0)
[2017-06-27 06:46] LABS: BASO % 0.6 % (0.0-2.0); EOS # 0.1 K/uL (0.0-0.7); EOS % 1.8 % (0.0-4.0); HEMATOCRIT 24.2 % (35.0-51.0); LYMPH # 0.5 K/uL (1.0-4.3); MEAN CELL VOLUME 59.9 fL (80.0-94.0); MEAN CORPUSCULAR HEMOGLOBIN 19.9 pg (27.0-31.0); MEAN CORPUSCULAR HGB CONC 33.2 g/dL (33.0-37.0); MEAN PLATELET VOLUME 9.1 fL (7.2-11.7); MONO # 0.8 K/uL (0.0-0.8); MONO % 18.2 % (0.0-10.0); NRBC % 0.3 % (0.0-2.0); RED CELL DISTRIBUTION WIDTH 15.6 % (11.5-14.5); WHITE BLOOD COUNT 4.4 K/uL (4.8-10.8)
[2017-06-27 07:23] LABS: ALB/GLOB RATIO 1.2 (1.0-2.1); ALKALINE PHOSPHATASE 116 U/L (38-126); ALT/SGPT 45 U/L (21-72); AST/SGOT 85 U/L (17-59); BLOOD UREA NITROGEN 23 mg/dL (9-20); CALCIUM 8.2 mg/dl (8.6-10.4); CARBON DIOXIDE 28 mmol/L (22-30); CHLORIDE 99 mmol/L (98-107); GFR AFRICAN-AMERICAN > 60; GLUCOSE,RANDOM 117 mg/dL (75-110); MAGNESIUM 1.9 mg/dL (1.6-2.3); PHOSPHOROUS 3.9 mg/dL (2.5-4.5); SODIUM 133 mmol/L (132-148); TOTAL PROTEIN 5.8 g/dL (6.3-8.3)
[2017-06-27] MEDS: SODIUM CHLORIDE 0.9% IVPB SCH ×2 (08:24→21:44)
[2017-06-27] MEDS: LEVETIRACETAM IVPB SCH ×2 (08:24→21:44)
[2017-06-27] MEDS: Potassium & Sodium Phosphate PO SCH ×2 (08:24→17:23)
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
[2017-06-27] MEDS: Valproic Acid 250 mg/5 ml UD Cup NG SCH ×3 (10:51→17:23)
[2017-06-27] MEDS: Vitamins A & D Oint UD Foilpak TOP SCH ×2 (10:55→19:15)
--- NOTE | 2017-06-27 11:26 | RAD ---
HISTORY: intubation COMPARISON: Portable chest 06/26/2017. FINDINGS: Endotracheal tube, nasogastric tube and pacemaker appear unchanged in position and the median sternotomy a as well as double prosthetic cardiac valve replacement are again identified. LUNGS: Examination appears stable interval including lateral left basilar infiltrate or atelectasis with small pleural effusion not excluded. Limited patchy density is diminished at the right base with no right pleural effusion evident. No pneumothorax. CARDIOVASCULAR: Cardiac size stable. Limited pulmonary vascular derangement again evident. OSSEOUS STRUCTURES: No significant abnormalities. VISUALIZED UPPER ABDOMEN: Normal. OTHER FINDINGS: None. IMPRESSION: Bibasilar atelectasis or infiltrates persist and are unchanged with limited pulmonary venous congestion remaining. Small pleural effusion not excluded. Continued radiographic and clinical follow-up are advised.
--- NOTE | 2017-06-27 12:47 | PCM.EEG ---
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 Medications: Reviewed in the chart. Technical: This is a digitally recorded electroencephalogram. The international 10-20 electrode placement system is used for scalp electrode placement. Eighteen channels of scalp EEG are recorded Another channel was used for for ECG. The data are stored digitally and reviewed in reformatted montages for optimal display. Diffuse Abnormality: No well formed alpha activity was seen. Mixed diffuse theta and delta activity was seen. Triphasic wave was seen. Markedly suppressed EEG activity was observed. Intermittent sharp waves were noted that affected mostly the left temporal region, but were relatively diffuse as well. Impression: This EEG is abnormal. Diffuse slowing is seen, suggestive of a diffuse abnormality of the brain. The rhythmic sharp waves are consistent with myoclonus. 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 Prognosis is very poor. Recommendation: Use higher doses of clonazepam and increase dose of Keppra.
[2017-06-27] MEDS ORDERED: (Novolin R) Insulin Human Regular 100 units/ml vial SC SCH (13:00)
[2017-06-27] MEDS: (Novolin R) Insulin Human Regular 100 units/ml vial SC SCH ×2 (13:18→18:19)
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
--- NOTE | 2017-06-27 14:41 | CT ---
PROCEDURE: CT HEAD WITHOUT CONTRAST. HISTORY: anoxic brain injury COMPARISON: Comparison is made to the previous study dated 06/22/2017 TECHNIQUE: Axial computed tomography images were obtained through the head/brain without intravenous contrast. Radiation dose: Total exam DLP = 1751.47 mGy-cm. This CT exam was performed using one or more of the following dose reduction techniques: Automated exposure control, adjustment of the mA and/or kV according to patient size, and/or use of iterative reconstruction technique. FINDINGS: HEMORRHAGE: No intracranial hemorrhage. BRAIN: No mass effect or edema. No atrophy or chronic microvascular ischemic changes. VENTRICLES: Unremarkable. No hydrocephalus. CALVARIUM: Unremarkable. PARANASAL SINUSES: Unremarkable as visualized. No significant inflammatory changes. MASTOID AIR CELLS: Unremarkable as visualized. No inflammatory changes. OTHER FINDINGS: None. IMPRESSION: No evidence of acute intracranial hemorrhage or territorial infarct. No significant interval change noted since the previous exam.
--- NOTE | 2017-06-27 15:54 | CP.CCUPN ---
CCU Subjective - Physician Review Subjective (Free Text): PGY1 ICU progress note for Dr. Osuna Patient seen and examined at bedside this morning. No acute events over night. Patient intubated. ROS unattainable. CCU Objective - Vital Signs / Intake & Output Vital Signs (Last 4 hours): Vital Signs Temp Pulse Resp BP Pulse Ox 06/27/17 15:00 70 18 97/49 L 100 06/27/17 14:24 61 99 06/27/17 14:00 99/52 L 06/27/17 13:57 69 17 06/27/17 13:01 76 15 100/48 L 98 06/27/17 13:00 72 12 98 06/27/17 12:03 73 16 111/55 L 98 06/27/17 12:00 98.1 F 74 16 106/60 98 Intake and Output (Last 8hrs): Intake & Output 06/27/17 06/27/17 06/27/17 06:59 14:59 22:59 Intake Total 360 810 145 Output Total 650 500 100 Balance -290 310 45 Weight 172 lb 9.6 oz Intake: Intake, IV Amount 300 Right Wrist 300 Oral 100 100 Tube Feeding 360 360 45 Other 50 Output: Urine 650 500 100 Condom 650 50 Urethral (Lock) 450 100 Other: # Bowel Movements 0 - Physical Exam Head: Positive for: Atraumatic, Normocephalic Pupils: Positive for: Non-Reactive, Pinpoint Conjunctiva: Positive for: Normal Mouth: Positive for: Other (intubated) Nose (Internal): Positive for: No Active Bleeding, Other (dried blood) Neck: Positive for: Trachea Midline Respiratory/Chest: Positive for: Clear to Auscultation, Good Air Exchange. Negative for: Respiratory Distress, Accessory Muscle Use, Wheezes, Rales Cardiovascular: Positive for: Other (paced rhythm at 60bpm) Abdomen: Positive for: Normal Bowel Sounds, Other (active cooling wrap on). Negative for: Tenderness, Distention, Peritoneal Signs, Guarding Upper Extremity: Negative for: Edema Lower Extremity: Positive for: Other (SCDs in place) Neurological: Positive for: Other (non-responsive to pain. no gag reflex on suction). Negative for: GCS=15 Skin: Positive for: Dry Psychiatric: Negative for: Alert, Oriented x 3 - Medications Active Medications: Active Medications Generic Name Dose Route Start Last Admin Trade Name Freq PRN Reason Stop Dose Admin Artificial Tears 0 gm 06/21/17 10:01 06/26/17 08:14 Lacri-Lube OU 3.5 gm Q4 PRN Administration Dry eyes Bisacodyl 10 mg 06/24/17 22:00 06/26/17 21:39 Dulcolax AR 10 mg HS EMERY Administration Clonazepam 4 mg 06/27/17 14:00 06/27/17 14:56 Klonopin NG 4 mg TID EMERY Administration Levetiracetam 750 mg/ Sodium 157.5 mls @ 420 mls/hr 06/24/17 21:00 06/27/17 08:24 Chloride IVPB 420 mls/hr Q12H EMERY Administration Insulin Human Regular 0 unit 06/27/17 12:00 06/27/17 13:18 Novolin R SC 2 unit Q6H EMERY Administration Protocol Lorazepam 4 mg 06/24/17 10:40 06/27/17 11:26 Ativan IVP 4 mg Q4H PRN Administration Anxiety Pantoprazole Sodium 40 mg 06/21/17 10:00 06/27/17 10:51 Protonix Inj IVP 40 mg DAILY EMERY Administration Potassium Phos/Sodium Phos 1 pkt 06/21/17 10:00 06/27/17 08:24 Neutra-Phos PO 1 pkt BIDCC EMERY Administration Valproate Sodium 500 mg 06/24/17 18:00 06/27/17 14:56 Depakene Oral Soln NG 500 mg TID EMERY Administration Vitamin A 1 ea 06/22/17 18:00 06/27/17 10:55 Vitamin A & D Oint Ud Foilpak TOP 1 ea BID EMERY Administration - Patient Studies Lab Studies: Lab Studies 06/27/17 06/27/17 06/27/17 Range/Units 12:18 06:20 06:20 WBC 4.4 L (4.8-10.8) K/uL RBC 4.04 L (4.40-5.90) Mil/uL Hgb 8.0 L (12.0-18.0) g/dL Hct 24.2 L (35.0-51.0) % MCV 59.9 L (80.0-94.0) fL MCH 19.9 L (27.0-31.0) pg MCHC 33.2 (33.0-37.0) g/dL RDW 15.6 H (11.5-14.5) % Plt Count 114 L (130-400) K/uL MPV 9.1 (7.2-11.7) fL Neut % (Auto) 68.4 (50.0-75.0) % Lymph % (Auto) 11.0 L (20.0-40.0) % [place] % (Auto) 18.2 H (0.0-10.0) % Eos % (Auto) 1.8 (0.0-4.0) % Baso % (Auto) 0.6 (0.0-2.0) % Neut # 3.0 (1.8-7.0) K/uL Lymph # 0.5 L (1.0-4.3) K/uL [place] # 0.8 (0.0-0.8) K/uL Eos # 0.1 (0.0-0.7) K/uL Baso # 0.0 (0.0-0.2) K/uL Puncture Site pCO2 (35-45) mm/Hg pO2 (80-100) mm/Hg HCO3 (21-28) mmol/L ABG pH (7.35-7.45) ABG Total CO2 (22-28) mmol/L ABG O2 Saturation (95-98) % ABG Base Excess (-2.0-3.0) mmol/L ABG Hemoglobin (11.7-17.4) g/dL ABG Carboxyhemoglobin (0.5-1.5) % POC ABG HHb (Measured) (0.0-5.0) % ABG Methemoglobin (0.0-3.0) % Shankar Test A-a O2 Difference mm/Hg Respiratory Index Hgb O2 Saturation (95.0-98.0) % Vent Mode Mechanical Rate FiO2 % Tidal Volume PEEP Sodium 133 (132-148) mmol/L Potassium 5.0 (3.6-5.2) mmol/L Chloride 99 (98-107) mmol/L Carbon Dioxide 28 (22-30) mmol/L Anion Gap 11 (10-20) BUN 23 H (9-20) mg/dL Creatinine 0.9 (0.8-1.5) mg/dL Est GFR ( Amer) > 60 Est GFR (Non-Af Amer) > 60 POC Glucose (mg/dL) 163 H (65-110) mg/dL Random Glucose 117 H (75-110) mg/dL Calcium 8.2 L (8.6-10.4) mg/dl Phosphorus 3.9 (2.5-4.5) mg/dL Magnesium 1.9 (1.6-2.3) mg/dL Total Bilirubin 1.0 (0.2-1.3) mg/dL AST 85 H (17-59) U/L ALT 45 (21-72) U/L Alkaline Phosphatase 116 (38-126) U/L Total Protein 5.8 L (6.3-8.3) g/dL Albumin 3.2 L (3.5-5.0) g/dL Globulin 2.6 (2.2-3.9) gm/dL Albumin/Globulin Ratio 1.2 (1.0-2.1) 06/27/17 06/27/17 06/26/17 Range/Units 05:18 05:03 23:33 WBC (4.8-10.8) K/uL RBC (4.40-5.90) Mil/uL Hgb (12.0-18.0) g/dL Hct (35.0-51.0) % MCV (80.0-94.0) fL MCH (27.0-31.0) pg MCHC (33.0-37.0) g/dL RDW (11.5-14.5) % Plt Count (130-400) K/uL MPV (7.2-11.7) fL Neut % (Auto) (50.0-75.0) % Lymph % (Auto) (20.0-40.0) % [place] % (Auto) (0.0-10.0) % Eos % (Auto) (0.0-4.0) % Baso % (Auto) (0.0-2.0) % Neut # (1.8-7.0) K/uL Lymph # (1.0-4.3) K/uL [place] # (0.0-0.8) K/uL Eos # (0.0-0.7) K/uL Baso # (0.0-0.2) K/uL Puncture Site Rb pCO2 42 (35-45) mm/Hg pO2 142 H (80-100) mm/Hg HCO3 30.4 H (21-28) mmol/L ABG pH 7.48 H (7.35-7.45) ABG Total CO2 32.6 H (22-28) mmol/L ABG O2 Saturation 98.5 H (95-98) % ABG Base Excess 7.0 H (-2.0-3.0) mmol/L ABG Hemoglobin 13.2 (11.7-17.4) g/dL ABG Carboxyhemoglobin 1.2 (0.5-1.5) % POC ABG HHb (Measured) 1.5 (0.0-5.0) % ABG Methemoglobin 0.2 (0.0-3.0) % Shankar Test Na A-a O2 Difference 55.0 mm/Hg Respiratory Index 0.4 Hgb O2 Saturation 97.1 (95.0-98.0) % Vent Mode A/c Mechanical Rate 12 FiO2 35.0 % Tidal Volume 500 PEEP 5 Sodium (132-148) mmol/L Potassium (3.6-5.2) mmol/L Chloride (98-107) mmol/L Carbon Dioxide (22-30) mmol/L Anion Gap (10-20) BUN (9-20) mg/dL Creatinine (0.8-1.5) mg/dL Est GFR ( Amer) Est GFR (Non-Af Amer) POC Glucose (mg/dL) 123 H 129 H (65-110) mg/dL Random Glucose (75-110) mg/dL Calcium (8.6-10.4) mg/dl Phosphorus (2.5-4.5) mg/dL Magnesium (1.6-2.3) mg/dL Total Bilirubin (0.2-1.3) mg/dL AST (17-59) U/L ALT (21-72) U/L Alkaline Phosphatase (38-126) U/L Total Protein (6.3-8.3) g/dL Albumin (3.5-5.0) g/dL Globulin (2.2-3.9) gm/dL Albumin/Globulin Ratio (1.0-2.1) 11/26/17 Range/Units 17:50 WBC (4.8-10.8) K/uL RBC (4.40-5.90) Mil/uL Hgb (12.0-18.0) g/dL Hct (35.0-51.0) % MCV (80.0-94.0) fL MCH (27.0-31.0) pg MCHC (33.0-37.0) g/dL RDW (11.5-14.5) % Plt Count (130-400) K/uL MPV (7.2-11.7) fL Neut % (Auto) (50.0-75.0) % Lymph % (Auto) (20.0-40.0) % [place] % (Auto) (0.0-10.0) % Eos % (Auto) (0.0-4.0) % Baso % (Auto) (0.0-2.0) % Neut # (1.8-7.0) K/uL Lymph # (1.0-4.3) K/uL [place] # (0.0-0.8) K/uL Eos # (0.0-0.7) K/uL Baso # (0.0-0.2) K/uL Puncture Site pCO2 (35-45) mm/Hg pO2 (80-100) mm/Hg HCO3 (21-28) mmol/L ABG pH (7.35-7.45) ABG Total CO2 (22-28) mmol/L ABG O2 Saturation (95-98) % ABG Base Excess (-2.0-3.0) mmol/L ABG Hemoglobin (11.7-17.4) g/dL ABG Carboxyhemoglobin (0.5-1.5) % POC ABG HHb (Measured) (0.0-5.0) % ABG Methemoglobin (0.0-3.0) % Shankar Test A-a O2 Difference mm/Hg Respiratory Index Hgb O2 Saturation (95.0-98.0) % Vent Mode Mechanical Rate FiO2 % Tidal Volume PEEP Sodium (132-148) mmol/L Potassium (3.6-5.2) mmol/L Chloride (98-107) mmol/L Carbon Dioxide (22-30) mmol/L Anion Gap (10-20) BUN (9-20) mg/dL Creatinine (0.8-1.5) mg/dL Est GFR ( Amer) Est GFR (Non-Af Amer) POC Glucose (mg/dL) 112 H (65-110) mg/dL Random Glucose (75-110) mg/dL Calcium (8.6-10.4) mg/dl Phosphorus (2.5-4.5) mg/dL Magnesium (1.6-2.3) mg/dL Total Bilirubin (0.2-1.3) mg/dL AST (17-59) U/L ALT (21-72) U/L Alkaline Phosphatase (38-126) U/L Total Protein (6.3-8.3) g/dL Albumin (3.5-5.0) g/dL Globulin (2.2-3.9) gm/dL Albumin/Globulin Ratio (1.0-2.1) Laboratory Results - last 24 hr 06/26/17 06/26/17 06/27/17 17:50 23:33 05:03 WBC RBC Hgb Hct MCV MCH MCHC RDW Plt Count MPV Neut % (Auto) Lymph % (Auto) [place] % (Auto) Eos % (Auto) Baso % (Auto) Neut # Lymph # [place] # Eos # Baso # Puncture Site Rb pCO2 42 pO2 142 H HCO3 30.4 H ABG pH 7.48 H ABG Total CO2 32.6 H ABG O2 Saturation 98.5 H ABG Base Excess 7.0 H ABG Hemoglobin 13.2 ABG Carboxyhemoglobin 1.2 POC ABG HHb (Measured) 1.5 ABG Methemoglobin 0.2 Shankar Test Na A-a O2 Difference 55.0 Respiratory Index 0.4 Hgb O2 Saturation 97.1 Vent Mode A/c Mechanical Rate 12 FiO2 35.0 Tidal Volume 500 PEEP 5 Sodium Potassium Chloride Carbon Dioxide Anion Gap BUN Creatinine Est GFR ( Amer) Est GFR (Non-Af Amer) POC Glucose (mg/dL) 112 H 129 H Random Glucose Calcium Phosphorus Magnesium Total Bilirubin AST ALT Alkaline Phosphatase Total Protein Albumin Globulin Albumin/Globulin Ratio 06/27/17 06/27/17 06/27/17 05:18 06:20 06:20 WBC 4.4 L RBC 4.04 L Hgb 8.0 L Hct 24.2 L MCV 59.9 L MCH 19.9 L MCHC 33.2 RDW 15.6 H Plt Count 114 L MPV 9.1 Neut % (Auto) 68.4 Lymph % (Auto) 11.0 L [place] % (Auto) 18.2 H Eos % (Auto) 1.8 Baso % (Auto) 0.6 Neut # 3.0 Lymph # 0.5 L [place] # 0.8 Eos # 0.1 Baso # 0.0 Puncture Site pCO2 pO2 HCO3 ABG pH ABG Total CO2 ABG O2 Saturation ABG Base Excess ABG Hemoglobin ABG Carboxyhemoglobin POC ABG HHb (Measured) ABG Methemoglobin Shankar Test A-a O2 Difference Respiratory Index Hgb O2 Saturation Vent Mode Mechanical Rate FiO2 Tidal Volume PEEP Sodium 133 Potassium 5.0 Chloride 99 Carbon Dioxide 28 Anion Gap 11 BUN 23 H Creatinine 0.9 Est GFR ( Amer) > 60 Est GFR (Non-Af Amer) > 60 POC Glucose (mg/dL) 123 H Random Glucose 117 H Calcium 8.2 L Phosphorus 3.9 Magnesium 1.9 Total Bilirubin 1.0 AST 85 H ALT 45 Alkaline Phosphatase 116 Total Protein 5.8 L Albumin 3.2 L Globulin 2.6 Albumin/Globulin Ratio 1.2 06/27/17 12:18 WBC RBC Hgb Hct MCV MCH MCHC RDW Plt Count MPV Neut % (Auto) Lymph % (Auto) [place] % (Auto) Eos % (Auto) Baso % (Auto) Neut # Lymph # [place] # Eos # Baso # Puncture Site pCO2 pO2 HCO3 ABG pH ABG Total CO2 ABG O2 Saturation ABG Base Excess ABG Hemoglobin ABG Carboxyhemoglobin POC ABG HHb (Measured) ABG Methemoglobin Shankar Test A-a O2 Difference Respiratory Index Hgb O2 Saturation Vent Mode Mechanical Rate FiO2 Tidal Volume PEEP Sodium Potassium Chloride Carbon Dioxide Anion Gap BUN Creatinine Est GFR ( Amer) Est GFR (Non-Af Amer) POC Glucose (mg/dL) 163 H Random Glucose Calcium Phosphorus Magnesium Total Bilirubin AST ALT Alkaline Phosphatase Total Protein Albumin Globulin Albumin/Globulin Ratio Fingerstick Blood Sugar Results: 163 Review of Systems - Review of Systems Systems not reviewed;Unavailable: Intubated Critical Care Progress Note - Nutrition Nutrition: Nutrition Category Date Time Status NPO Diet [DIET] Diets 06/20/17 Dinner Active Assessment/Plan - Assessment and Plan (Free Text) Assessment: 61 year old male with a PMH of Essential hypertension, Pulmonary hypertension, tricuspid valve replacement, mitral valve replacement, hx of a. flutter, atrial septal defect, anemia, a.fib, hyperlipidemia present s/p cardiac arrest. Plan: Cardio: Dr. Platt consulted, help appreciated Dr. Elizondo consulted, help appreciated ECHO - no pericardial effusion seen, awaiting official read EKG - paced rhythm Trop (06/20)- initial <0.012, second 0.793, third 6.3 [employer] pacemaker Model S602/Serial [id number] implanted on October 03, 2009 Guidant Lead Model 4137/Serial [id number] [employer] [place] Lead Model 1688TC Rep from [employer] came and interrogated pacemaker. Pacemaker is functioning properly. - Pacemaker recorded 3 events of Vtach around 1:30 pm today (06/20/17) - Increased packmaker rate to 75bpm Strict I's & O's f/u cardio recs - further cardiac eval will depend on chances for neurologic recovery s/p CODE Freeze Records obtained from [facility] in [place], [place]. - Essential hypertension, Pulmonary hypertension, tricuspid valve replacement, mitral valve replacement, hx of a. flutter, atrial septal defect, anemia, a.fib, hyperlipidemia. - Surgical hx: mitral valve replacement(2008), tricuspid valve replacement( 2008), ASD repair(2008), duel chamber pacemaker(2008) Neurology: Dr. Ash Frausto consulted, help appreciated Dr. Crenshaw consulted for 2nd opinion, help appreciated Still no gag, corneal or pupillary reflexes. - poor prognosis Head CT w/o 06/20 - no acute findings Depakote 500 mg NG TID Keppra 750mg IVPB q12H Clonazpepam 4mg NG TID Ativan 4mg q4h PRN Head CT 06/22 - No evidence of acute intracranial hemorrhage intracranial collection mass effect or midline shift. No significant interval change noted since the previous exam. EEG 06/22 - No spike, sharp waves or focal slowing was seen. Consistent with severe bihemispheric cerebral dysfunction. No epileptic form activity seen. Head CT 06/27 - No evidence of acute intracranial hemorrhage or territorial infarct. No significant interval change noted since the previous exam. EEG 06/27 - This EEG is abnormal. Diffuse slowing is seen, suggestive of a diffuse abnormality of the brain. The rhythmic sharp waves are consistent with myoclonus. 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 Prognosis is very poor. f/u Neuro recs - Use higher doses of clonazepam and increase dose of Keppra. - myoclonus after anoxic brain injury may be a part of Bhavesh Rodriguez Syndome and this is a poor prognosis. - Dr. Crenshaw had family discussion today, told them of repeat EEG findings and poor prognosis. Family discussing options of continuing care vs discontinuing life support. - repeat head CT today, Dr. Crenshaw will have a second discussion with family tomorrow to discuss findings. Respiratory: Intubated CXR - Bibasilar atelectasis or infiltrates persist and are unchanged with limited pulmonary venous congestion remaining. Small pleural effusion not excluded. ABG - pCO2 42/ pO2 142/ HCO3 30.4/ pH 7.48 - taken while on vent settings A/c, TV 500/FiO2 35/RR 12/ PEEP 5 Discussion with family about goals of treatment needs be had - Trach vs Terminal Extubation Electrolytes: Phos 3.9 Mag 1.9 Heme: Hgb increased to 8.0 from 7.7 (06/26) Platelets increased to 114 from 100 (06/26) GI: On Jevity 1.5 @ goal rate of 45 ml/hr Prophylactic Care: SCDs Lovenox 40mg SC daily protonix 40mg IVP daily Dulcolax 10mg AR HS Case discussed with Dr. Thao Crum Catr[place]ito PGY1
[2017-06-27] MEDS: White Petrolatum/Mineral Oil Ophth Oint(3.5 gm) OU PRN (21:17)
[2017-06-28] MEDS: (Novolin R) Insulin Human Regular 100 units/ml vial SC SCH ×4 (00:05→18:00)
[2017-06-28 05:30] LABS: ABG MECHANICAL RATE 12; ARTERIAL BLOOD GAS MODE VOL CONTROL; ATERIAL BLOOD GAS PEEP 5; CARBOXYHEMOGLOBIN 1.3 % (0.5-1.5); DRAW SITE RB; HHB 1.4 % (0.0-5.0); METHEMOGLOBIN 0.3 % (0.0-3.0)
[2017-06-28 06:27] LABS: BASO % 0.3 % (0.0-2.0); EOS % 1.1 % (0.0-4.0); HEMATOCRIT 26.1 % (35.0-51.0); LYMPH # 0.5 K/uL (1.0-4.3); LYMPH % 10.8 % (20.0-40.0); MEAN CELL VOLUME 60.9 fL (80.0-94.0); MEAN CORPUSCULAR HEMOGLOBIN 19.7 pg (27.0-31.0); MEAN CORPUSCULAR HGB CONC 32.3 g/dL (33.0-37.0); MEAN PLATELET VOLUME 8.7 fL (7.2-11.7); MONO # 0.7 K/uL (0.0-0.8); MONO % 15.9 % (0.0-10.0); NRBC % 0.1 % (0.0-2.0); WHITE BLOOD COUNT 4.3 K/uL (4.8-10.8)
[2017-06-28 06:47] LABS: ALB/GLOB RATIO 0.9 (1.0-2.1); ALKALINE PHOSPHATASE 121 U/L (38-126); ALT/SGPT 53 U/L (21-72); AST/SGOT 76 U/L (17-59); BILIRUBIN,TOTAL 0.7 mg/dL (0.2-1.3); BLOOD UREA NITROGEN 30 mg/dL (9-20); CALCIUM 7.9 mg/dl (8.6-10.4); CARBON DIOXIDE 32 mmol/L (22-30); CHLORIDE 99 mmol/L (98-107); GFR AFRICAN-AMERICAN > 60; GLUCOSE,RANDOM 115 mg/dL (75-110); MAGNESIUM 1.9 mg/dL (1.6-2.3); POTASSIUM 4.9 mmol/L (3.6-5.2); SODIUM 138 mmol/L (132-148)
--- NOTE | 2017-06-28 06:47 | CP.PCM.PN ---
Subjective - Date & Time of Evaluation Date of Evaluation: 06/28/17 Time of Evaluation: 06:44 - Subjective Subjective: Mr. Reynolds was seen and examined at the bedside in ICU. He remains on mechanical ventilation. He remains with myoclonic jerky movements especially on his left side. GCS-4T. There was no untoward events overnight. Objective - Vital Signs/Intake and Output Vital Signs (last 24 hours): Temp Pulse Resp BP Pulse Ox 99.5 F 74 0 L 98/50 L 99 06/28/17 06:00 06/28/17 06:00 06/28/17 06:00 06/28/17 06:00 06/28/17 06:00 Intake and Output: 06/27/17 06/28/17 18:59 06:59 Intake Total 1190 745 Output Total 900 685 Balance 290 60 - Medications Medications: Current Medications Artificial Tears (Lacri-Lube) 0 gm OU Q4 PRN PRN Reason: Dry eyes Last Admin: 06/27/17 21:17 Dose: 3.5 gm Bisacodyl (Dulcolax) 10 mg SC HS [facility] Last Admin: 06/27/17 21:59 Dose: 10 mg Clonazepam (Klonopin) 4 mg NG TID [facility] Last Admin: 06/27/17 19:12 Dose: 4 mg Levetiracetam 750 mg/ Sodium (Chloride) 157.5 mls @ 420 mls/hr IVPB Q12H [facility] Last Admin: 06/27/17 21:44 Dose: 420 mls/hr Insulin Human Regular (Novolin R) 0 unit SC Q6H [facility] PRN Reason: Protocol Last Admin: 06/28/17 05:30 Dose: Not Given Lorazepam (Ativan) 4 mg IVP Q4H PRN PRN Reason: Anxiety Last Admin: 06/27/17 16:36 Dose: 4 mg Pantoprazole Sodium (Protonix Inj) 40 mg IVP DAILY [facility] Last Admin: 06/27/17 10:51 Dose: 40 mg Potassium Phos/Sodium Phos (Neutra-Phos) 1 pkt PO BIDCC [facility] Last Admin: 06/27/17 17:23 Dose: 1 pkt Valproate Sodium (Depakene Oral Soln) 500 mg NG TID [facility] Last Admin: 06/27/17 17:23 Dose: 500 mg Vitamin A (Vitamin A & D Oint Ud Foilpak) 1 ea TOP BID [facility] Last Admin: 06/27/17 19:15 Dose: 1 ea - Labs Labs: 06/28/17 06:15 06/27/17 06:20 PT 13.4 SECONDS (9.7-12.2) H 06/20/17 13:36 INR 1.2 06/20/17 13:36 APTT 41 SECONDS (21-34) H 06/20/17 13:36 - Constitutional Appears: No Acute Distress - Head Exam Head Exam: ATRAUMATIC - Eye Exam Pupil Exam: Fixed, Miosis - ENT Exam Additional comments: absent gag reflex - Neurological Exam Neuro motor strength exam: Left Upper Extremity: 2/1, Right Upper Extremity: 2/1 , Left Lower Extremity: 2/1, Right Lower Extremity: 2/1 Additional comments: GCS-4T Assessment and Plan (1) Anoxic brain injury Assessment & Plan: Case discussed with Dr. Crenshaw, continue all current medical regimen. There is no new recommendation from neurology. Status: Acute
[2017-06-28] MEDS: Potassium & Sodium Phosphate PO SCH ×2 (07:56→17:03)
[2017-06-28] MEDS: LEVETIRACETAM IVPB SCH (08:26)
[2017-06-28] MEDS: SODIUM CHLORIDE 0.9% IVPB SCH (08:26)
[2017-06-28] MEDS: White Petrolatum/Mineral Oil Ophth Oint(3.5 gm) OU PRN ×2 (08:27→17:05)
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
[2017-06-28] MEDS: levETIRAcetam 1,500 MG in Sodium Chloride 0.9% 100 ML IVPB SCH ×2 (10:00→21:25)
[2017-06-28] MEDS: Vitamins A & D Oint UD Foilpak TOP SCH ×2 (10:51→17:04)
[2017-06-28] MEDS: Valproic Acid 250 mg/5 ml UD Cup NG SCH ×3 (10:51→17:03)
--- NOTE | 2017-06-28 10:54 | RAD ---
HISTORY: intubation COMPARISON: 06/27/2017 FINDINGS: The endotracheal tube terminates 6 cm proximal to the skip. The nasogastric tube terminates in the stomach. LUNGS: The lungs are well inflated. There is interval improved aeration in the left lower lobe. There is multifocal atelectasis in both lower lobes. PLEURA: No significant pleural effusion identified, no pneumothorax apparent. CARDIOVASCULAR: There is mild cardiomegaly. Status post CABG and prosthetic valve. There is stable position of left-sided pacemaker. OSSEOUS STRUCTURES: No significant abnormalities. VISUALIZED UPPER ABDOMEN: Normal. OTHER FINDINGS: None. IMPRESSION: Interval improved aeration in the left lower lobe. Multifocal atelectasis in both lower lobes. Stable position of tubes.
--- NOTE | 2017-06-28 13:52 | CP.CCUPN ---
<Radames Winston - Last Filed: 06/28/17 13:50> CCU Subjective - Physician Review Subjective (Free Text): PGY1 ICU progress note for Dr. Benz Patient seen and examined at bedside this morning. No acute events over night. Patient intubated. ROS unattainable. CCU Objective - Vital Signs / Intake & Output Intake and Output (Last 8hrs): Intake & Output 06/27/17 06/28/17 06/28/17 22:59 06:59 14:59 Intake Total 765 360 Output Total 635 450 Balance 130 -90 Intake: Intake, IV Amount 250 Left Forearm 250 Oral 200 Tube Feeding 315 360 Output: Urine 635 450 Urethral (Lock) 635 450 Stool 0 0 Other: # Bowel Movements 0 - Physical Exam Head: Positive for: Atraumatic, Normocephalic Pupils: Positive for: Non-Reactive, Pinpoint Conjunctiva: Positive for: Normal Mouth: Positive for: Other (intubated) Nose (Internal): Positive for: No Active Bleeding, Other (dried blood) Neck: Positive for: Trachea Midline Respiratory/Chest: Positive for: Clear to Auscultation, Good Air Exchange. Negative for: Respiratory Distress, Accessory Muscle Use, Wheezes, Rales Cardiovascular: Positive for: Other (paced rhythm at 60bpm) Abdomen: Positive for: Normal Bowel Sounds, Other (active cooling wrap on). Negative for: Tenderness, Distention, Peritoneal Signs, Guarding Upper Extremity: Negative for: Edema Lower Extremity: Positive for: Other (SCDs in place) Neurological: Positive for: Other (non-responsive to pain. no gag reflex on suction). Negative for: GCS=15 Skin: Positive for: Dry Psychiatric: Negative for: Alert, Oriented x 3 - Medications Active Medications: Active Medications Generic Name Dose Route Start Last Admin Trade Name Freq PRN Reason Stop Dose Admin Artificial Tears 0 gm 06/21/17 10:01 06/28/17 08:27 Lacri-Lube OU 1 gm Q4 PRN Administration Dry eyes Bisacodyl 10 mg 06/24/17 22:00 06/27/17 21:59 Dulcolax TX 10 mg HS EMERY Administration Clonazepam 4 mg 06/27/17 14:00 06/28/17 10:51 Klonopin NG 4 mg TID EMERY Administration Levetiracetam 1,500 mg/ Sodium 115 mls @ 420 mls/hr 06/28/17 10:00 Chloride IVPB Q12H EMERY Insulin Human Regular 0 unit 06/28/17 00:00 06/28/17 05:30 Novolin R SC Not Given Q6H [facility] Protocol Lorazepam 4 mg 06/24/17 10:40 06/28/17 11:03 Ativan IVP 4 mg Q4H PRN Administration Anxiety Pantoprazole Sodium 40 mg 06/21/17 10:00 06/28/17 10:50 Protonix Inj IVP 40 mg DAILY EMERY Administration Potassium Phos/Sodium Phos 1 pkt 06/21/17 10:00 06/28/17 07:56 Neutra-Phos PO 1 pkt BIDCC EMERY Administration Valproate Sodium 500 mg 06/24/17 18:00 06/28/17 10:51 Depakene Oral Soln NG 500 mg TID EMERY Administration Vitamin A 1 ea 06/22/17 18:00 06/28/17 10:51 Vitamin A & D Oint Ud Foilpak TOP 1 ea BID EMERY Administration - Patient Studies Lab Studies: Lab Studies 06/28/17 06/28/17 06/28/17 Range/Units 11:23 06:15 06:15 WBC 4.3 L (4.8-10.8) K/uL RBC 4.28 L (4.40-5.90) Mil/uL Hgb 8.4 L (12.0-18.0) g/dL Hct 26.1 L (35.0-51.0) % MCV 60.9 L (80.0-94.0) fL MCH 19.7 L (27.0-31.0) pg MCHC 32.3 L (33.0-37.0) g/dL RDW 16.0 H (11.5-14.5) % Plt Count 118 L (130-400) K/uL MPV 8.7 (7.2-11.7) fL Neut % (Auto) 71.9 (50.0-75.0) % Lymph % (Auto) 10.8 L (20.0-40.0) % Riley % (Auto) 15.9 H (0.0-10.0) % Eos % (Auto) 1.1 (0.0-4.0) % Baso % (Auto) 0.3 (0.0-2.0) % Neut # 3.1 (1.8-7.0) K/uL Lymph # 0.5 L (1.0-4.3) K/uL Riley # 0.7 (0.0-0.8) K/uL Eos # 0.0 (0.0-0.7) K/uL Baso # 0.0 (0.0-0.2) K/uL Puncture Site pCO2 (35-45) mm/Hg pO2 (80-100) mm/Hg HCO3 (21-28) mmol/L ABG pH (7.35-7.45) ABG Total CO2 (22-28) mmol/L ABG O2 Saturation (95-98) % ABG Base Excess (-2.0-3.0) mmol/L ABG Hemoglobin (11.7-17.4) g/dL ABG Carboxyhemoglobin (0.5-1.5) % POC ABG HHb (Measured) (0.0-5.0) % ABG Methemoglobin (0.0-3.0) % Shankar Test A-a O2 Difference mm/Hg Respiratory Index Hgb O2 Saturation (95.0-98.0) % Vent Mode Mechanical Rate FiO2 % Tidal Volume PEEP Sodium 138 (132-148) mmol/L Potassium 4.9 (3.6-5.2) mmol/L Chloride 99 (98-107) mmol/L Carbon Dioxide 32 H (22-30) mmol/L Anion Gap 11 (10-20) BUN 30 H (9-20) mg/dL Creatinine 0.8 (0.8-1.5) mg/dL Est GFR ( Amer) > 60 Est GFR (Non-Af Amer) > 60 POC Glucose (mg/dL) 143 H (65-110) mg/dL Random Glucose 115 H (75-110) mg/dL Calcium 7.9 L (8.6-10.4) mg/dl Phosphorus 4.0 (2.5-4.5) mg/dL Magnesium 1.9 (1.6-2.3) mg/dL Total Bilirubin 0.7 (0.2-1.3) mg/dL AST 76 H (17-59) U/L ALT 53 (21-72) U/L Alkaline Phosphatase 121 (38-126) U/L Total Protein 7.0 (6.3-8.3) g/dL Albumin 3.3 L (3.5-5.0) g/dL Globulin 3.7 (2.2-3.9) gm/dL Albumin/Globulin Ratio 0.9 L (1.0-2.1) Phenobarbital (15.0-40.0) mg/L 06/28/17 06/28/17 06/27/17 Range/Units 05:22 05:05 23:54 WBC (4.8-10.8) K/uL RBC (4.40-5.90) Mil/uL Hgb (12.0-18.0) g/dL Hct (35.0-51.0) % MCV (80.0-94.0) fL MCH (27.0-31.0) pg MCHC (33.0-37.0) g/dL RDW (11.5-14.5) % Plt Count (130-400) K/uL MPV (7.2-11.7) fL Neut % (Auto) (50.0-75.0) % Lymph % (Auto) (20.0-40.0) % Riley % (Auto) (0.0-10.0) % Eos % (Auto) (0.0-4.0) % Baso % (Auto) (0.0-2.0) % Neut # (1.8-7.0) K/uL Lymph # (1.0-4.3) K/uL Riley # (0.0-0.8) K/uL Eos # (0.0-0.7) K/uL Baso # (0.0-0.2) K/uL Puncture Site Rb pCO2 43 (35-45) mm/Hg pO2 115 H (80-100) mm/Hg HCO3 31.7 H (21-28) mmol/L ABG pH 7.49 H (7.35-7.45) ABG Total CO2 34.1 H (22-28) mmol/L ABG O2 Saturation 98.6 H (95-98) % ABG Base Excess 8.6 H (-2.0-3.0) mmol/L ABG Hemoglobin 7.9 L (11.7-17.4) g/dL ABG Carboxyhemoglobin 1.3 (0.5-1.5) % POC ABG HHb (Measured) 1.4 (0.0-5.0) % ABG Methemoglobin 0.3 (0.0-3.0) % Shankar Test Na A-a O2 Difference 81.0 mm/Hg Respiratory Index 0.7 Hgb O2 Saturation 97.0 (95.0-98.0) % Vent Mode Vol control Mechanical Rate 12 FiO2 35.0 % Tidal Volume 500 PEEP 5 Sodium (132-148) mmol/L Potassium (3.6-5.2) mmol/L Chloride (98-107) mmol/L Carbon Dioxide (22-30) mmol/L Anion Gap (10-20) BUN (9-20) mg/dL Creatinine (0.8-1.5) mg/dL Est GFR ( Amer) Est GFR (Non-Af Amer) POC Glucose (mg/dL) 147 H 115 H (65-110) mg/dL Random Glucose (75-110) mg/dL Calcium (8.6-10.4) mg/dl Phosphorus (2.5-4.5) mg/dL Magnesium (1.6-2.3) mg/dL Total Bilirubin (0.2-1.3) mg/dL AST (17-59) U/L ALT (21-72) U/L Alkaline Phosphatase (38-126) U/L Total Protein (6.3-8.3) g/dL Albumin (3.5-5.0) g/dL Globulin (2.2-3.9) gm/dL Albumin/Globulin Ratio (1.0-2.1) Phenobarbital (15.0-40.0) mg/L 06/27/17 06/26/17 Range/Units 17:38 09:16 WBC (4.8-10.8) K/uL RBC (4.40-5.90) Mil/uL Hgb (12.0-18.0) g/dL Hct (35.0-51.0) % MCV (80.0-94.0) fL MCH (27.0-31.0) pg MCHC (33.0-37.0) g/dL RDW (11.5-14.5) % Plt Count (130-400) K/uL MPV (7.2-11.7) fL Neut % (Auto) (50.0-75.0) % Lymph % (Auto) (20.0-40.0) % Riley % (Auto) (0.0-10.0) % Eos % (Auto) (0.0-4.0) % Baso % (Auto) (0.0-2.0) % Neut # (1.8-7.0) K/uL Lymph # (1.0-4.3) K/uL Riley # (0.0-0.8) K/uL Eos # (0.0-0.7) K/uL Baso # (0.0-0.2) K/uL Puncture Site pCO2 (35-45) mm/Hg pO2 (80-100) mm/Hg HCO3 (21-28) mmol/L ABG pH (7.35-7.45) ABG Total CO2 (22-28) mmol/L ABG O2 Saturation (95-98) % ABG Base Excess (-2.0-3.0) mmol/L ABG Hemoglobin (11.7-17.4) g/dL ABG Carboxyhemoglobin (0.5-1.5) % POC ABG HHb (Measured) (0.0-5.0) % ABG Methemoglobin (0.0-3.0) % Shankar Test A-a O2 Difference mm/Hg Respiratory Index Hgb O2 Saturation (95.0-98.0) % Vent Mode Mechanical Rate FiO2 % Tidal Volume PEEP Sodium (132-148) mmol/L Potassium (3.6-5.2) mmol/L Chloride (98-107) mmol/L Carbon Dioxide (22-30) mmol/L Anion Gap (10-20) BUN (9-20) mg/dL Creatinine (0.8-1.5) mg/dL Est GFR ( Amer) Est GFR (Non-Af Amer) POC Glucose (mg/dL) 114 H (65-110) mg/dL Random Glucose (75-110) mg/dL Calcium (8.6-10.4) mg/dl Phosphorus (2.5-4.5) mg/dL Magnesium (1.6-2.3) mg/dL Total Bilirubin (0.2-1.3) mg/dL AST (17-59) U/L ALT (21-72) U/L Alkaline Phosphatase (38-126) U/L Total Protein (6.3-8.3) g/dL Albumin (3.5-5.0) g/dL Globulin (2.2-3.9) gm/dL Albumin/Globulin Ratio (1.0-2.1) Phenobarbital <5.0 L (15.0-40.0) mg/L Laboratory Results - last 24 hr 06/26/17 06/27/17 06/27/17 09:16 17:38 23:54 WBC RBC Hgb Hct MCV MCH MCHC RDW Plt Count MPV Neut % (Auto) Lymph % (Auto) Riley % (Auto) Eos % (Auto) Baso % (Auto) Neut # Lymph # Riley # Eos # Baso # Puncture Site pCO2 pO2 HCO3 ABG pH ABG Total CO2 ABG O2 Saturation ABG Base Excess ABG Hemoglobin ABG Carboxyhemoglobin POC ABG HHb (Measured) ABG Methemoglobin Shankar Test A-a O2 Difference Respiratory Index Hgb O2 Saturation Vent Mode Mechanical Rate FiO2 Tidal Volume PEEP Sodium Potassium Chloride Carbon Dioxide Anion Gap BUN Creatinine Est GFR ( Amer) Est GFR (Non-Af Amer) POC Glucose (mg/dL) 114 H 115 H Random Glucose Calcium Phosphorus Magnesium Total Bilirubin AST ALT Alkaline Phosphatase Total Protein Albumin Globulin Albumin/Globulin Ratio Phenobarbital <5.0 L 06/28/17 06/28/17 06/28/17 05:05 05:22 06:15 WBC 4.3 L RBC 4.28 L Hgb 8.4 L Hct 26.1 L MCV 60.9 L MCH 19.7 L MCHC 32.3 L RDW 16.0 H Plt Count 118 L MPV 8.7 Neut % (Auto) 71.9 Lymph % (Auto) 10.8 L Riley % (Auto) 15.9 H Eos % (Auto) 1.1 Baso % (Auto) 0.3 Neut # 3.1 Lymph # 0.5 L Riley # 0.7 Eos # 0.0 Baso # 0.0 Puncture Site Rb pCO2 43 pO2 115 H HCO3 31.7 H ABG pH 7.49 H ABG Total CO2 34.1 H ABG O2 Saturation 98.6 H ABG Base Excess 8.6 H ABG Hemoglobin 7.9 L ABG Carboxyhemoglobin 1.3 POC ABG HHb (Measured) 1.4 ABG Methemoglobin 0.3 Shankar Test Na A-a O2 Difference 81.0 Respiratory Index 0.7 Hgb O2 Saturation 97.0 Vent Mode Vol control Mechanical Rate 12 FiO2 35.0 Tidal Volume 500 PEEP 5 Sodium Potassium Chloride Carbon Dioxide Anion Gap BUN Creatinine Est GFR ( Amer) Est GFR (Non-Af Amer) POC Glucose (mg/dL) 147 H Random Glucose Calcium Phosphorus Magnesium Total Bilirubin AST ALT Alkaline Phosphatase Total Protein Albumin Globulin Albumin/Globulin Ratio Phenobarbital 06/28/17 06/28/17 06:15 11:23 WBC RBC Hgb Hct MCV MCH MCHC RDW Plt Count MPV Neut % (Auto) Lymph % (Auto) Riley % (Auto) Eos % (Auto) Baso % (Auto) Neut # Lymph # Riley # Eos # Baso # Puncture Site pCO2 pO2 HCO3 ABG pH ABG Total CO2 ABG O2 Saturation ABG Base Excess ABG Hemoglobin ABG Carboxyhemoglobin POC ABG HHb (Measured) ABG Methemoglobin Shankar Test A-a O2 Difference Respiratory Index Hgb O2 Saturation Vent Mode Mechanical Rate FiO2 Tidal Volume PEEP Sodium 138 Potassium 4.9 Chloride 99 Carbon Dioxide 32 H Anion Gap 11 BUN 30 H Creatinine 0.8 Est GFR ( Amer) > 60 Est GFR (Non-Af Amer) > 60 POC Glucose (mg/dL) 143 H Random Glucose 115 H Calcium 7.9 L Phosphorus 4.0 Magnesium 1.9 Total Bilirubin 0.7 AST 76 H ALT 53 Alkaline Phosphatase 121 Total Protein 7.0 Albumin 3.3 L Globulin 3.7 Albumin/Globulin Ratio 0.9 L Phenobarbital Fingerstick Blood Sugar Results: 147 Review of Systems - Review of Systems Systems not reviewed;Unavailable: Intubated Critical Care Progress Note - Nutrition Nutrition: Nutrition Category Date Time Status NPO Diet [DIET] Diets 06/20/17 Dinner Active Assessment/Plan - Assessment and Plan (Free Text) Assessment: 61 year old male with a PMH of Essential hypertension, Pulmonary hypertension, tricuspid valve replacement, mitral valve replacement, hx of a. flutter, atrial septal defect, anemia, a.fib, hyperlipidemia present s/p cardiac arrest. Plan: Cardio: Dr. Platt consulted, help appreciated Dr. Elizondo consulted, help appreciated ECHO - no pericardial effusion seen, awaiting official read EKG - paced rhythm Trop (06/20)- initial <0.012, second 0.793, third 6.3 [employer] pacemaker Model S602/Serial [id number] implanted on October 03, 2009 [employer] Lead Model 4137/Serial [id number] [employer] [place] Lead Model 1688TC Rep from [employer] came and interrogated pacemaker. Pacemaker is functioning properly. - Pacemaker recorded 3 events of Vtach around 1:30 pm today (06/20/17) - Increased packmaker rate to 75bpm Strict I's & O's f/u cardio recs - further cardiac eval will depend on chances for neurologic recovery s/p CODE Freeze Records obtained from [facility] in [place], [place]. - Essential hypertension, Pulmonary hypertension, tricuspid valve replacement, mitral valve replacement, hx of a. flutter, atrial septal defect, anemia, a.fib, hyperlipidemia. - Surgical hx: mitral valve replacement(2008), tricuspid valve replacement( 2008), ASD repair(2008), duel chamber pacemaker(2008) Neurology: Dr. Ash Frausto consulted, help appreciated Dr. Crenshaw consulted for 2nd opinion, help appreciated Still no gag, corneal or pupillary reflexes. - poor prognosis Head CT w/o 06/20 - no acute findings Depakote 500 mg NG TID Keppra 750mg IVPB q12H -->increased to 1500mg IVPB q12h Clonazpepam 4mg NG TID Ativan 4mg q4h PRN Head CT 06/22 - No evidence of acute intracranial hemorrhage intracranial collection mass effect or midline shift. No significant interval change noted since the previous exam. EEG 06/22 - No spike, sharp waves or focal slowing was seen. Consistent with severe bihemispheric cerebral dysfunction. No epileptic form activity seen. Head CT 06/27 - No evidence of acute intracranial hemorrhage or territorial infarct. No significant interval change noted since the previous exam. EEG 06/27 - This EEG is abnormal. Diffuse slowing is seen, suggestive of a diffuse abnormality of the brain. The rhythmic sharp waves are consistent with myoclonus. 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 Prognosis is very poor. f/u Neuro recs - Repeat EEG tomorrow to assess if patient is having myoclonic jerks due to seizures or possible Bhavesh Rodriguez Syndrome. Respiratory: Intubated CXR - Interval improved aeration in the left lower lobe. Multifocal atelectasis in both lower lobes. Stable position of tubes. ABG - pCO2 43/ pO2 142/ HCO3 31.7/ pH 7.49 - taken while on vent settings A/c, TV 500/FiO2 35/RR 12/ PEEP 5 Discussion with family about goals of treatment needs be had - Trach vs Terminal Extubation Heme: Hgb increased to 8.0 from 7.7 (06/26) Platelets increased to 114 from 100 (06/26) GI: On Jevity 1.5 @ goal rate of 45 ml/hr Prophylactic Care: SCDs Lovenox 40mg SC daily protonix 40mg IVP daily Dulcolax 10mg TX HS Case discussed with Dr. Demar Winston PGY1 <Alexandru Benz S - Last Filed: 06/29/17 17:55> CCU Objective - Vital Signs / Intake & Output Vital Signs (Last 4 hours): Vital Signs Temp Pulse Resp BP Pulse Ox 06/29/17 17:00 71 15 98/54 L 99 06/29/17 16:00 98.4 F 72 35 H 105/52 L 98 06/29/17 15:00 72 15 105/53 L 100 06/29/17 14:00 72 17 99/54 L 100 Intake and Output (Last 8hrs): Intake & Output 06/29/17 06/29/17 06/29/17 06:59 14:59 22:59 Intake Total 360 703.8 179.8 Output Total 305 355 130 Balance 55 348.8 49.8 Weight 173 lb 3.2 oz Intake: Intake, IV Amount 0 113.8 4.8 Left Forearm 0 9 Right Forearm 4.8 4.8 Right Wrist 100 0 Oral 230 40 Tube Feeding 360 360 135 Output: Urine 305 355 130 Urethral (Lock) 305 355 130 Other: # Bowel Movements 0 0 - Medications Active Medications: Active Medications Generic Name Dose Route Start Last Admin Trade Name Freq PRN Reason Stop Dose Admin Artificial Tears 0 gm 06/21/17 10:01 06/28/17 17:05 Lacri-Lube OU 1 gm Q4 PRN Administration Dry eyes Bisacodyl 10 mg 06/24/17 22:00 06/28/17 21:28 Dulcolax TX 10 mg HS EMERY Administration Clonazepam 4 mg 06/27/17 14:00 06/29/17 14:06 Klonopin NG 4 mg TID EMERY Administration Levetiracetam 1,500 mg/ Sodium 115 mls @ 420 mls/hr 06/28/17 10:00 06/29/17 11:17 Chloride IVPB 420 mls/hr Q12H EMERY Administration Midazolam HCl 100 mg/ Sodium 100 mls @ 1.56 mls/hr 06/29/17 10:15 06/29/17 11 :18 Chloride IV 0.02 mg/kg/hr .Q24H EMERY 1.56 mls/hr Protocol Administration 0.02 MG/KG/HR Insulin Human Regular 0 unit 06/28/17 00:00 06/29/17 12:37 Novolin R SC 2 unit Q6H EMERY Administration Protocol Lorazepam 4 mg 06/24/17 10:40 06/29/17 14:02 Ativan IVP 4 mg Q4H PRN Administration Anxiety Pantoprazole Sodium 40 mg 06/21/17 10:00 06/29/17 11:16 Protonix Inj IVP 40 mg DAILY EMERY Administration Potassium Phos/Sodium Phos 1 pkt 06/21/17 10:00 06/29/17 08:13 Neutra-Phos PO 1 pkt BIDCC EMERY Administration Valproate Sodium 500 mg 06/24/17 18:00 06/29/17 14:06 Depakene Oral Soln NG 500 mg TID EMERY Administration Vitamin A 1 ea 06/22/17 18:00 06/29/17 11:21 Vitamin A & D Oint Ud Foilpak TOP 1 ea BID EMERY Administration - Patient Studies Lab Studies: Lab Studies 06/29/17 06/29/17 06/29/17 Range/Units 17:33 11:54 06:29 WBC (4.8-10.8) K/uL RBC (4.40-5.90) Mil/uL Hgb (12.0-18.0) g/dL Hct (35.0-51.0) % MCV (80.0-94.0) fL MCH (27.0-31.0) pg MCHC (33.0-37.0) g/dL RDW (11.5-14.5) % Plt Count (130-400) K/uL MPV (7.2-11.7) fL Neut % (Auto) (50.0-75.0) % Lymph % (Auto) (20.0-40.0) % Riley % (Auto) (0.0-10.0) % Eos % (Auto) (0.0-4.0) % Baso % (Auto) (0.0-2.0) % Neut # (1.8-7.0) K/uL Lymph # (1.0-4.3) K/uL Riley # (0.0-0.8) K/uL Eos # (0.0-0.7) K/uL Baso # (0.0-0.2) K/uL Puncture Site pCO2 (35-45) mm/Hg pO2 (80-100) mm/Hg HCO3 (21-28) mmol/L ABG pH (7.35-7.45) ABG Total CO2 (22-28) mmol/L ABG O2 Saturation (95-98) % ABG Base Excess (-2.0-3.0) mmol/L ABG Hemoglobin (11.7-17.4) g/dL ABG Carboxyhemoglobin (0.5-1.5) % POC ABG HHb (Measured) (0.0-5.0) % ABG Methemoglobin (0.0-3.0) % Shankar Test A-a O2 Difference mm/Hg Respiratory Index Hgb O2 Saturation (95.0-98.0) % Vent Mode Mechanical Rate FiO2 % Tidal Volume PEEP Sodium 139 (132-148) mmol/L Potassium 4.6 (3.6-5.2) mmol/L Chloride 102 (98-107) mmol/L Carbon Dioxide 30 (22-30) mmol/L Anion Gap 11 (10-20) BUN 35 H (9-20) mg/dL Creatinine 0.8 (0.8-1.5) mg/dL Est GFR ( Amer) > 60 Est GFR (Non-Af Amer) > 60 POC Glucose (mg/dL) 132 H 151 H (65-110) mg/dL Random Glucose 113 H (75-110) mg/dL Calcium 8.0 L (8.6-10.4) mg/dl Phosphorus 3.7 (2.5-4.5) mg/dL Magnesium 2.0 (1.6-2.3) mg/dL Total Bilirubin 0.6 (0.2-1.3) mg/dL AST 69 H (17-59) U/L ALT 45 (21-72) U/L Alkaline Phosphatase 119 (38-126) U/L Total Protein 7.0 (6.3-8.3) g/dL Albumin 3.3 L (3.5-5.0) g/dL Globulin 3.7 (2.2-3.9) gm/dL Albumin/Globulin Ratio 0.9 L (1.0-2.1) Levetiracetam mcg/mL 06/29/17 06/29/17 06/29/17 Range/Units 06:29 05:33 04:35 WBC 4.4 L (4.8-10.8) K/uL RBC 4.05 L (4.40-5.90) Mil/uL Hgb 7.8 L (12.0-18.0) g/dL Hct 24.7 L (35.0-51.0) % MCV 61.1 L (80.0-94.0) fL MCH 19.3 L (27.0-31.0) pg MCHC 31.6 L (33.0-37.0) g/dL RDW 15.7 H (11.5-14.5) % Plt Count 126 L (130-400) K/uL MPV 8.5 (7.2-11.7) fL Neut % (Auto) 71.1 (50.0-75.0) % Lymph % (Auto) 13.2 L (20.0-40.0) % Riley % (Auto) 13.8 H (0.0-10.0) % Eos % (Auto) 1.4 (0.0-4.0) % Baso % (Auto) 0.5 (0.0-2.0) % Neut # 3.1 (1.8-7.0) K/uL Lymph # 0.6 L (1.0-4.3) K/uL Riley # 0.6 (0.0-0.8) K/uL Eos # 0.1 (0.0-0.7) K/uL Baso # 0.0 (0.0-0.2) K/uL Puncture Site Rb pCO2 43 (35-45) mm/Hg pO2 117 H (80-100) mm/Hg HCO3 32.9 H (21-28) mmol/L ABG pH 7.51 H (7.35-7.45) ABG Total CO2 35.6 H (22-28) mmol/L ABG O2 Saturation 98.2 H (95-98) % ABG Base Excess 10.2 H (-2.0-3.0) mmol/L ABG Hemoglobin 10.1 L (11.7-17.4) g/dL ABG Carboxyhemoglobin 1.1 (0.5-1.5) % POC ABG HHb (Measured) 1.8 (0.0-5.0) % ABG Methemoglobin 0.9 (0.0-3.0) % Shankar Test Na A-a O2 Difference 79.0 mm/Hg Respiratory Index 0.7 Hgb O2 Saturation 96.2 (95.0-98.0) % Vent Mode A/c Mechanical Rate 12 FiO2 35.0 % Tidal Volume 500 PEEP 5 Sodium (132-148) mmol/L Potassium (3.6-5.2) mmol/L Chloride (98-107) mmol/L Carbon Dioxide (22-30) mmol/L Anion Gap (10-20) BUN (9-20) mg/dL Creatinine (0.8-1.5) mg/dL Est GFR ( Amer) Est GFR (Non-Af Amer) POC Glucose (mg/dL) 125 H (65-110) mg/dL Random Glucose (75-110) mg/dL Calcium (8.6-10.4) mg/dl Phosphorus (2.5-4.5) mg/dL Magnesium (1.6-2.3) mg/dL Total Bilirubin (0.2-1.3) mg/dL AST (17-59) U/L ALT (21-72) U/L Alkaline Phosphatase (38-126) U/L Total Protein (6.3-8.3) g/dL Albumin (3.5-5.0) g/dL Globulin (2.2-3.9) gm/dL Albumin/Globulin Ratio (1.0-2.1) Levetiracetam mcg/mL 06/28/17 06/26/17 Range/Units 23:48 09:16 WBC (4.8-10.8) K/uL RBC (4.40-5.90) Mil/uL Hgb (12.0-18.0) g/dL Hct (35.0-51.0) % MCV (80.0-94.0) fL MCH (27.0-31.0) pg MCHC (33.0-37.0) g/dL RDW (11.5-14.5) % Plt Count (130-400) K/uL MPV (7.2-11.7) fL Neut % (Auto) (50.0-75.0) % Lymph % (Auto) (20.0-40.0) % Riley % (Auto) (0.0-10.0) % Eos % (Auto) (0.0-4.0) % Baso % (Auto) (0.0-2.0) % Neut # (1.8-7.0) K/uL Lymph # (1.0-4.3) K/uL Riley # (0.0-0.8) K/uL Eos # (0.0-0.7) K/uL Baso # (0.0-0.2) K/uL Puncture Site pCO2 (35-45) mm/Hg pO2 (80-100) mm/Hg HCO3 (21-28) mmol/L ABG pH (7.35-7.45) ABG Total CO2 (22-28) mmol/L ABG O2 Saturation (95-98) % ABG Base Excess (-2.0-3.0) mmol/L ABG Hemoglobin (11.7-17.4) g/dL ABG Carboxyhemoglobin (0.5-1.5) % POC ABG HHb (Measured) (0.0-5.0) % ABG Methemoglobin (0.0-3.0) % Shankar Test A-a O2 Difference mm/Hg Respiratory Index Hgb O2 Saturation (95.0-98.0) % Vent Mode Mechanical Rate FiO2 % Tidal Volume PEEP Sodium (132-148) mmol/L Potassium (3.6-5.2) mmol/L Chloride (98-107) mmol/L Carbon Dioxide (22-30) mmol/L Anion Gap (10-20) BUN (9-20) mg/dL Creatinine (0.8-1.5) mg/dL Est GFR ( Amer) Est GFR (Non-Af Amer) POC Glucose (mg/dL) 96 (65-110) mg/dL Random Glucose (75-110) mg/dL Calcium (8.6-10.4) mg/dl Phosphorus (2.5-4.5) mg/dL Magnesium (1.6-2.3) mg/dL Total Bilirubin (0.2-1.3) mg/dL AST (17-59) U/L ALT (21-72) U/L Alkaline Phosphatase (38-126) U/L Total Protein (6.3-8.3) g/dL Albumin (3.5-5.0) g/dL Globulin (2.2-3.9) gm/dL Albumin/Globulin Ratio (1.0-2.1) Levetiracetam 22.3 mcg/mL Laboratory Results - last 24 hr 06/26/17 06/28/17 06/29/17 09:16 23:48 04:35 WBC RBC Hgb Hct MCV MCH MCHC RDW Plt Count MPV Neut % (Auto) Lymph % (Auto) Riley % (Auto) Eos % (Auto) Baso % (Auto) Neut # Lymph # Riley # Eos # Baso # Puncture Site Rb pCO2 43 pO2 117 H HCO3 32.9 H ABG pH 7.51 H ABG Total CO2 35.6 H ABG O2 Saturation 98.2 H ABG Base Excess 10.2 H ABG Hemoglobin 10.1 L ABG Carboxyhemoglobin 1.1 POC ABG HHb (Measured) 1.8 ABG Methemoglobin 0.9 Shankar Test Na A-a O2 Difference 79.0 Respiratory Index 0.7 Hgb O2 Saturation 96.2 Vent Mode A/c Mechanical Rate 12 FiO2 35.0 Tidal Volume 500 PEEP 5 Sodium Potassium Chloride Carbon Dioxide Anion Gap BUN Creatinine Est GFR ( Amer) Est GFR (Non-Af Amer) POC Glucose (mg/dL) 96 Random Glucose Calcium Phosphorus Magnesium Total Bilirubin AST ALT Alkaline Phosphatase Total Protein Albumin Globulin Albumin/Globulin Ratio Levetiracetam 22.3 06/29/17 06/29/17 06/29/17 05:33 06:29 06:29 WBC 4.4 L RBC 4.05 L Hgb 7.8 L Hct 24.7 L MCV 61.1 L MCH 19.3 L MCHC 31.6 L RDW 15.7 H Plt Count 126 L MPV 8.5 Neut % (Auto) 71.1 Lymph % (Auto) 13.2 L Riley % (Auto) 13.8 H Eos % (Auto) 1.4 Baso % (Auto) 0.5 Neut # 3.1 Lymph # 0.6 L Riley # 0.6 Eos # 0.1 Baso # 0.0 Puncture Site pCO2 pO2 HCO3 ABG pH ABG Total CO2 ABG O2 Saturation ABG Base Excess ABG Hemoglobin ABG Carboxyhemoglobin POC ABG HHb (Measured) ABG Methemoglobin Shankar Test A-a O2 Difference Respiratory Index Hgb O2 Saturation Vent Mode Mechanical Rate FiO2 Tidal Volume PEEP Sodium 139 Potassium 4.6 Chloride 102 Carbon Dioxide 30 Anion Gap 11 BUN 35 H Creatinine 0.8 Est GFR ( Amer) > 60 Est GFR (Non-Af Amer) > 60 POC Glucose (mg/dL) 125 H Random Glucose 113 H Calcium 8.0 L Phosphorus 3.7 Magnesium 2.0 Total Bilirubin 0.6 AST 69 H ALT 45 Alkaline Phosphatase 119 Total Protein 7.0 Albumin 3.3 L Globulin 3.7 Albumin/Globulin Ratio 0.9 L Levetiracetam 06/29/17 06/29/17 11:54 17:33 WBC RBC Hgb Hct MCV MCH MCHC RDW Plt Count MPV Neut % (Auto) Lymph % (Auto) Riley % (Auto) Eos % (Auto) Baso % (Auto) Neut # Lymph # Riley # Eos # Baso # Puncture Site pCO2 pO2 HCO3 ABG pH ABG Total CO2 ABG O2 Saturation ABG Base Excess ABG Hemoglobin ABG Carboxyhemoglobin POC ABG HHb (Measured) ABG Methemoglobin Shankar Test A-a O2 Difference Respiratory Index Hgb O2 Saturation Vent Mode Mechanical Rate FiO2 Tidal Volume PEEP Sodium Potassium Chloride Carbon Dioxide Anion Gap BUN Creatinine Est GFR ( Amer) Est GFR (Non-Af Amer) POC Glucose (mg/dL) 151 H 132 H Random Glucose Calcium Phosphorus Magnesium Total Bilirubin AST ALT Alkaline Phosphatase Total Protein Albumin Globulin Albumin/Globulin Ratio Levetiracetam Critical Care Progress Note - Nutrition Nutrition: Nutrition Category Date Time Status NPO Diet [DIET] Diets 06/20/17 Dinner Active Attending/Attestation - Attestation I have personally seen and examined this patient.: Yes I have fully participated in the care of the patient.: Yes I have reviewed all pertinent clinical information: Yes Notes (Text): Patient seen and examined in the intensive care unit. Case discussed with family at length 61 year old male with a PMH of Essential hypertension, Pulmonary hypertension, tricuspid valve replacement, mitral valve replacement, hx of a. flutter, atrial septal defect, anemia, a.fib, hyperlipidemia present s/p cardiac arrest Patient continued to have myoclonic jerks On multiple antiepileptics Seen by neurology For repeat EEG Prognosis poor
[2017-06-29] MEDS: (Novolin R) Insulin Human Regular 100 units/ml vial SC SCH ×4 (00:15→18:08)
[2017-06-29 04:49] LABS: ABG MECHANICAL RATE 12; ARTERIAL BLOOD GAS MODE A/C; ARTERIAL BLOOD HGB O2 SAT 96.2 % (95.0-98.0); ATERIAL BLOOD GAS PEEP 5; CARBOXYHEMOGLOBIN 1.1 % (0.5-1.5); DRAW SITE RB; HHB 1.8 % (0.0-5.0); METHEMOGLOBIN 0.9 % (0.0-3.0)
[2017-06-29 06:35] LABS: BASO % 0.5 % (0.0-2.0); EOS # 0.1 K/uL (0.0-0.7); EOS % 1.4 % (0.0-4.0); HEMATOCRIT 24.7 % (35.0-51.0); LYMPH # 0.6 K/uL (1.0-4.3); LYMPH % 13.2 % (20.0-40.0); MEAN CELL VOLUME 61.1 fL (80.0-94.0); MEAN CORPUSCULAR HEMOGLOBIN 19.3 pg (27.0-31.0); MEAN CORPUSCULAR HGB CONC 31.6 g/dL (33.0-37.0); MEAN PLATELET VOLUME 8.5 fL (7.2-11.7); MONO # 0.6 K/uL (0.0-0.8); MONO % 13.8 % (0.0-10.0); NRBC % 0.1 % (0.0-2.0); RED CELL DISTRIBUTION WIDTH 15.7 % (11.5-14.5); WHITE BLOOD COUNT 4.4 K/uL (4.8-10.8)
[2017-06-29 07:05] LABS: ALKALINE PHOSPHATASE 119 U/L (38-126); ALT/SGPT 45 U/L (21-72); AST/SGOT 69 U/L (17-59); BILIRUBIN,TOTAL 0.6 mg/dL (0.2-1.3); BLOOD UREA NITROGEN 35 mg/dL (9-20); CARBON DIOXIDE 30 mmol/L (22-30); CHLORIDE 102 mmol/L (98-107); GFR AFRICAN-AMERICAN > 60; GLUCOSE,RANDOM 113 mg/dL (75-110); PHOSPHOROUS 3.7 mg/dL (2.5-4.5); POTASSIUM 4.6 mmol/L (3.6-5.2); SODIUM 139 mmol/L (132-148)
[2017-06-29 07:08] LABS: ALB/GLOB RATIO 0.9 (1.0-2.1)
--- NOTE | 2017-06-29 08:12 | RAD ---
HISTORY: intubated COMPARISON: Portable chest 06/28/2017. FINDINGS: Endotracheal tube is unchanged in position as well as nasogastric tube. Pacemaker again identified. Prosthetic cardiac valve again evident. LUNGS: Mild bibasilar atelectasis seen greater the left and right sides which is not significantly changed in the interval. PLEURA: No significant pleural effusion identified, no pneumothorax apparent. CARDIOVASCULAR: Cardiac silhouette is stable. No pulmonary derangement identified at this time. OSSEOUS STRUCTURES: No significant abnormalities. VISUALIZED UPPER ABDOMEN: Normal. OTHER FINDINGS: None. IMPRESSION: Stable limited bilateral bibasilar atelectasis and prominent cardiac silhouette. No pulmonary vascular derangement appreciated or pneumothorax.
[2017-06-29] MEDS: Potassium & Sodium Phosphate PO SCH ×2 (08:13→17:55)
--- NOTE | 2017-06-29 09:54 | CP.PCM.PN ---
Subjective - Date & Time of Evaluation Date of Evaluation: 06/29/17 Time of Evaluation: 10:00 - Subjective Subjective: Mr. Reynolds was was seen and examined at the bedside in the ICU. He remains on mechanical ventilation. he remains with myoclonic movements. His pupils remian very sluggish to react. There was no untoward events overnight. Objective - Vital Signs/Intake and Output Vital Signs (last 24 hours): Temp Pulse Resp BP Pulse Ox 98.1 F 74 16 103/55 L 98 06/29/17 04:00 06/29/17 08:00 06/29/17 08:00 06/29/17 08:00 06/29/17 08:00 Intake and Output: 06/29/17 06/29/17 06:59 18:59 Intake Total 640 54 Output Total 455 40 Balance 185 14 - Medications Medications: Current Medications Artificial Tears (Lacri-Lube) 0 gm OU Q4 PRN PRN Reason: Dry eyes Last Admin: 06/28/17 17:05 Dose: 1 gm Bisacodyl (Dulcolax) 10 mg NV HS [facility] Last Admin: 06/28/17 21:28 Dose: 10 mg Clonazepam (Klonopin) 4 mg NG TID [facility] Last Admin: 06/28/17 17:04 Dose: 4 mg Levetiracetam 1,500 mg/ Sodium (Chloride) 115 mls @ 420 mls/hr IVPB Q12H [facility] Last Admin: 06/28/17 21:25 Dose: 420 mls/hr Insulin Human Regular (Novolin R) 0 unit SC Q6H [facility] PRN Reason: Protocol Last Admin: 06/29/17 06:30 Dose: Not Given Lorazepam (Ativan) 4 mg IVP Q4H PRN PRN Reason: Anxiety Last Admin: 06/29/17 08:14 Dose: 4 mg Pantoprazole Sodium (Protonix Inj) 40 mg IVP DAILY [facility] Last Admin: 06/28/17 10:50 Dose: 40 mg Potassium Phos/Sodium Phos (Neutra-Phos) 1 pkt PO BIDCC [facility] Last Admin: 06/29/17 08:13 Dose: 1 pkt Valproate Sodium (Depakene Oral Soln) 500 mg NG TID [facility] Last Admin: 06/28/17 17:03 Dose: 500 mg Vitamin A (Vitamin A & D Oint Ud Foilpak) 1 ea TOP BID [facility] Last Admin: 06/28/17 17:04 Dose: 1 ea - Labs Labs: 06/29/17 06:29 06/29/17 06:29 PT 13.4 SECONDS (9.7-12.2) H 06/20/17 13:36 INR 1.2 06/20/17 13:36 APTT 41 SECONDS (21-34) H 06/20/17 13:36 - Constitutional Appears: No Acute Distress - Head Exam Head Exam: ATRAUMATIC - Neurological Exam Additional comments: He remains with myclonic movements. Assessment and Plan (1) Anoxic brain injury Assessment & Plan: Case discussed with dr. Crenshaw, Recommends pentobarbital, but the facility does not carry it. Will start with Versed drip with 5 mg IVP bolus and 5 mg/hr drip. Status: Acute
[2017-06-29] MEDS ORDERED: Midazolam 50 mg/10 ml 100 MG in Sodium Chloride 0.9% 80 ML IV SCH (10:15)
[2017-06-29] MEDS ORDERED: Midazolam 2 MG/2 ML VIAL IVP ONE (10:30)
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
[2017-06-29] MEDS: Valproic Acid 250 mg/5 ml UD Cup NG SCH ×3 (11:16→18:06)
[2017-06-29] MEDS: levETIRAcetam 1,500 MG in Sodium Chloride 0.9% 100 ML IVPB SCH ×2 (11:17→21:36)
[2017-06-29] MEDS: Vitamins A & D Oint UD Foilpak TOP SCH ×2 (11:21→18:09)
--- NOTE | 2017-06-29 12:50 | CP.CCUPN ---
<Radames Winston - Last Filed: 06/29/17 12:45> CCU Subjective - Physician Review Subjective (Free Text): PGY1 ICU progress note for Dr. Benz Patient seen and examined at bedside this morning. No acute events over night. Patient intubated. ROS unattainable. CCU Objective - Vital Signs / Intake & Output Vital Signs (Last 4 hours): Vital Signs Pulse Resp BP Pulse Ox 06/29/17 12:00 69 14 103/49 L 99 06/29/17 11:56 71 18 97/49 L 100 06/29/17 11:00 75 19 109/59 L 100 06/29/17 10:00 75 17 100/55 L 99 06/29/17 09:00 75 15 103/55 L 99 Intake and Output (Last 8hrs): Intake & Output 06/28/17 06/29/17 06/29/17 22:59 06:59 14:59 Intake Total 560 360 464 Output Total 390 305 225 Balance 170 55 239 Weight 173 lb 3.2 oz Intake: Intake, IV Amount 100 0 109 Left Forearm 100 0 9 Right Wrist 100 Oral 130 Tube Feeding 360 360 225 Other 100 Output: Urine 390 305 225 Urethral (Lock) 390 305 225 Other: # Bowel Movements 1 0 - Physical Exam Head: Positive for: Atraumatic, Normocephalic Pupils: Positive for: Non-Reactive, Pinpoint Conjunctiva: Positive for: Normal Mouth: Positive for: Other (intubated) Nose (Internal): Positive for: No Active Bleeding, Other (dried blood) Neck: Positive for: Trachea Midline Respiratory/Chest: Positive for: Clear to Auscultation, Good Air Exchange. Negative for: Respiratory Distress, Accessory Muscle Use, Wheezes, Rales Cardiovascular: Positive for: Other (paced rhythm at 60bpm) Abdomen: Positive for: Normal Bowel Sounds, Other (active cooling wrap on). Negative for: Tenderness, Distention, Peritoneal Signs, Guarding Upper Extremity: Negative for: Edema Lower Extremity: Positive for: Other (SCDs in place) Neurological: Positive for: Other (non-responsive to pain. no gag reflex on suction). Negative for: GCS=15 Skin: Positive for: Dry Psychiatric: Positive for: Other (intubated). Negative for: Alert, Oriented x 3 - Medications Active Medications: Active Medications Generic Name Dose Route Start Last Admin Trade Name Freq PRN Reason Stop Dose Admin Artificial Tears 0 gm 06/21/17 10:01 06/28/17 17:05 Lacri-Lube OU 1 gm Q4 PRN Administration Dry eyes Bisacodyl 10 mg 06/24/17 22:00 06/28/17 21:[address] 10 mg HS EMERY Administration Clonazepam 4 mg 06/27/17 14:00 06/29/17 11:17 Klonopin NG 4 mg TID EMERY Administration Levetiracetam 1,500 mg/ Sodium 115 mls @ 420 mls/hr 06/28/17 10:00 06/29/17 11:17 Chloride IVPB 420 mls/hr Q12H EMERY Administration Midazolam HCl 100 mg/ Sodium 100 mls @ 1.56 mls/hr 06/29/17 10:15 06/29/17 11 :18 Chloride IV 0.02 mg/kg/hr .Q24H EMERY 1.56 mls/hr Protocol Administration 0.02 MG/KG/HR Insulin Human Regular 0 unit 06/28/17 00:00 06/29/17 12:37 Novolin R SC 2 unit Q6H EMERY Administration Protocol Lorazepam 4 mg 06/24/17 10:40 06/29/17 08:14 Ativan IVP 4 mg Q4H PRN Administration Anxiety Pantoprazole Sodium 40 mg 06/21/17 10:00 06/29/17 11:16 Protonix Inj IVP 40 mg DAILY EMERY Administration Potassium Phos/Sodium Phos 1 pkt 06/21/17 10:00 06/29/17 08:13 Neutra-Phos PO 1 pkt BIDCC EMERY Administration Valproate Sodium 500 mg 06/24/17 18:00 06/29/17 11:16 Depakene Oral Soln NG 500 mg TID EMERY Administration Vitamin A 1 ea 06/22/17 18:00 06/29/17 11:21 Vitamin A & D Oint Ud Foilpak TOP 1 ea BID EMERY Administration - Patient Studies Lab Studies: Lab Studies 06/29/17 06/29/17 06/29/17 Range/Units 06:29 06:29 05:33 WBC 4.4 L (4.8-10.8) K/uL RBC 4.05 L (4.40-5.90) Mil/uL Hgb 7.8 L (12.0-18.0) g/dL Hct 24.7 L (35.0-51.0) % MCV 61.1 L (80.0-94.0) fL MCH 19.3 L (27.0-31.0) pg MCHC 31.6 L (33.0-37.0) g/dL RDW 15.7 H (11.5-14.5) % Plt Count 126 L (130-400) K/uL MPV 8.5 (7.2-11.7) fL Neut % (Auto) 71.1 (50.0-75.0) % Lymph % (Auto) 13.2 L (20.0-40.0) % Lyon % (Auto) 13.8 H (0.0-10.0) % Eos % (Auto) 1.4 (0.0-4.0) % Baso % (Auto) 0.5 (0.0-2.0) % Neut # 3.1 (1.8-7.0) K/uL Lymph # 0.6 L (1.0-4.3) K/uL Lyon # 0.6 (0.0-0.8) K/uL Eos # 0.1 (0.0-0.7) K/uL Baso # 0.0 (0.0-0.2) K/uL Puncture Site pCO2 (35-45) mm/Hg pO2 (80-100) mm/Hg HCO3 (21-28) mmol/L ABG pH (7.35-7.45) ABG Total CO2 (22-28) mmol/L ABG O2 Saturation (95-98) % ABG Base Excess (-2.0-3.0) mmol/L ABG Hemoglobin (11.7-17.4) g/dL ABG Carboxyhemoglobin (0.5-1.5) % POC ABG HHb (Measured) (0.0-5.0) % ABG Methemoglobin (0.0-3.0) % Shankar Test A-a O2 Difference mm/Hg Respiratory Index Hgb O2 Saturation (95.0-98.0) % Vent Mode Mechanical Rate FiO2 % Tidal Volume PEEP Sodium 139 (132-148) mmol/L Potassium 4.6 (3.6-5.2) mmol/L Chloride 102 (98-107) mmol/L Carbon Dioxide 30 (22-30) mmol/L Anion Gap 11 (10-20) BUN 35 H (9-20) mg/dL Creatinine 0.8 (0.8-1.5) mg/dL Est GFR ( Amer) > 60 Est GFR (Non-Af Amer) > 60 POC Glucose (mg/dL) 125 H (65-110) mg/dL Random Glucose 113 H (75-110) mg/dL Calcium 8.0 L (8.6-10.4) mg/dl Phosphorus 3.7 (2.5-4.5) mg/dL Magnesium 2.0 (1.6-2.3) mg/dL Total Bilirubin 0.6 (0.2-1.3) mg/dL AST 69 H (17-59) U/L ALT 45 (21-72) U/L Alkaline Phosphatase 119 (38-126) U/L Total Protein 7.0 (6.3-8.3) g/dL Albumin 3.3 L (3.5-5.0) g/dL Globulin 3.7 (2.2-3.9) gm/dL Albumin/Globulin Ratio 0.9 L (1.0-2.1) Valproic Acid (50.0-100.0) ug/mL Levetiracetam mcg/mL 06/29/17 06/28/17 06/28/17 Range/Units 04:35 23:48 17:39 WBC (4.8-10.8) K/uL RBC (4.40-5.90) Mil/uL Hgb (12.0-18.0) g/dL Hct (35.0-51.0) % MCV (80.0-94.0) fL MCH (27.0-31.0) pg MCHC (33.0-37.0) g/dL RDW (11.5-14.5) % Plt Count (130-400) K/uL MPV (7.2-11.7) fL Neut % (Auto) (50.0-75.0) % Lymph % (Auto) (20.0-40.0) % Lyon % (Auto) (0.0-10.0) % Eos % (Auto) (0.0-4.0) % Baso % (Auto) (0.0-2.0) % Neut # (1.8-7.0) K/uL Lymph # (1.0-4.3) K/uL Lyon # (0.0-0.8) K/uL Eos # (0.0-0.7) K/uL Baso # (0.0-0.2) K/uL Puncture Site Rb pCO2 43 (35-45) mm/Hg pO2 117 H (80-100) mm/Hg HCO3 32.9 H (21-28) mmol/L ABG pH 7.51 H (7.35-7.45) ABG Total CO2 35.6 H (22-28) mmol/L ABG O2 Saturation 98.2 H (95-98) % ABG Base Excess 10.2 H (-2.0-3.0) mmol/L ABG Hemoglobin 10.1 L (11.7-17.4) g/dL ABG Carboxyhemoglobin 1.1 (0.5-1.5) % POC ABG HHb (Measured) 1.8 (0.0-5.0) % ABG Methemoglobin 0.9 (0.0-3.0) % Shankar Test Na A-a O2 Difference 79.0 mm/Hg Respiratory Index 0.7 Hgb O2 Saturation 96.2 (95.0-98.0) % Vent Mode A/c Mechanical Rate 12 FiO2 35.0 % Tidal Volume 500 PEEP 5 Sodium (132-148) mmol/L Potassium (3.6-5.2) mmol/L Chloride (98-107) mmol/L Carbon Dioxide (22-30) mmol/L Anion Gap (10-20) BUN (9-20) mg/dL Creatinine (0.8-1.5) mg/dL Est GFR ( Amer) Est GFR (Non-Af Amer) POC Glucose (mg/dL) 96 137 H (65-110) mg/dL Random Glucose (75-110) mg/dL Calcium (8.6-10.4) mg/dl Phosphorus (2.5-4.5) mg/dL Magnesium (1.6-2.3) mg/dL Total Bilirubin (0.2-1.3) mg/dL AST (17-59) U/L ALT (21-72) U/L Alkaline Phosphatase (38-126) U/L Total Protein (6.3-8.3) g/dL Albumin (3.5-5.0) g/dL Globulin (2.2-3.9) gm/dL Albumin/Globulin Ratio (1.0-2.1) Valproic Acid (50.0-100.0) ug/mL Levetiracetam mcg/mL 06/28/17 06/26/17 Range/Units 12:24 09:16 WBC (4.8-10.8) K/uL RBC (4.40-5.90) Mil/uL Hgb (12.0-18.0) g/dL Hct (35.0-51.0) % MCV (80.0-94.0) fL MCH (27.0-31.0) pg MCHC (33.0-37.0) g/dL RDW (11.5-14.5) % Plt Count (130-400) K/uL MPV (7.2-11.7) fL Neut % (Auto) (50.0-75.0) % Lymph % (Auto) (20.0-40.0) % Lyon % (Auto) (0.0-10.0) % Eos % (Auto) (0.0-4.0) % Baso % (Auto) (0.0-2.0) % Neut # (1.8-7.0) K/uL Lymph # (1.0-4.3) K/uL Lyon # (0.0-0.8) K/uL Eos # (0.0-0.7) K/uL Baso # (0.0-0.2) K/uL Puncture Site pCO2 (35-45) mm/Hg pO2 (80-100) mm/Hg HCO3 (21-28) mmol/L ABG pH (7.35-7.45) ABG Total CO2 (22-28) mmol/L ABG O2 Saturation (95-98) % ABG Base Excess (-2.0-3.0) mmol/L ABG Hemoglobin (11.7-17.4) g/dL ABG Carboxyhemoglobin (0.5-1.5) % POC ABG HHb (Measured) (0.0-5.0) % ABG Methemoglobin (0.0-3.0) % Shankar Test A-a O2 Difference mm/Hg Respiratory Index Hgb O2 Saturation (95.0-98.0) % Vent Mode Mechanical Rate FiO2 % Tidal Volume PEEP Sodium (132-148) mmol/L Potassium (3.6-5.2) mmol/L Chloride (98-107) mmol/L Carbon Dioxide (22-30) mmol/L Anion Gap (10-20) BUN (9-20) mg/dL Creatinine (0.8-1.5) mg/dL Est GFR ( Amer) Est GFR (Non-Af Amer) POC Glucose (mg/dL) (65-110) mg/dL Random Glucose (75-110) mg/dL Calcium (8.6-10.4) mg/dl Phosphorus (2.5-4.5) mg/dL Magnesium (1.6-2.3) mg/dL Total Bilirubin (0.2-1.3) mg/dL AST (17-59) U/L ALT (21-72) U/L Alkaline Phosphatase (38-126) U/L Total Protein (6.3-8.3) g/dL Albumin (3.5-5.0) g/dL Globulin (2.2-3.9) gm/dL Albumin/Globulin Ratio (1.0-2.1) Valproic Acid 70.2 (50.0-100.0) ug/mL Levetiracetam 22.3 mcg/mL Laboratory Results - last 24 hr 06/26/17 06/28/17 06/28/17 09:16 12:24 17:39 WBC RBC Hgb Hct MCV MCH MCHC RDW Plt Count MPV Neut % (Auto) Lymph % (Auto) Lyon % (Auto) Eos % (Auto) Baso % (Auto) Neut # Lymph # Lyon # Eos # Baso # Puncture Site pCO2 pO2 HCO3 ABG pH ABG Total CO2 ABG O2 Saturation ABG Base Excess ABG Hemoglobin ABG Carboxyhemoglobin POC ABG HHb (Measured) ABG Methemoglobin Shankar Test A-a O2 Difference Respiratory Index Hgb O2 Saturation Vent Mode Mechanical Rate FiO2 Tidal Volume PEEP Sodium Potassium Chloride Carbon Dioxide Anion Gap BUN Creatinine Est GFR ( Amer) Est GFR (Non-Af Amer) POC Glucose (mg/dL) 137 H Random Glucose Calcium Phosphorus Magnesium Total Bilirubin AST ALT Alkaline Phosphatase Total Protein Albumin Globulin Albumin/Globulin Ratio Valproic Acid 70.2 Levetiracetam 22.3 06/28/17 06/29/17 06/29/17 23:48 04:35 05:33 WBC RBC Hgb Hct MCV MCH MCHC RDW Plt Count MPV Neut % (Auto) Lymph % (Auto) Lyon % (Auto) Eos % (Auto) Baso % (Auto) Neut # Lymph # Lyon # Eos # Baso # Puncture Site Rb pCO2 43 pO2 117 H HCO3 32.9 H ABG pH 7.51 H ABG Total CO2 35.6 H ABG O2 Saturation 98.2 H ABG Base Excess 10.2 H ABG Hemoglobin 10.1 L ABG Carboxyhemoglobin 1.1 POC ABG HHb (Measured) 1.8 ABG Methemoglobin 0.9 Shankar Test Na A-a O2 Difference 79.0 Respiratory Index 0.7 Hgb O2 Saturation 96.2 Vent Mode A/c Mechanical Rate 12 FiO2 35.0 Tidal Volume 500 PEEP 5 Sodium Potassium Chloride Carbon Dioxide Anion Gap BUN Creatinine Est GFR ( Amer) Est GFR (Non-Af Amer) POC Glucose (mg/dL) 96 125 H Random Glucose Calcium Phosphorus Magnesium Total Bilirubin AST ALT Alkaline Phosphatase Total Protein Albumin Globulin Albumin/Globulin Ratio Valproic Acid Levetiracetam 06/29/17 06/29/17 06:29 06:29 WBC 4.4 L RBC 4.05 L Hgb 7.8 L Hct 24.7 L MCV 61.1 L MCH 19.3 L MCHC 31.6 L RDW 15.7 H Plt Count 126 L MPV 8.5 Neut % (Auto) 71.1 Lymph % (Auto) 13.2 L Lyon % (Auto) 13.8 H Eos % (Auto) 1.4 Baso % (Auto) 0.5 Neut # 3.1 Lymph # 0.6 L Lyon # 0.6 Eos # 0.1 Baso # 0.0 Puncture Site pCO2 pO2 HCO3 ABG pH ABG Total CO2 ABG O2 Saturation ABG Base Excess ABG Hemoglobin ABG Carboxyhemoglobin POC ABG HHb (Measured) ABG Methemoglobin Shankar Test A-a O2 Difference Respiratory Index Hgb O2 Saturation Vent Mode Mechanical Rate FiO2 Tidal Volume PEEP Sodium 139 Potassium 4.6 Chloride 102 Carbon Dioxide 30 Anion Gap 11 BUN 35 H Creatinine 0.8 Est GFR ( Amer) > 60 Est GFR (Non-Af Amer) > 60 POC Glucose (mg/dL) Random Glucose 113 H Calcium 8.0 L Phosphorus 3.7 Magnesium 2.0 Total Bilirubin 0.6 AST 69 H ALT 45 Alkaline Phosphatase 119 Total Protein 7.0 Albumin 3.3 L Globulin 3.7 Albumin/Globulin Ratio 0.9 L Valproic Acid Levetiracetam Fingerstick Blood Sugar Results: 125 Review of Systems - Review of Systems Systems not reviewed;Unavailable: Intubated Critical Care Progress Note - Nutrition Nutrition: Nutrition Category Date Time Status NPO Diet [DIET] Diets 06/20/17 Dinner Active Assessment/Plan - Assessment and Plan (Free Text) Assessment: 61 year old male with a PMH of Essential hypertension, Pulmonary hypertension, tricuspid valve replacement, mitral valve replacement, hx of a. flutter, atrial septal defect, anemia, a.fib, hyperlipidemia present s/p cardiac arrest. Plan: Neurology: Dr. Ash Frausto consulted, help appreciated Dr. Crenshaw consulted for 2nd opinion, help appreciated Still no gag, corneal or pupillary reflexes. - poor prognosis Head CT w/o 06/20 - no acute findings Depakote 500 mg NG TID Keppra 1500mg IVPB q12h Clonazpepam 4mg NG TID Ativan 4mg q4h PRN Head CT 06/22 - No evidence of acute intracranial hemorrhage intracranial collection mass effect or midline shift. No significant interval change noted since the previous exam. EEG 06/22 - No spike, sharp waves or focal slowing was seen. Consistent with severe bihemispheric cerebral dysfunction. No epileptic form activity seen. Head CT 06/27 - No evidence of acute intracranial hemorrhage or territorial infarct. No significant interval change noted since the previous exam. EEG 06/27 - This EEG is abnormal. Diffuse slowing is seen, suggestive of a diffuse abnormality of the brain. The rhythmic sharp waves are consistent with myoclonus. 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 Prognosis is very poor. 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 - Patient still experiencing myoclonic jerks, will start versed drip after EEG Cardio: Dr. Platt consulted, help appreciated Dr. Elizondo consulted, help appreciated ECHO - no pericardial effusion seen, awaiting official read EKG - paced rhythm Trop (06/20)- initial <0.012, second 0.793, third 6.3 [employer] pacemaker Model S602/Serial [id number] implanted on October 03, 2009 Guidant Lead Model 4137/Serial [id number] [place] Lead Model 1688TC Rep from [employer] came and interrogated pacemaker. Pacemaker is functioning properly. - Pacemaker recorded 3 events of Vtach around 1:30 pm today (06/20/17) - Increased packmaker rate to 75bpm Strict I's & O's f/u cardio recs - further cardiac eval will depend on chances for neurologic recovery s/p CODE Freeze Records obtained from [facility] in [place], [place]. - Essential hypertension, Pulmonary hypertension, tricuspid valve replacement, mitral valve replacement, hx of a. flutter, atrial septal defect, anemia, a.fib, hyperlipidemia. - Surgical hx: mitral valve replacement(2008), tricuspid valve replacement( 2008), ASD repair(2008), duel chamber pacemaker(2008) Respiratory: Intubated CXR - Interval improved aeration in the left lower lobe. Multifocal atelectasis in both lower lobes. Stable position of tubes. ABG - pCO2 43/ pO2 117/ HCO3 32.9/ pH 7.51 - taken while on vent settings A/c, TV 500/FiO2 35/RR 12/ PEEP 5 Discussion with family about goals of treatment needs be had - Trach vs Terminal Extubation - Family is awaiting discussion with Dr. rCenshaw about findings of 3rd EEG before making a decision about care. Heme: Hgb increased to 7.8 from 8.4 (06/28) Platelets increased to 126 from 118 (06/28) GI: On Jevity 1.5 @ goal rate of 45 ml/hr Prophylactic Care: SCDs Lovenox 40mg SC daily protonix 40mg IVP daily Dulcolax 10mg CT HS Case discussed with Dr. Demar Crum Catrachito PGY1 <Alexandru Benz - Last Filed: 06/29/17 17:56> CCU Objective - Vital Signs / Intake & Output Vital Signs (Last 4 hours): Vital Signs Temp Pulse Resp BP Pulse Ox 06/29/17 17:00 71 15 98/54 L 99 06/29/17 16:00 98.4 F 72 35 H 105/52 L 98 06/29/17 15:00 72 15 105/53 L 100 06/29/17 14:00 72 17 99/54 L 100 Intake and Output (Last 8hrs): Intake & Output 06/29/17 06/29/17 06/29/17 06:59 14:59 22:59 Intake Total 360 703.8 179.8 Output Total 305 355 130 Balance 55 348.8 49.8 Weight 173 lb 3.2 oz Intake: Intake, IV Amount 0 113.8 4.8 Left Forearm 0 9 Right Forearm 4.8 4.8 Right Wrist 100 0 Oral 230 40 Tube Feeding 360 360 135 Output: Urine 305 355 130 Urethral (Lock) 305 355 130 Other: # Bowel Movements 0 0 - Medications Active Medications: Active Medications Generic Name Dose Route Start Last Admin Trade Name Freq PRN Reason Stop Dose Admin Artificial Tears 0 gm 06/21/17 10:01 06/28/17 17:05 Lacri-Lube OU 1 gm Q4 PRN Administration Dry eyes Bisacodyl 10 mg 06/24/17 22:00 06/28/17 21:[address] 10 mg HS EMERY Administration Clonazepam 4 mg 06/27/17 14:00 06/29/17 14:06 Klonopin NG 4 mg TID EMERY Administration Levetiracetam 1,500 mg/ Sodium 115 mls @ 420 mls/hr 06/28/17 10:00 06/29/17 11:17 Chloride IVPB 420 mls/hr Q12H EMERY Administration Midazolam HCl 100 mg/ Sodium 100 mls @ 1.56 mls/hr 06/29/17 10:15 06/29/17 11 :18 Chloride IV 0.02 mg/kg/hr .Q24H EMERY 1.56 mls/hr Protocol Administration 0.02 MG/KG/HR Insulin Human Regular 0 unit 06/28/17 00:00 06/29/17 12:37 Novolin R SC 2 unit Q6H EMERY Administration Protocol Lorazepam 4 mg 06/24/17 10:40 06/29/17 14:02 Ativan IVP 4 mg Q4H PRN Administration Anxiety Pantoprazole Sodium 40 mg 06/21/17 10:00 06/29/17 11:16 Protonix Inj IVP 40 mg DAILY EMERY Administration Potassium Phos/Sodium Phos 1 pkt 06/21/17 10:00 06/29/17 08:13 Neutra-Phos PO 1 pkt BIDCC EMERY Administration Valproate Sodium 500 mg 06/24/17 18:00 06/29/17 14:06 Depakene Oral Soln NG 500 mg TID EMERY Administration Vitamin A 1 ea 06/22/17 18:00 06/29/17 11:21 Vitamin A & D Oint Ud Foilpak TOP 1 ea BID EMERY Administration - Patient Studies Lab Studies: Lab Studies 06/29/17 06/29/17 06/29/17 Range/Units 17:33 11:54 06:29 WBC (4.8-10.8) K/uL RBC (4.40-5.90) Mil/uL Hgb (12.0-18.0) g/dL Hct (35.0-51.0) % MCV (80.0-94.0) fL MCH (27.0-31.0) pg MCHC (33.0-37.0) g/dL RDW (11.5-14.5) % Plt Count (130-400) K/uL MPV (7.2-11.7) fL Neut % (Auto) (50.0-75.0) % Lymph % (Auto) (20.0-40.0) % Lyon % (Auto) (0.0-10.0) % Eos % (Auto) (0.0-4.0) % Baso % (Auto) (0.0-2.0) % Neut # (1.8-7.0) K/uL Lymph # (1.0-4.3) K/uL Lyon # (0.0-0.8) K/uL Eos # (0.0-0.7) K/uL Baso # (0.0-0.2) K/uL Puncture Site pCO2 (35-45) mm/Hg pO2 (80-100) mm/Hg HCO3 (21-28) mmol/L ABG pH (7.35-7.45) ABG Total CO2 (22-28) mmol/L ABG O2 Saturation (95-98) % ABG Base Excess (-2.0-3.0) mmol/L ABG Hemoglobin (11.7-17.4) g/dL ABG Carboxyhemoglobin (0.5-1.5) % POC ABG HHb (Measured) (0.0-5.0) % ABG Methemoglobin (0.0-3.0) % Shankar Test A-a O2 Difference mm/Hg Respiratory Index Hgb O2 Saturation (95.0-98.0) % Vent Mode Mechanical Rate FiO2 % Tidal Volume PEEP Sodium 139 (132-148) mmol/L Potassium 4.6 (3.6-5.2) mmol/L Chloride 102 (98-107) mmol/L Carbon Dioxide 30 (22-30) mmol/L Anion Gap 11 (10-20) BUN 35 H (9-20) mg/dL Creatinine 0.8 (0.8-1.5) mg/dL Est GFR ( Amer) > 60 Est GFR (Non-Af Amer) > 60 POC Glucose (mg/dL) 132 H 151 H (65-110) mg/dL Random Glucose 113 H (75-110) mg/dL Calcium 8.0 L (8.6-10.4) mg/dl Phosphorus 3.7 (2.5-4.5) mg/dL Magnesium 2.0 (1.6-2.3) mg/dL Total Bilirubin 0.6 (0.2-1.3) mg/dL AST 69 H (17-59) U/L ALT 45 (21-72) U/L Alkaline Phosphatase 119 (38-126) U/L Total Protein 7.0 (6.3-8.3) g/dL Albumin 3.3 L (3.5-5.0) g/dL Globulin 3.7 (2.2-3.9) gm/dL Albumin/Globulin Ratio 0.9 L (1.0-2.1) Levetiracetam mcg/mL 06/29/17 06/29/17 06/29/17 Range/Units 06:29 05:33 04:35 WBC 4.4 L (4.8-10.8) K/uL RBC 4.05 L (4.40-5.90) Mil/uL Hgb 7.8 L (12.0-18.0) g/dL Hct 24.7 L (35.0-51.0) % MCV 61.1 L (80.0-94.0) fL MCH 19.3 L (27.0-31.0) pg MCHC 31.6 L (33.0-37.0) g/dL RDW 15.7 H (11.5-14.5) % Plt Count 126 L (130-400) K/uL MPV 8.5 (7.2-11.7) fL Neut % (Auto) 71.1 (50.0-75.0) % Lymph % (Auto) 13.2 L (20.0-40.0) % Lyon % (Auto) 13.8 H (0.0-10.0) % Eos % (Auto) 1.4 (0.0-4.0) % Baso % (Auto) 0.5 (0.0-2.0) % Neut # 3.1 (1.8-7.0) K/uL Lymph # 0.6 L (1.0-4.3) K/uL Lyon # 0.6 (0.0-0.8) K/uL Eos # 0.1 (0.0-0.7) K/uL Baso # 0.0 (0.0-0.2) K/uL Puncture Site Rb pCO2 43 (35-45) mm/Hg pO2 117 H (80-100) mm/Hg HCO3 32.9 H (21-28) mmol/L ABG pH 7.51 H (7.35-7.45) ABG Total CO2 35.6 H (22-28) mmol/L ABG O2 Saturation 98.2 H (95-98) % ABG Base Excess 10.2 H (-2.0-3.0) mmol/L ABG Hemoglobin 10.1 L (11.7-17.4) g/dL ABG Carboxyhemoglobin 1.1 (0.5-1.5) % POC ABG HHb (Measured) 1.8 (0.0-5.0) % ABG Methemoglobin 0.9 (0.0-3.0) % Shankar Test Na A-a O2 Difference 79.0 mm/Hg Respiratory Index 0.7 Hgb O2 Saturation 96.2 (95.0-98.0) % Vent Mode A/c Mechanical Rate 12 FiO2 35.0 % Tidal Volume 500 PEEP 5 Sodium (132-148) mmol/L Potassium (3.6-5.2) mmol/L Chloride (98-107) mmol/L Carbon Dioxide (22-30) mmol/L Anion Gap (10-20) BUN (9-20) mg/dL Creatinine (0.8-1.5) mg/dL Est GFR ( Amer) Est GFR (Non-Af Amer) POC Glucose (mg/dL) 125 H (65-110) mg/dL Random Glucose (75-110) mg/dL Calcium (8.6-10.4) mg/dl Phosphorus (2.5-4.5) mg/dL Magnesium (1.6-2.3) mg/dL Total Bilirubin (0.2-1.3) mg/dL AST (17-59) U/L ALT (21-72) U/L Alkaline Phosphatase (38-126) U/L Total Protein (6.3-8.3) g/dL Albumin (3.5-5.0) g/dL Globulin (2.2-3.9) gm/dL Albumin/Globulin Ratio (1.0-2.1) Levetiracetam mcg/mL 06/28/17 06/26/17 Range/Units 23:48 09:16 WBC (4.8-10.8) K/uL RBC (4.40-5.90) Mil/uL Hgb (12.0-18.0) g/dL Hct (35.0-51.0) % MCV (80.0-94.0) fL MCH (27.0-31.0) pg MCHC (33.0-37.0) g/dL RDW (11.5-14.5) % Plt Count (130-400) K/uL MPV (7.2-11.7) fL Neut % (Auto) (50.0-75.0) % Lymph % (Auto) (20.0-40.0) % Lyon % (Auto) (0.0-10.0) % Eos % (Auto) (0.0-4.0) % Baso % (Auto) (0.0-2.0) % Neut # (1.8-7.0) K/uL Lymph # (1.0-4.3) K/uL Lyon # (0.0-0.8) K/uL Eos # (0.0-0.7) K/uL Baso # (0.0-0.2) K/uL Puncture Site pCO2 (35-45) mm/Hg pO2 (80-100) mm/Hg HCO3 (21-28) mmol/L ABG pH (7.35-7.45) ABG Total CO2 (22-28) mmol/L ABG O2 Saturation (95-98) % ABG Base Excess (-2.0-3.0) mmol/L ABG Hemoglobin (11.7-17.4) g/dL ABG Carboxyhemoglobin (0.5-1.5) % POC ABG HHb (Measured) (0.0-5.0) % ABG Methemoglobin (0.0-3.0) % Shankar Test A-a O2 Difference mm/Hg Respiratory Index Hgb O2 Saturation (95.0-98.0) % Vent Mode Mechanical Rate FiO2 % Tidal Volume PEEP Sodium (132-148) mmol/L Potassium (3.6-5.2) mmol/L Chloride (98-107) mmol/L Carbon Dioxide (22-30) mmol/L Anion Gap (10-20) BUN (9-20) mg/dL Creatinine (0.8-1.5) mg/dL Est GFR ( Amer) Est GFR (Non-Af Amer) POC Glucose (mg/dL) 96 (65-110) mg/dL Random Glucose (75-110) mg/dL Calcium (8.6-10.4) mg/dl Phosphorus (2.5-4.5) mg/dL Magnesium (1.6-2.3) mg/dL Total Bilirubin (0.2-1.3) mg/dL AST (17-59) U/L ALT (21-72) U/L Alkaline Phosphatase (38-126) U/L Total Protein (6.3-8.3) g/dL Albumin (3.5-5.0) g/dL Globulin (2.2-3.9) gm/dL Albumin/Globulin Ratio (1.0-2.1) Levetiracetam 22.3 mcg/mL Laboratory Results - last 24 hr 06/26/17 06/28/17 06/29/17 09:16 23:48 04:35 WBC RBC Hgb Hct MCV MCH MCHC RDW Plt Count MPV Neut % (Auto) Lymph % (Auto) Lyon % (Auto) Eos % (Auto) Baso % (Auto) Neut # Lymph # Lyon # Eos # Baso # Puncture Site Rb pCO2 43 pO2 117 H HCO3 32.9 H ABG pH 7.51 H ABG Total CO2 35.6 H ABG O2 Saturation 98.2 H ABG Base Excess 10.2 H ABG Hemoglobin 10.1 L ABG Carboxyhemoglobin 1.1 POC ABG HHb (Measured) 1.8 ABG Methemoglobin 0.9 Shankar Test Na A-a O2 Difference 79.0 Respiratory Index 0.7 Hgb O2 Saturation 96.2 Vent Mode A/c Mechanical Rate 12 FiO2 35.0 Tidal Volume 500 PEEP 5 Sodium Potassium Chloride Carbon Dioxide Anion Gap BUN Creatinine Est GFR ( Amer) Est GFR (Non-Af Amer) POC Glucose (mg/dL) 96 Random Glucose Calcium Phosphorus Magnesium Total Bilirubin AST ALT Alkaline Phosphatase Total Protein Albumin Globulin Albumin/Globulin Ratio Levetiracetam 22.3 06/29/17 06/29/17 06/29/17 05:33 06:29 06:29 WBC 4.4 L RBC 4.05 L Hgb 7.8 L Hct 24.7 L MCV 61.1 L MCH 19.3 L MCHC 31.6 L RDW 15.7 H Plt Count 126 L MPV 8.5 Neut % (Auto) 71.1 Lymph % (Auto) 13.2 L Lyon % (Auto) 13.8 H Eos % (Auto) 1.4 Baso % (Auto) 0.5 Neut # 3.1 Lymph # 0.6 L Lyon # 0.6 Eos # 0.1 Baso # 0.0 Puncture Site pCO2 pO2 HCO3 ABG pH ABG Total CO2 ABG O2 Saturation ABG Base Excess ABG Hemoglobin ABG Carboxyhemoglobin POC ABG HHb (Measured) ABG Methemoglobin Shankar Test A-a O2 Difference Respiratory Index Hgb O2 Saturation Vent Mode Mechanical Rate FiO2 Tidal Volume PEEP Sodium 139 Potassium 4.6 Chloride 102 Carbon Dioxide 30 Anion Gap 11 BUN 35 H Creatinine 0.8 Est GFR ( Amer) > 60 Est GFR (Non-Af Amer) > 60 POC Glucose (mg/dL) 125 H Random Glucose 113 H Calcium 8.0 L Phosphorus 3.7 Magnesium 2.0 Total Bilirubin 0.6 AST 69 H ALT 45 Alkaline Phosphatase 119 Total Protein 7.0 Albumin 3.3 L Globulin 3.7 Albumin/Globulin Ratio 0.9 L Levetiracetam 06/29/17 06/29/17 11:54 17:33 WBC RBC Hgb Hct MCV MCH MCHC RDW Plt Count MPV Neut % (Auto) Lymph % (Auto) Lyon % (Auto) Eos % (Auto) Baso % (Auto) Neut # Lymph # Lyon # Eos # Baso # Puncture Site pCO2 pO2 HCO3 ABG pH ABG Total CO2 ABG O2 Saturation ABG Base Excess ABG Hemoglobin ABG Carboxyhemoglobin POC ABG HHb (Measured) ABG Methemoglobin Shankar Test A-a O2 Difference Respiratory Index Hgb O2 Saturation Vent Mode Mechanical Rate FiO2 Tidal Volume PEEP Sodium Potassium Chloride Carbon Dioxide Anion Gap BUN Creatinine Est GFR ( Amer) Est GFR (Non-Af Amer) POC Glucose (mg/dL) 151 H 132 H Random Glucose Calcium Phosphorus Magnesium Total Bilirubin AST ALT Alkaline Phosphatase Total Protein Albumin Globulin Albumin/Globulin Ratio Levetiracetam Critical Care Progress Note - Nutrition Nutrition: Nutrition Category Date Time Status NPO Diet [DIET] Diets 06/20/17 Dinner Active Attending/Attestation - Attestation I have personally seen and examined this patient.: Yes I have fully participated in the care of the patient.: Yes I have reviewed all pertinent clinical information: Yes Notes (Text): 06/29/17 17:56 Patient seen and examined Follow-up repeat EEG Continue present medication No change in mental status Continue to have myoclonic jerks
--- NOTE | 2017-06-29 19:01 | PCM.EEG ---
Electroencephalogram Report - Electroencephalogram Report Procedure Date: 06/29/17 Interpretation: Indication: Anoxic brain injury. Medications were reviewed. Technical: This is a digitally recorded electroencephalogram. The international 10-20 electrode placement system is used for scalp electrode placement. Eighteen channels of scalp EEG are recorded Another channel was used for for ECG. The data are stored digitally and reviewed in reformatted montages for optimal display. Diffuse Abnormality: No well formed alpha activity was seen. Mixed diffuse theta and delta activity was seen. Frontal intermittent rhythm delta slowing was seen. Triphasic wave was seen. Markedly suppressed EEG activity was observed. Focal abnormality: Intermittent focal slowing was seen. Periodic lateralized discharge was seen. This activity is seen over bilateral hemisphere. Impression: This EEG is abnormal. Diffuse slowing is seen, suggestive of a diffuse abnormality of the brain. Epileptiform discharge was seen. This can represent a potential seizure focus. Some focal slowing was seen, suggestive of a focal abnormality. In the setting of anoxic brain injury, this is a very poor prognosis.
[2017-06-29] MEDS ORDERED: PHENobarbital 130 mg/ml Inj Syringe IV ONE (19:24)
[2017-06-29] MEDS ORDERED: SODIUM CHLORIDE 0.9% IV ONE (19:45)
[2017-06-29] MEDS ORDERED: PHENOBARBITAL IV ONE (19:45)
[2017-06-30 05:35] LABS: ABG ALLEN TEST POS; ABG MECHANICAL RATE 12; ARTERIAL BLOOD GAS MODE VOL CONTROL; ARTERIAL BLOOD HGB O2 SAT 95.2 % (95.0-98.0); ATERIAL BLOOD GAS PEEP 5; CARBOXYHEMOGLOBIN 1.4 % (0.5-1.5); DRAW SITE RR; HHB 2.8 % (0.0-5.0); METHEMOGLOBIN 0.6 % (0.0-3.0)
[2017-06-30] MEDS: (Novolin R) Insulin Human Regular 100 units/ml vial SC SCH ×4 (05:53→18:04)
[2017-06-30 06:34] LABS: BASO % 0.5 % (0.0-2.0); EOS # 0.1 K/uL (0.0-0.7); EOS % 1.7 % (0.0-4.0); HEMATOCRIT 25.1 % (35.0-51.0); LYMPH # 0.8 K/uL (1.0-4.3); LYMPH % 16.7 % (20.0-40.0); MEAN CELL VOLUME 61.9 fL (80.0-94.0); MEAN CORPUSCULAR HEMOGLOBIN 19.4 pg (27.0-31.0); MEAN CORPUSCULAR HGB CONC 31.4 g/dL (33.0-37.0); MEAN PLATELET VOLUME 8.6 fL (7.2-11.7); MONO # 0.7 K/uL (0.0-0.8); MONO % 15.1 % (0.0-10.0); NRBC % 0.1 % (0.0-2.0); WHITE BLOOD COUNT 4.7 K/uL (4.8-10.8)
[2017-06-30 06:55] LABS: ALKALINE PHOSPHATASE 115 U/L (38-126); ALT/SGPT 52 U/L (21-72); AST/SGOT 66 U/L (17-59); BILIRUBIN,TOTAL 0.6 mg/dL (0.2-1.3); BLOOD UREA NITROGEN 34 mg/dL (9-20); CALCIUM 7.9 mg/dl (8.6-10.4); CARBON DIOXIDE 30 mmol/L (22-30); CHLORIDE 104 mmol/L (98-107); GFR AFRICAN-AMERICAN > 60; GLUCOSE,RANDOM 93 mg/dL (75-110); MAGNESIUM 2.1 mg/dL (1.6-2.3); PHOSPHOROUS 3.8 mg/dL (2.5-4.5); POTASSIUM 4.9 mmol/L (3.6-5.2); SODIUM 144 mmol/L (132-148); TOTAL PROTEIN 6.6 g/dL (6.3-8.3)
--- NOTE | 2017-06-30 08:43 | RAD ---
HISTORY: intubated COMPARISON: 06/29/2017 FINDINGS: LUNGS: No active pulmonary disease. PLEURA: No significant pleural effusion identified, no pneumothorax apparent. CARDIOVASCULAR: Normal heart size. Five valvular prostheses. Permanent pacemaker. Sternotomy wires. ET tube and NG tube unchanged. OSSEOUS STRUCTURES: No significant abnormalities. VISUALIZED UPPER ABDOMEN: Normal. OTHER FINDINGS: None. IMPRESSION: No active disease.
--- NOTE | 2017-06-30 08:59 | CP.PCM.PN ---
Subjective - Date & Time of Evaluation Date of Evaluation: 06/30/17 Time of Evaluation: 08:54 - Subjective Subjective: Ms. Reynolds was seen and examined at the bedside in the ICU. He remains on mechanical ventilation. GCS-4T.His eyes remains fixed due to the benzodiazepines. He remains with the myclonic movements especially on the left side and abdominal area. There was no untoward events overnight. Objective - Vital Signs/Intake and Output Vital Signs (last 24 hours): Temp Pulse Resp BP Pulse Ox 98 F 67 18 110/52 L 100 06/30/17 04:00 06/30/17 07:00 06/30/17 07:00 06/30/17 07:00 06/30/17 07:00 Intake and Output: 06/30/17 06/30/17 06:59 18:59 Intake Total 559.2 46.6 Output Total 605 40 Balance -45.8 6.6 - Medications Medications: Current Medications Artificial Tears (Lacri-Lube) 0 gm OU Q4 PRN PRN Reason: Dry eyes Last Admin: 06/28/17 17:05 Dose: 1 gm Bisacodyl (Dulcolax) 10 mg MN HS EMERY Last Admin: 06/29/17 21:35 Dose: 10 mg Clonazepam (Klonopin) 4 mg NG TID EMERY Last Admin: 06/29/17 18:07 Dose: 4 mg Levetiracetam 1,500 mg/ Sodium (Chloride) 115 mls @ 420 mls/hr IVPB Q12H EMERY Last Admin: 06/29/17 21:36 Dose: 420 mls/hr Midazolam HCl 100 mg/ Sodium (Chloride) 100 mls @ 1.59 mls/hr IV .Q24H EMERY; 0.02 MG/KG/HR PRN Reason: Protocol Insulin Human Regular (Novolin R) 0 unit SC Q6H EMERY PRN Reason: Protocol Last Admin: 06/30/17 05:53 Dose: Not Given Lorazepam (Ativan) 4 mg IVP Q4H PRN PRN Reason: Anxiety Last Admin: 06/30/17 05:50 Dose: 4 mg Midazolam HCl (Versed Inj) 10 mg IVP ONCE ONE Stop: 06/30/17 08:50 Pantoprazole Sodium (Protonix Inj) 40 mg IVP DAILY EMERY Last Admin: 06/29/17 11:16 Dose: 40 mg Phenobarbital (Phenobarbital Inj) 100 mg IV Q8H [facility] Last Admin: 06/30/17 03:05 Dose: 100 mg Potassium Phos/Sodium Phos (Neutra-Phos) 1 pkt PO BIDCC [facility] Last Admin: 06/29/17 17:55 Dose: 1 pkt Valproate Sodium (Depakene Oral Soln) 500 mg NG TID [facility] Last Admin: 06/29/17 18:06 Dose: 500 mg Vitamin A (Vitamin A & D Oint [employer]) 1 ea TOP BID [facility] Last Admin: 06/29/17 18:09 Dose: 1 ea - Labs Labs: 06/30/17 06:26 06/30/17 06:26 PT 13.4 SECONDS (9.7-12.2) H 06/20/17 13:36 INR 1.2 06/20/17 13:36 APTT 41 SECONDS (21-34) H 06/20/17 13:36 - Constitutional Appears: No Acute Distress - Head Exam Head Exam: ATRAUMATIC - Neurological Exam Additional comments: GCS- 4T. Assessment and Plan (1) Anoxic brain injury Assessment & Plan: Case discussed with Dr. Crenshaw, Pending EEG, increase midazolam drip to 10 mg/hr and midazolam 10 mg IV bolus. Status: Acute
[2017-06-30] MEDS ORDERED: Midazolam 2 MG/2 ML VIAL IVP ONE ×2 (09:00→16:00)
[2017-06-30] MEDS ORDERED: Midazolam 50 mg/10 ml 100 MG in Sodium Chloride 0.9% 80 ML IV SCH ×2 (09:00→12:00)
[2017-06-30] MEDS: Potassium & Sodium Phosphate PO SCH ×2 (09:02→17:02)
[2017-06-30] MEDS ORDERED: Midazolam 2 MG/2 ML VIAL IV ONE (09:33)
[2017-06-30] MEDS: Vitamins A & D Oint UD Foilpak TOP SCH ×2 (10:11→17:03)
[2017-06-30] MEDS: Valproic Acid 250 mg/5 ml UD Cup NG SCH ×3 (10:11→17:02)
[2017-06-30] MEDS: levETIRAcetam 1,500 MG in Sodium Chloride 0.9% 100 ML IVPB SCH ×2 (10:12→21:15)
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
--- NOTE | 2017-06-30 12:04 | PCM.EEG ---
Electroencephalogram Report - Electroencephalogram Report Procedure Date: 06/30/17 Interpretation: Indication: Anoxic brain injury. Medications were reviewed. Technical: This is a digitally recorded electroencephalogram. The international 10-20 electrode placement system is used for scalp electrode placement. Eighteen channels of scalp EEG are recorded Another channel was used for for ECG. The data are stored digitally and reviewed in reformatted montages for optimal display. Diffuse Abnormality: No well formed alpha activity was seen. Mixed diffuse theta and delta activity was seen. Markedly suppressed EEG activity was observed. Focal abnormality: Intermittent focal slowing was seen. Cotinuous polymorphic delta slowing was seen. Periodic lateralized discharge was seen. Thiis activity is seen over bilateral hemisphere. Impression: This EEG is abnormal. Diffuse slowing is seen, suggestive of a diffuse abnormality of the brain. Epileptiform discharge was seen. This can represent a potential seizure focus. Some focal slowing was seen, suggestive of a focal abnormality. There was significant EMG artifact and evidence of myoclonus.
--- NOTE | 2017-06-30 12:54 | CP.CCUPN ---
<Radames Winston - Last Filed: 06/30/17 12:34> CCU Subjective - Physician Review Subjective (Free Text): PGY1 ICU progress note for Dr. Mendoza Patient seen and examined at bedside this morning. No acute events over night. Patient intubated. ROS unattainable. CCU Objective - Vital Signs / Intake & Output Intake and Output (Last 8hrs): Intake & Output 06/29/17 06/30/17 06/30/17 22:59 06:59 14:59 Intake Total 412.8 372.8 46.6 Output Total 455 405 40 Balance -42.2 -32.2 6.6 Weight 176 lb Intake: Intake, IV Amount 12.8 12.8 1.6 Right Forearm 12.8 12.8 1.6 Right Wrist 0 Oral 40 Tube Feeding 360 360 45 Output: Urine 455 405 40 Urethral (Lock) 455 405 40 Other: # Bowel Movements 0 0 0 - Physical Exam Head: Positive for: Atraumatic, Normocephalic Pupils: Positive for: Non-Reactive, Pinpoint Conjunctiva: Positive for: Normal Mouth: Positive for: Other (intubated) Nose (Internal): Positive for: No Active Bleeding, Other (dried blood) Neck: Positive for: Trachea Midline Respiratory/Chest: Positive for: Clear to Auscultation, Good Air Exchange. Negative for: Respiratory Distress, Accessory Muscle Use, Wheezes, Rales Cardiovascular: Positive for: Other (paced rhythm at 60bpm) Abdomen: Positive for: Normal Bowel Sounds, Other (active cooling wrap on). Negative for: Tenderness, Distention, Peritoneal Signs, Guarding Upper Extremity: Negative for: Edema Lower Extremity: Positive for: Other (SCDs in place) Neurological: Positive for: Other (non-responsive to pain. no gag reflex on suction). Negative for: GCS=15 Skin: Positive for: Dry Psychiatric: Positive for: Other (intubated). Negative for: Alert, Oriented x 3 - Medications Active Medications: Active Medications Generic Name Dose Route Start Last Admin Trade Name Freq PRN Reason Stop Dose Admin Artificial Tears 0 gm 06/21/17 10:01 06/28/17 17:05 Lacri-Lube OU 1 gm Q4 PRN Administration Dry eyes Bisacodyl 10 mg 06/24/17 22:00 06/29/17 21:35 Dulcolax GA 10 mg HS EMERY Administration Clonazepam 4 mg 06/27/17 14:00 06/30/17 10:11 Klonopin NG 4 mg TID EMERY Administration Heparin Sodium (Porcine) 5,000 units 06/30/17 14:00 Heparin SC Q8 EMERY Levetiracetam 1,500 mg/ Sodium 115 mls @ 420 mls/hr 06/28/17 10:00 06/30/17 10:12 Chloride IVPB 420 mls/hr Q12H EMERY Administration Midazolam HCl 100 mg/ Sodium 100 mls @ 5 mls/hr 06/30/17 12:00 Chloride IV .Q20H EMERY Protocol 5 MG/HR Insulin Human Regular 0 unit 06/28/17 00:00 06/30/17 05:53 Novolin R SC Not Given Q6H [facility] Protocol Lorazepam 4 mg 06/24/17 10:40 06/30/17 05:50 Ativan IVP 4 mg Q4H PRN Administration Anxiety Pantoprazole Sodium 40 mg 06/21/17 10:00 06/30/17 10:12 Protonix Inj IVP 40 mg DAILY EMERY Administration Phenobarbital 100 mg 06/30/17 03:30 06/30/17 03:05 Phenobarbital Inj IV 100 mg Q8H EMERY Administration Potassium Phos/Sodium Phos 1 pkt 06/21/17 10:00 06/30/17 09:02 Neutra-Phos PO 1 pkt BIDCC EMERY Administration Valproate Sodium 500 mg 06/24/17 18:00 06/30/17 10:11 Depakene Oral Soln NG 500 mg TID EMERY Administration Vitamin A 1 ea 06/22/17 18:00 06/30/17 10:11 Vitamin A & D Oint Ud Foilpak TOP 1 ea BID EMERY Administration - Patient Studies Lab Studies: Lab Studies 06/30/17 06/30/17 06/30/17 Range/Units 11:12 06:26 06:26 WBC 4.7 L (4.8-10.8) K/uL RBC 4.06 L (4.40-5.90) Mil/uL Hgb 7.9 L (12.0-18.0) g/dL Hct 25.1 L (35.0-51.0) % MCV 61.9 L (80.0-94.0) fL MCH 19.4 L (27.0-31.0) pg MCHC 31.4 L (33.0-37.0) g/dL RDW 16.0 H (11.5-14.5) % Plt Count 138 (130-400) K/uL MPV 8.6 (7.2-11.7) fL Neut % (Auto) 66.0 (50.0-75.0) % Lymph % (Auto) 16.7 L (20.0-40.0) % Sunflower % (Auto) 15.1 H (0.0-10.0) % Eos % (Auto) 1.7 (0.0-4.0) % Baso % (Auto) 0.5 (0.0-2.0) % Neut # 3.1 (1.8-7.0) K/uL Lymph # 0.8 L (1.0-4.3) K/uL Sunflower # 0.7 (0.0-0.8) K/uL Eos # 0.1 (0.0-0.7) K/uL Baso # 0.0 (0.0-0.2) K/uL Puncture Site pCO2 (35-45) mm/Hg pO2 (80-100) mm/Hg HCO3 (21-28) mmol/L ABG pH (7.35-7.45) ABG Total CO2 (22-28) mmol/L ABG O2 Saturation (95-98) % ABG Base Excess (-2.0-3.0) mmol/L ABG Hemoglobin (11.7-17.4) g/dL ABG Carboxyhemoglobin (0.5-1.5) % POC ABG HHb (Measured) (0.0-5.0) % ABG Methemoglobin (0.0-3.0) % Shankar Test A-a O2 Difference mm/Hg Respiratory Index Hgb O2 Saturation (95.0-98.0) % Vent Mode Mechanical Rate FiO2 % Tidal Volume PEEP Sodium 144 (132-148) mmol/L Potassium 4.9 (3.6-5.2) mmol/L Chloride 104 (98-107) mmol/L Carbon Dioxide 30 (22-30) mmol/L Anion Gap 15 (10-20) BUN 34 H (9-20) mg/dL Creatinine 0.7 L (0.8-1.5) mg/dL Est GFR ( Amer) > 60 Est GFR (Non-Af Amer) > 60 POC Glucose (mg/dL) 145 H (65-110) mg/dL Random Glucose 93 (75-110) mg/dL Calcium 7.9 L (8.6-10.4) mg/dl Phosphorus 3.8 (2.5-4.5) mg/dL Magnesium 2.1 (1.6-2.3) mg/dL Total Bilirubin 0.6 (0.2-1.3) mg/dL AST 66 H (17-59) U/L ALT 52 (21-72) U/L Alkaline Phosphatase 115 (38-126) U/L Total Protein 6.6 (6.3-8.3) g/dL Albumin 3.2 L (3.5-5.0) g/dL Globulin 3.4 (2.2-3.9) gm/dL Albumin/Globulin Ratio 1.0 (1.0-2.1) 06/30/17 06/30/17 06/29/17 Range/Units 05:34 05:27 23:32 WBC (4.8-10.8) K/uL RBC (4.40-5.90) Mil/uL Hgb (12.0-18.0) g/dL Hct (35.0-51.0) % MCV (80.0-94.0) fL MCH (27.0-31.0) pg MCHC (33.0-37.0) g/dL RDW (11.5-14.5) % Plt Count (130-400) K/uL MPV (7.2-11.7) fL Neut % (Auto) (50.0-75.0) % Lymph % (Auto) (20.0-40.0) % Sunflower % (Auto) (0.0-10.0) % Eos % (Auto) (0.0-4.0) % Baso % (Auto) (0.0-2.0) % Neut # (1.8-7.0) K/uL Lymph # (1.0-4.3) K/uL Sunflower # (0.0-0.8) K/uL Eos # (0.0-0.7) K/uL Baso # (0.0-0.2) K/uL Puncture Site Rr pCO2 46 H (35-45) mm/Hg pO2 73 L (80-100) mm/Hg HCO3 34.0 H (21-28) mmol/L ABG pH 7.50 H (7.35-7.45) ABG Total CO2 37.3 H (22-28) mmol/L ABG O2 Saturation 97.1 (95-98) % ABG Base Excess 11.6 H (-2.0-3.0) mmol/L ABG Hemoglobin 7.7 L (11.7-17.4) g/dL ABG Carboxyhemoglobin 1.4 (0.5-1.5) % POC ABG HHb (Measured) 2.8 (0.0-5.0) % ABG Methemoglobin 0.6 (0.0-3.0) % Shankar Test Pos A-a O2 Difference 119.0 mm/Hg Respiratory Index 1.6 Hgb O2 Saturation 95.2 (95.0-98.0) % Vent Mode Vol control Mechanical Rate 12 FiO2 35.0 % Tidal Volume 500 PEEP 5 Sodium (132-148) mmol/L Potassium (3.6-5.2) mmol/L Chloride (98-107) mmol/L Carbon Dioxide (22-30) mmol/L Anion Gap (10-20) BUN (9-20) mg/dL Creatinine (0.8-1.5) mg/dL Est GFR ( Amer) Est GFR (Non-Af Amer) POC Glucose (mg/dL) 136 H 134 H (65-110) mg/dL Random Glucose (75-110) mg/dL Calcium (8.6-10.4) mg/dl Phosphorus (2.5-4.5) mg/dL Magnesium (1.6-2.3) mg/dL Total Bilirubin (0.2-1.3) mg/dL AST (17-59) U/L ALT (21-72) U/L Alkaline Phosphatase (38-126) U/L Total Protein (6.3-8.3) g/dL Albumin (3.5-5.0) g/dL Globulin (2.2-3.9) gm/dL Albumin/Globulin Ratio (1.0-2.1) 06/29/17 06/29/17 Range/Units 17:33 11:54 WBC (4.8-10.8) K/uL RBC (4.40-5.90) Mil/uL Hgb (12.0-18.0) g/dL Hct (35.0-51.0) % MCV (80.0-94.0) fL MCH (27.0-31.0) pg MCHC (33.0-37.0) g/dL RDW (11.5-14.5) % Plt Count (130-400) K/uL MPV (7.2-11.7) fL Neut % (Auto) (50.0-75.0) % Lymph % (Auto) (20.0-40.0) % Sunflower % (Auto) (0.0-10.0) % Eos % (Auto) (0.0-4.0) % Baso % (Auto) (0.0-2.0) % Neut # (1.8-7.0) K/uL Lymph # (1.0-4.3) K/uL Sunflower # (0.0-0.8) K/uL Eos # (0.0-0.7) K/uL Baso # (0.0-0.2) K/uL Puncture Site pCO2 (35-45) mm/Hg pO2 (80-100) mm/Hg HCO3 (21-28) mmol/L ABG pH (7.35-7.45) ABG Total CO2 (22-28) mmol/L ABG O2 Saturation (95-98) % ABG Base Excess (-2.0-3.0) mmol/L ABG Hemoglobin (11.7-17.4) g/dL ABG Carboxyhemoglobin (0.5-1.5) % POC ABG HHb (Measured) (0.0-5.0) % ABG Methemoglobin (0.0-3.0) % Shankar Test A-a O2 Difference mm/Hg Respiratory Index Hgb O2 Saturation (95.0-98.0) % Vent Mode Mechanical Rate FiO2 % Tidal Volume PEEP Sodium (132-148) mmol/L Potassium (3.6-5.2) mmol/L Chloride (98-107) mmol/L Carbon Dioxide (22-30) mmol/L Anion Gap (10-20) BUN (9-20) mg/dL Creatinine (0.8-1.5) mg/dL Est GFR ( Amer) Est GFR (Non-Af Amer) POC Glucose (mg/dL) 132 H 151 H (65-110) mg/dL Random Glucose (75-110) mg/dL Calcium (8.6-10.4) mg/dl Phosphorus (2.5-4.5) mg/dL Magnesium (1.6-2.3) mg/dL Total Bilirubin (0.2-1.3) mg/dL AST (17-59) U/L ALT (21-72) U/L Alkaline Phosphatase (38-126) U/L Total Protein (6.3-8.3) g/dL Albumin (3.5-5.0) g/dL Globulin (2.2-3.9) gm/dL Albumin/Globulin Ratio (1.0-2.1) Laboratory Results - last 24 hr 06/29/17 06/29/17 06/29/17 11:54 17:33 23:32 WBC RBC Hgb Hct MCV MCH MCHC RDW Plt Count MPV Neut % (Auto) Lymph % (Auto) Sunflower % (Auto) Eos % (Auto) Baso % (Auto) Neut # Lymph # Sunflower # Eos # Baso # Puncture Site pCO2 pO2 HCO3 ABG pH ABG Total CO2 ABG O2 Saturation ABG Base Excess ABG Hemoglobin ABG Carboxyhemoglobin POC ABG HHb (Measured) ABG Methemoglobin Shankar Test A-a O2 Difference Respiratory Index Hgb O2 Saturation Vent Mode Mechanical Rate FiO2 Tidal Volume PEEP Sodium Potassium Chloride Carbon Dioxide Anion Gap BUN Creatinine Est GFR ( Amer) Est GFR (Non-Af Amer) POC Glucose (mg/dL) 151 H 132 H 134 H Random Glucose Calcium Phosphorus Magnesium Total Bilirubin AST ALT Alkaline Phosphatase Total Protein Albumin Globulin Albumin/Globulin Ratio 06/30/17 06/30/17 06/30/17 05:27 05:34 06:26 WBC 4.7 L RBC 4.06 L Hgb 7.9 L Hct 25.1 L MCV 61.9 L MCH 19.4 L MCHC 31.4 L RDW 16.0 H Plt Count 138 MPV 8.6 Neut % (Auto) 66.0 Lymph % (Auto) 16.7 L Sunflower % (Auto) 15.1 H Eos % (Auto) 1.7 Baso % (Auto) 0.5 Neut # 3.1 Lymph # 0.8 L Sunflower # 0.7 Eos # 0.1 Baso # 0.0 Puncture Site Rr pCO2 46 H pO2 73 L HCO3 34.0 H ABG pH 7.50 H ABG Total CO2 37.3 H ABG O2 Saturation 97.1 ABG Base Excess 11.6 H ABG Hemoglobin 7.7 L ABG Carboxyhemoglobin 1.4 POC ABG HHb (Measured) 2.8 ABG Methemoglobin 0.6 Shankar Test Pos A-a O2 Difference 119.0 Respiratory Index 1.6 Hgb O2 Saturation 95.2 Vent Mode Vol control Mechanical Rate 12 FiO2 35.0 Tidal Volume 500 PEEP 5 Sodium Potassium Chloride Carbon Dioxide Anion Gap BUN Creatinine Est GFR ( Amer) Est GFR (Non-Af Amer) POC Glucose (mg/dL) 136 H Random Glucose Calcium Phosphorus Magnesium Total Bilirubin AST ALT Alkaline Phosphatase Total Protein Albumin Globulin Albumin/Globulin Ratio 06/30/17 06/30/17 06:26 11:12 WBC RBC Hgb Hct MCV MCH MCHC RDW Plt Count MPV Neut % (Auto) Lymph % (Auto) Sunflower % (Auto) Eos % (Auto) Baso % (Auto) Neut # Lymph # Sunflower # Eos # Baso # Puncture Site pCO2 pO2 HCO3 ABG pH ABG Total CO2 ABG O2 Saturation ABG Base Excess ABG Hemoglobin ABG Carboxyhemoglobin POC ABG HHb (Measured) ABG Methemoglobin Shankar Test A-a O2 Difference Respiratory Index Hgb O2 Saturation Vent Mode Mechanical Rate FiO2 Tidal Volume PEEP Sodium 144 Potassium 4.9 Chloride 104 Carbon Dioxide 30 Anion Gap 15 BUN 34 H Creatinine 0.7 L Est GFR ( Amer) > 60 Est GFR (Non-Af Amer) > 60 POC Glucose (mg/dL) 145 H Random Glucose 93 Calcium 7.9 L Phosphorus 3.8 Magnesium 2.1 Total Bilirubin 0.6 AST 66 H ALT 52 Alkaline Phosphatase 115 Total Protein 6.6 Albumin 3.2 L Globulin 3.4 Albumin/Globulin Ratio 1.0 Fingerstick Blood Sugar Results: 136 Review of Systems - Review of Systems Systems not reviewed;Unavailable: Intubated Critical Care Progress Note - Nutrition Nutrition: Nutrition Category Date Time Status NPO Diet [DIET] Diets 06/20/17 Dinner Active Assessment/Plan - Assessment and Plan (Free Text) Assessment: 61 year old male with a PMH of Essential hypertension, Pulmonary hypertension, tricuspid valve replacement, mitral valve replacement, hx of a. flutter, atrial septal defect, anemia, a.fib, hyperlipidemia present s/p cardiac arrest. Plan: Neurology: Dr. Ash Frausto consulted, help appreciated Dr. Crenshaw consulted for 2nd opinion, help appreciated Still no gag, corneal or pupillary reflexes. - poor prognosis Head CT w/o 06/20 - no acute findings Depakote 500 mg NG TID Keppra 1500mg IVPB q12h Clonazpepam 4mg NG TID Phenobarbital 100mg IV q8h Ativan 4mg q4h PRN Head CT 06/22 - No evidence of acute intracranial hemorrhage intracranial collection mass effect or midline shift. No significant interval change noted since the previous exam. EEG 06/22 - No spike, sharp waves or focal slowing was seen. Consistent with severe bihemispheric cerebral dysfunction. No epileptic form activity seen. Head CT 06/27 - No evidence of acute intracranial hemorrhage or territorial infarct. No significant interval change noted since the previous exam. EEG 06/27 - This EEG is abnormal. Diffuse slowing is seen, suggestive of a diffuse abnormality of the brain. The rhythmic sharp waves are consistent with myoclonus. 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 Prognosis is very poor. EEG 06/29 -This EEG is abnormal. Diffuse slowing is seen, suggestive of a diffuse abnormality of the brain. Epileptiform discharge was seen. This can represent a potential seizure focus. Some focal slowing was seen, suggestive of a focal abnormality. In the setting of anoxic brain injury, this is a very poor prognosis. EEG 06/30 - This EEG is abnormal. Diffuse slowing is seen, suggestive of a diffuse abnormality of the brain. Epileptiform discharge was seen. This can represent a potential seizure focus. Some focal slowing was seen, suggestive of a focal abnormality. There was significant EMG artifact and evidence of myoclonus. f/u Neuro recs - Versed drip @5mg/hr - loading dose with 10 mg IVP bolus Cardio: Dr. Platt consulted, help appreciated Dr. Elizondo consulted, help appreciated ECHO - no pericardial effusion seen, awaiting official read EKG - paced rhythm Trop (06/20)- initial <0.012, second 0.793, third 6.3 [employer] pacemaker Model S602/Serial [id number] implanted on October 03, 2009 Guidant Lead Model 4137/Serial [id number] [employer] Lead Model 1688TC Rep from [employer] came and interrogated pacemaker. Pacemaker is functioning properly. - Pacemaker recorded 3 events of Vtach around 1:30 pm today (06/20/17) Strict I's & O's f/u cardio recs - further cardiac eval will depend on chances for neurologic recovery s/p CODE Freeze Records obtained from [facility] in [place], [place]. - Essential hypertension, Pulmonary hypertension, tricuspid valve replacement, mitral valve replacement, hx of a. flutter, atrial septal defect, anemia, a.fib, hyperlipidemia. - Surgical hx: mitral valve replacement(2008), tricuspid valve replacement( 2008), ASD repair(2008), duel chamber pacemaker(2008) Respiratory: Intubated CXR 06/30 - No active disease. ABG - pCO2 46/ pO2 73/ HCO3 34/ pH 7.5 - taken while on vent settings A/c, TV 500/FiO2 35/RR 12/ PEEP 5 --> increase FiO2 to 50% Heme: Hgb increased to 7.9 from 7.8 (06/29) Platelets increased to 138 from 126 (06/28) GI: On Jevity 1.5 @ goal rate of 45 ml/hr Prophylactic Care: SCDs Heparin 5000u SC q8h protonix 40mg IVP daily Dulcolax 10mg GA HS Case discussed with Dr. Kelly Crum Catrachito PGY1 <Andrew Mendoza - Last Filed: 06/30/17 19:18> CCU Objective - Vital Signs / Intake & Output Intake and Output (Last 8hrs): Intake & Output 06/30/17 06/30/17 06/30/17 06:59 14:59 22:59 Intake Total 372.8 78.0 6 Output Total 405 40 Balance -32.2 38.0 6 Weight 176 lb Intake: IV 10 Intake, IV Amount 12.8 23.0 6 Right Forearm 12.8 23.0 6 Tube Feeding 360 45 Output: Urine 405 40 Urethral (Lock) 405 40 Other: # Bowel Movements 0 1 - Medications Active Medications: Active Medications Generic Name Dose Route Start Last Admin Trade Name Freq PRN Reason Stop Dose Admin Artificial Tears 0 gm 06/21/17 10:01 06/28/17 17:05 Lacri-Lube OU 1 gm Q4 PRN Administration Dry eyes Bisacodyl 10 mg 06/24/17 22:00 06/29/17 21:35 Dulcolax GA 10 mg HS EMERY Administration Clonazepam 4 mg 06/27/17 14:00 06/30/17 17:02 Klonopin NG 4 mg TID EMERY Administration Heparin Sodium (Porcine) 5,000 units 06/30/17 14:00 06/30/17 13:27 Heparin SC 5,000 units Q8 EMERY Administration Levetiracetam 1,500 mg/ Sodium 115 mls @ 420 mls/hr 06/28/17 10:00 06/30/17 10:12 Chloride IVPB 420 mls/hr Q12H EMERY Administration Midazolam HCl 100 mg/ Sodium 100 mls @ 8 mls/hr 06/30/17 16:00 06/30/17 16:22 Chloride IV 8 mls/hr .[id number] EMEYR Administration 8 MG/HR Insulin Human Regular 0 unit 06/28/17 00:00 06/30/17 18:04 Novolin R SC Not Given Q6H [facility] Protocol Lorazepam 4 mg 06/24/17 10:40 06/30/17 15:04 Ativan IVP 4 mg Q4H PRN Administration Anxiety Pantoprazole Sodium 40 mg 06/21/17 10:00 06/30/17 10:12 Protonix Inj IVP 40 mg DAILY EMERY Administration Phenobarbital 100 mg 06/30/17 03:30 06/30/17 13:23 Phenobarbital Inj IV 100 mg Q8H EMERY Administration Potassium Phos/Sodium Phos 1 pkt 06/21/17 10:00 06/30/17 17:02 Neutra-Phos PO 1 pkt BIDCC MEERY Administration Valproate Sodium 500 mg 06/24/17 18:00 06/30/17 17:02 Depakene Oral Soln NG 500 mg TID EMERY Administration Vitamin A 1 ea 06/22/17 18:00 06/30/17 17:03 Vitamin A & D Oint Ud Foilpak TOP 1 ea BID EMERY Administration - Patient Studies Lab Studies: Lab Studies 06/30/17 06/30/17 06/30/17 Range/Units 17:57 11:12 06:26 WBC (4.8-10.8) K/uL RBC (4.40-5.90) Mil/uL Hgb (12.0-18.0) g/dL Hct (35.0-51.0) % MCV (80.0-94.0) fL MCH (27.0-31.0) pg MCHC (33.0-37.0) g/dL RDW (11.5-14.5) % Plt Count (130-400) K/uL MPV (7.2-11.7) fL Neut % (Auto) (50.0-75.0) % Lymph % (Auto) (20.0-40.0) % Sunflower % (Auto) (0.0-10.0) % Eos % (Auto) (0.0-4.0) % Baso % (Auto) (0.0-2.0) % Neut # (1.8-7.0) K/uL Lymph # (1.0-4.3) K/uL Sunflower # (0.0-0.8) K/uL Eos # (0.0-0.7) K/uL Baso # (0.0-0.2) K/uL Puncture Site pCO2 (35-45) mm/Hg pO2 (80-100) mm/Hg HCO3 (21-28) mmol/L ABG pH (7.35-7.45) ABG Total CO2 (22-28) mmol/L ABG O2 Saturation (95-98) % ABG Base Excess (-2.0-3.0) mmol/L ABG Hemoglobin (11.7-17.4) g/dL ABG Carboxyhemoglobin (0.5-1.5) % POC ABG HHb (Measured) (0.0-5.0) % ABG Methemoglobin (0.0-3.0) % Shankar Test A-a O2 Difference mm/Hg Respiratory Index Hgb O2 Saturation (95.0-98.0) % Vent Mode Mechanical Rate FiO2 % Tidal Volume PEEP Sodium 144 (132-148) mmol/L Potassium 4.9 (3.6-5.2) mmol/L Chloride 104 (98-107) mmol/L Carbon Dioxide 30 (22-30) mmol/L Anion Gap 15 (10-20) BUN 34 H (9-20) mg/dL Creatinine 0.7 L (0.8-1.5) mg/dL Est GFR ( Amer) > 60 Est GFR (Non-Af Amer) > 60 POC Glucose (mg/dL) 113 H 145 H (65-110) mg/dL Random Glucose 93 (75-110) mg/dL Calcium 7.9 L (8.6-10.4) mg/dl Phosphorus 3.8 (2.5-4.5) mg/dL Magnesium 2.1 (1.6-2.3) mg/dL Total Bilirubin 0.6 (0.2-1.3) mg/dL AST 66 H (17-59) U/L ALT 52 (21-72) U/L Alkaline Phosphatase 115 (38-126) U/L Total Protein 6.6 (6.3-8.3) g/dL Albumin 3.2 L (3.5-5.0) g/dL Globulin 3.4 (2.2-3.9) gm/dL Albumin/Globulin Ratio 1.0 (1.0-2.1) 06/30/17 06/30/17 06/30/17 Range/Units 06:26 05:34 05:27 WBC 4.7 L (4.8-10.8) K/uL RBC 4.06 L (4.40-5.90) Mil/uL Hgb 7.9 L (12.0-18.0) g/dL Hct 25.1 L (35.0-51.0) % MCV 61.9 L (80.0-94.0) fL MCH 19.4 L (27.0-31.0) pg MCHC 31.4 L (33.0-37.0) g/dL RDW 16.0 H (11.5-14.5) % Plt Count 138 (130-400) K/uL MPV 8.6 (7.2-11.7) fL Neut % (Auto) 66.0 (50.0-75.0) % Lymph % (Auto) 16.7 L (20.0-40.0) % Sunflower % (Auto) 15.1 H (0.0-10.0) % Eos % (Auto) 1.7 (0.0-4.0) % Baso % (Auto) 0.5 (0.0-2.0) % Neut # 3.1 (1.8-7.0) K/uL Lymph # 0.8 L (1.0-4.3) K/uL Sunflower # 0.7 (0.0-0.8) K/uL Eos # 0.1 (0.0-0.7) K/uL Baso # 0.0 (0.0-0.2) K/uL Puncture Site Rr pCO2 46 H (35-45) mm/Hg pO2 73 L (80-100) mm/Hg HCO3 34.0 H (21-28) mmol/L ABG pH 7.50 H (7.35-7.45) ABG Total CO2 37.3 H (22-28) mmol/L ABG O2 Saturation 97.1 (95-98) % ABG Base Excess 11.6 H (-2.0-3.0) mmol/L ABG Hemoglobin 7.7 L (11.7-17.4) g/dL ABG Carboxyhemoglobin 1.4 (0.5-1.5) % POC ABG HHb (Measured) 2.8 (0.0-5.0) % ABG Methemoglobin 0.6 (0.0-3.0) % Shankar Test Pos A-a O2 Difference 119.0 mm/Hg Respiratory Index 1.6 Hgb O2 Saturation 95.2 (95.0-98.0) % Vent Mode Vol control Mechanical Rate 12 FiO2 35.0 % Tidal Volume 500 PEEP 5 Sodium (132-148) mmol/L Potassium (3.6-5.2) mmol/L Chloride (98-107) mmol/L Carbon Dioxide (22-30) mmol/L Anion Gap (10-20) BUN (9-20) mg/dL Creatinine (0.8-1.5) mg/dL Est GFR ( Amer) Est GFR (Non-Af Amer) POC Glucose (mg/dL) 136 H (65-110) mg/dL Random Glucose (75-110) mg/dL Calcium (8.6-10.4) mg/dl Phosphorus (2.5-4.5) mg/dL Magnesium (1.6-2.3) mg/dL Total Bilirubin (0.2-1.3) mg/dL AST (17-59) U/L ALT (21-72) U/L Alkaline Phosphatase (38-126) U/L Total Protein (6.3-8.3) g/dL Albumin (3.5-5.0) g/dL Globulin (2.2-3.9) gm/dL Albumin/Globulin Ratio (1.0-2.1) 06/29/17 Range/Units 23:32 WBC (4.8-10.8) K/uL RBC (4.40-5.90) Mil/uL Hgb (12.0-18.0) g/dL Hct (35.0-51.0) % MCV (80.0-94.0) fL MCH (27.0-31.0) pg MCHC (33.0-37.0) g/dL RDW (11.5-14.5) % Plt Count (130-400) K/uL MPV (7.2-11.7) fL Neut % (Auto) (50.0-75.0) % Lymph % (Auto) (20.0-40.0) % Sunflower % (Auto) (0.0-10.0) % Eos % (Auto) (0.0-4.0) % Baso % (Auto) (0.0-2.0) % Neut # (1.8-7.0) K/uL Lymph # (1.0-4.3) K/uL Sunflower # (0.0-0.8) K/uL Eos # (0.0-0.7) K/uL Baso # (0.0-0.2) K/uL Puncture Site pCO2 (35-45) mm/Hg pO2 (80-100) mm/Hg HCO3 (21-28) mmol/L ABG pH (7.35-7.45) ABG Total CO2 (22-28) mmol/L ABG O2 Saturation (95-98) % ABG Base Excess (-2.0-3.0) mmol/L ABG Hemoglobin (11.7-17.4) g/dL ABG Carboxyhemoglobin (0.5-1.5) % POC ABG HHb (Measured) (0.0-5.0) % ABG Methemoglobin (0.0-3.0) % Shankar Test A-a O2 Difference mm/Hg Respiratory Index Hgb O2 Saturation (95.0-98.0) % Vent Mode Mechanical Rate FiO2 % Tidal Volume PEEP Sodium (132-148) mmol/L Potassium (3.6-5.2) mmol/L Chloride (98-107) mmol/L Carbon Dioxide (22-30) mmol/L Anion Gap (10-20) BUN (9-20) mg/dL Creatinine (0.8-1.5) mg/dL Est GFR ( Amer) Est GFR (Non-Af Amer) POC Glucose (mg/dL) 134 H (65-110) mg/dL Random Glucose (75-110) mg/dL Calcium (8.6-10.4) mg/dl Phosphorus (2.5-4.5) mg/dL Magnesium (1.6-2.3) mg/dL Total Bilirubin (0.2-1.3) mg/dL AST (17-59) U/L ALT (21-72) U/L Alkaline Phosphatase (38-126) U/L Total Protein (6.3-8.3) g/dL Albumin (3.5-5.0) g/dL Globulin (2.2-3.9) gm/dL Albumin/Globulin Ratio (1.0-2.1) Laboratory Results - last 24 hr 06/29/17 06/30/17 06/30/17 23:32 05:27 05:34 WBC RBC Hgb Hct MCV MCH MCHC RDW Plt Count MPV Neut % (Auto) Lymph % (Auto) Sunflower % (Auto) Eos % (Auto) Baso % (Auto) Neut # Lymph # Sunflower # Eos # Baso # Puncture Site Rr pCO2 46 H pO2 73 L HCO3 34.0 H ABG pH 7.50 H ABG Total CO2 37.3 H ABG O2 Saturation 97.1 ABG Base Excess 11.6 H ABG Hemoglobin 7.7 L ABG Carboxyhemoglobin 1.4 POC ABG HHb (Measured) 2.8 ABG Methemoglobin 0.6 Shankar Test Pos A-a O2 Difference 119.0 Respiratory Index 1.6 Hgb O2 Saturation 95.2 Vent Mode Vol control Mechanical Rate 12 FiO2 35.0 Tidal Volume 500 PEEP 5 Sodium Potassium Chloride Carbon Dioxide Anion Gap BUN Creatinine Est GFR ( Amer) Est GFR (Non-Af Amer) POC Glucose (mg/dL) 134 H 136 H Random Glucose Calcium Phosphorus Magnesium Total Bilirubin AST ALT Alkaline Phosphatase Total Protein Albumin Globulin Albumin/Globulin Ratio 06/30/17 06/30/17 06/30/17 06:26 06:26 11:12 WBC 4.7 L RBC 4.06 L Hgb 7.9 L Hct 25.1 L MCV 61.9 L MCH 19.4 L MCHC 31.4 L RDW 16.0 H Plt Count 138 MPV 8.6 Neut % (Auto) 66.0 Lymph % (Auto) 16.7 L Sunflower % (Auto) 15.1 H Eos % (Auto) 1.7 Baso % (Auto) 0.5 Neut # 3.1 Lymph # 0.8 L Sunflower # 0.7 Eos # 0.1 Baso # 0.0 Puncture Site pCO2 pO2 HCO3 ABG pH ABG Total CO2 ABG O2 Saturation ABG Base Excess ABG Hemoglobin ABG Carboxyhemoglobin POC ABG HHb (Measured) ABG Methemoglobin Shankar Test A-a O2 Difference Respiratory Index Hgb O2 Saturation Vent Mode Mechanical Rate FiO2 Tidal Volume PEEP Sodium 144 Potassium 4.9 Chloride 104 Carbon Dioxide 30 Anion Gap 15 BUN 34 H Creatinine 0.7 L Est GFR ( Amer) > 60 Est GFR (Non-Af Amer) > 60 POC Glucose (mg/dL) 145 H Random Glucose 93 Calcium 7.9 L Phosphorus 3.8 Magnesium 2.1 Total Bilirubin 0.6 AST 66 H ALT 52 Alkaline Phosphatase 115 Total Protein 6.6 Albumin 3.2 L Globulin 3.4 Albumin/Globulin Ratio 1.0 06/30/17 17:57 WBC RBC Hgb Hct MCV MCH MCHC RDW Plt Count MPV Neut % (Auto) Lymph % (Auto) Sunflower % (Auto) Eos % (Auto) Baso % (Auto) Neut # Lymph # Sunflower # Eos # Baso # Puncture Site pCO2 pO2 HCO3 ABG pH ABG Total CO2 ABG O2 Saturation ABG Base Excess ABG Hemoglobin ABG Carboxyhemoglobin POC ABG HHb (Measured) ABG Methemoglobin Shankar Test A-a O2 Difference Respiratory Index Hgb O2 Saturation Vent Mode Mechanical Rate FiO2 Tidal Volume PEEP Sodium Potassium Chloride Carbon Dioxide Anion Gap BUN Creatinine Est GFR ( Amer) Est GFR (Non-Af Amer) POC Glucose (mg/dL) 113 H Random Glucose Calcium Phosphorus Magnesium Total Bilirubin AST ALT Alkaline Phosphatase Total Protein Albumin Globulin Albumin/Globulin Ratio Critical Care Progress Note - Nutrition Nutrition: Nutrition Category Date Time Status NPO Diet [DIET] Diets 06/20/17 Dinner Active Attending/Attestation - Attestation I have personally seen and examined this patient.: Yes I have fully participated in the care of the patient.: Yes I have reviewed all pertinent clinical information: Yes Notes (Text): 06/30/17 19:12 Today: , June 30, 2017 The Patient was seen and examined at the bedside, Medical records reviewed, and management issues were discussed and formulated with the house staff. I have reviewed all the relevant clinical, laboratory, hemodynamic, radiographic data and medications Events reviewed Pain issues, skin care, head of the bed elevation, glycemic control were addressed. Agree with above resident's assessment and treatment plans of care as transcribed in Dr. Winston note. 61 year old male with a PMH of Essential hypertension, hyperlipidemia , A-Fib/Flutter, Pulmonary hypertension, tricuspid valve replacement, mitral valve replacement, atrial septal defect and anemia Critically ill patient with acute respiratory failure, S/p cardiac arrest Despite beening on multiple AED, and versed drip, Patient continued to have myoclonic jerks EEG reviewed Discussed with neurology Discussed with the family in details diagnosis, treatment plans and alternatives , Code status: Full code Prognosis poor Total critical care time 52 minutes
[2017-06-30] MEDS: Midazolam 50 mg/10 ml 100 MG in Sodium Chloride 0.9% 80 ML IV SCH (16:22)
[2017-07-01] MEDS: Midazolam 50 mg/10 ml 100 MG in Sodium Chloride 0.9% 80 ML IV SCH ×3 (03:00→15:30)
[2017-07-01 05:19] LABS: ABG ALLEN TEST POS; ABG MECHANICAL RATE 12; ARTERIAL BLOOD GAS MODE VOL CONTROL; ARTERIAL BLOOD HGB O2 SAT 97.7 % (95.0-98.0); ATERIAL BLOOD GAS PEEP 5; CARBOXYHEMOGLOBIN 1.2 % (0.5-1.5); DRAW SITE RR; HHB 1.2 % (0.0-5.0)
[2017-07-01] MEDS: (Novolin R) Insulin Human Regular 100 units/ml vial SC SCH ×4 (05:49→18:11)
[2017-07-01 06:28] LABS: BASO % 0.4 % (0.0-2.0); EOS # 0.1 K/uL (0.0-0.7); EOS % 1.6 % (0.0-4.0); HEMATOCRIT 25.4 % (35.0-51.0); LYMPH # 0.9 K/uL (1.0-4.3); LYMPH % 20.1 % (20.0-40.0); MEAN CELL VOLUME 61.5 fL (80.0-94.0); MEAN CORPUSCULAR HEMOGLOBIN 19.2 pg (27.0-31.0); MEAN CORPUSCULAR HGB CONC 31.2 g/dL (33.0-37.0); MEAN PLATELET VOLUME 8.8 fL (7.2-11.7); MONO # 0.6 K/uL (0.0-0.8); MONO % 14.4 % (0.0-10.0); NRBC % 0.3 % (0.0-2.0); RED CELL DISTRIBUTION WIDTH 15.9 % (11.5-14.5); WHITE BLOOD COUNT 4.3 K/uL (4.8-10.8)
[2017-07-01 06:43] LABS: ALKALINE PHOSPHATASE 125 U/L (38-126); ALT/SGPT 42 U/L (21-72); AST/SGOT 58 U/L (17-59); BILIRUBIN,TOTAL 0.5 mg/dL (0.2-1.3); BLOOD UREA NITROGEN 33 mg/dL (9-20); CALCIUM 7.9 mg/dl (8.6-10.4); CARBON DIOXIDE 33 mmol/L (22-30); CHLORIDE 107 mmol/L (98-107); GFR AFRICAN-AMERICAN > 60; GLUCOSE,RANDOM 118 mg/dL (75-110); MAGNESIUM 1.9 mg/dL (1.6-2.3); PHOSPHOROUS 3.5 mg/dL (2.5-4.5); POTASSIUM 4.3 mmol/L (3.6-5.2); SODIUM 145 mmol/L (132-148); TOTAL PROTEIN 6.7 g/dL (6.3-8.3)
[2017-07-01 06:46] LABS: ALB/GLOB RATIO 0.9 (1.0-2.1)
[2017-07-01] MEDS: Potassium & Sodium Phosphate PO SCH ×2 (07:38→18:10)
[2017-07-01] MEDS: levETIRAcetam 1,500 MG in Sodium Chloride 0.9% 100 ML IVPB SCH (09:06)
[2017-07-01] MEDS: Valproic Acid 250 mg/5 ml UD Cup NG SCH ×3 (09:06→18:09)
[2017-07-01] MEDS: Vitamins A & D Oint UD Foilpak TOP SCH ×2 (09:07→18:11)
[2017-07-01] MEDS: White Petrolatum/Mineral Oil Ophth Oint(3.5 gm) OU PRN (09:10)
--- NOTE | 2017-07-01 10:22 | CP.PCM.PN ---
Subjective - Date & Time of Evaluation Date of Evaluation: 07/01/17 Time of Evaluation: 10:19 - Subjective Subjective: Mr. Reynolds was seen and examined at the bedside in ICU. He remains on mechanical ventilation with GCS-4T. He remains with Versed drip at 8 mg/hr.His eyes are miosis and non-reactive. He still has the myoclonic movement especially with tactile stimuli. There was no untoward events overnight. Objective - Vital Signs/Intake and Output Vital Signs (last 24 hours): Temp Pulse Resp BP Pulse Ox 97.8 F 65 18 100/59 L 100 07/01/17 08:00 07/01/17 08:00 07/01/17 08:00 07/01/17 08:00 07/01/17 08:00 Intake and Output: 07/01/17 07/01/17 06:59 18:59 Intake Total 636 106 Output Total 710 120 Balance -74 -14 - Medications Medications: Current Medications Artificial Tears (Lacri-Lube) 0 gm OU Q4 PRN PRN Reason: Dry eyes Last Admin: 07/01/17 09:10 Dose: 3.5 gm Bisacodyl (Dulcolax) 10 mg ID HS EMERY Last Admin: 06/30/17 21:36 Dose: Not Given Clonazepam (Klonopin) 4 mg NG TID EMERY Last Admin: 07/01/17 09:07 Dose: 4 mg Heparin Sodium (Porcine) (Heparin) 5,000 units SC Q8 EMERY Last Admin: 07/01/17 05:46 Dose: 5,000 units Levetiracetam 1,500 mg/ Sodium (Chloride) 115 mls @ 420 mls/hr IVPB Q12H [facility] Last Admin: 07/01/17 09:06 Dose: 420 mls/hr Midazolam HCl 100 mg/ Sodium (Chloride) 100 mls @ 8 mls/hr IV .[id number] EMERY PRN Reason: 8 MG/HR Last Admin: 07/01/17 04:30 Dose: Not Given Insulin Human Regular (Novolin R) 0 unit SC Q6H EMERY PRN Reason: Protocol Last Admin: 07/01/17 05:49 Dose: Not Given Lorazepam (Ativan) 4 mg IVP Q4H PRN PRN Reason: Anxiety Last Admin: 07/01/17 05:48 Dose: 4 mg Pantoprazole Sodium (Protonix Inj) 40 mg IVP DAILY [facility] Last Admin: 07/01/17 09:07 Dose: 40 mg Phenobarbital (Phenobarbital Inj) 100 mg IV Q8H [facility] Last Admin: 07/01/17 03:35 Dose: 100 mg Potassium Phos/Sodium Phos (Neutra-Phos) 1 pkt PO BIDCC [facility] Last Admin: 07/01/17 07:38 Dose: 1 pkt Valproate Sodium (Depakene Oral Soln) 500 mg NG TID [facility] Last Admin: 07/01/17 09:06 Dose: 500 mg Vitamin A (Vitamin A & D Oint Ud Foilpak) 1 ea TOP BID [facility] Last Admin: 07/01/17 09:07 Dose: 1 ea - Labs Labs: 07/01/17 06:18 07/01/17 06:18 PT 13.4 SECONDS (9.7-12.2) H 06/20/17 13:36 INR 1.2 06/20/17 13:36 APTT 41 SECONDS (21-34) H 06/20/17 13:36 - Constitutional Appears: No Acute Distress - Head Exam Head Exam: ATRAUMATIC - Neurological Exam Neuro motor strength exam: Left Upper Extremity: 2/1, Right Upper Extremity: 2/1 , Left Lower Extremity: 2/1, Right Lower Extremity: 2/1 Additional comments: GCS-4T. Assessment and Plan (1) Anoxic brain injury Assessment & Plan: Case discussed with Dr. Crenshaw, continue all current medical management. There is no new recommendation from neurology. Status: Acute
--- NOTE | 2017-07-01 10:56 | RAD ---
HISTORY: intubated COMPARISON: 06/30/2017 at 7:04 a.m. FINDINGS: LUNGS: No active pulmonary disease. PLEURA: No significant pleural effusion identified, no pneumothorax apparent. CARDIOVASCULAR: Normal heart size. Two valvular prostheses are noted. Sternotomy wires. Permanent pacemaker. No congestive change. ET tube and NG tube unchanged. OSSEOUS STRUCTURES: No significant abnormalities. VISUALIZED UPPER ABDOMEN: Normal. OTHER FINDINGS: None. IMPRESSION: Lines and tubes unchanged. No acute infiltrate.
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
--- NOTE | 2017-07-01 16:01 | CP.CCUPN ---
<Radames Winston - Last Filed: 07/01/17 15:44> CCU Subjective - Physician Review Subjective (Free Text): PGY1 ICU progress note for Dr. Kaplan Patient seen and examined at bedside this morning. No acute events over night. Patient intubated. ROS unattainable. CCU Objective - Vital Signs / Intake & Output Vital Signs (Last 4 hours): Vital Signs Temp Pulse Resp BP Pulse Ox 07/01/17 15:26 64 16 100/48 L 07/01/17 14:56 64 18 97/49 L 99 07/01/17 14:26 67 16 106/52 L 100 07/01/17 13:27 65 16 108/48 L 100 07/01/17 12:00 97.9 F 66 17 114/49 L 100 07/01/17 11:59 65 17 114/49 L 100 Intake and Output (Last 8hrs): Intake & Output 07/01/17 07/01/17 07/01/17 06:59 14:59 22:59 Intake Total 424 524 53 Output Total 435 560 80 Balance - -36 -27 Weight 176 lb Intake: Intake, IV Amount 64 164 8 Right Forearm 64 64 8 Right Wrist 100 Tube Feeding 360 360 45 Output: Urine 435 560 80 Urethral (Lock) 435 560 80 - Physical Exam Head: Positive for: Atraumatic, Normocephalic Pupils: Positive for: Non-Reactive, Pinpoint Conjunctiva: Positive for: Normal Mouth: Positive for: Other (intubated) Nose (Internal): Positive for: No Active Bleeding, Other (dried blood) Neck: Positive for: Trachea Midline Respiratory/Chest: Positive for: Clear to Auscultation, Good Air Exchange. Negative for: Respiratory Distress, Accessory Muscle Use, Wheezes, Rales Cardiovascular: Positive for: Other (paced rhythm at 60bpm) Abdomen: Positive for: Normal Bowel Sounds, Other (active cooling wrap on). Negative for: Tenderness, Distention, Peritoneal Signs, Guarding Upper Extremity: Negative for: Edema Lower Extremity: Positive for: Other (SCDs in place) Neurological: Positive for: Other (non-responsive to pain. no gag reflex on suction). Negative for: GCS=15 Skin: Positive for: Dry Psychiatric: Positive for: Other (intubated). Negative for: Alert, Oriented x 3 - Medications Active Medications: Active Medications Generic Name Dose Route Start Last Admin Trade Name Freq PRN Reason Stop Dose Admin Artificial Tears 0 gm 06/21/17 10:01 07/01/17 09:10 Lacri-Lube OU 3.5 gm Q4 PRN Administration Dry eyes Bisacodyl 10 mg 06/24/17 22:00 06/30/17 21:36 Dulcolax HI Not Given HS EMERY Clonazepam 4 mg 06/27/17 14:00 07/01/17 15:26 Klonopin NG 4 mg TID EMERY Administration Heparin Sodium (Porcine) 5,000 units 06/30/17 14:00 07/01/17 15:26 Heparin SC 5,000 units Q8 EMERY Administration Levetiracetam 1,500 mg/ Sodium 115 mls @ 420 mls/hr 06/28/17 10:00 07/01/17 09:06 Chloride IVPB 420 mls/hr Q12H EMERY Administration Midazolam HCl 100 mg/ Sodium 100 mls @ 8 mls/hr 06/30/17 16:00 07/01/17 04:30 Chloride IV Not Given .[id number] EMERY 8 MG/HR Insulin Human Regular 0 unit 06/28/17 00:00 07/01/17 13:05 Novolin R SC Not Given Q6H EMERY Protocol Lorazepam 4 mg 06/24/17 10:40 07/01/17 05:48 Ativan IVP 4 mg Q4H PRN Administration Anxiety Pantoprazole Sodium 40 mg 06/21/17 10:00 07/01/17 09:07 Protonix Inj IVP 40 mg DAILY EMERY Administration Phenobarbital 100 mg 06/30/17 03:30 07/01/17 12:12 Phenobarbital Inj IV 100 mg Q8H EMERY Administration Potassium Phos/Sodium Phos 1 pkt 06/21/17 10:00 07/01/17 07:38 Neutra-Phos PO 1 pkt BIDCC EMERY Administration Valproate Sodium 500 mg 06/24/17 18:00 07/01/17 15:26 Depakene Oral Soln NG 500 mg TID EMERY Administration Vitamin A 1 ea 06/22/17 18:00 07/01/17 09:07 Vitamin A & D Oint Ud Foilpak TOP 1 ea BID EMERY Administration - Patient Studies Lab Studies: Lab Studies 07/01/17 07/01/17 07/01/17 Range/Units 12:45 06:18 06:18 WBC 4.3 L (4.8-10.8) K/uL RBC 4.12 L (4.40-5.90) Mil/uL Hgb 7.9 L (12.0-18.0) g/dL Hct 25.4 L (35.0-51.0) % MCV 61.5 L (80.0-94.0) fL MCH 19.2 L (27.0-31.0) pg MCHC 31.2 L (33.0-37.0) g/dL RDW 15.9 H (11.5-14.5) % Plt Count 141 (130-400) K/uL MPV 8.8 (7.2-11.7) fL Neut % (Auto) 63.5 (50.0-75.0) % Lymph % (Auto) 20.1 (20.0-40.0) % [place] % (Auto) 14.4 H (0.0-10.0) % Eos % (Auto) 1.6 (0.0-4.0) % Baso % (Auto) 0.4 (0.0-2.0) % Neut # 2.7 (1.8-7.0) K/uL Lymph # 0.9 L (1.0-4.3) K/uL [place] # 0.6 (0.0-0.8) K/uL Eos # 0.1 (0.0-0.7) K/uL Baso # 0.0 (0.0-0.2) K/uL Puncture Site pCO2 (35-45) mm/Hg pO2 (80-100) mm/Hg HCO3 (21-28) mmol/L ABG pH (7.35-7.45) ABG Total CO2 (22-28) mmol/L ABG O2 Saturation (95-98) % ABG Base Excess (-2.0-3.0) mmol/L ABG Hemoglobin (11.7-17.4) g/dL ABG Carboxyhemoglobin (0.5-1.5) % POC ABG HHb (Measured) (0.0-5.0) % ABG Methemoglobin (0.0-3.0) % Shankar Test A-a O2 Difference mm/Hg Respiratory Index Hgb O2 Saturation (95.0-98.0) % Vent Mode Mechanical Rate FiO2 % Tidal Volume PEEP Sodium 145 (132-148) mmol/L Potassium 4.3 (3.6-5.2) mmol/L Chloride 107 (98-107) mmol/L Carbon Dioxide 33 H (22-30) mmol/L Anion Gap 9 L (10-20) BUN 33 H (9-20) mg/dL Creatinine 0.8 (0.8-1.5) mg/dL Est GFR ( Amer) > 60 Est GFR (Non-Af Amer) > 60 POC Glucose (mg/dL) 82 (65-110) mg/dL Random Glucose 118 H (75-110) mg/dL Calcium 7.9 L (8.6-10.4) mg/dl Phosphorus 3.5 (2.5-4.5) mg/dL Magnesium 1.9 (1.6-2.3) mg/dL Total Bilirubin 0.5 (0.2-1.3) mg/dL AST 58 (17-59) U/L ALT 42 (21-72) U/L Alkaline Phosphatase 125 (38-126) U/L Total Protein 6.7 (6.3-8.3) g/dL Albumin 3.1 L (3.5-5.0) g/dL Globulin 3.6 (2.2-3.9) gm/dL Albumin/Globulin Ratio 0.9 L (1.0-2.1) 07/01/17 07/01/17 07/01/17 Range/Units 06:10 05:38 05:11 WBC (4.8-10.8) K/uL RBC (4.40-5.90) Mil/uL Hgb (12.0-18.0) g/dL Hct (35.0-51.0) % MCV (80.0-94.0) fL MCH (27.0-31.0) pg MCHC (33.0-37.0) g/dL RDW (11.5-14.5) % Plt Count (130-400) K/uL MPV (7.2-11.7) fL Neut % (Auto) (50.0-75.0) % Lymph % (Auto) (20.0-40.0) % [place] % (Auto) (0.0-10.0) % Eos % (Auto) (0.0-4.0) % Baso % (Auto) (0.0-2.0) % Neut # (1.8-7.0) K/uL Lymph # (1.0-4.3) K/uL [place] # (0.0-0.8) K/uL Eos # (0.0-0.7) K/uL Baso # (0.0-0.2) K/uL Puncture Site Rr pCO2 44 (35-45) mm/Hg pO2 96 (80-100) mm/Hg HCO3 32.8 H (21-28) mmol/L ABG pH 7.50 H (7.35-7.45) ABG Total CO2 35.7 H (22-28) mmol/L ABG O2 Saturation 98.8 H (95-98) % ABG Base Excess 10.1 H (-2.0-3.0) mmol/L ABG Hemoglobin 7.8 L (11.7-17.4) g/dL ABG Carboxyhemoglobin 1.2 (0.5-1.5) % POC ABG HHb (Measured) 1.2 (0.0-5.0) % ABG Methemoglobin 0.0 (0.0-3.0) % Shankar Test Pos A-a O2 Difference 206.0 mm/Hg Respiratory Index 2.1 Hgb O2 Saturation 97.7 (95.0-98.0) % Vent Mode Vol control Mechanical Rate 12 FiO2 50.0 % Tidal Volume 500 PEEP 5 Sodium (132-148) mmol/L Potassium (3.6-5.2) mmol/L Chloride (98-107) mmol/L Carbon Dioxide (22-30) mmol/L Anion Gap (10-20) BUN (9-20) mg/dL Creatinine (0.8-1.5) mg/dL Est GFR ( Amer) Est GFR (Non-Af Amer) POC Glucose (mg/dL) 118 H 119 H (65-110) mg/dL Random Glucose (75-110) mg/dL Calcium (8.6-10.4) mg/dl Phosphorus (2.5-4.5) mg/dL Magnesium (1.6-2.3) mg/dL Total Bilirubin (0.2-1.3) mg/dL AST (17-59) U/L ALT (21-72) U/L Alkaline Phosphatase (38-126) U/L Total Protein (6.3-8.3) g/dL Albumin (3.5-5.0) g/dL Globulin (2.2-3.9) gm/dL Albumin/Globulin Ratio (1.0-2.1) 06/30/17 06/30/17 Range/Units 23:39 17:57 WBC (4.8-10.8) K/uL RBC (4.40-5.90) Mil/uL Hgb (12.0-18.0) g/dL Hct (35.0-51.0) % MCV (80.0-94.0) fL MCH (27.0-31.0) pg MCHC (33.0-37.0) g/dL RDW (11.5-14.5) % Plt Count (130-400) K/uL MPV (7.2-11.7) fL Neut % (Auto) (50.0-75.0) % Lymph % (Auto) (20.0-40.0) % [place] % (Auto) (0.0-10.0) % Eos % (Auto) (0.0-4.0) % Baso % (Auto) (0.0-2.0) % Neut # (1.8-7.0) K/uL Lymph # (1.0-4.3) K/uL [place] # (0.0-0.8) K/uL Eos # (0.0-0.7) K/uL Baso # (0.0-0.2) K/uL Puncture Site pCO2 (35-45) mm/Hg pO2 (80-100) mm/Hg HCO3 (21-28) mmol/L ABG pH (7.35-7.45) ABG Total CO2 (22-28) mmol/L ABG O2 Saturation (95-98) % ABG Base Excess (-2.0-3.0) mmol/L ABG Hemoglobin (11.7-17.4) g/dL ABG Carboxyhemoglobin (0.5-1.5) % POC ABG HHb (Measured) (0.0-5.0) % ABG Methemoglobin (0.0-3.0) % Shankar Test A-a O2 Difference mm/Hg Respiratory Index Hgb O2 Saturation (95.0-98.0) % Vent Mode Mechanical Rate FiO2 % Tidal Volume PEEP Sodium (132-148) mmol/L Potassium (3.6-5.2) mmol/L Chloride (98-107) mmol/L Carbon Dioxide (22-30) mmol/L Anion Gap (10-20) BUN (9-20) mg/dL Creatinine (0.8-1.5) mg/dL Est GFR ( Amer) Est GFR (Non-Af Amer) POC Glucose (mg/dL) 102 113 H (65-110) mg/dL Random Glucose (75-110) mg/dL Calcium (8.6-10.4) mg/dl Phosphorus (2.5-4.5) mg/dL Magnesium (1.6-2.3) mg/dL Total Bilirubin (0.2-1.3) mg/dL AST (17-59) U/L ALT (21-72) U/L Alkaline Phosphatase (38-126) U/L Total Protein (6.3-8.3) g/dL Albumin (3.5-5.0) g/dL Globulin (2.2-3.9) gm/dL Albumin/Globulin Ratio (1.0-2.1) Laboratory Results - last 24 hr 06/30/17 06/30/17 07/01/17 17:57 23:39 05:11 WBC RBC Hgb Hct MCV MCH MCHC RDW Plt Count MPV Neut % (Auto) Lymph % (Auto) [place] % (Auto) Eos % (Auto) Baso % (Auto) Neut # Lymph # [place] # Eos # Baso # Puncture Site Rr pCO2 44 pO2 96 HCO3 32.8 H ABG pH 7.50 H ABG Total CO2 35.7 H ABG O2 Saturation 98.8 H ABG Base Excess 10.1 H ABG Hemoglobin 7.8 L ABG Carboxyhemoglobin 1.2 POC ABG HHb (Measured) 1.2 ABG Methemoglobin 0.0 Shankar Test Pos A-a O2 Difference 206.0 Respiratory Index 2.1 Hgb O2 Saturation 97.7 Vent Mode Vol control Mechanical Rate 12 FiO2 50.0 Tidal Volume 500 PEEP 5 Sodium Potassium Chloride Carbon Dioxide Anion Gap BUN Creatinine Est GFR ( Amer) Est GFR (Non-Af Amer) POC Glucose (mg/dL) 113 H 102 Random Glucose Calcium Phosphorus Magnesium Total Bilirubin AST ALT Alkaline Phosphatase Total Protein Albumin Globulin Albumin/Globulin Ratio 07/01/17 07/01/17 07/01/17 05:38 06:10 06:18 WBC 4.3 L RBC 4.12 L Hgb 7.9 L Hct 25.4 L MCV 61.5 L MCH 19.2 L MCHC 31.2 L RDW 15.9 H Plt Count 141 MPV 8.8 Neut % (Auto) 63.5 Lymph % (Auto) 20.1 [place] % (Auto) 14.4 H Eos % (Auto) 1.6 Baso % (Auto) 0.4 Neut # 2.7 Lymph # 0.9 L [place] # 0.6 Eos # 0.1 Baso # 0.0 Puncture Site pCO2 pO2 HCO3 ABG pH ABG Total CO2 ABG O2 Saturation ABG Base Excess ABG Hemoglobin ABG Carboxyhemoglobin POC ABG HHb (Measured) ABG Methemoglobin Shankar Test A-a O2 Difference Respiratory Index Hgb O2 Saturation Vent Mode Mechanical Rate FiO2 Tidal Volume PEEP Sodium Potassium Chloride Carbon Dioxide Anion Gap BUN Creatinine Est GFR ( Amer) Est GFR (Non-Af Amer) POC Glucose (mg/dL) 119 H 118 H Random Glucose Calcium Phosphorus Magnesium Total Bilirubin AST ALT Alkaline Phosphatase Total Protein Albumin Globulin Albumin/Globulin Ratio 07/01/17 07/01/17 06:18 12:45 WBC RBC Hgb Hct MCV MCH MCHC RDW Plt Count MPV Neut % (Auto) Lymph % (Auto) [place] % (Auto) Eos % (Auto) Baso % (Auto) Neut # Lymph # [place] # Eos # Baso # Puncture Site pCO2 pO2 HCO3 ABG pH ABG Total CO2 ABG O2 Saturation ABG Base Excess ABG Hemoglobin ABG Carboxyhemoglobin POC ABG HHb (Measured) ABG Methemoglobin Shankar Test A-a O2 Difference Respiratory Index Hgb O2 Saturation Vent Mode Mechanical Rate FiO2 Tidal Volume PEEP Sodium 145 Potassium 4.3 Chloride 107 Carbon Dioxide 33 H Anion Gap 9 L BUN 33 H Creatinine 0.8 Est GFR ( Amer) > 60 Est GFR (Non-Af Amer) > 60 POC Glucose (mg/dL) 82 Random Glucose 118 H Calcium 7.9 L Phosphorus 3.5 Magnesium 1.9 Total Bilirubin 0.5 AST 58 ALT 42 Alkaline Phosphatase 125 Total Protein 6.7 Albumin 3.1 L Globulin 3.6 Albumin/Globulin Ratio 0.9 L Fingerstick Blood Sugar Results: 119 Review of Systems - Review of Systems Systems not reviewed;Unavailable: Intubated Critical Care Progress Note - Nutrition Nutrition: Nutrition Category Date Time Status NPO Diet [DIET] Diets 06/20/17 Dinner Active Assessment/Plan - Assessment and Plan (Free Text) Assessment: 61 year old male with a PMH of Essential hypertension, Pulmonary hypertension, tricuspid valve replacement, mitral valve replacement, hx of a. flutter, atrial septal defect, anemia, a.fib, hyperlipidemia present s/p cardiac arrest. Plan: Neurology: Dr. Ash Frausto consulted, help appreciated Dr. Crenshaw consulted for 2nd opinion, help appreciated Still no gag, corneal or pupillary reflexes. - poor prognosis Head CT w/o 06/20 - no acute findings Depakote 500 mg NG TID Keppra 1500mg IVPB q12h Clonazpepam 4mg NG TID Phenobarbital 100mg IV q8h Ativan 4mg q4h PRN Versed drip Head CT 06/22 - No evidence of acute intracranial hemorrhage intracranial collection mass effect or midline shift. No significant interval change noted since the previous exam. EEG 06/22 - No spike, sharp waves or focal slowing was seen. Consistent with severe bihemispheric cerebral dysfunction. No epileptic form activity seen. Head CT 06/27 - No evidence of acute intracranial hemorrhage or territorial infarct. No significant interval change noted since the previous exam. EEG 06/27 - This EEG is abnormal. Diffuse slowing is seen, suggestive of a diffuse abnormality of the brain. The rhythmic sharp waves are consistent with myoclonus. 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 Prognosis is very poor. EEG 06/29 -This EEG is abnormal. Diffuse slowing is seen, suggestive of a diffuse abnormality of the brain. Epileptiform discharge was seen. This can represent a potential seizure focus. Some focal slowing was seen, suggestive of a focal abnormality. In the setting of anoxic brain injury, this is a very poor prognosis. EEG 06/30 - This EEG is abnormal. Diffuse slowing is seen, suggestive of a diffuse abnormality of the brain. Epileptiform discharge was seen. This can represent a potential seizure focus. Some focal slowing was seen, suggestive of a focal abnormality. There was significant EMG artifact and evidence of myoclonus. f/u Neuro recs - Patient has been accepted as a transfer to [facility] - Family will made decision today of whether to transfer patient or to pull life support. Cardio: Dr. Platt consulted, help appreciated Dr. Elizondo consulted, help appreciated ECHO - no pericardial effusion seen, awaiting official read EKG - paced rhythm Trop (06/20)- initial <0.012, second 0.793, third 6.3 [employer] pacemaker Model S602/Serial [id number] implanted on October 03, 2009 Guidant Lead Model 4137/Serial [id number] [employer] [place] Lead Model 1688TC Rep from [employer] came and interrogated pacemaker. Pacemaker is functioning properly. - Pacemaker recorded 3 events of Vtach around 1:30 pm today (06/20/17) Strict I's & O's f/u cardio recs - further cardiac eval will depend on chances for neurologic recovery s/p CODE Freeze Records obtained from [facility] in [place], [place]. - Essential hypertension, Pulmonary hypertension, tricuspid valve replacement, mitral valve replacement, hx of a. flutter, atrial septal defect, anemia, a.fib, hyperlipidemia. - Surgical hx: mitral valve replacement(2008), tricuspid valve replacement( 2008), ASD repair(2008), duel chamber pacemaker(2008) Respiratory: Intubated CXR 07/01 - No active infiltrate. ABG - pCO2 44/ pO2 96/ HCO3 32.8/ pH 7.5 - taken while on vent settings A/c, TV 500/FiO2 50/RR 12/ PEEP 5 Heme: Hgb stable 7.9 Platelets stable 141 GI: On Jevity 1.5 @ goal rate of 45 ml/hr Prophylactic Care: SCDs Heparin 5000u SC q8h protonix 40mg IVP daily Dulcolax 10mg HI HS Case discussed with Dr. Eusebio Hirschn PGY1 <Axel Kaplan - Last Filed: 07/01/17 17:40> CCU Objective - Vital Signs / Intake & Output Vital Signs (Last 4 hours): Vital Signs Pulse Resp BP Pulse Ox 07/01/17 16:27 66 20 99/47 L 98 07/01/17 15:57 63 19 101/51 L 100 07/01/17 15:26 64 16 100/48 L 07/01/17 14:56 64 18 97/49 L 99 07/01/17 14:26 67 16 106/52 L 100 Intake and Output (Last 8hrs): Intake & Output 07/01/17 07/01/17 07/01/17 06:59 14:59 22:59 Intake Total 424 524 159 Output Total 435 560 230 -36 - Weight 176 lb Intake: Intake, IV Amount 64 164 24 Right Forearm 64 64 24 Right Wrist 100 Tube Feeding 360 360 135 Output: Urine 435 560 230 Urethral (Lock) 435 560 230 - Medications Active Medications: Active Medications Generic Name Dose Route Start Last Admin Trade Name Freq PRN Reason Stop Dose Admin Artificial Tears 0 gm 06/21/17 10:01 07/01/17 09:10 Lacri-Lube OU 3.5 gm Q4 PRN Administration Dry eyes Bisacodyl 10 mg 06/24/17 22:00 06/30/17 21:36 Dulcolax HI Not Given HS EMERY Clonazepam 4 mg 06/27/17 14:00 07/01/17 15:26 Klonopin NG 4 mg TID EMERY Administration Heparin Sodium (Porcine) 5,000 units 06/30/17 14:00 07/01/17 15:26 Heparin SC 5,000 units Q8 EMERY Administration Levetiracetam 1,500 mg/ Sodium 115 mls @ 420 mls/hr 06/28/17 10:00 07/01/17 09:06 Chloride IVPB 420 mls/hr Q12H EMERY Administration Midazolam HCl 100 mg/ Sodium 100 mls @ 8 mls/hr 06/30/17 16:00 07/01/17 04:30 Chloride IV Not Given .[id number] EMERY 8 MG/HR Morphine Sulfate 250 mg/ 250 mls @ 7 mls/hr 07/01/17 17:30 Sodium Chloride IV 07/02/17 17:29 .Q24H ONE Protocol Insulin Human Regular 0 unit 06/28/17 00:00 07/01/17 13:05 Novolin R SC Not Given Q6H [facility] Protocol Lorazepam 4 mg 06/24/17 10:40 07/01/17 05:48 Ativan IVP 4 mg Q4H PRN Administration Anxiety Pantoprazole Sodium 40 mg 06/21/17 10:00 07/01/17 09:07 Protonix Inj IVP 40 mg DAILY EMERY Administration Phenobarbital 100 mg 06/30/17 03:30 07/01/17 12:12 Phenobarbital Inj IV 100 mg Q8H EMERY Administration Potassium Phos/Sodium Phos 1 pkt 06/21/17 10:00 07/01/17 07:38 Neutra-Phos PO 1 pkt BIDCC EMERY Administration Valproate Sodium 500 mg 06/24/17 18:00 07/01/17 15:26 Depakene Oral Soln NG 500 mg TID EMERY Administration Vitamin A 1 ea 06/22/17 18:00 07/01/17 09:07 Vitamin A & D Oint Ud Foilpak TOP 1 ea BID EMERY Administration - Patient Studies Lab Studies: Lab Studies 07/01/17 07/01/17 07/01/17 Range/Units 12:45 06:18 06:18 WBC 4.3 L (4.8-10.8) K/uL RBC 4.12 L (4.40-5.90) Mil/uL Hgb 7.9 L (12.0-18.0) g/dL Hct 25.4 L (35.0-51.0) % MCV 61.5 L (80.0-94.0) fL MCH 19.2 L (27.0-31.0) pg MCHC 31.2 L (33.0-37.0) g/dL RDW 15.9 H (11.5-14.5) % Plt Count 141 (130-400) K/uL MPV 8.8 (7.2-11.7) fL Neut % (Auto) 63.5 (50.0-75.0) % Lymph % (Auto) 20.1 (20.0-40.0) % [place] % (Auto) 14.4 H (0.0-10.0) % Eos % (Auto) 1.6 (0.0-4.0) % Baso % (Auto) 0.4 (0.0-2.0) % Neut # 2.7 (1.8-7.0) K/uL Lymph # 0.9 L (1.0-4.3) K/uL [place] # 0.6 (0.0-0.8) K/uL Eos # 0.1 (0.0-0.7) K/uL Baso # 0.0 (0.0-0.2) K/uL Puncture Site pCO2 (35-45) mm/Hg pO2 (80-100) mm/Hg HCO3 (21-28) mmol/L ABG pH (7.35-7.45) ABG Total CO2 (22-28) mmol/L ABG O2 Saturation (95-98) % ABG Base Excess (-2.0-3.0) mmol/L ABG Hemoglobin (11.7-17.4) g/dL ABG Carboxyhemoglobin (0.5-1.5) % POC ABG HHb (Measured) (0.0-5.0) % ABG Methemoglobin (0.0-3.0) % Shankar Test A-a O2 Difference mm/Hg Respiratory Index Hgb O2 Saturation (95.0-98.0) % Vent Mode Mechanical Rate FiO2 % Tidal Volume PEEP Sodium 145 (132-148) mmol/L Potassium 4.3 (3.6-5.2) mmol/L Chloride 107 (98-107) mmol/L Carbon Dioxide 33 H (22-30) mmol/L Anion Gap 9 L (10-20) BUN 33 H (9-20) mg/dL Creatinine 0.8 (0.8-1.5) mg/dL Est GFR ( Amer) > 60 Est GFR (Non-Af Amer) > 60 POC Glucose (mg/dL) 82 (65-110) mg/dL Random Glucose 118 H (75-110) mg/dL Calcium 7.9 L (8.6-10.4) mg/dl Phosphorus 3.5 (2.5-4.5) mg/dL Magnesium 1.9 (1.6-2.3) mg/dL Total Bilirubin 0.5 (0.2-1.3) mg/dL AST 58 (17-59) U/L ALT 42 (21-72) U/L Alkaline Phosphatase 125 (38-126) U/L Total Protein 6.7 (6.3-8.3) g/dL Albumin 3.1 L (3.5-5.0) g/dL Globulin 3.6 (2.2-3.9) gm/dL Albumin/Globulin Ratio 0.9 L (1.0-2.1) 07/01/17 07/01/17 07/01/17 Range/Units 06:10 05:38 05:11 WBC (4.8-10.8) K/uL RBC (4.40-5.90) Mil/uL Hgb (12.0-18.0) g/dL Hct (35.0-51.0) % MCV (80.0-94.0) fL MCH (27.0-31.0) pg MCHC (33.0-37.0) g/dL RDW (11.5-14.5) % Plt Count (130-400) K/uL MPV (7.2-11.7) fL Neut % (Auto) (50.0-75.0) % Lymph % (Auto) (20.0-40.0) % [place] % (Auto) (0.0-10.0) % Eos % (Auto) (0.0-4.0) % Baso % (Auto) (0.0-2.0) % Neut # (1.8-7.0) K/uL Lymph # (1.0-4.3) K/uL [place] # (0.0-0.8) K/uL Eos # (0.0-0.7) K/uL Baso # (0.0-0.2) K/uL Puncture Site Rr pCO2 44 (35-45) mm/Hg pO2 96 (80-100) mm/Hg HCO3 32.8 H (21-28) mmol/L ABG pH 7.50 H (7.35-7.45) ABG Total CO2 35.7 H (22-28) mmol/L ABG O2 Saturation 98.8 H (95-98) % ABG Base Excess 10.1 H (-2.0-3.0) mmol/L ABG Hemoglobin 7.8 L (11.7-17.4) g/dL ABG Carboxyhemoglobin 1.2 (0.5-1.5) % POC ABG HHb (Measured) 1.2 (0.0-5.0) % ABG Methemoglobin 0.0 (0.0-3.0) % Shankar Test Pos A-a O2 Difference 206.0 mm/Hg Respiratory Index 2.1 Hgb O2 Saturation 97.7 (95.0-98.0) % Vent Mode Vol control Mechanical Rate 12 FiO2 50.0 % Tidal Volume 500 PEEP 5 Sodium (132-148) mmol/L Potassium (3.6-5.2) mmol/L Chloride (98-107) mmol/L Carbon Dioxide (22-30) mmol/L Anion Gap (10-20) BUN (9-20) mg/dL Creatinine (0.8-1.5) mg/dL Est GFR ( Amer) Est GFR (Non-Af Amer) POC Glucose (mg/dL) 118 H 119 H (65-110) mg/dL Random Glucose (75-110) mg/dL Calcium (8.6-10.4) mg/dl Phosphorus (2.5-4.5) mg/dL Magnesium (1.6-2.3) mg/dL Total Bilirubin (0.2-1.3) mg/dL AST (17-59) U/L ALT (21-72) U/L Alkaline Phosphatase (38-126) U/L Total Protein (6.3-8.3) g/dL Albumin (3.5-5.0) g/dL Globulin (2.2-3.9) gm/dL Albumin/Globulin Ratio (1.0-2.1) 06/30/17 06/30/17 Range/Units 23:39 17:57 WBC (4.8-10.8) K/uL RBC (4.40-5.90) Mil/uL Hgb (12.0-18.0) g/dL Hct (35.0-51.0) % MCV (80.0-94.0) fL MCH (27.0-31.0) pg MCHC (33.0-37.0) g/dL RDW (11.5-14.5) % Plt Count (130-400) K/uL MPV (7.2-11.7) fL Neut % (Auto) (50.0-75.0) % Lymph % (Auto) (20.0-40.0) % [place] % (Auto) (0.0-10.0) % Eos % (Auto) (0.0-4.0) % Baso % (Auto) (0.0-2.0) % Neut # (1.8-7.0) K/uL Lymph # (1.0-4.3) K/uL [place] # (0.0-0.8) K/uL Eos # (0.0-0.7) K/uL Baso # (0.0-0.2) K/uL Puncture Site pCO2 (35-45) mm/Hg pO2 (80-100) mm/Hg HCO3 (21-28) mmol/L ABG pH (7.35-7.45) ABG Total CO2 (22-28) mmol/L ABG O2 Saturation (95-98) % ABG Base Excess (-2.0-3.0) mmol/L ABG Hemoglobin (11.7-17.4) g/dL ABG Carboxyhemoglobin (0.5-1.5) % POC ABG HHb (Measured) (0.0-5.0) % ABG Methemoglobin (0.0-3.0) % Shankar Test A-a O2 Difference mm/Hg Respiratory Index Hgb O2 Saturation (95.0-98.0) % Vent Mode Mechanical Rate FiO2 % Tidal Volume PEEP Sodium (132-148) mmol/L Potassium (3.6-5.2) mmol/L Chloride (98-107) mmol/L Carbon Dioxide (22-30) mmol/L Anion Gap (10-20) BUN (9-20) mg/dL Creatinine (0.8-1.5) mg/dL Est GFR ( Amer) Est GFR (Non-Af Amer) POC Glucose (mg/dL) 102 113 H (65-110) mg/dL Random Glucose (75-110) mg/dL Calcium (8.6-10.4) mg/dl Phosphorus (2.5-4.5) mg/dL Magnesium (1.6-2.3) mg/dL Total Bilirubin (0.2-1.3) mg/dL AST (17-59) U/L ALT (21-72) U/L Alkaline Phosphatase (38-126) U/L Total Protein (6.3-8.3) g/dL Albumin (3.5-5.0) g/dL Globulin (2.2-3.9) gm/dL Albumin/Globulin Ratio (1.0-2.1) Laboratory Results - last 24 hr 06/30/17 06/30/17 07/01/17 17:57 23:39 05:11 WBC RBC Hgb Hct MCV MCH MCHC RDW Plt Count MPV Neut % (Auto) Lymph % (Auto) [place] % (Auto) Eos % (Auto) Baso % (Auto) Neut # Lymph # [place] # Eos # Baso # Puncture Site Rr pCO2 44 pO2 96 HCO3 32.8 H ABG pH 7.50 H ABG Total CO2 35.7 H ABG O2 Saturation 98.8 H ABG Base Excess 10.1 H ABG Hemoglobin 7.8 L ABG Carboxyhemoglobin 1.2 POC ABG HHb (Measured) 1.2 ABG Methemoglobin 0.0 Shankar Test Pos A-a O2 Difference 206.0 Respiratory Index 2.1 Hgb O2 Saturation 97.7 Vent Mode Vol control Mechanical Rate 12 FiO2 50.0 Tidal Volume 500 PEEP 5 Sodium Potassium Chloride Carbon Dioxide Anion Gap BUN Creatinine Est GFR ( Amer) Est GFR (Non-Af Amer) POC Glucose (mg/dL) 113 H 102 Random Glucose Calcium Phosphorus Magnesium Total Bilirubin AST ALT Alkaline Phosphatase Total Protein Albumin Globulin Albumin/Globulin Ratio 07/01/17 07/01/17 07/01/17 05:38 06:10 06:18 WBC 4.3 L RBC 4.12 L Hgb 7.9 L Hct 25.4 L MCV 61.5 L MCH 19.2 L MCHC 31.2 L RDW 15.9 H Plt Count 141 MPV 8.8 Neut % (Auto) 63.5 Lymph % (Auto) 20.1 [place] % (Auto) 14.4 H Eos % (Auto) 1.6 Baso % (Auto) 0.4 Neut # 2.7 Lymph # 0.9 L [place] # 0.6 Eos # 0.1 Baso # 0.0 Puncture Site pCO2 pO2 HCO3 ABG pH ABG Total CO2 ABG O2 Saturation ABG Base Excess ABG Hemoglobin ABG Carboxyhemoglobin POC ABG HHb (Measured) ABG Methemoglobin Shankar Test A-a O2 Difference Respiratory Index Hgb O2 Saturation Vent Mode Mechanical Rate FiO2 Tidal Volume PEEP Sodium Potassium Chloride Carbon Dioxide Anion Gap BUN Creatinine Est GFR ( Amer) Est GFR (Non-Af Amer) POC Glucose (mg/dL) 119 H 118 H Random Glucose Calcium Phosphorus Magnesium Total Bilirubin AST ALT Alkaline Phosphatase Total Protein Albumin Globulin Albumin/Globulin Ratio 07/01/17 07/01/17 06:18 12:45 WBC RBC Hgb Hct MCV MCH MCHC RDW Plt Count MPV Neut % (Auto) Lymph % (Auto) [place] % (Auto) Eos % (Auto) Baso % (Auto) Neut # Lymph # [place] # Eos # Baso # Puncture Site pCO2 pO2 HCO3 ABG pH ABG Total CO2 ABG O2 Saturation ABG Base Excess ABG Hemoglobin ABG Carboxyhemoglobin POC ABG HHb (Measured) ABG Methemoglobin Hsankar Test A-a O2 Difference Respiratory Index Hgb O2 Saturation Vent Mode Mechanical Rate FiO2 Tidal Volume PEEP Sodium 145 Potassium 4.3 Chloride 107 Carbon Dioxide 33 H Anion Gap 9 L BUN 33 H Creatinine 0.8 Est GFR ( Amer) > 60 Est GFR (Non-Af Amer) > 60 POC Glucose (mg/dL) 82 Random Glucose 118 H Calcium 7.9 L Phosphorus 3.5 Magnesium 1.9 Total Bilirubin 0.5 AST 58 ALT 42 Alkaline Phosphatase 125 Total Protein 6.7 Albumin 3.1 L Globulin 3.6 Albumin/Globulin Ratio 0.9 L Critical Care Progress Note - Nutrition Nutrition: Nutrition Category Date Time Status NPO Diet [DIET] Diets 06/20/17 Dinner Active Attending/Attestation - Attestation I have personally seen and examined this patient.: Yes I have fully participated in the care of the patient.: Yes I have reviewed all pertinent clinical information: Yes Notes (Text): 07/01/17 17:39 Famly has decided to withdraw care. Patient will be extubated and be made comfort care. Critical Care time 35 minutes
--- NOTE | 2017-07-01 21:56 | CP.PCM.PRO ---
Pronouncement of Note - Clinical Findings Physical Exam: No Response Verbal/Painful Stimuli, Absent Peripheral Pulses{ Carotid & Femoral}, Absent Heart & Breath Sounds, No Pupillary Light Reflex, No Corneal Reflex, Pupils Fixed & Dilated, Absence of Vital Signs - Pronouncement Time Time of Pronouncement of : 20:41 - Notifications Pronouncement Notifications: Family Notified, Atending Notified Greens Picker Notified: No - Autopsy Autopsy Requested: No - [place]: [id number] Additional Comments: The patient was a DNR/DNI and was Terminally Extubated
[2017-07-01 22:07] VITALS: BP 121/55; PULSE 60; RESP 0; O2SAT 45
[2017-07-01 22:33] VITALS: TEMP 98.5
== END 2017-07-01 23:00 | DRG 296 ==
LOC: C.ER 13:08 → C.9E 13:31 → C.9I 13:52
PROVIDERS: ADMIT Family Medicine; ATTEND Family Medicine
PROC: 5A1955Z Respiratory Ventilation, Greater than 96 Consecutive Hours (ICD-10-PCS; principal; 2017-06-20)
PROC: 3E033XZ Introduction of Vasopressor into Peripheral Vein, Percutaneous Approach (ICD-10-PCS; 2017-06-20)
PROC: 6A4Z1ZZ Hypothermia, Multiple (ICD-10-PCS; 2017-06-20)
DX: I46.9 Cardiac arrest, cause unspecified (principal); J96.90 Respiratory failure, unspecified, unspecified whether with hypoxia or hypercapnia; R40.20 Unspecified coma; G93.1 Anoxic brain damage, not elsewhere classified; G25.3 Myoclonus; E83.42 Hypomagnesemia; D69.6 Thrombocytopenia, unspecified; Q21.1 Atrial septal defect; J98.11 Atelectasis; I27.20 Pulmonary hypertension, unspecified; I49.01 Ventricular fibrillation; I48.0 Paroxysmal atrial fibrillation; Z95.2 Presence of prosthetic heart valve; I50.9 Heart failure, unspecified; I11.0 Hypertensive heart disease with heart failure; E78.5 Hyperlipidemia, unspecified; D64.9 Anemia, unspecified; I48.92 Unspecified atrial flutter; V43.52XA Car driver injured in collision with other type car in traffic accident, initial encounter; Z95.0 Presence of cardiac pacemaker; Z66 Do not resuscitate